=== PATIENT | female | born 1945 | race Caucasian/White ===

== ENCOUNTER → 2019-07-23 11:27 | Outpatient (CLI) | payer MEDICARE, OTHER, SELFPAY ==
[2019-07-23 12:25] LABS: Alanine Aminotransferase 36 IU/L (9-52); Aspartate Aminotransferase 34 IU/L (14-36); BUN Creatinine Ratio 26.3 (6-22); Blood Urea Nitrogen 21 mg/dL (7-17); Carbon Dioxide 33 mmol/L (22-32); Chloride 94 mmol/L (98-107); Cholesterol 174 mg/dL (140-199); Estimated Glomerular Filt Rate > 60.0 mL/min (>60); Glucose 114 mg/dL (80-110); HDL Cholesterol 61 mg/dL (40-60); HEMOLYSIS < 15 (0-50); LDL Cholesterol Calculated 74 mg/dL (<100); Potassium 4.7 mmol/L (3.4-5.1); Sodium 137 mmol/L (137-145); Triglycerides 193 mg/dL (35-150)
[2019-07-23 12:31] LABS: Hematocrit 38.9 % (36-46); Mean Corpuscular HGB Conc 33.4 % (30-36); Mean Corpuscular Hemoglobin 31.1 PG (26-34); Platelet Count 204 X10^3/uL (150-400); Red Blood Cell Count 4.19 X10^6/uL (4.0-5.2); Red Cell Distribution Width 12.9 % (11.6-14.8); White Blood Cell Count 5.3 X10^3/uL (4.5-11.0)
[2019-07-23 12:42] LABS: Vitamin D 25 Hydroxy (D3) 28.7 ng/mL (30.0-100.0)
[2019-07-23 12:56] LABS: TSH w/ Reflex to FT4 0.88 uIU/mL (0.47-4.68)
[2019-07-23 13:15] LABS: Vitamin B12 890 pg/mL (239-931)
--- NOTE | 2019-09-07 11:58 | ONC.MSW ---
Description: New Referral Navigation T/C Activity: Called pt to introduce myself as the navigator, explain role, and clarify reason for referral and urgency level. Pt is seeking to establish with an oncologist for past hx of breast cancer. She does have some nodules in her stomach that are being watched, and need continued evaluation/work-up. She states that sometime in the next 2-weeks would work for her for scheduling. Explained that she will hear from scheduling next, invited her to call me should she have any additional questions/needs prior to her appt. time.
--- NOTE | 2019-09-16 14:03 | ONC.MSW ---
Description: Appt. Confirmation Activity: Pt called asking for a t/c to clarify when her appt. is-called and provided appt. and check-in time.
== END ==
PROVIDERS: Visit Provider Internal Medicine
DX: I10 Essential (primary) hypertension (principal); E78.5 Hyperlipidemia, unspecified; E55.9 Vitamin D deficiency, unspecified; D64.9 Anemia, unspecified; E89.0 Postprocedural hypothyroidism; E53.8 Deficiency of other specified B group vitamins
CPT/HCPCS: 36415; 80048; 80061; 82306; 82607; 84443; 84450; 84460; 85027

== ENCOUNTER → 2019-09-14 16:01 | Outpatient (CLI) | payer MEDICARE, OTHER, SELFPAY ==
--- NOTE | 2019-09-14 | DI.RAD.S_ITS ---
PROCEDURE: XR HIP W PEL IF DONE RT 2V INDICATIONS: RIGHT HIP PAIN TECHNIQUE: AP pelvis with lateral view(s) of the right hip(s). COMPARISON: None. FINDINGS: Bones: No fractures or dislocations but there is asymmetric hip joint osteoarthritis moderately severe on the right and moderate on the left.. Pelvic ring appears intact. No suspicious bony lesions. Prior spine surgery fixation devices are partially seen. Soft tissues: The visualized bowel gas pattern is normal. No suspicious soft tissue calcifications. IMPRESSION: No trauma found. Asymmetric right greater than left hip joint osteoarthritis as noted. Dictated by: Dwight Bahena M.D. on 09/14/2019 at 17:22 Approved by: Dwight Bahena M.D. on 09/14/2019 at 17:23
== END ==
PROVIDERS: PCP Internal Medicine; Visit Provider Internal Medicine
DX: M25.551 Pain in right hip (principal); M16.0 Bilateral primary osteoarthritis of hip
CPT/HCPCS: 73502

== ENCOUNTER → 2019-09-23 13:58 | Oncology outpatient (ONC) | payer MEDICARE, OTHER, SELFPAY ==
[2019-09-23 14:29] VITALS: BP 131/79; PULSE 77; RESP 18; TEMP 36.9; O2SAT 94
--- NOTE | 2019-09-23 15:05 | ONC.MSW ---
Description: F/F Initial Visit Activity: Met with pt to introduce myself in person. Pt is here primarily to establish care for prior breast cancer diagnosis, no immediate needs identified at this time. Encouraged her to call this TRANSLATOR/INTERPRETER anytime should she be in need of assistance in the future.
--- NOTE | 2019-09-23 15:06 | ONC.CONS ---
History of Present Illness - Data of Consult Consult date: 09/23/19 Primary Care Provider: Salma Oquendo MD - Consult Narrative Narrative: Diagnosis: Right-sided breast cancer Previous treatment: 1. Bilateral mastectomy in 1985 2. Adjuvant chemotherapy for 6 months History of present illness: Shanika Brown is a 74 year old female who has moved to the area from [place]. She has a distant history of a right-sided breast cancer that was diagnosed in 1985. She had surgery. She also had 6 months of chemotherapy on a clinical trial. She does not remember all the drugs that were involved but thinks that there was a 6 drug combination. She took steroids as part of her treatment and had substantial weight gain. She has never been able to lose that weight. She notes some ongoing difficulty with her balance. She has also noted some long-standing difficulty with memory and concentration since her chemotherapy. However, she has never had any evidence of a relapse. Today, she is feeling generally well. She has been aware of a few subcutaneous nodules in the abdomen mostly on the left side. She denies any new aches or pains. She has had some chronic back pain which has been stable. She has some arthritis as well. She has not noticed any changes on the chest wall or axilla. Appetite has been good. No shortness of breath or cough. She is otherwise without complaint today. Her past medical history is otherwise notable for hypertension, prior back surgery. She has had 2 operations. 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 She had an extended stay in rehabilitation. She also has a history of hypothyroidism. Family history is notable for multiple family members with cancers including lung, colon and bladder. There is no other family history of breast cancer however. Social history: She is retired. She and her have moved here from [place]. She does not smoke. CC: Kirill Sinclair MD Home Medications and Allergies Home Medications Medication Instructions Recorded Confirmed Type B Complex 1 (with folic acid) 1 tab DAILY 09/23/19 09/23/19 History atorvastatin 80 mg PO DAILY 09/23/19 09/23/19 History calcium carbonate [Calcium 600] 600 mg PO BID 09/23/19 09/23/19 History celecoxib [Celebrex] 200 mg PO DAILY 09/23/19 09/23/19 History cholecalciferol (vitamin D3) 5,000 unit PO DAILY 09/23/19 09/23/19 History [Vitamin D3] cyanocobalamin (vitamin B-12) 1,000 mcg PO DAILY 09/23/19 09/23/19 History [Vitamin B-12] duloxetine 60 mg PO DAILY 09/23/19 09/23/19 History ferrous gluconate 256 mg PO DAILY 09/23/19 09/23/19 History levothyroxine 88 mcg DAILY 09/23/19 09/23/19 History lisinopril-hydrochlorothiazide 1 tab PO DAILY 09/23/19 09/23/19 History magnesium oxide 400 mg PO DAILY 09/23/19 09/23/19 History melatonin 10 mg PO BEDTIME PRN 09/23/19 09/23/19 History methocarbamol 750 mg PO QID 09/23/19 09/23/19 History multivitamin 1 tab PO DAILY 09/23/19 09/23/19 History pregabalin [Lyrica] 300 mg PO BID 09/23/19 09/23/19 History trazodone 100 mg PO DAILY 09/23/19 09/23/19 History Allergies Allergy/AdvReac Type Severity Reaction Status Date / Time prochlorperazine Allergy Anaphylaxis Verified 09/23/19 14:10 [From Compazine] Review of Systems - Patient Self-Reported Symptoms SR Constitution: Fatigue/Malaise SR ears, nose, mouth, throat issues: Difficulty swallowing, Swollen glands SR Cardiovascular issues: Dizzy/lightheaded SR Gastrointestinal issues: Heartburn SR Genitourinary issues: Incontinence SR Musculoskeletal issues: Joint pain or swelling, Muscle weakness, Muscle pain or cramps, Difficulty walking, Bone pain Constitutional: decreased activity level, no weight loss Ears, nose, mouth, throat: lightheadedness Gastrointestinal: no abdominal pain Musculoskeletal: pain, weakness Endocrine: no hormone therapy Hematologic/Lymphatic: no enlarged lymph nodes Exam Vital signs: Vital Signs Temp Pulse Resp BP Pulse Ox 09/23/19 14:29 98.4 F 77 18 131/79 94 Intake and Output 09/22/19 09/23/19 09/23/19 23:59 07:59 15:59 Other: Weight 90.5 kg Patient Weight 09/23/19 23:59 Weight 90.5 kg - Constitutional positive no acute distress, positive average body habitus - Routine HEENT Exam Head: Present: normocephalic, atraumatic Eye: Present: EOMI, PERRL. Absent: conjunctival icterus, scleral injection ENT: Present: mucous membranes moist, oropharynx clear - Routine Neck Exam Present: supple. Absent: lymphadenopathy, thyromegaly - Routine Chest/Breast/Axilla Exam Comments: She has bilateral mastectomies with reconstructions. There well-healed. There is no masses or nodularity. No axillary adenopathy on either side. - Routine Respiratory Exam Present: Clear to auscultation bilaterally. Absent: rales, wheezes - Routine Cardiovascular Exam Present: RRR, S1, S2. Absent: murmur - Routine Abdominal Exam Present: soft, normoactive bowel sounds. Absent: tenderness, organomegaly, mass Comments: She does have some tiny subcutaneous nodules in the left lower to mid abdomen. They are perhaps 3-4 mm in size. There are not tender but she does find them itchy. They feel like lipomas. - Routine Extremities Exam Absent: cyanosis, clubbing, edema - Routine Back/Spine Exam Back/Spine: Present: vertebral tenderness - Routine Skin Exam Present: intact. Absent: petechiae, rash - Routine Neurological Exam Present: alert, oriented X3 - Routine Psychiatric Exam Present: normal affect, normal thought process Assessment and Plan (1) Breast cancer Current visit: Yes Status: Acute 74-year-old woman with a distant history of breast cancer. She is approximately 33 years out from her diagnosis. She has no evidence of disease and is doing well. At this point, I think the likelihood of recurrence is exceedingly small. I think the only follow-up that she needs would be an annual physical exam. This could be performed other by her primary physician or here. She would feel comfortable returning here at least once more. She will come back in 1 year for follow-up.
--- NOTE | 2019-09-24 14:54 | ONC.SCHED ---
Left msg. to make follow up in a year per dictation.
== END ==
LOC: ONC 14:11
PROVIDERS: PCP Internal Medicine
DX: Z08 Encounter for follow-up examination after completed treatment for malignant neoplasm (principal); Z85.3 Personal history of malignant neoplasm of breast; R22.2 Localized swelling, mass and lump, trunk; I10 Essential (primary) hypertension; E03.9 Hypothyroidism, unspecified; Z90.13 Acquired absence of bilateral breasts and nipples
CPT/HCPCS: 99204; 99214

== ENCOUNTER → 2019-10-07 13:07 | Outpatient (CLI) | payer MEDICARE, OTHER, SELFPAY ==
--- NOTE | 2019-10-07 | DI.MRI.S_ITS ---
PROCEDURE: MR LUMBAR SPINE WO CON INDICATIONS: Low back pain TECHNIQUE: Noncontrast sagittal T1 spin echo and T2 fast echo, sagittal STIR, axial T1 and T2 fast spin echo through the lumbar spine. In cases with scoliosis, additional coronal T2 fast spin echo may be performed. COMPARISON: None. FINDINGS: Image quality: Excellent. Alignment and Curvature: There is accentuated lumbar lordosis. There is minimal anterolisthesis at T12-L1, as minimal retrolisthesis at L1-L2. Mild grade 1 retrolisthesis is seen at L2-L3. Mild anterolisthesis is seen at L5-S1. Bone Marrow: Marrow is of normal overall signal. No acute vertebral body compression fractures. Spinal Cord: Conus medullaris terminates at the L1 level. Visualized cord demonstrates normal signal and size. Paraspinous Soft Tissues: No paravertebral masses. Postoperative changes are seen, with disc spacers at the L1-L2, L2-L3, L3-L4, and L5-S1 levels. There has been removal of portions of the posterior elements. T12-L1: Moderate to severe loss of disc height and disc signal are seen. Moderate disc bulge is seen. There is a central disc protrusion present. There is moderate right-sided and moderate to severe left-sided neural foraminal narrowing seen. There is compression seen upon the exiting left T12 nerve root. Moderate to severe central canal narrowing is seen, as on series 5 image 11. L1-L2: Moderate bulge is seen. There is moderate to severe right-sided and moderate left-sided neural foraminal narrowing seen. There is a degree of compression seen upon the exiting nerve roots. Mild central canal narrowing is seen. L2-L3: Moderate generalized disc bulge is seen. Moderate facet joint hypertrophy is seen. There is severe bilateral neural foraminal narrowing seen. There is a degree of compression seen upon the exiting nerve roots. Moderate central canal narrowing is seen. L3-L4: Moderate generalized disc bulge is seen. Moderate to prominent facet hypertrophy is seen. Moderate to severe bilateral neural foraminal narrowing can be seen. There is a degree of compression seen upon the exiting nerve roots. Mild central canal narrowing is seen. L4-L5: Moderate generalized disc bulge is seen. Moderate to prominent facet hypertrophy is seen. There is at least moderate bilateral neural foraminal narrowing seen. There is a degree of compression seen upon the exiting nerve roots. No significant central canal narrowing is seen. L5-S1: The disc height is well-preserved. Loss of disc signal is seen at this level. Prominent facet hypertrophy is seen. Moderate to severe bilateral neural foraminal narrowing can be seen. There is a degree of compression seen upon the exiting nerve roots. At least moderate central canal narrowing is seen. IMPRESSION: Postoperative changes are seen. Degenerative changes are seen, including severe bilateral neural foraminal narrowing at L2-L3. Several levels of moderate to severe neural foraminal narrowing can be seen elsewhere. Associated nerve root compression can be seen. Dictated by: Philip Noriega M.D. on 10/07/2019 at 16:08 Approved by: Philip Noriega M.D. on 10/07/2019 at 16:14
== END ==
PROVIDERS: PCP Internal Medicine; Visit Provider Anesthesiology Pain Medicine
DX: M54.5 Low back pain (principal); M47.816 Spondylosis without myelopathy or radiculopathy, lumbar region; M47.817 Spondylosis without myelopathy or radiculopathy, lumbosacral region; M48.061 Spinal stenosis, lumbar region without neurogenic claudication; M48.07 Spinal stenosis, lumbosacral region
CPT/HCPCS: 72148

== ENCOUNTER → 2020-04-06 12:55 | Outpatient (CLI) | payer MEDICARE, OTHER, SELFPAY ==
[2020-04-06 14:09] LABS: Alanine Aminotransferase 24 IU/L (<35); Albumin 4.6 g/dL (3.5-5.0); Albumin Globulin Ratio 1.6 (1.0-2.8); Alkaline Phosphatase 113 U/L (38-126); Aspartate Aminotransferase 33 IU/L (14-36); BUN Creatinine Ratio 20.7 (6-22); Bilirubin Total 0.5 mg/dL (0.2-1.3); Blood Urea Nitrogen 17 mg/dL (7-17); Carbon Dioxide 33 mmol/L (22-32); Chloride 101 mmol/L (98-107); Estimated Glomerular Filt Rate > 60.0 mL/min (>60); Globulin 2.9 g/dL (1.7-4.1); Glucose 123 mg/dL (80-110); HDL Cholesterol 45 mg/dL (40-60); HEMOLYSIS < 15 (0-50); Potassium 4.3 mmol/L (3.4-5.1); Sodium 138 mmol/L (137-145); Total Protein 7.5 g/dL (6.3-8.2); Triglycerides 359 mg/dL (35-150)
[2020-04-06 14:16] LABS: Erythrocyte Sedimentation Rate 4 MM/HR (0-20)
[2020-04-06 14:42] LABS: C-Reactive Protein Quant < 0.5 mg/dL (<1.0)
[2020-04-06 14:43] LABS: Cholesterol 333 mg/dL (140-199); LDL Cholesterol Calculated 216 mg/dL (<100)
[2020-04-06 14:46] LABS: Thyroid Stimulating Hormone 1.08 uIU/mL (0.47-4.68)
[2020-04-06 16:00] LABS: Vitamin D 25 Hydroxy (D3) 33.6 ng/mL (30.0-100.0)
== END ==
PROVIDERS: PCP Internal Medicine; Referring Provider Internal Medicine; Visit Provider Internal Medicine
DX: R51 Headache (principal); E55.9 Vitamin D deficiency, unspecified
CPT/HCPCS: 36415; 80053; 80061; 82306; 84443; 85651; 86140

== ENCOUNTER → 2020-04-18 13:39 | Outpatient (CLI) | payer MEDICARE, OTHER, SELFPAY ==
--- NOTE | 2020-04-18 | DI.MRI.S_ITS ---
PROCEDURE: MR THORACIC SPINE WO CON INDICATIONS: Upper back pain TECHNIQUE: Noncontrast sagittal T1 spine echo and T2 fast spin echo, sagittal STIR, axial T1 and T2 fast spin echo through the thoracic spine. COMPARISON: [facility], MR, MR LUMBAR SPINE WO/W CON, 04/18/2020, 14:50. [facility], MR, MR LUMBAR SPINE WO CON, 10/07/2019, 13:16. FINDINGS: Image quality: Excellent. Alignment and Curvature: There is trace retrolisthesis of C6 on C7. Bone Marrow: Marrow is of normal overall signal. No acute vertebral body compression fractures. Spinal Cord: Visualized spinal cord is normal in size and signal. Paraspinous Soft Tissues: No paravertebral masses. Miscellaneous: Multilevel moderate disc desiccation is present throughout the thoracic spine. Minimal disc bulge is present at T1-T2, C5-6, T6-7, T7-8, T8 and in, T9-10, T10-11, T11-12 and T12-L1. There is minimal effacement of the anterior thecal sac at T6-7, minimal spinal stenosis T7-8, mild to moderate spinal stenosis T8-T9,, minimal to mild stenosis at T10-11 and mild to moderate stenosis T12-L1. Mild bilateral foraminal narrowing T8-T9, mild left T9 and 10, moderate left, mild right T11-12, moderate to severe left, moderate right T12-L1. IMPRESSION: 1. Multilevel disc bulges. 2. Multilevel areas of spinal stenosis secondary to disc bulge as above, most notable at T8-9, T12-L1. 3. Focal areas of foraminal narrowing as noted above. Dictated by: Teri Mooney M.D. on 04/18/2020 at 16:59 Approved by: Teri Mooney M.D. on 04/18/2020 at 17:05
--- NOTE | 2020-04-18 | DI.MRI.S_ITS ---
PROCEDURE: MR LUMBAR SPINE WO/W CON INDICATIONS: Low back pain TECHNIQUE: Noncontrast sagittal T1 spin echo and T2 fast spin echo, sagittal STIR, axial T1 and T2 fast spin echo through the lumbar spine. In cases with scoliosis, additional coronal T2 fast spin echo may be performed. After the administration of contrast, sagittal and axial T1 spin echo with fat saturation through the lumbar spine. COMPARISON: [facility], MR, MR THORACIC SPINE WO CON, 04/18/2020, 13:53. [facility], MR, MR LUMBAR SPINE WO CON, 10/07/2019, 13:16. FINDINGS: Image quality: Excellent. Alignment and curvature: Prominent lumbar lordosis is present. There is trace retrolisthesis of T12 on L1, L1 on L2, L2 on L3 comment trace anterolisthesis of L5 on S1, unchanged. Postsurgical changes are present in her presenting disc spacers from L1-L2 through L4-5 with resection of posterior elements. Marrow: Marrow is of normal overall signal. No acute vertebral body compression fractures. Old compression deformity at L2 is unchanged. No suspicious marrow enhancement. Spinal cord: Conus medullaris terminates at the L1 level. Visualized spinal cord demonstrates normal signal, without suspicious enhancement. Paraspinous soft tissues: No paravertebral masses or abnormal enhancement. Discs: Moderate to severe desiccation is present throughout the lumbar spine. L1-L2: Mild disc bulge with mild spinal stenosis. There is moderate to severe bilateral foraminal narrowing appearing minimally progressive on the left compared to prior exam. Facet and ligamentum flavum hypertrophy are present. L2-L3: Mild disc bulge with moderate spinal stenosis. Severe bilateral foraminal narrowing with compression of exiting nerve roots bilaterally is present. Facet hypertrophy is present. No interval change. L3-L4: Mild disc bulge with mild spinal stenosis. Moderate to severe bilateral foraminal narrowing with facet hypertrophy. No interval change. L4-L5: Mild disc bulge without spinal stenosis. Moderate bilateral foraminal narrowing with slight compromise of the exiting nerve roots. Facet hypertrophy is present. No interval change. L5-S1: Mild disc bulge with severe spinal stenosis appearing slightly progressive. There is moderate to severe bilateral foraminal narrowing facet hypertrophy. No interval change. IMPRESSION: 1. Multilevel degenerative and post operative changes as above. Overall, minimal interval progression. 2. Prominent multilevel foraminal narrowing is present predominantly secondary to facet arthropathy and most significant at L2-3. Dictated by: Teri Mooney M.D. on 04/18/2020 at 17:06 Approved by: Teri Mooney M.D. on 04/18/2020 at 17:13
== END ==
PROVIDERS: PCP Internal Medicine; Referring Provider Internal Medicine; Visit Provider Internal Medicine
DX: M47.26 Other spondylosis with radiculopathy, lumbar region (principal); M47.27 Other spondylosis with radiculopathy, lumbosacral region; M48.04 Spinal stenosis, thoracic region; M48.05 Spinal stenosis, thoracolumbar region; M48.07 Spinal stenosis, lumbosacral region; M48.061 Spinal stenosis, lumbar region without neurogenic claudication; M51.14 Intervertebral disc disorders with radiculopathy, thoracic region; G89.29 Other chronic pain
CPT/HCPCS: 72146; 72158

== ENCOUNTER → 2020-05-31 13:42 | Outpatient (CLI) | payer MEDICARE, OTHER, SELFPAY ==
--- NOTE | 2020-05-31 | DI.MRI.S_ITS ---
PROCEDURE: MR CERVICAL SPINE WO CON INDICATIONS: CERVICALGIA TECHNIQUE: Noncontrast sagittal T1 spin echo and T2 fast spin echo, sagittal STIR, foraminal oblique sagittal T2 fast spin echo, and axial gradient echo or T2 fast spin echo through the cervical spine. COMPARISON: None. FINDINGS: Image quality: This examination is limited by involuntary motion artifact. Alignment and Curvature: There is mild reversal of the normal cervical lordosis, with the apex at the C4-C5 level. Bone Marrow: Marrow demonstrates normal overall signal. Spinal Cord: Visualized spinal cord has normal size and signal. No cerebellar tonsillar herniation. Paraspinous Soft Tissues: No paravertebral masses. Prevertebral soft tissues are normal in thickness. C2-C3: The disc height is well-preserved. Loss of disc signal is seen at this level. Mild to moderate disc osteophyte complex is seen, with a mild central disc osteophyte protrusion. There is moderate right-sided and [id number] left-sided facet hypertrophy seen. There is mild to moderate left-sided and no significant right-sided neural foraminal narrowing seen. Mild to moderate central canal narrowing is seen. C3-C4: Mild loss of disc height is seen. Loss of disc signal is seen. Moderate generalized disc osteophyte complex is seen. There is a central disc osteophyte protrusion seen. There is moderate right-sided and mild left-sided facet hypertrophy seen. There is moderate to severe right-sided and at least moderate left-sided neural foraminal narrowing seen. Moderate central canal narrowing is seen. There is associated mass effect upon the ventral spinal cord. C4-C5: The disc height is well-preserved. Loss of disc signal is seen at this level. Mild to moderate disc osteophyte complex is seen, which is eccentric to the left. Mild to moderate facet hypertrophy is seen. There is a at least moderate left-sided and minimal to mild right-sided neural foraminal narrowing seen. Mild to moderate central canal narrowing is seen. C5-C6: Mild loss of disc height is seen. Loss of disc signal is seen. Moderate disc osteophyte complex is seen at this level. There is a central/right disc osteophyte protrusion, as on series 3, image 29. Moderate facet hypertrophy is seen, left worse than right. There is moderate to severe bilateral neural foraminal narrowing seen. Moderate to severe central canal narrowing is seen. There is associated mass effect upon the ventral spinal cord. C6-C7: There is at least moderate loss of disc height and disc signal seen. Moderate prominent disc osteophyte complex is seen, which is eccentric to the right. There is also a central/left disc osteophyte protrusion, as on series 3, image 33. Uncovertebral joint hypertrophy is seen at this level. Moderate facet joint hypertrophy is seen. Moderate to severe bilateral neural foraminal narrowing is seen. Moderate to severe central canal narrowing is seen, with associated ventral cord flattening. C7-T1: The disc height is well-preserved. Loss of disc signal is seen at this level. Mild to moderate disc osteophyte complex is seen. Mild facet joint hypertrophy is seen. There is mild right-sided and [id number] left-sided neural foraminal narrowing seen. Minimal central canal narrowing is seen. IMPRESSION: Multiple levels of cervical spine degenerative change are seen, which are most prominent at the C6-C7 level. Reversal of the normal cervical lordosis is seen. This is commonly observed in patients with muscular spasm. Dictated by: Philip Noriega M.D. on 05/31/2020 at 15:17 Approved by: Philip Noriega M.D. on 05/31/2020 at 15:23
[2020-05-31 15:39] LABS: Erythrocyte Sedimentation Rate 5 MM/HR (0-20)
[2020-05-31 15:45] LABS: C-Reactive Protein Quant 0.6 mg/dL (<1.0)
== END ==
PROVIDERS: PCP Internal Medicine; Referring Provider Internal Medicine Gastroenterology; Visit Provider Internal Medicine Gastroenterology
DX: M54.2 Cervicalgia (principal); M47.812 Spondylosis without myelopathy or radiculopathy, cervical region; R51 Headache; M54.17 Radiculopathy, lumbosacral region
CPT/HCPCS: 36415; 72141; 85651; 86140

== ENCOUNTER → 2020-09-27 14:51 | Outpatient (CLI) | payer MEDICARE, OTHER, SELFPAY ==
--- NOTE | 2020-09-27 15:17 | DI.ECHO.S_ITS ---
:Name: EMEKA CALLEJAS Study Date: 09/27/2020 Height: 64 in : :Hospital Weight: 200 lb : : Gender: Female BSA: 2.0 m2 : :: 1945 Age: 75 yrs BP: 148/81 mmHg: :Reason For Study: SLEEP APNEA, DYSPNEA : :Ordering Physician: SAJI LADDPerformed By: Camila Smith : :Referring: SAJI LADD : + + Interpretation Summary The left ventricle is normal in size. The left ventricular cavity is small. A minimal intracavitary gradient is suspected. The left ventricle is hyperdynamic. The ejection fraction is estimated to be 70-75%. There are no focal wall motion abnormalities. Diastolic parameters suggest a relaxation abnormality of the left ventricle, consistent with probable normal filling pressures. The right ventricle is normal in size and function. The left atrial size is normal. Right atrial size is normal. There is no significant valvular heart disease. The ascending aorta is mildly enlarged. Procedure: A two-dimensional transthoracic echocardiogram with color flow and Doppler was performed. The study quality was technically adequate. There is no prior echocardiogram noted for this patient. The patient was in sinus rhythm with heart rates between 75-83 bpm during the exam. Left Ventricle: The left ventricle is normal in size. There is mild concentric left ventricular hypertrophy. The left ventricular cavity is small. An intracavitary gradient is suspected. The left ventricle is hyperdynamic. The ejection fraction is estimated to be 70-75%. There are no focal wall motion abnormalities. Diastolic parameters suggest a relaxation abnormality of the left ventricle, consistent with probable normal filling pressures. Right Ventricle: The right ventricle is normal in size and function. Atria: The left atrial size is normal. Right atrial size is normal. There is no Doppler evidence for an interatrial shunt. Mitral Valve: The mitral valve leaflets appear mildly thickened, but open well. There is no mitral regurgitation noted. Aortic Valve: The aortic valve is trileaflet. The aortic valve opens well. There is no aortic valve stenosis. There is trace aortic regurgitation. Tricuspid Valve: The tricuspid valve is normal in structure and function. No tricuspid regurgitation. Pulmonary artery pressures cannot be estimated because of the lack of a measurable TR jet velocity but the IVC suggests a CVP of around 3 mmHg. Pulmonic Valve: The pulmonic valve leaflets are thin and pliable; valve motion is normal. There is no pulmonic valvular regurgitation. There is no significant valvular heart disease. Great Vessels: The aortic root is normal size. The ascending aorta is mildly enlarged. The IVC is of normal diameter and collapses greater than 50% with a sniff. This suggests a low right atrial pressure of 3 mm Hg. Pericardium/ Pleura There is no pericardial effusion. There is no pleural effusion. MMode/2D Measurements & Calculations LVIDd: 4.1 cm LVOT diam: 2.0 cm LVIDs: 2.7 cm Ao root diam: 3.6 cm FS: 35.2 % asc Aorta Diam: 3.5 cm IVSd: 1.1 cm Ao Arch Diam (Prox Trans): 2.7 cm LVPWd: 1.2 cm LV brenner. diameter/BSA (cm/m^2): 2.1 LV sys. diameter/BSA (cm/m^2): 1.4 LA A2 area: 21.4 cm2 RA long axis: 4.6 cm LA A4 area: 15.1 cm2 RA area: 11.4 cm2 LA length (vol): 5.1 cm RA vol: 23.9 ml LA vol: 53.5 ml RA : 12.2 ml/m2 LA vol index: 27.3 ml/m2 IVC diam: 1.5 cm RVD1 (basal): 2.9 cm TAPSE: 2.2 cm Doppler Measurements & Calculations Ao V2 max: 143.0 cm/sec LVOT Max Tacos: 105.0 cm/sec Ao V2 mean: 104.1 cm/sec LV V1 max P.4 mmHg Ao max P.2 mmHg LV V1 VTI: 20.8 cm Ao mean P.8 mmHg STACIE(I,D): 2.2 cm2 Ao V2 VTI: 29.6 cm STACIE(V,D): 2.3 cm2 sev ratio: 0.70 STACIE indexed to BSA (cm^2/m^2): 1.1 MV E max tacos: 68.0 cm/sec PA V2 max: 92.9 cm/sec MV A max tacos: 81.7 cm/sec PA V2 mean: 61.3 cm/sec MV E/A: 0.83 PA mean P.8 mmHg Med Peak E' Tacos: 7.0 cm/sec PA pr(Accel): 49.9 mmHg E/E' med: 9.8 Lat Peak E' Tacos: 9.8 cm/sec E/E' lat: 6.9 E/e' average: 8.4 MV dec time: 0.28 sec SV(LVOT): 64.5 ml Reading Physician:07:14 PM
== END ==
PROVIDERS: PCP Internal Medicine; Referring Provider Internal Medicine; Visit Provider Internal Medicine
DX: R06.00 Dyspnea, unspecified (principal); G47.30 Sleep apnea, unspecified; I77.89 Other specified disorders of arteries and arterioles
CPT/HCPCS: 93306

== ENCOUNTER → 2020-10-03 10:33 | Outpatient (CLI) | payer MEDICARE, OTHER, SELFPAY ==
[2020-10-03 11:53] LABS: Hemoglobin A1C% w Est Avg Glu 5.8 % (4.0-6.0)
[2020-10-03 12:16] LABS: Alanine Aminotransferase 23 IU/L (<35); Cholesterol 186 mg/dL (140-199); HDL Cholesterol 54 mg/dL (40-60); LDL Cholesterol Calculated 101 mg/dL (<100); Triglycerides 157 mg/dL (35-150)
[2020-10-03 12:26] LABS: NT-proBNP (BNP-Adult 18+) 48 pg/mL (<450)
[2020-10-05 16:20] LABS: ANA Screen, IFA Negative (.)
== END ==
PROVIDERS: PCP Internal Medicine; Referring Provider Internal Medicine; Visit Provider Internal Medicine
DX: E78.5 Hyperlipidemia, unspecified (principal); R06.00 Dyspnea, unspecified; R73.9 Hyperglycemia, unspecified; H04.123 Dry eye syndrome of bilateral lacrimal glands; K11.7 Disturbances of salivary secretion; Z85.3 Personal history of malignant neoplasm of breast; G47.30 Sleep apnea, unspecified; E53.8 Deficiency of other specified B group vitamins
CPT/HCPCS: 36415; 80061; 81162; 83036; 83880; 84460; 86038

== ENCOUNTER → 2020-10-07 09:43 | Outpatient (CLI) | payer MEDICARE, OTHER, SELFPAY ==
--- NOTE | 2020-10-07 | DI.US.S_ITS ---
PROCEDURE: US PERIPH VENOUS LOW EXTREM RT INDICATIONS: PAIN TECHNIQUE: Real-time imaging, as well as color and pulse Doppler interrogation, were performed of the lower extremity deep veins from the inguinal ligament to the popliteal fossa. COMPARISON: None. FINDINGS: The common femoral, femoral and popliteal veins are normally compressible, and free of intraluminal thrombus. Color and pulse Doppler demonstrate normal phasic intraluminal flow. There is normal augmentation response to distal compression maneuver. IMPRESSION: No right lower extremity DVT. Dictated by: Kevin Chong M.D. on 10/07/2020 at 18:39 Approved by: Kevin Chong M.D. on 10/07/2020 at 18:40
== END ==
PROVIDERS: PCP Internal Medicine; Referring Provider Internal Medicine; Visit Provider Internal Medicine
DX: M79.661 Pain in right lower leg (principal)
CPT/HCPCS: 93971

== ENCOUNTER 2020-11-08 15:32 | Emergency (ER) | payer MEDICARE, OTHER, SELFPAY ==
[2020-11-08 15:40] VITALS: PULSE 81; O2SAT 96
[2020-11-08 15:42] VITALS: PULSE 76; RESP 16; TEMP 37; O2SAT 99; BMI 33.5
--- NOTE | 2020-11-08 15:46 | DI.CT.S_ITS ---
PROCEDURE: CT HEAD/BRAIN WO CON INDICATIONS: hit head 11/04 pain, nausea and confusion since TECHNIQUE: Noncontrast 4.5 mm thick angled axial sections acquired from the foramen magnum to the vertex, with coronal and sagittal reformats. For radiation dose reduction, the following was used: automated exposure control, adjustment of mA and/or kV according to patient size. COMPARISON: None. FINDINGS: Image quality: Excellent. CSF spaces: Basal cisterns are patent. No extra-axial fluid collections. Ventricles are normal in size and shape. Brain: No midline shift. No intracranial masses or hemorrhage. Basal ganglia calcifications. No area of hypodensity in a large vascular distribution to suggest acute infarction. Periventricular hypodensity consistent with chronic microvascular ischemic change. Age-related parenchymal loss. Skull and face: Calvarium and visualized facial bones are intact, without suspicious lesions. Sinuses: Visualized sinuses and mastoids are clear. IMPRESSION: No acute intracranial abnormality. Chronic microvascular ischemic disease. Dictated by: Kevin Chong M.D. on 11/08/2020 at 16:14 Approved by: Kevin Chong M.D. on 11/08/2020 at 16:16
[2020-11-08 17:51] VITALS: BP 142/67; PULSE 75; RESP 18; O2SAT 94
--- NOTE | 2020-11-08 18:40 | ED_ITS ---
HPI - Head Injury General Chief complaint: Head Injury Stated complaint: nausea, headache, confusion s/p head injury 11/04 Time Seen by Provider: 11/08/20 18:40 Source: patient Mode of arrival: Wheelchair History of Present Illness HPI Narrative: The patient was at an arts event 4 days ago, while there she stumbled, fell backwards. She landed on her buttocks, her head snapped back, she hit the occiput of her head. She thinks she experienced brief LOC. she still has headache, she still feels confused. She has no vision changes. She has no speech changes. She has no peripheral numbness or weakness. Additionally, she has undergone prior lumbar surgery. She has a lumbar fusion with a stimulator in place. She complains of lumbar back pain. She is ambulatory, no numbness or weakness to lower extremities. She has no incontine nce. Related Data Home Medications Medication Instructions Recorded Confirmed B Complex 1 (with folic acid) 1 tab DAILY 09/23/19 09/23/19 atorvastatin 80 mg PO DAILY 09/23/19 09/23/19 calcium carbonate [Calcium 600] 600 mg PO BID 09/23/19 09/23/19 celecoxib [Celebrex] 200 mg PO DAILY 09/23/19 09/23/19 cholecalciferol (vitamin D3) 5,000 unit PO DAILY 09/23/19 09/23/19 [Vitamin D3] cyanocobalamin (vitamin B-12) 1,000 mcg PO DAILY 09/23/19 09/23/19 [Vitamin B-12] duloxetine 60 mg PO DAILY 09/23/19 09/23/19 ferrous gluconate 256 mg PO DAILY 09/23/19 09/23/19 levothyroxine 88 mcg DAILY 09/23/19 09/23/19 lisinopril-hydrochlorothiazide 1 tab PO DAILY 09/23/19 09/23/19 magnesium oxide 400 mg PO DAILY 09/23/19 09/23/19 melatonin 10 mg PO BEDTIME PRN 09/23/19 09/23/19 methocarbamol 750 mg PO QID 09/23/19 09/23/19 multivitamin 1 tab PO DAILY 09/23/19 09/23/19 pregabalin [Lyrica] 300 mg PO BID 09/23/19 09/23/19 trazodone 100 mg PO DAILY 09/23/19 09/23/19 Allergies Allergy/AdvReac Type Severity Reaction Status Date / Time prochlorperazine Allergy Anaphylaxis Verified 11/08/20 15:44 [From Compazine] Review of Systems Constitutional Constitutional: Reports system reviewed and no additional complaints, except as documented, Denies fatigue, Denies fever(s), Denies frequent falls, Reports headache(s) and Denies weakness Eyes Eyes: Denies blurry vision and Denies change in vision ENT Ears, Nose, Mouth, and Throat: Reports dizziness, Reports headache(s), Denies epistaxis, Denies mouth lesions and Denies sore throat Cardiovascular Cardiovascular: Denies chest pain, Denies irregular heart rhythm, Denies lightheadedness and Denies dyspnea Respiratory Respiratory: Denies cough, Denies dyspnea and Denies wheezing Gastrointestinal Gastrointestinal: Denies abdominal pain, Denies nausea and Denies vomiting Genitourinary Genitourinary: Denies dysuria and Denies urinary incontinence Genitourinary: Denies dysuria and Denies urinary incontinence Musculoskeletal Musculoskeletal: Denies numbness Comments: Lumbar pain as noted HPI. No peripheral numbness or weakness. No extremity injuries. Integumentary/Breasts Skin/Breast: Denies erythema, Denies rash and Denies wounds Neurologic Neurologic: Denies behavioral changes, Reports confusion, Reports dizziness, Denies frequent falls, Reports headache(s), Denies numbness, Denies sensory deficit and Denies weakness Psychiatric Psychiatric: Denies anxiety, Denies behavioral changes, Reports confusion and Denies depression Endocrine Endocrine: Denies fatigue Allergic/Immunologic Allergic/Immunologic: Denies wheezing Patient History Medical History Fusion of lumbar spine Surgical History History of bilateral knee replacement Social History Smoking Status: Never smoker Smoking Status: Never smoker alcohol intake frequency: a few times a month Substance Use Type: does not use Exam Initial Vital Signs Initial Vital Signs: Vital Signs Pulse Rate 81 11/08/20 15:40 Pulse Oximetry 96 11/08/20 15:40 Const General: cooperative and well developed Nutritional Appearance: well nourished Limitations: mental status not altered [facility] Head: normocephalic, atraumatic and other (No visual or palpable deformities.) Mouth: oral mucosae normal, tongue normal and moist mucous membranes Teeth and gingiva: dentition normal Throat: posterior oropharynx normal Eyes General: appearance normal, both eyes and all related structures Eyelids: eyelids normal Conjunctivae: conjunctivae normal Sclera: sclerae normal Pupils: PERRL EOM: EOM intact bilaterally Neck Neck: normal visual inspection, full ROM and supple Resp Auscultation: clear to auscultation bilaterally Cardio Rate: regular rate Rhythm: regular rhythm Heart Sounds: no click, no gallops, no murmurs and no rubs Pulses: normal peripheral pulses Back/Spine/Pelvis Other: Lumbar tenderness, around scars from prior operative sites. No palpable defects. No SI tenderness. No evidence of injury. Skin General: no rashes or lesions noted, No jaundice and No petechiae Neuro General: patient alert, patient awake and patient oriented x3 Motor: muscle tone normal throughout Sensory Exam: no sensory deficits noted Extrem General: normal to inspection and full ROM Other: Normal gait. No trauma. Psych Mental Status: mental status grossly normal Course Orders Ordered: ED Orders 11/08/20 15:46 CT head/brain wo con Stat 11/08/20 18:42 XR lumbar spine 2-3V Stat Vital Signs Vital signs: Vital Signs - 8 hr 11/08/20 17:51 11/08/20 19:46 Pulse Rate 75 78 Respiratory Rate 18 16 Blood Pressure 142/67 H 141/68 H Pulse Oximetry 94 96 MDM - Head Injury Imaging Data CT scan - head: Radiologist's Impression: [address] [id number] Scan ReportSigned Patient: Shanika Brown CMR#: [id number]: 1945cct:[id number]/Sex: 75 / FDate of Service: 11/08/20Loc: EDAccession Number: [id number] Procedure: CT head/brain wo con Ordering Provider: Radha Smith D.O. PROCEDURE: CT HEAD/BRAIN WO CON INDICATIONS: hit head 11/04 pain, nausea and confusion since TECHNIQUE: Noncontrast 4.5 mm thick angled axial sections acquired from the foramen magnum to the vertex, with coronal and sagittal reformats. For radiation dose reduction, the following was used: automated exposure control, adjustment of mA and/or kV according to patient size. COMPARISON: None. FINDINGS: Image quality: Excellent. CSF spaces: Basal cisterns are patent. No extra-axial fluid collections. Ventricles are normal in size and shape. Brain: No midline shift. No intracranial masses or hemorrhage. Basal ganglia calcifications. No area of hypodensity in a large vascular distribution to suggest acute infarction. Periventricular hypodensity consistent with chronic microvascular ischemic change. Age-related parenchymal loss. Skull and face: Calvarium and visualized facial bones are intact, without suspicious lesions. Sinuses: Visualized sinuses and mastoids are clear. IMPRESSION: No acute intracranial abnormality. Chronic microvascular ischemic disease. Dictated by: Kevin Chong M.D. on 11/08/2020 at 16:14 Approved by: Kevin Chong M.D. on 11/08/2020 at 16:16 Lumbar spine XR: Radiologist's Impression: 56 Jaziel Theodore MD Find Patient Imaging - Shanika Brown 75 F 1945 ACTIVITY DATE EXAM STATUS AUTHOR 11/08/20 18:42 Signed Teri Mooney 11/08/20 15:[address] [id number] ReportSigned Patient: Shanika Brown CMR#: [id number]: 1945cct:[id number]/Sex: 75 / FDate of Service: 11/08/20Loc: EDAccession Number: [id number] Procedure: XR lumbar spine 2-3V Ordering Provider: Jaziel Theodore MD PROCEDURE: XR LUMBAR SPINE 2-3V INDICATIONS: Follow-up. Lumbar pain. Prior lumbar surgery. TECHNIQUE: 3 views of the lumbar spine were acquired. COMPARISON: [facility], , MR LUMBAR SPINE WO/W CON, 04/18/2020, 14:50. [facility], , MR LUMBAR SPINE WO CON, 10/07/2019, 13:16. FINDINGS: Bones: 5 [id number] vertebrae are present. Intervertebral spacers are present at L1-L2, L2-3, L3-4 and L4-5. Severe compression deformity at L2 with retrolisthesis of L2 on L3 is unchanged. Multilevel severe foraminal narrowing is present throughout the lumbar spine. No vertebral body compression fractures. No suspicious bony lesions. Soft tissues: Overlying bowel gas pattern is normal. No suspicious soft tissue calcifications. Stimulator device is noted overlying the right lower quadrant with wires identified extending to superior to the included [id number]. IMPRESSION: Multilevel postsurgical and degenerative changes. Overall, appearance is relatively stable compared to MRI of 04/18/2020. Dictated by: Teri Mooney M.D. on 11/08/2020 at 19:28 Approved by: Teri Mooney M.D. on 11/08/2020 at 19:30 Discharge Plan Departure Patient Disposition: Home Clinical Impression: Concussion Qualifiers: Encounter type: initial encounter Loss of consciousness presence/duration: with LOC of 30 min or less Qualified Code(s): S06.0X1A - Concussion with loss of consciousness of 30 minutes or less, initial encounter Acute lumbar myofascial strain Qualifiers: Encounter type: initial encounter Qualified Code(s): S39.012A - Strain of muscle, fascia and tendon of lower back, initial encounter Instructions: Concussion Activity Restrictions/Additional Instructions: Tylenol 2 tabs every 4 hours as needed for low back pain. Regarding the concussion, rest at home. Avoid significant activity. Tried to let your brain rest. Return the ER as necessary. Prescriptions: No Action B Complex 1 (with folic acid) 1 tab DAILY RF: 0 multivitamin Tablet 1 tab PO DAILY RF: 0 celecoxib [Celebrex] 200 mg Capsule 200 mg PO DAILY RF: 0 cyanocobalamin (vitamin B-12) [Vitamin B-12] 1,000 mcg Tablet Extended Release 1,000 mcg PO DAILY RF: 0 atorvastatin 80 mg Tablet 80 mg PO DAILY RF: 0 levothyroxine 88 mcg Tablet 88 mcg DAILY RF: 0 calcium carbonate [Calcium 600] 600 mg calcium (1,500 mg) Tablet 600 mg PO BID RF: 0 methocarbamol 750 mg Tablet 750 mg PO QID RF: 0 trazodone 100 mg Tablet 100 mg PO DAILY RF: 0 lisinopril-hydrochlorothiazide 20-25 mg Tablet 1 tab PO DAILY RF: 0 duloxetine 60 mg Capsule,Delayed Release(Dr/Ec) 60 mg PO DAILY RF: 0 pregabalin [Lyrica] 300 mg Capsule 300 mg PO BID RF: 0 cholecalciferol (vitamin D3) [Vitamin D3] 5,000 unit Tablet 5,000 unit PO DAILY RF: 0 magnesium oxide 400 mg magnesium Capsule 400 mg PO DAILY RF: 0 melatonin 10 mg Tablet 10 mg PO BEDTIME PRN (Reason: Insomnia) RF: 0 ferrous gluconate 256 mg (28 mg iron) Tablet 256 mg PO DAILY RF: 0 Referrals: Sangeeta Vazquez MD [Primary Care Provider] -
--- NOTE | 2020-11-08 18:42 | DI.RAD.S_ITS ---
PROCEDURE: XR LUMBAR SPINE 2-3V INDICATIONS: Follow-up. Lumbar pain. Prior lumbar surgery. TECHNIQUE: 3 views of the lumbar spine were acquired. COMPARISON: [facility], MR, MR LUMBAR SPINE WO/W CON, 04/18/2020, 14:50. [facility], MR, MR LUMBAR SPINE WO CON, 10/07/2019, 13:16. FINDINGS: Bones: 5 [id number] vertebrae are present. Intervertebral spacers are present at L1-L2, L2-3, L3-4 and L4-5. Severe compression deformity at L2 with retrolisthesis of L2 on L3 is unchanged. Multilevel severe foraminal narrowing is present throughout the lumbar spine. No vertebral body compression fractures. No suspicious bony lesions. Soft tissues: Overlying bowel gas pattern is normal. No suspicious soft tissue calcifications. Stimulator device is noted overlying the right lower quadrant with wires identified extending to superior to the included [id number]. IMPRESSION: Multilevel postsurgical and degenerative changes. Overall, appearance is relatively stable compared to MRI of 04/18/2020. Dictated by: Teri Mooney M.D. on 11/08/2020 at 19:28 Approved by: Teri Mooney M.D. on 11/08/2020 at 19:30
[2020-11-08 19:46] VITALS: BP 141/68; PULSE 78; RESP 16; O2SAT 96
== END 2020-11-08 19:46 | disposition home or self-care (01) ==
PROVIDERS: Emergency Provider Emergency Medicine; PCP Internal Medicine
DX: S06.0X1A Concussion with loss of consciousness of 30 minutes or less, initial encounter (principal); S39.012A Strain of muscle, fascia and tendon of lower back, initial encounter; R51.9 Headache, unspecified; R41.0 Disorientation, unspecified; W19.XXXA Unspecified fall, initial encounter
CPT/HCPCS: 70450; 72100; 99281; 99284

== ENCOUNTER → 2020-12-14 13:25 | Outpatient (CLI) | payer MEDICARE, OTHER, SELFPAY ==
--- NOTE | 2021-01-10 08:35 | PM.CARDMON.1 ---
[employer] Report Referral & Results Date Patient Seen: 12/14/20 Requesting provider: Emma Larios Indication: Palpitations Duration of monitoring (days): 14 Diary information: There were 6 patient triggered events and 4 patient diary entries Patient triggered events were associated with (within 45 seconds) sinus rhythm, PVCs, and SVT Patient diary entries were associated with (within 45 seconds) sinus rhythm only Data: Minimum heart rate identified was 61 beats per minute at 08:14 on 12/22/2020 Maximum sinus heart rate was 120 beats per minute at 13:36 on 12/24/2020 Maximum overall heart rate was 203 beats per minute at 20:00 on 12/21/2020 during a 5 beat run of SVT Less than 1% of identified beats or either ventricular supraventricular ectopic in origin There were 8 runs of SVT with the longest lasting 14 beats and the fastest being the 5 beat run above Impression: Patient with very rare very brief runs of SVT that based on patient triggered events may well be associated with sense of palpitations Clinical correlation suggested
== END ==
PROVIDERS: PCP Internal Medicine; Referring Provider Physician Assistant; Visit Provider Physician Assistant
DX: R00.2 Palpitations (principal)
CPT/HCPCS: 93246; 93248

== ENCOUNTER → 2020-12-20 09:08 | Outpatient (CLI) | payer MEDICARE, OTHER, SELFPAY ==
[2020-12-20 11:58] LABS: COVID19 -Nasal RAPID Negative (Negative)
== END ==
PROVIDERS: PCP Internal Medicine; Visit Provider Family Medicine Sleep Medicine
DX: Z20.822 Contact with and (suspected) exposure to COVID-19 (principal)
CPT/HCPCS: 87635; C9803

== ENCOUNTER → 2021-02-15 10:40 | Outpatient (CLI) | payer MEDICARE, OTHER, SELFPAY ==
--- NOTE | 2021-02-15 10:48 | DI.RAD.S_ITS ---
PROCEDURE: XR THORACIC SPINE 3V INDICATIONS: CERVICAL SPINE PAIN TECHNIQUE: 3 views of the thoracic spine were acquired. COMPARISON: None. FINDINGS: Bones: No fracture. Multilevel spondylosis/endplate changes. Diffuse facet arthropathy. Spinal electrodes are seen projecting at the T7-T8 level. Cervical spondylosis also noted. Soft tissues: No paravertebral stripe thickening. IMPRESSION: Lower cervical spondylosis and facet arthropathy. Dictated by: Stas Barahona M.D. on 02/15/2021 at 12:42 Approved by: Stas Barahona M.D. on 02/15/2021 at 12:44
--- NOTE | 2021-02-15 10:49 | DI.RAD.S_ITS ---
PROCEDURE: XR LUMBAR SPINE 2-3V INDICATIONS: PAIN TECHNIQUE: 3 views of the lumbar spine were acquired. COMPARISON: [facility], MR, MR LUMBAR SPINE WO/W CON, 04/18/2020, 14:50. [facility], CR, XR LUMBAR SPINE 2-3V, 11/08/2020, 19:01. FINDINGS: Bones: No definite acute fracture however severely limited diagnostic sensitivity due to severe discogenic changes. Chronic L2 fracture deformity. There is grade 1 retrolisthesis of L1 on L2. Severe narrowing of the T12-L1 disc space. Postsurgical changes with interbody cage grafts at L2-L3, L3-L4, L4-L5 and L5-S1. Partially visualized spinal cord stimulator. Lateral curvature of the spine Soft tissues: Overlying bowel gas pattern is normal. Scattered vascular calcifications incidentally noted in the aorta. IMPRESSION: Multilevel postsurgical changes and severe spondylosis as above. Diffuse facet arthropathy. Overall, no definite interval change since 11/08/20 Dictated by: Stas Barahona M.D. on 02/15/2021 at 12:30 Approved by: Stas Barahona M.D. on 02/15/2021 at 12:33
--- NOTE | 2021-02-15 10:50 | DI.RAD.S_ITS ---
PROCEDURE: XR CERVICAL SPINE 2V OR 3V INDICATIONS: CERVICAL PAIN TECHNIQUE: 3 view(s) of the cervical spine were acquired. COMPARISON: None. FINDINGS: Bones: No fracture Straightening of the normal lordotic curvature. Multilevel spondylosis/endplate changes. Diffuse facet arthropathy. Mild to moderate narrowing of the C6-C7 disc space. Trace retrolisthesis of C6 on C7. Soft tissues: Carotid atherosclerotic plaques incidentally noted. IMPRESSION: Straightening of the normal lordotic curvature. Lower cervical spondylosis and facet arthropathy as above Dictated by: Stas Barahona M.D. on 02/15/2021 at 12:29 Approved by: Stas Barahona M.D. on 02/15/2021 at 12:30
[2021-02-15 11:21] LABS: Add Manual Diff / Slide Review NO; Basophils Absolute Auto 100 /uL (0-100); Basophils Percent Auto 1.1 % (0-2); Eosinophils Absolute Auto 100 /uL (0-450); Eosinophils Percent Auto 2.3 % (2-4); Hematocrit 39.1 % (36-46); Hemoglobin 13.1 g/dL (12.0-16.0); Lymphocytes Absolute Auto 1100 /uL (1100-4500); Lymphocytes Percent Auto 22.4 % (25-40); Mean Corpuscular HGB Conc 33.4 % (30-36); Mean Corpuscular Hemoglobin 31.2 PG (26-34); Mean Corpuscular Volume 93.5 fL (80-100); Monocytes Absolute Auto 400 /uL (0-900); Neutrophils Absolute Auto 3300 /uL (1500-7000); Neutrophils Percent Auto 66.2 % (50-75); Platelet Count 220 X10^3/uL (150-400); Red Blood Cell Count 4.18 X10^6/uL (4.0-5.2); Red Cell Distribution Width 13.5 % (11.6-14.8)
[2021-02-15 11:40] LABS: Alanine Aminotransferase 31 IU/L (<35); Albumin 4.6 g/dL (3.5-5.0); Albumin Globulin Ratio 1.6 (1.0-2.8); Alkaline Phosphatase 133 U/L (38-126); Aspartate Aminotransferase 34 IU/L (14-36); BUN Creatinine Ratio 25.9 (6-22); Bilirubin Total 0.3 mg/dL (0.2-1.3); Blood Urea Nitrogen 21 mg/dL (7-17); C-Reactive Protein Quant < 0.5 mg/dL (<1.0); Calcium 9.6 mg/dL (8.4-10.2); Carbon Dioxide 29 mmol/L (22-32); Chloride 102 mmol/L (98-107); Cholesterol 193 mg/dL (140-199); Estimated Glomerular Filt Rate > 60.0 mL/min (>60); Globulin 2.8 g/dL (1.7-4.1); Glucose 122 mg/dL (80-110); HDL Cholesterol 65 mg/dL (40-60); HEMOLYSIS < 15 (0-50); LDL Cholesterol Calculated 97 mg/dL (<100); Potassium 4.5 mmol/L (3.4-5.1); Sodium 137 mmol/L (137-145); Total Protein 7.4 g/dL (6.3-8.2); Triglycerides 156 mg/dL (35-150)
[2021-02-15 11:45] LABS: Erythrocyte Sedimentation Rate 5 MM/HR (0-20)
[2021-02-15 12:25] LABS: Vitamin B12 987 pg/mL (239-931)
[2021-02-15 12:35] LABS: Iron 53 ug/dL (37-170)
[2021-02-15 12:44] LABS: Vitamin D 25 Hydroxy (D3) 39.5 ng/mL (30.0-100.0)
[2021-02-15 13:04] LABS: TSH w/ Reflex to FT4 0.76 uIU/mL (0.47-4.68)
== END ==
PROVIDERS: Referring Provider Physician Assistant; Visit Provider Physician Assistant
DX: I10 Essential (primary) hypertension (principal); Z86.39 Personal history of other endocrine, nutritional and metabolic disease; E55.9 Vitamin D deficiency, unspecified; G89.29 Other chronic pain; M54.2 Cervicalgia; M47.816 Spondylosis without myelopathy or radiculopathy, lumbar region
CPT/HCPCS: 36415; 72040; 72072; 72100; 80053; 80061; 82306; 82607; 83540; 84443; 85025; 85651; 86140

== ENCOUNTER → 2021-03-21 16:32 | Outpatient (CLI) | payer MEDICARE, OTHER, SELFPAY ==
[2021-03-21 17:03] LABS: COVID19 -Nasal RAPID Negative (Negative)
== END ==
PROVIDERS: Visit Provider Family Medicine Sleep Medicine
DX: Z20.822 Contact with and (suspected) exposure to COVID-19 (principal); G47.33 Obstructive sleep apnea (adult) (pediatric); G47.01 Insomnia due to medical condition; G47.61 Periodic limb movement disorder; E66.9 Obesity, unspecified; Z87.898 Personal history of other specified conditions
CPT/HCPCS: 87635; 95811

== ENCOUNTER → 2021-04-03 14:30 | Outpatient (CLI) | payer MEDICARE, OTHER, SELFPAY ==
--- NOTE | 2021-04-03 14:32 | DI.ECHO.S_ITS ---
[facility] +---------+ : : [address] : : : : [id number] : : : : Phone: [phone]+ Echocardiogram Report + + :Name: EMEKA CALLEJAS Study Date: 04/03/2021 Height: 64 in : :[facility] ReadingLocation: Weight: 200 lb : : Gender: Female BSA: 2.0 m2 : :: 1945 Age: 75 yrs BP: 134/79 mmHg: :Reason For Study: SHORTNESS OF BREATH : :Ordering Physician: LOIS, : :ENA Performed By: Camila Smith : :Referring: ENA ABREU : + + Interpretation Summary Normal sinus rhythm. Normal LV size and wall thickness. Normal wall motion and LV systolic function. EF is 60-65%. Stage I diastolic dysfunction. No significant valvular abnormalities. Normal chamber sizes. Compared to prior study 09/2020 no changes have occurred. Procedure: A two-dimensional transthoracic echocardiogram with color flow and Doppler was performed. The study quality was technically adequate. Comparison is made with the echocardiogram of 09/27/2020. The patient was in sinus rhythm with heart rates between 71-83 bpm during the exam. Left Ventricle: The left ventricle is normal in size and wall thickness. An intracavitary gradient is suspected. The ejection fraction is estimated to be 60-65%. Right Ventricle: The right ventricle is normal in size and function. Atria: The left atrial size is normal. Right atrial size is normal. There is no Doppler evidence for an interatrial shunt. Mitral Valve: The mitral valve leaflets appear mildly thickened, but open well. There is trace mitral regurgitation. Aortic Valve: The aortic valve is trileaflet. The aortic valve opens well. There is no aortic valve stenosis. No aortic regurgitation is present. Tricuspid Valve: The tricuspid valve is normal in structure and function. No tricuspid regurgitation. Pulmonary artery pressures cannot be estimated because of the lack of a measurable TR jet velocity but the IVC suggests a CVP of around 3 mmHg. Pulmonic Valve: The pulmonic valve leaflets are thin and pliable; valve motion is normal. There is no pulmonic valvular regurgitation. Great Vessels: The aortic root is normal size. The ascending aorta is mildly enlarged. The IVC is of normal diameter and collapses greater than 50% with a sniff. This suggests a low right atrial pressure of 3 mm Hg. Pericardium/ Pleura There is no pericardial effusion. There is no pleural effusion. MMode/2D Measurements & Calculations LVIDd: 4.5 cm LVOT diam: 2.0 cm LVIDs: 2.6 cm Ao root diam: 3.8 cm FS: 42.5 % asc Aorta Diam: 3.7 cm IVSd: 1.1 cm Ao Arch Diam (Prox Trans): 2.6 cm LVPWd: 0.97 cm LV brenner. diameter/BSA (cm/m^2): 2.3 LV sys. diameter/BSA (cm/m^2): 1.3 LA A2 area: 18.1 cm2 RA long axis: 4.3 cm LA A4 area: 14.9 cm2 RA area: 11.6 cm2 LA length (vol): 4.6 cm RA vol: 26.8 ml LA vol: 49.5 ml RA : 13.7 ml/m2 LA vol index: 25.3 ml/m2 IVC diam: 1.3 cm RVD1 (basal): 3.7 cm TAPSE: 2.0 cm Doppler Measurements & Calculations Ao V2 max: 162.2 cm/sec LVOT Max Tacos: 102.7 cm/sec Ao V2 mean: 115.5 cm/sec LV V1 max P.2 mmHg Ao max P.5 mmHg LV V1 VTI: 24.3 cm Ao mean P.8 mmHg STACIE(I,D): 2.0 cm2 Ao V2 VTI: 38.7 cm STACIE(V,D): 2.0 cm2 sev ratio: 0.63 STACIE indexed to BSA (cm^2/m^2): 1.00 MV E max tacos: 76.3 cm/sec PA V2 max: 112.6 cm/sec MV A max tacos: 81.1 cm/sec PA V2 mean: 81.3 cm/sec MV E/A: 0.94 PA mean P.9 mmHg MV dec time: 0.29 sec PA pr(Accel): 29.3 mmHg SV(LVOT): 75.6 ml Electronically signed by: Whitney Lisa M.D. on Reading Physician:04/06/2021 03:22 PM
== END ==
PROVIDERS: Referring Provider Physician Assistant; Visit Provider Physician Assistant
DX: R06.02 Shortness of breath (principal); I77.89 Other specified disorders of arteries and arterioles
CPT/HCPCS: 93306

== ENCOUNTER → 2021-04-18 16:05 | Outpatient (CLI) | payer MEDICARE, OTHER, SELFPAY ==
[2021-04-18 16:57] LABS: Add Manual Diff / Slide Review NO; Basophils Absolute Auto 100 /uL (0-100); Basophils Percent Auto 1.1 % (0-2); Eosinophils Absolute Auto 100 /uL (0-450); Eosinophils Percent Auto 1.5 % (2-4); Hemoglobin 12.7 g/dL (12.0-16.0); Lymphocytes Absolute Auto 1300 /uL (1100-4500); Lymphocytes Percent Auto 24.3 % (25-40); Mean Corpuscular HGB Conc 33.5 % (30-36); Mean Corpuscular Hemoglobin 30.9 PG (26-34); Mean Corpuscular Volume 92.2 fL (80-100); Monocytes Absolute Auto 600 /uL (0-900); Monocytes Percent Auto 11.7 % (3-14); Neutrophils Absolute Auto 3200 /uL (1500-7000); Neutrophils Percent Auto 61.4 % (50-75); Platelet Count 231 X10^3/uL (150-400); Red Blood Cell Count 4.13 X10^6/uL (4.0-5.2); Red Cell Distribution Width 12.9 % (11.6-14.8); White Blood Cell Count 5.2 X10^3/uL (4.5-11.0)
[2021-04-18 17:21] LABS: HEMOLYSIS < 15 (0-50); Iron 34 ug/dL (37-170)
[2021-04-18 17:23] LABS: Alanine Aminotransferase 34 IU/L (<35); Albumin 4.5 g/dL (3.5-5.0); Albumin Globulin Ratio 1.6 (1.0-2.8); Alkaline Phosphatase 122 U/L (38-126); Aspartate Aminotransferase 39 IU/L (14-36); BUN Creatinine Ratio 25.3 (6-22); Bilirubin Total 0.3 mg/dL (0.2-1.3); Blood Urea Nitrogen 22 mg/dL (7-17); Calcium 9.5 mg/dL (8.4-10.2); Carbon Dioxide 31 mmol/L (22-32); Chloride 97 mmol/L (98-107); Estimated Glomerular Filt Rate > 60.0 mL/min (>60); Globulin 2.9 g/dL (1.7-4.1); Glucose 99 mg/dL (80-110); HEMOLYSIS < 15 (0-50); Magnesium 1.9 mg/dL (1.6-2.3); Potassium 3.8 mmol/L (3.4-5.1); Sodium 134 mmol/L (137-145); Total Protein 7.4 g/dL (6.3-8.2)
[2021-04-18 17:30] LABS: NT-proBNP (BNP-Adult 18+) 27 pg/mL (<450)
[2021-04-18 17:33] LABS: Percent Iron Saturation 10 % (15-50); Total Iron Binding Capacity 335 ug/dL (265-497); Transferrin 254 mg/dL (206-381)
[2021-04-18 17:36] LABS: Vitamin D 25 Hydroxy (D3) 32.9 ng/mL (30.0-100.0)
[2021-04-18 17:55] LABS: TSH w/ Reflex to FT4 0.66 uIU/mL (0.47-4.68)
[2021-04-18 17:56] LABS: Ferritin 135 ng/mL (11-264)
[2021-04-18 18:09] LABS: Vitamin B12 > 1000 pg/mL (239-931)
== END ==
PROVIDERS: PCP Physician Assistant; Referring Provider Physician Assistant; Visit Provider Physician Assistant
DX: R06.02 Shortness of breath (principal); I10 Essential (primary) hypertension; Z86.39 Personal history of other endocrine, nutritional and metabolic disease; E03.9 Hypothyroidism, unspecified; E55.9 Vitamin D deficiency, unspecified; R60.9 Edema, unspecified; E53.8 Deficiency of other specified B group vitamins
CPT/HCPCS: 36415; 80053; 82306; 82607; 82728; 83540; 83550; 83735; 83880; 84443; 85025

== ENCOUNTER 2021-09-25 13:15 | Emergency (ER) | payer MEDICARE, OTHER, SELFPAY ==
[2021-09-25] VITALS (26 sets, daily range): BP systolic 137–178; BP diastolic 74–87; PULSE 64–81; RESP 14–18; TEMP 36.6–36.8; O2SAT 96–100; BMI 30.9
[2021-09-25 13:28] LABS: Prothrombin Time 11.4 SECONDS (10.1-12.7)
[2021-09-25 13:31] LABS: Add Manual Diff / Slide Review NO; Basophils Absolute Auto 0 /uL (0-100); Basophils Percent Auto 0.7 % (0-2); Eosinophils Absolute Auto 0 /uL (0-450); Eosinophils Percent Auto 0.1 % (2-4); Hematocrit 42.5 % (36-46); Hemoglobin 14.8 g/dL (12.0-16.0); Lymphocytes Absolute Auto 1400 /uL (1100-4500); Lymphocytes Percent Auto 19.6 % (25-40); Mean Corpuscular HGB Conc 34.8 % (30-36); Mean Corpuscular Hemoglobin 31.5 PG (26-34); Mean Corpuscular Volume 90.5 fL (80-100); Monocytes Absolute Auto 500 /uL (0-900); Monocytes Percent Auto 7.1 % (3-14); Neutrophils Absolute Auto 5100 /uL (1500-7000); Neutrophils Percent Auto 72.5 % (50-75); PTT Partial Thromboplastin Tim 31 SECONDS (26.4-36.2); Platelet Count 238 X10^3/uL (150-400); Red Blood Cell Count 4.69 X10^6/uL (4.0-5.2); Red Cell Distribution Width 13.1 % (11.6-14.8); White Blood Cell Count 7.1 X10^3/uL (4.5-11.0)
[2021-09-25 13:32] LABS: Alanine Aminotransferase 28 IU/L (<35); Albumin 5.3 g/dL (3.5-5.0); Albumin Globulin Ratio 1.6 (1.0-2.8); Alkaline Phosphatase 135 U/L (38-126); Aspartate Aminotransferase 31 IU/L (14-36); BUN Creatinine Ratio 29.9 (6-22); Bilirubin Total 0.9 mg/dL (0.2-1.3); Blood Urea Nitrogen 23 mg/dL (7-17); Calcium 10.6 mg/dL (8.4-10.2); Carbon Dioxide 26 mmol/L (22-32); Chloride 100 mmol/L (98-107); Estimated Glomerular Filt Rate > 60.0 mL/min (>60); Globulin 3.3 g/dL (1.7-4.1); Glucose 111 mg/dL (80-110); HEMOLYSIS < 15 (0-50); Lipase 126 U/L (23-300); Potassium 3.6 mmol/L (3.4-5.1); Sodium 138 mmol/L (137-145); Total Protein 8.6 g/dL (6.3-8.2)
[2021-09-25 13:59] LABS: COVID19 -Nasal RAPID Negative (Negative)
[2021-09-25] MEDS: SODIUM CHLORIDE 0.9% 1,000 ML 1000 ML IV ×2 (14:16→16:21)
--- NOTE | 2021-09-25 14:29 | ED_ITS ---
HPI - Nausea/Vomiting/Diarrhea <Sloane Huffman PA-C - Last Filed: 09/25/21 20:53> General Chief complaint: Nausea/Vomiting/Diarrhea Stated complaint: n/v x 3 days Time Seen by Provider: 09/25/21 13:57 Source: patient and EMS Mode of arrival: EMS Limitations: no limitations History of Present Illness HPI Narrative: 76-year-old female with past medical history hypertension, hyperlipidemia, hyp othyroidism, GERD presents to the ED with 5 days of nausea, vomiting, diarrhea. Patient states that her symptoms started after she ate some turkey 5 days ago. Patient endorses some chills, denies fever. Patient denies chest pain, shortness of breath, cough, dysuria. Patient endorses bilateral flank pain, nausea, vomiting, diarrhea. Patient endorses generalized abdominal cramping. Denies dysuria, lightheadedness, dizziness, syncope. Patient was unable to tolerate fluids or solids by mouth. Patient was given some Zofran on the ambulance, which resolved the nausea. Related Data Home Medications Medication Instructions Recorded Confirmed B Complex 1 (with folic acid) 1 tab DAILY 09/23/19 05/11/21 calcium carbonate 600 mg calcium 600 mg PO BID 09/23/19 05/11/21 (1,500 mg) tablet (Calcium) celecoxib 200 mg capsule (Celebrex) 200 mg PO DAILY 09/23/19 05/11/21 cyanocobalamin (vitamin B-12) 1,000 mcg PO DAILY 09/23/19 05/11/21 1,000 mcg tablet,extended release (Vitamin B-12 ER) duloxetine 60 mg capsule,delayed 60 mg PO DAILY 09/23/19 05/11/21 release levothyroxine 88 mcg tablet 88 mcg DAILY 09/23/19 05/11/21 melatonin 10 mg tablet 10 mg PO BEDTIME PRN 09/23/19 05/11/21 multivitamin 1 tab PO DAILY 09/23/19 05/11/21 pregabalin 300 mg capsule (Lyrica) 300 mg PO BID 09/23/19 05/11/21 trazodone 100 mg tablet 100 mg PO DAILY 09/23/19 05/11/21 amlodipine 5 mg-benazepril 10 mg 1 cap PO DAILY 12/13/20 05/11/21 capsule cholecalciferol (vitamin D3) 125 1,000 unit PO DAILY tab 12/13/20 05/11/21 mcg (5,000 unit) tablet (Vitamin D3) cyclobenzaprine 5 mg tablet 5 mg PO BEDTIME PRN 12/13/20 05/11/21 losartan 50 mg tablet 50 mg PO BID 12/13/20 05/11/21 magnesium oxide 250 mg PO DAILY cap 12/13/20 05/11/21 rosuvastatin 5 mg tablet 5 mg PO DAILY 12/13/20 05/11/21 Previous Rx's Medication Instructions Recorded cefpodoxime 200 mg tablet 200 mg PO BID 14 Days #28 tab 09/25/21 Allergies Allergy/AdvReac Type Severity Reaction Status Date / Time adhesive tape Allergy Mild Verified 05/11/21 10:16 prochlorperazine Allergy Anaphylaxis Verified 05/11/21 10:16 [From Compazine] Review of Systems <Sloane Huffman PA-C - Last Filed: 09/25/21 20:53> Review of Systems ROS Unobtainable: All systems reviewed & are unremarkable except as noted in HPI and below Constitutional Constitutional: Reports chills, Denies fatigue, Denies fever(s), Denies frequent falls, Denies lethargy and Denies weakness Eyes Eyes: Denies change in vision, Denies eye discharge, Denies irritation and Denies loss of vision ENT Ears, Nose, Mouth, and Throat: Denies change in voice, Denies dizziness, Denies neck pain, Denies sore throat and Denies throat swelling Cardiovascular Cardiovascular: Denies chest pain, Denies irregular heart rhythm, Denies lightheadedness, Denies palpitations, Denies dyspnea, Denies dyspnea on exertion and Denies orthopnea Respiratory Respiratory: Denies cough, Denies dyspnea, Denies dyspnea on exertion and Denies wheezing Gastrointestinal Gastrointestinal: Reports abdominal pain, Denies change in bowel habits, Reports diarrhea, Reports nausea and Reports vomiting Comments: Bilateral flank pain Genitourinary Genitourinary: Denies hematuria, Denies dysuria, Denies flank pain, Denies urinary incontinence and Denies urinary urgency Musculoskeletal Musculoskeletal: Denies back pain, Denies muscle weakness, Denies neck pain, Denies numbness and Denies tingling Integumentary/Breasts Skin/Breast: Denies pruritus, Denies erythema, Denies rash and Denies wounds Neurologic Neurologic: Denies behavioral changes, Denies confusion, Denies dizziness, Denies frequent falls, Denies loss of vision, Denies numbness, Denies tingling and Denies weakness Psychiatric Psychiatric: Denies anxiety, Denies behavioral changes, Denies confusion, Denies depression, Denies homicidal ideation and Denies suicidal ideation Endocrine Endocrine: Denies fatigue, Denies flushing and Denies palpitations Hematologic/Lymphatic Hematologic/Lymphatic: Denies easy bruising Allergic/Immunologic Allergic/Immunologic: Denies urticaria, Denies throat swelling and Denies wheezing Patient History <Sloane Huffman PA-C - Last Filed: 09/25/21 20:53> Medical History Conte's esophagus Chronic lumbar pain Closed head injury with brief loss of consciousness Esophageal stricture Failed back surgical syndrome GERD (gastroesophageal reflux disease) History of paralysis History of snoring Hyperlipidemia Hypertension Hypothyroidism Insomnia due to medical condition Malignant neoplasm of unspecified site of unspecified female breast Obesity (BMI 30-39.9) Obstructive sleep apnea, adult (01/09/21) Spinal stenosis of lumbar region at multiple levels Urge incontinence Vitamin D deficiency, unspecified Surgical History History of bilateral knee replacement History of bilateral mastectomy History of hysterectomy History of lumbar fusion History of lumbar laminectomy History of partial thyroidectomy Family History Father Hypertension Alcohol abuse Mother Alcohol abuse Family/Other Hypertension Bipolar disorder ADD (attention deficit disorder) Substance abuse Social History Smoking Status: Former smoker alcohol intake: current (15 glasses wine weekly) substance use type: other (vapes CBD for pain/sleep) Smoking Status: Former smoker alcohol intake frequency: a few times a month Substance Use Type: does not use Exam <Sloane Huffman PA-C - Last Filed: 09/25/21 20:53> Initial Vital Signs Initial Vital Signs: Vital Signs Temperature 98.3 F 09/25/21 13:10 Pulse Rate 70 09/25/21 13:10 Respiratory Rate 14 09/25/21 13:10 Blood Pressure 137/81 09/25/21 13:10 Pulse Oximetry 99 09/25/21 13:10 Const General: cooperative, healthy appearing and comfortable [facility] Head: normal to inspection Eyes General: appearance normal, both eyes and all related structures Neck Neck: normal visual inspection Chest Chest: normal inspection of the chest Resp Effort & Inspection: normal respiratory effort Auscultation: clear to auscultation bilaterally Cardio Rate: regular rate Rhythm: regular rhythm GI Inspection: normal to inspection Other: Abdomen is soft, non distended. Mild generalized tenderness to palpation. No CVA tenderness. General: No CVA tenderness Back/Spine/Pelvis Back: normal to inspection Skin General: no rashes or lesions noted Neuro General: patient alert, patient awake and patient oriented x3 Psych Appearance: grossly normal <Larisa Davis MD - Last Filed: 09/30/21 20:37> Initial Vital Signs Initial Vital Signs: Vital Signs Temperature 98.3 F 09/25/21 13:10 Pulse Rate 70 09/25/21 13:10 Respiratory Rate 14 09/25/21 13:10 Blood Pressure 137/81 09/25/21 13:10 Pulse Oximetry 99 09/25/21 13:10 Course <Sloane Huffman PA-C - Last Filed: 09/25/21 20:53> Course Course Narrative: CT abdomen pelvis indicative of gastroenteritis but no other acute changes. UA positive for UTI. Patient prescribed cefpodoxime, Zofran Patient's nausea controlled with Zofran. ED return precautions discussed, patient discharged home. Patient verbalized understanding. Orders Ordered: Discontinued Medications Sodium Chloride (Normal Saline 0.9%) 1,000 mls @ 1,000 mls/hr IV BOLUS ONE Stop: 09/25/21 15:02 Last Infusion: 09/25/21 16:08 Dose: 0 mls/hr Documented by: LUZ MARIA Admin: 09/25/21 14:16 Dose: 1,000 mls/hr Documented by: LUZ MARIA Sodium Chloride (Normal Saline 0.9%) 1,000 mls @ 1,000 mls/hr IV BOLUS ONE Stop: 09/25/21 17:16 Last Infusion: 09/25/21 17:49 Dose: 0 mls/hr Documented by: LUZ MARIA Admin: 09/25/21 16:21 Dose: 1,000 mls/hr Documented by: ISRAEL Ketorolac Tromethamine (Ketorolac 30 Mg/Ml Vial) 15 mg IV NOW ONE Stop: 09/25/21 18:45 Last Admin: 09/25/21 18:50 Dose: 15 mg Documented by: LUZ MARIA Ondansetron HCl (Ondansetron 4 Mg/2 Ml Inj) 4 mg IV NOW ONE Stop: 09/25/21 18:02 Last Admin: 09/25/21 18:09 Dose: 4 mg Documented by: LUZ MARIA Vital Signs Vital signs: Vital Signs - 8 hr 09/25/21 13:10 09/25/21 13:16 09/25/21 13:24 Temperature 98.3 F Pulse Rate 70 67 66 Respiratory Rate 14 Blood Pressure 137/81 154/87 H Pulse Oximetry 99 100 98 09/25/21 13:30 09/25/21 13:42 09/25/21 14:00 Temperature Pulse Rate 65 67 Respiratory Rate 18 Blood Pressure 176/79 H Pulse Oximetry 97 96 09/25/21 14:15 09/25/21 14:30 09/25/21 14:31 Temperature Pulse Rate 69 64 66 Respiratory Rate Blood Pressure 178/74 H Pulse Oximetry 98 98 98 09/25/21 14:45 09/25/21 15:00 09/25/21 15:01 Temperature Pulse Rate 64 78 72 Respiratory Rate Blood Pressure 161/74 H Pulse Oximetry 100 96 98 09/25/21 15:15 09/25/21 15:49 09/25/21 16:00 Temperature Pulse Rate 70 81 68 Respiratory Rate 18 Blood Pressure Pulse Oximetry 97 97 99 09/25/21 16:15 09/25/21 16:30 09/25/21 16:45 Temperature Pulse Rate 68 66 69 Respiratory Rate Blood Pressure Pulse Oximetry 98 97 99 09/25/21 17:00 09/25/21 17:15 09/25/21 17:30 Temperature Pulse Rate 69 78 67 Respiratory Rate Blood Pressure Pulse Oximetry 98 97 98 09/25/21 17:45 09/25/21 18:00 09/25/21 18:02 Temperature Pulse Rate 69 69 70 Respiratory Rate Blood Pressure 164/74 H Pulse Oximetry 98 98 98 09/25/21 18:15 09/25/21 19:00 Temperature 97.8 F Pulse Rate 69 Respiratory Rate Blood Pressure Pulse Oximetry 97 <Larisa Davis MD - Last Filed: 09/30/21 20:37> Orders Ordered: Discontinued Medications Sodium Chloride (Normal Saline 0.9%) 1,000 mls @ 1,000 mls/hr IV BOLUS ONE Stop: 09/25/21 15:02 Last Infusion: 09/25/21 16:08 Dose: 0 mls/hr Documented by: LUZ MARIA Admin: 09/25/21 14:16 Dose: 1,000 mls/hr Documented by: LUZ MARIA Sodium Chloride (Normal Saline 0.9%) 1,000 mls @ 1,000 mls/hr IV BOLUS ONE Stop: 09/25/21 17:16 Last Infusion: 09/25/21 17:49 Dose: 0 mls/hr Documented by: LUZ MARIA Admin: 09/25/21 16:21 Dose: 1,000 mls/hr Documented by: ISRAEL Ketorolac Tromethamine (Ketorolac 30 Mg/Ml Vial) 15 mg IV NOW ONE Stop: 09/25/21 18:45 Last Admin: 09/25/21 18:50 Dose: 15 mg Documented by: LUZ MARIA Ondansetron HCl (Ondansetron 4 Mg/2 Ml Inj) 4 mg IV NOW ONE Stop: 09/25/21 18:02 Last Admin: 09/25/21 18:09 Dose: 4 mg Documented by: LUZ MARIA Vital Signs Vital signs: Vital Signs - 8 hr 09/25/21 13:10 09/25/21 13:16 09/25/21 13:24 Temperature 98.3 F Pulse Rate 70 67 66 Respiratory Rate 14 Blood Pressure 137/81 154/87 H Pulse Oximetry 99 100 98 09/25/21 13:30 09/25/21 13:42 09/25/21 14:00 Temperature Pulse Rate 65 67 Respiratory Rate 18 Blood Pressure 176/79 H Pulse Oximetry 97 96 09/25/21 14:15 09/25/21 14:30 09/25/21 14:31 Temperature Pulse Rate 69 64 66 Respiratory Rate Blood Pressure 178/74 H Pulse Oximetry 98 98 98 09/25/21 14:45 09/25/21 15:00 09/25/21 15:01 Temperature Pulse Rate 64 78 72 Respiratory Rate Blood Pressure 161/74 H Pulse Oximetry 100 96 98 09/25/21 15:15 09/25/21 15:49 09/25/21 16:00 Temperature Pulse Rate 70 81 68 Respiratory Rate 18 Blood Pressure Pulse Oximetry 97 97 99 09/25/21 16:15 09/25/21 16:30 09/25/21 16:45 Temperature Pulse Rate 68 66 69 Respiratory Rate Blood Pressure Pulse Oximetry 98 97 99 09/25/21 17:00 09/25/21 17:15 09/25/21 17:30 Temperature Pulse Rate 69 78 67 Respiratory Rate Blood Pressure Pulse Oximetry 98 97 98 09/25/21 17:45 09/25/21 18:00 09/25/21 18:02 Temperature Pulse Rate 69 69 70 Respiratory Rate Blood Pressure 164/74 H Pulse Oximetry 98 98 98 09/25/21 18:15 09/25/21 19:00 Temperature 97.8 F Pulse Rate 69 Respiratory Rate Blood Pressure Pulse Oximetry 97 MDM - Nausea/Vomiting/Diarrhea <Sloane Huffman PA-C - Last Filed: 09/25/21 20:53> Lab Data Attestation: I reviewed the patient's lab results. Lab results narrative: Labs within normal limits. UA positive for UTI. GI panel negative. Result diagrams: 09/25/21 13:02 09/25/21 13:02 Labs: Lab Results 09/25/21 09/25/21 09/25/21 Range/Units 13:02 13:02 13:02 WBC 7.1 (4.5-11.0) X10^3/uL RBC 4.69 (4.0-5.2) X10^6/uL Hgb 14.8 (12.0-16.0) g/dL Hct 42.5 (36-46) % MCV 90.5 (80-100) fL MCH 31.5 (26-34) PG MCHC 34.8 (30-36) % RDW 13.1 (11.6-14.8) % Plt Count 238 (150-400) X10^3/uL Neut % (Auto) 72.5 (50-75) % Lymph % (Auto) 19.6 L (25-40) % Colbert % (Auto) 7.1 (3-14) % Eos % (Auto) 0.1 L (2-4) % Baso % (Auto) 0.7 (0-2) % Neut # (Auto) 5100 (2489-9560) /uL Lymph # (Auto) 1400 (2769-6850) /uL Colbert # (Auto) 500 (0-900) /uL Eos # (Auto) 0 (0-450) /uL Baso # (Auto) 0 (0-100) /uL PT 11.4 (10.1-12.7) SECONDS INR 1.0 (0.9-1.3) APTT 31 (26.4-36.2) SECONDS Sodium 138 (137-145) mmol/L Potassium 3.6 (3.4-5.1) mmol/L Chloride 100 (98-107) mmol/L Carbon Dioxide 26 (22-32) mmol/L BUN 23 H (7-17) mg/dL Creatinine 0.77 (0.52-1.04) mg/dL Estimated GFR > 60.0 (>60) mL/min BUN/Creatinine Ratio 29.9 H (6-22) Glucose 111 H (80-110) mg/dL Lactate (0.7-2.1) mmol/L Calcium 10.6 H (8.4-10.2) mg/dL Total Bilirubin 0.9 (0.2-1.3) mg/dL AST 31 (14-36) IU/L ALT 28 (<35) IU/L Alkaline Phosphatase 135 H (38-126) U/L Total Protein 8.6 H (6.3-8.2) g/dL Albumin 5.3 H (3.5-5.0) g/dL Globulin 3.3 (1.7-4.1) g/dL Albumin/Globulin Ratio 1.6 (1.0-2.8) Lipase 126 (23-300) U/L Urine Color Urine Appearance Urine pH (4.5-8.0) Ur Specific [place] (1.000-1.035) Urine Protein (Negative) Urine Glucose (UA) (Negative) g/dL Urine Ketones (NEGATIVE) Urine Occult Blood (Negative) Urine Nitrate (Negative) Urine Bilirubin (NEGATIVE) Urine Urobilinogen (0.2) E.U./dL Ur Leukocyte Esterase (NEGATIVE) Urine RBC (0-5/HPF) Urine WBC (0-5/HPF) Ur Squamous Epith Cells (0-5/HPF) Urine Bacteria (None) Urine Mucus (Negative) Ur Culture Indicated? Stl C. cayetanensis PCR (Not Detect) Stool Rotavirus (PCR) (Not Detect) Stool Adenovirus (PCR) (Not Detect) Stool Astrovirus (PCR) (Not Detect) Stool Cryptosporidium PCR (Not Detect) Stl E.coli Shiga Tox PCR (Not Detect) St Sh/Enteroin Ecoli PCR (Not Detect) Stool E coli O157 PCR Stl Enterotoxigenic E PCR (Not Detect) Stool EPEC (PCR) (Not Detect) Stl E. histolytica PCR (Not Detect) Stool Giardia Lamblia PCR (Not Detect) Stool Sapovirus (PCR) (Not Detect) Stl P. shigelloides PCR (Not Detect) St Y.enterocolitica PCR (Not Detect) Stool Vibrio (PCR) (Not Detect) Stl Vibrio cholerae PCR (Not Detect) Stl Enteroaggr Ecoli PCR (Not Detect) Stl Norovirus GI/GII PCR (Not Detect) Campylobacter (PCR) (Not Detect) C. difficile Tox (PCR) (Not Detect) SARS-CoV-2 (PCR) (Negative) Salmonella (PCR) (Not Detect) 09/25/21 09/25/21 09/25/21 Range/Units 13:02 13:26 15:46 WBC (4.5-11.0) X10^3/uL RBC (4.0-5.2) X10^6/uL Hgb (12.0-16.0) g/dL Hct (36-46) % MCV (80-100) fL MCH (26-34) PG MCHC (30-36) % RDW (11.6-14.8) % Plt Count (150-400) X10^3/uL Neut % (Auto) (50-75) % Lymph % (Auto) (25-40) % Colbert % (Auto) (3-14) % Eos % (Auto) (2-4) % Baso % (Auto) (0-2) % Neut # (Auto) (9457-8196) /uL Lymph # (Auto) (1235-5027) /uL Colbert # (Auto) (0-900) /uL Eos # (Auto) (0-450) /uL Baso # (Auto) (0-100) /uL PT (10.1-12.7) SECONDS INR (0.9-1.3) APTT (26.4-36.2) SECONDS Sodium (137-145) mmol/L Potassium (3.4-5.1) mmol/L Chloride (98-107) mmol/L Carbon Dioxide (22-32) mmol/L BUN (7-17) mg/dL Creatinine (0.52-1.04) mg/dL Estimated GFR (>60) mL/min BUN/Creatinine Ratio (6-22) Glucose (80-110) mg/dL Lactate 2.0 (0.7-2.1) mmol/L Calcium (8.4-10.2) mg/dL Total Bilirubin (0.2-1.3) mg/dL AST (14-36) IU/L ALT (<35) IU/L Alkaline Phosphatase (38-126) U/L Total Protein (6.3-8.2) g/dL Albumin (3.5-5.0) g/dL Globulin (1.7-4.1) g/dL Albumin/Globulin Ratio (1.0-2.8) Lipase (23-300) U/L Urine Color Urine Appearance Urine pH (4.5-8.0) Ur Specific [place] (1.000-1.035) Urine Protein (Negative) Urine Glucose (UA) (Negative) g/dL Urine Ketones (NEGATIVE) Urine Occult Blood (Negative) Urine Nitrate (Negative) Urine Bilirubin (NEGATIVE) Urine Urobilinogen (0.2) E.U./dL Ur Leukocyte Esterase (NEGATIVE) Urine RBC (0-5/HPF) Urine WBC (0-5/HPF) Ur Squamous Epith Cells (0-5/HPF) Urine Bacteria (None) Urine Mucus (Negative) Ur Culture Indicated? Stl C. cayetanensis PCR Not detected (Not Detect) Stool Rotavirus (PCR) Not detected (Not Detect) Stool Adenovirus (PCR) Not detected (Not Detect) Stool Astrovirus (PCR) Not detected (Not Detect) Stool Cryptosporidium PCR Not detected (Not Detect) Stl E.coli Shiga Tox PCR Not detected (Not Detect) St Sh/Enteroin Ecoli PCR Not detected (Not Detect) Stool E coli O157 PCR Not Reportable Stl Enterotoxigenic E PCR Not detected (Not Detect) Stool EPEC (PCR) Not detected (Not Detect) Stl E. histolytica PCR Not detected (Not Detect) Stool Giardia Lamblia PCR Not detected (Not Detect) Stool Sapovirus (PCR) Not detected (Not Detect) Stl P. shigelloides PCR Not detected (Not Detect) St Y.enterocolitica PCR Not detected (Not Detect) Stool Vibrio (PCR) Not detected (Not Detect) Stl Vibrio cholerae PCR Not detected (Not Detect) Stl Enteroaggr Ecoli PCR Not detected (Not Detect) Stl Norovirus GI/GII PCR Not detected (Not Detect) Campylobacter (PCR) Not detected (Not Detect) C. difficile Tox (PCR) Not detected (Not Detect) SARS-CoV-2 (PCR) Negative (Negative) Salmonella (PCR) Not detected (Not Detect) 09/25/21 Range/Units 15:46 WBC (4.5-11.0) X10^3/uL RBC (4.0-5.2) X10^6/uL Hgb (12.0-16.0) g/dL Hct (36-46) % MCV (80-100) fL MCH (26-34) PG MCHC (30-36) % RDW (11.6-14.8) % Plt Count (150-400) X10^3/uL Neut % (Auto) (50-75) % Lymph % (Auto) (25-40) % Colbert % (Auto) (3-14) % Eos % (Auto) (2-4) % Baso % (Auto) (0-2) % Neut # (Auto) (9943-4077) /uL Lymph # (Auto) (8639-8818) /uL Colbert # (Auto) (0-900) /uL Eos # (Auto) (0-450) /uL Baso # (Auto) (0-100) /uL PT (10.1-12.7) SECONDS INR (0.9-1.3) APTT (26.4-36.2) SECONDS Sodium (137-145) mmol/L Potassium (3.4-5.1) mmol/L Chloride (98-107) mmol/L Carbon Dioxide (22-32) mmol/L BUN (7-17) mg/dL Creatinine (0.52-1.04) mg/dL Estimated GFR (>60) mL/min BUN/Creatinine Ratio (6-22) Glucose (80-110) mg/dL Lactate (0.7-2.1) mmol/L Calcium (8.4-10.2) mg/dL Total Bilirubin (0.2-1.3) mg/dL AST (14-36) IU/L ALT (<35) IU/L Alkaline Phosphatase (38-126) U/L Total Protein (6.3-8.2) g/dL Albumin (3.5-5.0) g/dL Globulin (1.7-4.1) g/dL Albumin/Globulin Ratio (1.0-2.8) Lipase (23-300) U/L Urine Color Yellow Urine Appearance Clear Urine pH 5.0 (4.5-8.0) Ur Specific [place] 1.025 (1.000-1.035) Urine Protein 1+ H (Negative) Urine Glucose (UA) Negative (Negative) g/dL Urine Ketones 3+ H (NEGATIVE) Urine Occult Blood 1+ H (Negative) Urine Nitrate Positive H (Negative) Urine Bilirubin Negative (NEGATIVE) Urine Urobilinogen 0.2 (0.2) E.U./dL Ur Leukocyte Esterase Trace H (NEGATIVE) Urine RBC 1-5/hpf (0-5/HPF) Urine WBC 1-5/hpf (0-5/HPF) Ur Squamous Epith Cells 5-10 /hpf H (0-5/HPF) Urine Bacteria Few (2-10) H (None) Urine Mucus 1+ H (Negative) Ur Culture Indicated? Cult not indicated Stl C. cayetanensis PCR (Not Detect) Stool Rotavirus (PCR) (Not Detect) Stool Adenovirus (PCR) (Not Detect) Stool Astrovirus (PCR) (Not Detect) Stool Cryptosporidium PCR (Not Detect) Stl E.coli Shiga Tox PCR (Not Detect) St Sh/Enteroin Ecoli PCR (Not Detect) Stool E coli O157 PCR Stl Enterotoxigenic E PCR (Not Detect) Stool EPEC (PCR) (Not Detect) Stl E. histolytica PCR (Not Detect) Stool Giardia Lamblia PCR (Not Detect) Stool Sapovirus (PCR) (Not Detect) Stl P. shigelloides PCR (Not Detect) St Y.enterocolitica PCR (Not Detect) Stool Vibrio (PCR) (Not Detect) Stl Vibrio cholerae PCR (Not Detect) Stl Enteroaggr Ecoli PCR (Not Detect) Stl Norovirus GI/GII PCR (Not Detect) Campylobacter (PCR) (Not Detect) C. difficile Tox (PCR) (Not Detect) SARS-CoV-2 (PCR) (Negative) Salmonella (PCR) (Not Detect) Imaging Data CT scan - abdomen/pelvis: Radiologist's Impression: PROCEDURE:? CT ABDOMEN PELVIS W CON ? INDICATIONS:? Generalizzed abd pain, N/V/D ? TECHNIQUE:? After the administration of intravenous contrast, axial sections acquired from the lung bases to the pubic symphysis.? Coronal and sagittal reformats were performed.? For radiation dose reduction, the following was used:? automated exposure control, adjustment of mA and/or kV according to patient size.? ? COMPARISON:? None. ? FINDINGS:? Image quality:? Excellent.? ? Lung bases:? Unremarkable. Heart:? No significant findings. ? ABDOMEN: Liver:? There are a few small scattered indeterminate subcentimeter hypodensiti es within the medial and lateral segments left hepatic lobe as well as the right hepatic lobe inferiorly, which are indeterminate. Gallbladder:? Surgically absent? ? Biliary ducts:? Unremarkable.? ? Pancreas:? Unremarkable.? ? Spleen:? Unremarkable.? ? Adrenal Glands:? Unremarkable.? ? Kidneys and Ureters:? Unremarkable.? ? ? Stomach and Bowel:? Stomach is unremarkable.? There are multiple mildly prominent and thickened small bowel loops within the central and left hemiabdomen.? Status post reported appendectomy. Peritoneum:? No abnormal intraperitoneal fluid.? No free air.? ? Ventral Wall: ? No hernias.? Abdominal Nodes:? No retroperitoneal or mesenteric adenopathy by size criteria.? Vessels:? Aorta and inferior vena cava are normal in size.? ? PELVIS: Pelvic Organs:? Unremarkable.? ? Bladder:? Unremarkable.? ? Pelvic Nodes: No enlarged lymph nodes.? Miscellaneous: No hernias are seen. ? ? ? Bones:? Interbody device placement at L1-L2, L2-L3, L3-L4, and L4-L5. ? ? IMPRESSION:? 1. Findings consistent with gastroenteritis. ? ? Dictated by: Perico Diego M.D. on 09/25/2021 at 15:54 ? ? Approved by: Perico Diego M.D. on 09/25/2021 at 15:56 ? ECG Data Interpretation: Normal sinus rhythm, no axis deviation, no acute ST-T changes MDM Narrative Medical decision making narrative: 76-year-old female with past medical history hypertension, hyperlipidemia, hypothyroidism, GERD presents to the ED with 5 days of nausea, vomiting, diarrhea. Concern for gastroenteritis versus SBO versus diverticulitis versus other intra-abdominal pathology. Will obtain labs, UA, lactate, CT abdomen pelvis. Will give IV fluids for dehydration. Will reassess. <Larisa Davis MD - Last Filed: 09/30/21 20:37> Lab Data Labs: Lab Results 09/25/21 09/25/21 09/25/21 Range/Units 13:02 13:02 13:02 WBC 7.1 (4.5-11.0) X10^3/uL RBC 4.69 (4.0-5.2) X10^6/uL Hgb 14.8 (12.0-16.0) g/dL Hct 42.5 (36-46) % MCV 90.5 (80-100) fL MCH 31.5 (26-34) PG MCHC 34.8 (30-36) % RDW 13.1 (11.6-14.8) % Plt Count 238 (150-400) X10^3/uL Neut % (Auto) 72.5 (50-75) % Lymph % (Auto) 19.6 L (25-40) % Colbert % (Auto) 7.1 (3-14) % Eos % (Auto) 0.1 L (2-4) % Baso % (Auto) 0.7 (0-2) % Neut # (Auto) 5100 (2386-8588) /uL Lymph # (Auto) 1400 (5305-1211) /uL Colbert # (Auto) 500 (0-900) /uL Eos # (Auto) 0 (0-450) /uL Baso # (Auto) 0 (0-100) /uL PT 11.4 (10.1-12.7) SECONDS INR 1.0 (0.9-1.3) APTT 31 (26.4-36.2) SECONDS Sodium 138 (137-145) mmol/L Potassium 3.6 (3.4-5.1) mmol/L Chloride 100 (98-107) mmol/L Carbon Dioxide 26 (22-32) mmol/L BUN 23 H (7-17) mg/dL Creatinine 0.77 (0.52-1.04) mg/dL Estimated GFR > 60.0 (>60) mL/min BUN/Creatinine Ratio 29.9 H (6-22) Glucose 111 H (80-110) mg/dL Lactate (0.7-2.1) mmol/L Calcium 10.6 H (8.4-10.2) mg/dL Total Bilirubin 0.9 (0.2-1.3) mg/dL AST 31 (14-36) IU/L ALT 28 (<35) IU/L Alkaline Phosphatase 135 H (38-126) U/L Total Protein 8.6 H (6.3-8.2) g/dL Albumin 5.3 H (3.5-5.0) g/dL Globulin 3.3 (1.7-4.1) g/dL Albumin/Globulin Ratio 1.6 (1.0-2.8) Lipase 126 (23-300) U/L Urine Color Urine Appearance Urine pH (4.5-8.0) Ur Specific [place] (1.000-1.035) Urine Protein (Negative) Urine Glucose (UA) (Negative) g/dL Urine Ketones (NEGATIVE) Urine Occult Blood (Negative) Urine Nitrate (Negative) Urine Bilirubin (NEGATIVE) Urine Urobilinogen (0.2) E.U./dL Ur Leukocyte Esterase (NEGATIVE) Urine RBC (0-5/HPF) Urine WBC (0-5/HPF) Ur Squamous Epith Cells (0-5/HPF) Urine Bacteria (None) Urine Mucus (Negative) Ur Culture Indicated? Stl C. cayetanensis PCR (Not Detect) Stool Rotavirus (PCR) (Not Detect) Stool Adenovirus (PCR) (Not Detect) Stool Astrovirus (PCR) (Not Detect) Stool Cryptosporidium PCR (Not Detect) Stl E.coli Shiga Tox PCR (Not Detect) St Sh/Enteroin Ecoli PCR (Not Detect) Stool E coli O157 PCR Stl Enterotoxigenic E PCR (Not Detect) Stool EPEC (PCR) (Not Detect) Stl E. histolytica PCR (Not Detect) Stool Giardia Lamblia PCR (Not Detect) Stool Sapovirus (PCR) (Not Detect) Stl P. shigelloides PCR (Not Detect) St Y.enterocolitica PCR (Not Detect) Stool Vibrio (PCR) (Not Detect) Stl Vibrio cholerae PCR (Not Detect) Stl Enteroaggr Ecoli PCR (Not Detect) Stl Norovirus GI/GII PCR (Not Detect) Campylobacter (PCR) (Not Detect) C. difficile Tox (PCR) (Not Detect) SARS-CoV-2 (PCR) (Negative) Salmonella (PCR) (Not Detect) 09/25/21 09/25/21 09/25/21 Range/Units 13:02 13:26 15:46 WBC (4.5-11.0) X10^3/uL RBC (4.0-5.2) X10^6/uL Hgb (12.0-16.0) g/dL Hct (36-46) % MCV (80-100) fL MCH (26-34) PG MCHC (30-36) % RDW (11.6-14.8) % Plt Count (150-400) X10^3/uL Neut % (Auto) (50-75) % Lymph % (Auto) (25-40) % Colbert % (Auto) (3-14) % Eos % (Auto) (2-4) % Baso % (Auto) (0-2) % Neut # (Auto) (4440-5420) /uL Lymph # (Auto) (2627-5443) /uL Colbert # (Auto) (0-900) /uL Eos # (Auto) (0-450) /uL Baso # (Auto) (0-100) /uL PT (10.1-12.7) SECONDS INR (0.9-1.3) APTT (26.4-36.2) SECONDS Sodium (137-145) mmol/L Potassium (3.4-5.1) mmol/L Chloride (98-107) mmol/L Carbon Dioxide (22-32) mmol/L BUN (7-17) mg/dL Creatinine (0.52-1.04) mg/dL Estimated GFR (>60) mL/min BUN/Creatinine Ratio (6-22) Glucose (80-110) mg/dL Lactate 2.0 (0.7-2.1) mmol/L Calcium (8.4-10.2) mg/dL Total Bilirubin (0.2-1.3) mg/dL AST (14-36) IU/L ALT (<35) IU/L Alkaline Phosphatase (38-126) U/L Total Protein (6.3-8.2) g/dL Albumin (3.5-5.0) g/dL Globulin (1.7-4.1) g/dL Albumin/Globulin Ratio (1.0-2.8) Lipase (23-300) U/L Urine Color Urine Appearance Urine pH (4.5-8.0) Ur Specific [place] (1.000-1.035) Urine Protein (Negative) Urine Glucose (UA) (Negative) g/dL Urine Ketones (NEGATIVE) Urine Occult Blood (Negative) Urine Nitrate (Negative) Urine Bilirubin (NEGATIVE) Urine Urobilinogen (0.2) E.U./dL Ur Leukocyte Esterase (NEGATIVE) Urine RBC (0-5/HPF) Urine WBC (0-5/HPF) Ur Squamous Epith Cells (0-5/HPF) Urine Bacteria (None) Urine Mucus (Negative) Ur Culture Indicated? Stl C. cayetanensis PCR Not detected (Not Detect) Stool Rotavirus (PCR) Not detected (Not Detect) Stool Adenovirus (PCR) Not detected (Not Detect) Stool Astrovirus (PCR) Not detected (Not Detect) Stool Cryptosporidium PCR Not detected (Not Detect) Stl E.coli Shiga Tox PCR Not detected (Not Detect) St Sh/Enteroin Ecoli PCR Not detected (Not Detect) Stool E coli O157 PCR Not Reportable Stl Enterotoxigenic E PCR Not detected (Not Detect) Stool EPEC (PCR) Not detected (Not Detect) Stl E. histolytica PCR Not detected (Not Detect) Stool Giardia Lamblia PCR Not detected (Not Detect) Stool Sapovirus (PCR) Not detected (Not Detect) Stl P. shigelloides PCR Not detected (Not Detect) St Y.enterocolitica PCR Not detected (Not Detect) Stool Vibrio (PCR) Not detected (Not Detect) Stl Vibrio cholerae PCR Not detected (Not Detect) Stl Enteroaggr Ecoli PCR Not detected (Not Detect) Stl Norovirus GI/GII PCR Not detected (Not Detect) Campylobacter (PCR) Not detected (Not Detect) C. difficile Tox (PCR) Not detected (Not Detect) SARS-CoV-2 (PCR) Negative (Negative) Salmonella (PCR) Not detected (Not Detect) 09/25/21 Range/Units 15:46 WBC (4.5-11.0) X10^3/uL RBC (4.0-5.2) X10^6/uL Hgb (12.0-16.0) g/dL Hct (36-46) % MCV (80-100) fL MCH (26-34) PG MCHC (30-36) % RDW (11.6-14.8) % Plt Count (150-400) X10^3/uL Neut % (Auto) (50-75) % Lymph % (Auto) (25-40) % Colbert % (Auto) (3-14) % Eos % (Auto) (2-4) % Baso % (Auto) (0-2) % Neut # (Auto) (6094-4436) /uL Lymph # (Auto) (2212-5469) /uL Colbert # (Auto) (0-900) /uL Eos # (Auto) (0-450) /uL Baso # (Auto) (0-100) /uL PT (10.1-12.7) SECONDS INR (0.9-1.3) APTT (26.4-36.2) SECONDS Sodium (137-145) mmol/L Potassium (3.4-5.1) mmol/L Chloride (98-107) mmol/L Carbon Dioxide (22-32) mmol/L BUN (7-17) mg/dL Creatinine (0.52-1.04) mg/dL Estimated GFR (>60) mL/min BUN/Creatinine Ratio (6-22) Glucose (80-110) mg/dL Lactate (0.7-2.1) mmol/L Calcium (8.4-10.2) mg/dL Total Bilirubin (0.2-1.3) mg/dL AST (14-36) IU/L ALT (<35) IU/L Alkaline Phosphatase (38-126) U/L Total Protein (6.3-8.2) g/dL Albumin (3.5-5.0) g/dL Globulin (1.7-4.1) g/dL Albumin/Globulin Ratio (1.0-2.8) Lipase (23-300) U/L Urine Color Yellow Urine Appearance Clear Urine pH 5.0 (4.5-8.0) Ur Specific [place] 1.025 (1.000-1.035) Urine Protein 1+ H (Negative) Urine Glucose (UA) Negative (Negative) g/dL Urine Ketones 3+ H (NEGATIVE) Urine Occult Blood 1+ H (Negative) Urine Nitrate Positive H (Negative) Urine Bilirubin Negative (NEGATIVE) Urine Urobilinogen 0.2 (0.2) E.U./dL Ur Leukocyte Esterase Trace H (NEGATIVE) Urine RBC 1-5/hpf (0-5/HPF) Urine WBC 1-5/hpf (0-5/HPF) Ur Squamous Epith Cells 5-10 /hpf H (0-5/HPF) Urine Bacteria Few (2-10) H (None) Urine Mucus 1+ H (Negative) Ur Culture Indicated? Cult not indicated Stl C. cayetanensis PCR (Not Detect) Stool Rotavirus (PCR) (Not Detect) Stool Adenovirus (PCR) (Not Detect) Stool Astrovirus (PCR) (Not Detect) Stool Cryptosporidium PCR (Not Detect) Stl E.coli Shiga Tox PCR (Not Detect) St Sh/Enteroin Ecoli PCR (Not Detect) Stool E coli O157 PCR Stl Enterotoxigenic E PCR (Not Detect) Stool EPEC (PCR) (Not Detect) Stl E. histolytica PCR (Not Detect) Stool Giardia Lamblia PCR (Not Detect) Stool Sapovirus (PCR) (Not Detect) Stl P. shigelloides PCR (Not Detect) St Y.enterocolitica PCR (Not Detect) Stool Vibrio (PCR) (Not Detect) Stl Vibrio cholerae PCR (Not Detect) Stl Enteroaggr Ecoli PCR (Not Detect) Stl Norovirus GI/GII PCR (Not Detect) Campylobacter (PCR) (Not Detect) C. difficile Tox (PCR) (Not Detect) SARS-CoV-2 (PCR) (Negative) Salmonella (PCR) (Not Detect) Discharge Plan Departure Patient Disposition: Home Clinical Impression: Nausea and vomiting in adult Instructions: DI for Urinary Tract Infection (UTI), Nausea and Vomiting-Adult Activity Restrictions/Additional Instructions: You were evaluated in the ED today for nausea, vomiting, diarrhea. Your labs and CT abdomen pelvis were normal. Your CT showed signs of possible gastroenteritis but no other abnormalities. Your urine did show a sign of for UTI, for which you have been prescribed antibiotics. Please make sure to complete the course of antibiotics. Return to the ED if your symptoms worsen, you develop fever, chills, chest pain, shortness of breath. Prescriptions: New cefpodoxime 200 mg tablet 200 mg PO BID 14 Days Qty: 28 0RF Rx Instructions: must administer with a meal/food No Action B Complex 1 (with folic acid) 1 tab DAILY 0RF multivitamin Tablet 1 tab PO DAILY 0RF celecoxib [Celebrex] 200 mg Capsule 200 mg PO DAILY 0RF cyanocobalamin (vitamin B-12) [Vitamin B-12] 1,000 mcg Tablet Extended Release 1,000 mcg PO DAILY 0RF levothyroxine 88 mcg Tablet 88 mcg DAILY 0RF calcium carbonate [Calcium 600] 600 mg calcium (1,500 mg) Tablet 600 mg PO BID 0RF trazodone 100 mg Tablet 100 mg PO DAILY 0RF duloxetine 60 mg Capsule,Delayed Release(Dr/Ec) 60 mg PO DAILY 0RF pregabalin [Lyrica] 300 mg Capsule 300 mg PO BID 0RF melatonin 10 mg Tablet 10 mg PO BEDTIME PRN (Reason: Insomnia) 0RF cholecalciferol (vitamin D3) [Vitamin D3] 125 mcg (5,000 unit) tablet 1,000 unit PO DAILY 0RF magnesium oxide 400 mg magnesium capsule 250 mg PO DAILY 0RF losartan 50 mg tablet 50 mg PO BID 0RF cyclobenzaprine 5 mg tablet 5 mg PO BEDTIME PRN0RF amlodipine-benazepril 5-10 mg capsule 1 cap PO DAILY 0RF rosuvastatin 5 mg tablet 5 mg PO DAILY 0RF Referrals: Emma Larios PA-C [Primary Care Provider] - <Larisa Davis MD - Last Filed: 09/30/21 20:37> Cosign ED Attending Kaushalature Attestation: I was immediately available in the department for consultation throughout this patient's visit. I agree with documentation as above. Larisa Davis MD
--- NOTE | 2021-09-25 15:22 | DI.CT.S_ITS ---
PROCEDURE: CT ABDOMEN PELVIS W CON INDICATIONS: Generalizzed abd pain, N/V/D TECHNIQUE: After the administration of intravenous contrast, axial sections acquired from the lung bases to the pubic symphysis. Coronal and sagittal reformats were performed. For radiation dose reduction, the following was used: automated exposure control, adjustment of mA and/or kV according to patient size. COMPARISON: None. FINDINGS: Image quality: Excellent. Lung bases: Unremarkable. Heart: No significant findings. ABDOMEN: Liver: There are a few small scattered indeterminate subcentimeter hypodensities within the medial and lateral segments left hepatic lobe as well as the right hepatic lobe inferiorly, which are indeterminate. Gallbladder: Surgically absent Biliary ducts: Unremarkable. Pancreas: Unremarkable. Spleen: Unremarkable. Adrenal Glands: Unremarkable. Kidneys and Ureters: Unremarkable. Stomach and Bowel: Stomach is unremarkable. There are multiple mildly prominent and thickened small bowel loops within the central and left hemiabdomen. Status post reported appendectomy. Peritoneum: No abnormal intraperitoneal fluid. No free air. Ventral Wall: No hernias. Abdominal Nodes: No retroperitoneal or mesenteric adenopathy by size criteria. Vessels: Aorta and inferior vena cava are normal in size. PELVIS: Pelvic Organs: Unremarkable. Bladder: Unremarkable. Pelvic Nodes: No enlarged lymph nodes. Miscellaneous: No hernias are seen. Bones: Interbody device placement at L1-L2, L2-L3, L3-L4, and L4-L5. IMPRESSION: 1. Findings consistent with gastroenteritis. Dictated by: Perico Diego M.D. on 09/25/2021 at 15:54 Approved by: Perico Diego M.D. on 09/25/2021 at 15:56
[2021-09-25 15:49] LABS: Appearance Urine UA CLEAR; Bilirubin Urine UA NEGATIVE (NEGATIVE); Color Urine UA YELLOW; Glucose Urine UA NEGATIVE (Negative); Ketones Urine UA 3+ (NEGATIVE); Leukocyte Esterase Urine UA TRACE (NEGATIVE); Nitrite Urine UA POSITIVE (Negative); Occult Blood Urine UA 1+ (Negative); Protein Urine UA 1+ (Negative); Specific Gravity Urine UA 1.025 (1.000-1.035); Urobilinogen Urine UA 0.2 E.U./dL (0.2)
[2021-09-25 16:14] LABS: Bacteria Urine Few (2-10); RBC Urine 1-5/HPF (0-5/HPF); Squamous Epithelial Cell Urine 5-10 /HPF (0-5/HPF); WBC Urine 1-5/HPF (0-5/HPF)
[2021-09-25 16:15] LABS: Culture Indicated Urine Cult Not Indicated; Mucus Urine 1+ (Negative)
[2021-09-25 17:54] LABS: Adenovirus F 40/41 Not Detected (Not Detect); Astrovirus Not Detected (Not Detect); Campylobacter Not Detected (Not Detect); Clostridium difficile toxin AB Not Detected (Not Detect); Cryptosporidium Not Detected (Not Detect); Cyclospora cayetanensis Not Detected (Not Detect); Entamoeba histolytica Not Detected (Not Detect); Enteroaggregative E.coli Not Detected (Not Detect); Enteropathogenic E.coli Not Detected (Not Detect); Enterotoxigenic E.coli It/st Not Detected (Not Detect); Giardia lamblia Not Detected (Not Detect); Norovirus GI/GII Not Detected (Not Detect); Plesiomonsa shigelloides Not Detected (Not Detect); Rotavirus A Not Detected (Not Detect); Salmonella Not Detected (Not Detect); Sapovirus Not Detected (Not Detect); Shiga-like toxin-prod E.coli Not Detected (Not Detect); Shigella/Enteroinvasive E.coli Not Detected (Not Detect); Vibrio Not Detected (Not Detect); Vibrio cholerae Not Detected (Not Detect); Yersinia enterocolitica Not Detected (Not Detect)
[2021-09-25] MEDS: ONDANSETRON 4 MG/2 ML INJ IV (18:09)
[2021-09-25] MEDS: KETOROLAC 30 MG/ML VIAL 15 MG IV (18:50)
== END 2021-09-25 19:08 | disposition home or self-care (01) ==
PROVIDERS: Emergency Medicine; Emergency Provider Student in an Organized Health Care Education/Training Program; PCP Physician Assistant
DX: R11.2 Nausea with vomiting, unspecified (principal); R19.7 Diarrhea, unspecified; N39.0 Urinary tract infection, site not specified; I10 Essential (primary) hypertension; Z20.822 Contact with and (suspected) exposure to COVID-19; Z87.891 Personal history of nicotine dependence
CPT/HCPCS: 36415; 74177; 80053; 81001; 83605; 83690; 85025; 85610; 85730; 87507; 87635; 93005; 93010; 96361; 96374; 96375; 99284; C9803; J1885; J2405; Q9967

== ENCOUNTER 2021-11-14 13:27 | Outpatient (RCR) | payer MEDICARE, OTHER, SELFPAY ==
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
--- NOTE | 2021-11-14 14:51 | PT.OPPOC ---
Physical, Occupational & Speech Therapy At [facility] Current Diagnoses Dizziness and giddiness (11/14/21) Visit Care Team Role Provider Type Emma Larios PA-C Attending Provider Non-Staff Family Provider Primary Care Provider Referring Provider Specialty: Internal Medicine Address: [address] [place] [address], [facility] Email: [email or web address] [facility] Plan Of Care PT-OP-T Assessment and Plan Start: 11/10/21 10:50 Freq: Status: Active Protocol: Document 11/14/21 13:46 MB (Rec: 11/14/21 14:49 MB [id number]) Physical Therapy Assessment Rehab Potential Rehabilitation Potential Good Evaluation Complexity Number of Personal Factors/Comorbidities 1-2 Number of Body Systems Impaired 1-2 Clinical Presentation at Evaluation Evolving Impairments Impairments Activity Tolerance,Balance, Gait,Pain,Posture,ROM,Strength ,Vestibular Other Impairments Personal factors include back pain. Body systems affected include musculoskeletal and vestibular. Her clinical presentation is evolving. Other Concerns Fall Risk Yes Goals 2 Line Erector Apprentice Goal (LTG) Pt will perform progressive HEP with I including postural, VOR and balance exercises to improve balance and quality of life by 12/15/21. LTG Duration 4 weeks 1 Line Erector Apprentice Goal (LTG) Pt will report a 100% improvement in dizziness with rolling right and looking right to improve balance and quality of life by 12/15/21. LTG Duration 4 weeks Assessment Summary Assessment Pt is a 76 y/o female presenting with history of falls, whiplash, concussion and vertigo. She is currently receiving PT at [facility] for her [facility] and is being seen there 1 -2/xwk and has scheduled PT here on different days. She presents with right posterior canalithiasis BPPV today and PT treats and nystagmus and symptoms are resolved after first maneuver. She will benefit from PT to re-check for recurrence and to assess orthostasis. She uses a cane at baseline and does have balance deficits d/t lumbar changes and LE weakness, greater on the right. She will con't PT at [facility] to include strengthening and balance. Recommend 1-2 vestibular PT treatments as needed. Physical Therapy Plan Frequency and Duration Frequency of Treatment 1-2 visits Duration of Treatment 1 month Plan of Care Start Date 11/14/21 Plan of Care End Date 12/15/21 Therapeutic Interventions Therapeutic Interventions Balance Training,Canalithic Repositioning,Gait Training, Home Exercise Program, Neuromuscular Re-education, Patient/Caregiver Education, Self-Care/Home Management, Therapeutic Exercises, Vestibular Rehabilitation Modalities Cold Pack/Ice Massage,Hot Packs Next Visit Focus/Plan Next Note Type Treatment Note Next Visit Plan Consider checking orthostatics and re-checking for BPPV, could perform DVA testing Plan of Care Dates Plan of Care Start Date 11/14/21 Plan of Care End Date 12/15/21 Electronically Signed by: Gabriela Valderrama, PT 11/14/21 [id number] Please Sign and Return: I have reviewed this Plan of Care and certify that the skilled therapy services above are required to meet the patient?s needs. Physician Signature Date Printed Name and Credentials Clinical Instructor Signature Printed Name and Credentials
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
== END 2021-12-01 08:53 ==
LOC: PHYS 13:27
PROVIDERS: Family Provider Physician Assistant; PCP Physician Assistant; Referring Provider Physician Assistant; Visit Provider Physician Assistant
DX: R42 Dizziness and giddiness (principal)
CPT/HCPCS: 95992; 97161; 97535

== ENCOUNTER 2022-01-30 17:27 | Emergency (ER) | payer MEDICARE, OTHER, SELFPAY ==
[2022-01-30] VITALS (11 sets, daily range): BP systolic 168–203; BP diastolic 76–86; PULSE 69–78; RESP 22; TEMP 36.7; O2SAT 91–98
[2022-01-30 18:01] LABS: Add Manual Diff / Slide Review NO; Basophils Absolute Auto 100 /uL (0-100); Basophils Percent Auto 0.8 % (0-2); Eosinophils Absolute Auto 0 /uL (0-450); Eosinophils Percent Auto 0.1 % (2-4); Lymphocytes Absolute Auto 1200 /uL (1100-4500); Lymphocytes Percent Auto 16.3 % (25-40); Mean Corpuscular Hemoglobin 30.8 PG (26-34); Mean Corpuscular Volume 90.4 fL (80-100); Monocytes Absolute Auto 600 /uL (0-900); Monocytes Percent Auto 8.3 % (3-14); Neutrophils Absolute Auto 5500 /uL (1500-7000); Neutrophils Percent Auto 74.5 % (50-75); Platelet Count 235 X10^3/uL (150-400); Red Blood Cell Count 4.54 X10^6/uL (4.0-5.2); Red Cell Distribution Width 12.8 % (11.6-14.8); White Blood Cell Count 7.4 X10^3/uL (4.5-11.0)
[2022-01-30] MEDS: ONDANSETRON 4 MG/2 ML INJ (18:02)
[2022-01-30] MEDS: SODIUM CHLORIDE 0.9% 1,000 ML 1000 ML IV (18:04)
[2022-01-30 18:16] LABS: Alanine Aminotransferase 25 IU/L (<35); Albumin Globulin Ratio 1.4 (1.0-2.8); Alkaline Phosphatase 147 U/L (38-126); Aspartate Aminotransferase 32 IU/L (14-36); BUN Creatinine Ratio 25.9 (6-22); Bilirubin Total 0.7 mg/dL (0.2-1.3); Blood Urea Nitrogen 21 mg/dL (7-17); Calcium 9.9 mg/dL (8.4-10.2); Carbon Dioxide 29 mmol/L (22-32); Chloride 100 mmol/L (98-107); Estimated Glomerular Filt Rate > 60.0 mL/min (>60); Globulin 3.5 g/dL (1.7-4.1); Glucose 94 mg/dL (80-110); HEMOLYSIS < 15 (0-50); Lipase 102 U/L (23-300); Potassium 3.5 mmol/L (3.4-5.1); Sodium 139 mmol/L (137-145); Total Protein 8.5 g/dL (6.3-8.2)
--- NOTE | 2022-01-30 18:21 | ED.NAVMDI ---
HPI - Nausea/Vomiting/Diarrhea General Chief complaint: Nausea/Vomiting/Diarrhea Stated complaint: nausea/sob/coughing x2 days Time Seen by Provider: 01/30/22 18:08 Source: patient and family Mode of arrival: Wheelchair History of Present Illness HPI Narrative: 76-year-old woman with history of hypertension, chronic pain, hypothyroid, hyperlipidemia who presents with 4 days of nausea, vomiting, diarrhea. She states that she has been able to keep liquids down for the last 4 days, she does not describe significant fevers but she does describe kidney pain right greater than left, headache, runny nose without sore throat occasional palpitations with mild cough but no overt chest pain. She states that she had something similar in August that was felt to be food poisoning and resolved completely. She does not report any blood in emesis or stool. Related Data Home Medications Medication Instructions Recorded Confirmed B Complex 1 (with folic acid) 1 tab DAILY 09/23/19 05/11/21 calcium carbonate 600 mg calcium 600 mg PO BID 09/23/19 05/11/21 (1,500 mg) tablet (Calcium) celecoxib 200 mg capsule (Celebrex) 200 mg PO DAILY 09/23/19 05/11/21 cyanocobalamin (vitamin B-12) 1,000 mcg PO DAILY 09/23/19 05/11/21 1,000 mcg tablet,extended release (Vitamin B-12 ER) duloxetine 60 mg capsule,delayed 60 mg PO DAILY 09/23/19 05/11/21 release levothyroxine 88 mcg tablet 88 mcg DAILY 09/23/19 05/11/21 melatonin 10 mg tablet 10 mg PO BEDTIME PRN 09/23/19 05/11/21 multivitamin 1 tab PO DAILY 09/23/19 05/11/21 pregabalin 300 mg capsule (Lyrica) 300 mg PO BID 09/23/19 05/11/21 trazodone 100 mg tablet 100 mg PO DAILY 09/23/19 05/11/21 amlodipine 5 mg-benazepril 10 mg 1 cap PO DAILY 12/13/20 05/11/21 capsule cholecalciferol (vitamin D3) 125 1,000 unit PO DAILY tab 12/13/20 05/11/21 mcg (5,000 unit) tablet (Vitamin D3) cyclobenzaprine 5 mg tablet 5 mg PO BEDTIME PRN 12/13/20 05/11/21 losartan 50 mg tablet 50 mg PO BID 12/13/20 05/11/21 magnesium oxide 250 mg PO DAILY cap 12/13/20 05/11/21 rosuvastatin 5 mg tablet 5 mg PO DAILY 12/13/20 05/11/21 Previous Rx's Medication Instructions Recorded ondansetron 4 mg disintegrating 4 mg PO Q6H PRN #10 tab 01/30/22 tablet Allergies Allergy/AdvReac Type Severity Reaction Status Date / Time adhesive tape Allergy Mild Verified 05/11/21 10:16 prochlorperazine Allergy Anaphylaxis Verified 05/11/21 10:16 [From Compazine] Review of Systems Review of Systems Narrative: Remainder of complete review of systems is otherwise unremarkable except for that included in the HPI. Patient History Medical History Conte's esophagus Chronic lumbar pain Closed head injury with brief loss of consciousness Esophageal stricture Failed back surgical syndrome GERD (gastroesophageal reflux disease) History of paralysis History of snoring Hyperlipidemia Hypertension Hypothyroidism Insomnia due to medical condition Malignant neoplasm of unspecified site of unspecified female breast Obesity (BMI 30-39.9) Obstructive sleep apnea, adult (01/09/21) Spinal stenosis of lumbar region at multiple levels Urge incontinence Vitamin D deficiency, unspecified Surgical History History of bilateral knee replacement History of bilateral mastectomy History of hysterectomy History of lumbar fusion History of lumbar laminectomy History of partial thyroidectomy Family History Father Hypertension Alcohol abuse Mother Alcohol abuse Family/Other Hypertension Bipolar disorder ADD (attention deficit disorder) Substance abuse Social History Smoking Status: Former smoker alcohol intake: current (15 glasses wine weekly) substance use type: other (vapes CBD for pain/sleep) Smoking Status: Former smoker alcohol intake frequency: a few times a month Substance Use Type: does not use Exam Initial Vital Signs Initial Vital Signs: Vital Signs Temperature 98.1 F 01/30/22 17:32 Pulse Rate 77 01/30/22 17:32 Respiratory Rate 22 01/30/22 17:32 Blood Pressure 202/81 H 01/30/22 17:32 Pulse Oximetry 98 01/30/22 17:32 General: Appears moderately ill but no acute distress. Able to give a complete and coherent history. HEENT: Dry mucous membranes, normal sclera with reactive pupils, Neck: No JVD, supple Respiratory: Lungs are clear to auscultation, no wheezing no rales no rhonchi. Full and symmetrical air movement Cardiac: Regular rate and rhythm no murmurs no bruits Abdomen: Soft, no significant abdominal pain with deep palpation in all quadrants good bowel tones, mild bilateral flank pain right greater than left Skin: Pale but Warm and dry, no rashes Neurologic: Globally weak but Grossly neurologically intact with no obvious asymmetries or abnormalities Extremities: No trauma, well perfused, no lower extremity edema Psych: Cooperative, appropriate insight and affect Course Orders Ordered: ED Orders 01/30/22 17:35 EKG-12 Lead Stat 01/30/22 17:52 Complete Blood Count AUTO DIFF Stat Comprehensive Metabolic Panel Stat Lipase Stat 01/30/22 19:40 GI Panel (Film Array) Stat Urine Microscopic Stat Discontinued Medications Acetaminophen (Acetaminophen 325 Mg Tablet) 650 mg PO NOW ONE Stop: 01/30/22 20:33 Last Admin: 01/30/22 20:35 Dose: 650 mg Documented by: HELLEN Sodium Chloride (Normal Saline 0.9%) 1,000 mls @ 1,000 mls/hr IV BOLUS ONE Stop: 01/30/22 19:02 Last Infusion: 01/30/22 19:32 Dose: 0 mls/hr Documented by: Admin: 01/30/22 18:04 Dose: 1,000 mls/hr Documented by: RAMANA Ondansetron HCl (Ondansetron 4 Mg/2 Ml Inj) 4 mg IV NOW ONE Stop: 01/30/22 18:33 Last Admin: 01/30/22 18:43 Dose: 4 mg Documented by: HELLEN Vital Signs Vital signs: Vital Signs - 8 hr 01/30/22 17:32 01/30/22 18:17 01/30/22 18:18 Temperature 98.1 F Pulse Rate 77 72 73 Respiratory Rate 22 Blood Pressure 202/81 H 176/86 H Pulse Oximetry 98 98 98 01/30/22 18:30 01/30/22 19:00 01/30/22 20:29 Temperature Pulse Rate 69 78 71 Respiratory Rate Blood Pressure 178/83 H 168/77 H 203/86 H Pulse Oximetry 96 91 96 01/30/22 20:30 01/30/22 20:31 Temperature Pulse Rate 73 72 Respiratory Rate Blood Pressure 175/79 H Pulse Oximetry 97 97 MDM - Nausea/Vomiting/Diarrhea Lab Data Result diagrams: 01/30/22 17:52 01/30/22 17:52 Labs: Lab Results 01/30/22 01/30/22 01/30/22 Range/Units 17:52 17:52 19:40 WBC 7.4 (4.5-11.0) X10^3/uL RBC 4.54 (4.0-5.2) X10^6/uL Hgb 14.0 (12.0-16.0) g/dL Hct 41.0 (36-46) % MCV 90.4 (80-100) fL MCH 30.8 (26-34) PG MCHC 34.0 (30-36) % RDW 12.8 (11.6-14.8) % Plt Count 235 (150-400) X10^3/uL Neut % (Auto) 74.5 (50-75) % Lymph % (Auto) 16.3 L (25-40) % [place] % (Auto) 8.3 (3-14) % Eos % (Auto) 0.1 L (2-4) % Baso % (Auto) 0.8 (0-2) % Neut # (Auto) 5500 (1892-3883) /uL Lymph # (Auto) 1200 (0278-3480) /uL [place] # (Auto) 600 (0-900) /uL Eos # (Auto) 0 (0-450) /uL Baso # (Auto) 100 (0-100) /uL Sodium 139 (137-145) mmol/L Potassium 3.5 (3.4-5.1) mmol/L Chloride 100 (98-107) mmol/L Carbon Dioxide 29 (22-32) mmol/L BUN 21 H (7-17) mg/dL Creatinine 0.81 (0.52-1.04) mg/dL Estimated GFR > 60.0 (>60) mL/min BUN/Creatinine Ratio 25.9 H (6-22) Glucose 94 (80-110) mg/dL Calcium 9.9 (8.4-10.2) mg/dL Total Bilirubin 0.7 (0.2-1.3) mg/dL AST 32 (14-36) IU/L ALT 25 (<35) IU/L Alkaline Phosphatase 147 H (38-126) U/L Total Protein 8.5 H (6.3-8.2) g/dL Albumin 5.0 (3.5-5.0) g/dL Globulin 3.5 (1.7-4.1) g/dL Albumin/Globulin Ratio 1.4 (1.0-2.8) Lipase 102 (23-300) U/L Urine RBC None seen (0-5/HPF) Urine WBC None seen (0-5/HPF) Ur Squamous Epith Cells 1-5 /hpf (0-5/HPF) Amorphous Sediment 1+ Urine Bacteria None seen (None) Ur Culture Indicated? Cult not indicated Urine Dip Bedside Urine Glucose Negative Bedside Urine Bilirubin - Negative Bedside Urine Ketone +++ 80 Urine Specific [place] 1.030 Bedside Urine Occult Blood ++ Bedside Urine pH 6.0 Bedside Urine Protein +/- 15 Bedside Urine Urobilinogen - Negative Bedside Urine Nitrite - Negative Bedside Urine Leukocytes - Negative Esterase MDM Narrative Medical decision making narrative: 76-year-old woman with 4 days of nausea vomiting and diarrhea. Blood work is remarkably reassuring with no evidence of sepsis, electrolyte abnormalities or renal dysfunction. Urine does not suggest a urinary tract infection. Stool has been sent for PCR testing to see if treatable sources are identified. This test will not be run this evening so patient will be discharged home. She has been given of L of fluid and is still feeling unwell but is able to eat and drink, is not orthostatic, on re-examine does not have a surgical abdomen and she does have help available at home. She is safe for discharge. Questions are answered. Discharge Plan Departure Patient Disposition: Home Clinical Impression: Nausea, vomiting, and diarrhea Instructions: DI for Vomiting -- Adult Activity Restrictions/Additional Instructions: Thank you for coming in tonight I am sorry that you are suffering with this vomiting and diarrhea. Fortunately your blood work is very reassuring. Did not have any potassium or sodium abnormalities. Your kidney function is reassuring. There is no sign of overwhelming infection. Your stool has been sent to the lab but results from this test will not be available till tomorrow. If there are positive findings that need additional treatment noted you will be contacted. I have given you some Zofran to use tonight and a prescription has also been transmitted to [facility] for you. The most important part is making sure that you are staying hydrated while your body gets over this episode. If you have worsening signs or symptoms, please feel free to return to the ER Prescriptions: New ondansetron 4 mg tablet,disintegrating 4 mg PO Q6H PRN (Reason: nausea and vomiting) Qty: 10 0RF No Action B Complex 1 (with folic acid) 1 tab DAILY 0RF multivitamin Tablet 1 tab PO DAILY 0RF celecoxib [Celebrex] 200 mg Capsule 200 mg PO DAILY 0RF cyanocobalamin (vitamin B-12) [Vitamin B-12] 1,000 mcg Tablet Extended Release 1,000 mcg PO DAILY 0RF levothyroxine 88 mcg Tablet 88 mcg DAILY 0RF calcium carbonate [Calcium 600] 600 mg calcium (1,500 mg) Tablet 600 mg PO BID 0RF trazodone 100 mg Tablet 100 mg PO DAILY 0RF duloxetine 60 mg Capsule,Delayed Release(Dr/Ec) 60 mg PO DAILY 0RF pregabalin [Lyrica] 300 mg Capsule 300 mg PO BID 0RF melatonin 10 mg Tablet 10 mg PO BEDTIME PRN (Reason: Insomnia) 0RF cholecalciferol (vitamin D3) [Vitamin D3] 125 mcg (5,000 unit) tablet 1,000 unit PO DAILY 0RF magnesium oxide 400 mg magnesium capsule 250 mg PO DAILY 0RF losartan 50 mg tablet 50 mg PO BID 0RF cyclobenzaprine 5 mg tablet 5 mg PO BEDTIME PRN0RF amlodipine-benazepril 5-10 mg capsule 1 cap PO DAILY 0RF rosuvastatin 5 mg tablet 5 mg PO DAILY 0RF Referrals: Emma Larios PA-C [Primary Care Provider] -
[2022-01-30] MEDS: ONDANSETRON 4 MG/2 ML INJ IV (18:43)
[2022-01-30 20:07] LABS: Amorphous Sediment Urine 1+; Bacteria Urine None Seen; Culture Indicated Urine Cult Not Indicated; RBC Urine None Seen (0-5/HPF); Squamous Epithelial Cell Urine 1-5 /HPF (0-5/HPF); WBC Urine None Seen (0-5/HPF)
[2022-01-30] MEDS: ACETAMINOPHEN 325 MG TABLET 650 MG PO (20:35)
[2022-01-30 21:38] LABS: Campylobacter Not Detected (Not Detect); Clostridium difficile toxin AB Not Detected (Not Detect); Plesiomonsa shigelloides Not Detected (Not Detect); Salmonella Not Detected (Not Detect)
[2022-01-30 21:39] LABS: Cryptosporidium Not Detected (Not Detect); Enteroaggregative E.coli Not Detected (Not Detect); Enteropathogenic E.coli Not Detected (Not Detect); Enterotoxigenic E.coli It/st Not Detected (Not Detect); Shiga-like toxin-prod E.coli Not Detected (Not Detect); Shigella/Enteroinvasive E.coli Not Detected (Not Detect); Vibrio Not Detected (Not Detect); Vibrio cholerae Not Detected (Not Detect); Yersinia enterocolitica Not Detected (Not Detect)
[2022-01-30 21:40] LABS: Adenovirus F 40/41 Not Detected (Not Detect); Astrovirus Not Detected (Not Detect); Cyclospora cayetanensis Not Detected (Not Detect); Entamoeba histolytica Not Detected (Not Detect); Giardia lamblia Not Detected (Not Detect); Norovirus GI/GII Not Detected (Not Detect); Rotavirus A Not Detected (Not Detect); Sapovirus Not Detected (Not Detect)
[2022-01-30] MEDS: ONDANSETRON 4 MG ODT PREPACK 1 BOTTLE MISC (21:49)
== END 2022-01-30 22:00 | disposition home or self-care (01) ==
PROVIDERS: Emergency Medicine; Emergency Provider Emergency Medicine; Family Provider Physician Assistant; PCP Physician Assistant
DX: R11.2 Nausea with vomiting, unspecified (principal); R19.7 Diarrhea, unspecified; Z87.891 Personal history of nicotine dependence; I10 Essential (primary) hypertension
CPT/HCPCS: 36415; 80053; 81003; 81015; 83690; 85025; 87507; 93005; 93010; 96361; 96374; 99284; J2405

== ENCOUNTER 2022-02-02 14:19 | Observation (INO) | payer MEDICARE, OTHER, SELFPAY ==
[2022-02-02] VITALS (24 sets, daily range): BP systolic 158–213; BP diastolic 74–91; PULSE 72–82; RESP 16–25; TEMP 36.8–37.1; O2SAT 93–98; BMI 30.2
--- NOTE | 2022-02-02 14:36 | DI.CT.S_ITS ---
PROCEDURE: CT STROKE INDICATIONS: new onset Left arm numbness/weakness TECHNIQUE: Noncontrast 4.5 mm thick angled axial sections acquired from the foramen magnum to the vertex, with coronal reformats. For radiation dose reduction, the following was used: automated exposure control, adjustment of mA and/or kV according to patient size. COMPARISON: None. FINDINGS: Image quality: Excellent. CSF spaces: Basal cisterns are patent. No extra-axial fluid collections. Ventricles are normal in size and shape. Brain: No midline shift. No intracranial masses or hemorrhage. [place]-white matter interface is normal. Mild atrophy and multifocal white matter chronic ischemic change noted Skull and face: Calvarium and visualized facial bones are intact, without suspicious lesions. Sinuses: Visualized sinuses and mastoids are clear. IMPRESSION: Atrophy and chronic ischemic change without acute hemorrhage or mass effect This study fulfills neurological imaging criteria for inclusion or exclusion of acute stroke therapies based on available published neurological imaging guidelines. Note: Critical results were discussed with Dr. Davis at 01:53 PM [place] time on 02/02/22 Approved by: Jason Crenshaw M.D. on 02/02/2022 at 13:54
--- NOTE | 2022-02-02 14:37 | DI.CT.S_ITS ---
PROCEDURE: CT ANGIO HEAD AND NECK INDICATIONS: new onset Left arm numbness/weakness TECHNIQUE: Pre-contrast 4.5 mm thick sections acquired from the foramen magnum to the vertex. After the administration of intravenous contrast, 1 mm thick sections acquired from the aortic arch through the [place] of Rao. Post-contrast 4.5 mm thick sections then re-acquired from the foramen magnum to the vertex. 3-dimensional [id number] (MIP) and/or volume rendering reformats were acquired of the central intracranial vasculature and neck separately. For radiation dose reduction, the following was used: automated exposure control, adjustment of mA and/or kV according to patient size. COMPARISON: None. FINDINGS: Image quality: Excellent. HEAD CT ANGIOGRAPHY: Anterior circulation: Calcified splenic plaque in the cavernous portions of both internal carotid arteries results in moderate left-sided ICA stenosis. The flow within the paired anterior cerebral arteries is normal and symmetric. The flow within the middle cerebral arteries is normal and symmetric. The anterior communicating artery is seen. No aneurysms are seen. Posterior circulation: Visualized portions of the vertebral arteries demonstrate normal caliber, and join to form a normal appearing basilar artery. Flow within the posterior cerebral arteries is normal and symmetric. No aneurysms are seen. NECK CT ANGIOGRAPHY: Carotid system: The right brachiocephalic and left common carotid arteries arise from a common trunk from the aortic arch. The origins of the common carotid arteries appear patent. The common carotid arteries demonstrate normal caliber and courses. The bifurcation regions are both widely patent. The internal carotid arteries demonstrate normal calibers and courses. Posterior circulation: The origins of the vertebral arteries both appear widely patent. The more superior extracranial portions of both vertebral arteries also demonstrate normal courses and calibers. They join to form a normal appearing basilar artery. Soft tissues: Visualized neck soft tissues demonstrate no suspicious abnormalities other than 2.6 x 2.9 cm right thyroid nodule, left lobe of the thyroid is either atrophic or resected.. Bones: No suspicious bony lesions. Visualized cervical spine appears normally aligned. Multilevel degenerative disc disease and arthropathy in the cervical spine results in moderate central stenosis at C6-7 and grade 1 retrolisthesis. IMPRESSION: 1. No evidence of large vessel occlusion, aneurysm or vascular malformation. 2. Atherosclerotic calcification the cavernous portions of both ICA results in moderate left ICA stenosis. 3. Cervical degenerative disc disease and arthropathy results in moderate central stenosis at C6-7. 4. Right 2.9 cm thyroid nodule. Consider follow-up ultrasound Any quantitative measurements of stenosis were performed using NASCET criteria. Approved by: Jason Crenshaw M.D. on 02/02/2022 at 14:24
--- NOTE | 2022-02-02 14:37 | ED_ITS ---
HPI - Nausea/Vomiting/Diarrhea General Chief complaint: Nausea/Vomiting/Diarrhea Stated complaint: Nausea Time Seen by Provider: 02/02/22 14:27 Source: patient, family and EMS Mode of arrival: EMS History of Present Illness HPI Narrative: 76-year-old woman with a history of bilateral mastectomies with reconstruction and revisions, hypertension, hypothyroidism, hyperlipidemia, chronic pain who was seen in the emergency department 3 days ago with complaints of upper respiratory symptoms and not feeling well. Today she presents noting that those symptoms have not improved, she still is unable to keep food down and states she has not been able to eat for the last 6 days. She and her both note at 12:45 p.m. her left hand seem to lose sensation and became significantly weak. Her notes at 1:00 p.m. she seemed to have all over body tremors through which she remained completely alert and aware but complaining in full sentencesthat she was unable to breathe. On arrival in the emergency department she still complains of left hand and arm numbness and weakness. Code stroke was called. She reports that she generally feels ?horrible all over? but does not complain of specific chest pain or palpitations. Related Data Home Medications Medication Instructions Recorded Confirmed B Complex 1 (with folic acid) 1 tab DAILY 09/23/19 05/11/21 calcium carbonate 600 mg calcium 600 mg PO BID 09/23/19 05/11/21 (1,500 mg) tablet (Calcium) celecoxib 200 mg capsule (Celebrex) 200 mg PO DAILY 09/23/19 05/11/21 cyanocobalamin (vitamin B-12) 1,000 mcg PO DAILY 09/23/19 05/11/21 1,000 mcg tablet,extended release (Vitamin B-12 ER) duloxetine 60 mg capsule,delayed 60 mg PO DAILY 09/23/19 05/11/21 release levothyroxine 88 mcg tablet 88 mcg DAILY 09/23/19 05/11/21 melatonin 10 mg tablet 10 mg PO BEDTIME PRN 09/23/19 05/11/21 multivitamin 1 tab PO DAILY 09/23/19 05/11/21 pregabalin 300 mg capsule (Lyrica) 300 mg PO BID 09/23/19 05/11/21 trazodone 100 mg tablet 100 mg PO DAILY 09/23/19 05/11/21 amlodipine 5 mg-benazepril 10 mg 1 cap PO DAILY 12/13/20 05/11/21 capsule cholecalciferol (vitamin D3) 125 1,000 unit PO DAILY tab 12/13/20 05/11/21 mcg (5,000 unit) tablet (Vitamin D3) cyclobenzaprine 5 mg tablet 5 mg PO BEDTIME PRN 12/13/20 05/11/21 losartan 50 mg tablet 50 mg PO BID 12/13/20 05/11/21 magnesium oxide 250 mg PO DAILY cap 12/13/20 05/11/21 rosuvastatin 5 mg tablet 5 mg PO DAILY 12/13/20 05/11/21 Previous Rx's Medication Instructions Recorded ondansetron 4 mg disintegrating 4 mg PO Q6H PRN #10 tab 01/30/22 tablet Allergies Allergy/AdvReac Type Severity Reaction Status Date / Time adhesive tape Allergy Mild Verified 02/02/22 14:24 prochlorperazine Allergy Anaphylaxis Verified 02/02/22 14:24 [From Compazine] Review of Systems Review of Systems Narrative: Remainder of complete review of systems is otherwise unremarkable except for that included in the HPI. Patient History Medical History Conte's esophagus Chronic lumbar pain Closed head injury with brief loss of consciousness Esophageal stricture Failed back surgical syndrome GERD (gastroesophageal reflux disease) History of paralysis History of snoring Hyperlipidemia Hypertension Hypothyroidism Insomnia due to medical condition Malignant neoplasm of unspecified site of unspecified female breast Obesity (BMI 30-39.9) Obstructive sleep apnea, adult (01/09/21) Spinal stenosis of lumbar region at multiple levels Urge incontinence Vitamin D deficiency, unspecified Surgical History History of bilateral knee replacement History of bilateral mastectomy History of hysterectomy History of lumbar fusion History of lumbar laminectomy History of partial thyroidectomy Family History Father Hypertension Alcohol abuse Mother Alcohol abuse Family/Other Hypertension Bipolar disorder ADD (attention deficit disorder) Substance abuse Social History Smoking Status: Former smoker alcohol intake: current (15 glasses wine weekly) substance use type: other (vapes CBD for pain/sleep) Smoking Status: Former smoker alcohol intake frequency: a few times a month Substance Use Type: does not use Exam Initial Vital Signs Initial Vital Signs: Vital Signs Pulse Rate 73 02/02/22 14:23 Respiratory Rate 18 02/02/22 14:23 Pulse Oximetry 95 02/02/22 14:23 General: Chronically ill-appearing in mild distress. HEENT: Moist mucous membranes, normal sclera with reactive pupils, Neck: No JVD, supple Respiratory: Lungs are clear to auscultation, no wheezing no rales no rhonchi. Full and symmetrical air movement Cardiac: Regular rate and rhythm no murmurs no bruits Abdomen: Soft, nontender, good bowel tones, no flank pain Skin: Pale but otherwise Warm and dry, no rashes Neurologic: Left arm with decreased sensation and slight weakness. No other acute neurologic findings at this time Extremities: No trauma, well perfused Psych: Cooperative, appropriate insight and affect NIH Stroke Scale/Score (NIHSS) RESULT SUMMARY: 4 points NIH Stroke Scale INPUTS: 1A: Level of consciousness ?> 0 = Alert; keenly responsive 1B: Ask month and age ?> 0 = Both questions right 1C: 'Blink eyes' & 'squeeze hands' ?> 0 = Performs both tasks 2: Horizontal extraocular movements ?> 0 = Normal 3: Visual castañeda ?> 0 = No visual loss 4: Facial palsy ?> 0 = Normal symmetry 5A: Left arm motor drift ?> 2 = Drift, hits bed 5B: Right arm motor drift ?> 0 = No drift for 10 seconds 6A: Left leg motor drift ?> 0 = No drift for 5 seconds 6B: Right leg motor drift ?> 0 = No drift for 5 seconds 7: Limb Ataxia ?> 1 = Ataxia in 1 Limb 8: Sensation ?> 1 = Mild-moderate loss: can sense being touched 9: Language/aphasia ?> 0 = Normal; no aphasia 10: Dysarthria ?> 0 = Normal 11: Extinction/inattention ?> 0 = No abnormality Course Orders Ordered: ED Orders 02/02/22 14:12 Complete Blood Count AUTO DIFF Stat Comprehensive Metabolic Panel Stat Troponin & CK Cardiac Panel Stat 02/02/22 14:35 COVID19 -Nasal RAPID/Pre-Proc Stat 02/02/22 14:36 CT Stroke Stat Urinalysis and Microscopic Stat EKG-12 Lead Stat 02/02/22 14:37 CT angio head and neck Stat Sodium Chloride (Normal Saline 0.9%) 1,000 mls @ 150 mls/hr IV CONT LAKHWINDER Last Admin: 02/02/22 14:54 Dose: 150 mls/hr Documented by: Discontinued Medications Acetaminophen (Acetaminophen 325 Mg Tablet) 975 mg PO NOW ONE Stop: 02/02/22 16:06 Ondansetron HCl (Ondansetron 4 Mg/2 Ml Inj) 4 mg IV NOW ONE Stop: 02/02/22 14:37 Last Admin: 02/02/22 14:54 Dose: 4 mg Documented by: Vital Signs Vital signs: Vital Signs - 8 hr 02/02/22 14:23 02/02/22 14:24 02/02/22 14:30 Pulse Rate 73 79 81 Respiratory Rate 18 19 Blood Pressure 184/85 H 213/91 H Pulse Oximetry 95 96 96 02/02/22 15:00 02/02/22 15:07 02/02/22 15:15 Pulse Rate 72 72 76 Respiratory Rate 24 25 H 17 Blood Pressure 169/75 H Pulse Oximetry 98 93 02/02/22 15:30 Pulse Rate 74 Respiratory Rate 20 Blood Pressure Pulse Oximetry 96 MDM - Nausea/Vomiting/Diarrhea Lab Data Result diagrams: 02/02/22 14:12 02/02/22 14:12 Labs: Lab Results 02/02/22 02/02/22 02/02/22 Range/Units 14:12 14:12 14:35 WBC 9.4 (4.5-11.0) X10^3/uL RBC 4.83 (4.0-5.2) X10^6/uL Hgb 15.1 (12.0-16.0) g/dL Hct 44.1 (36-46) % MCV 91.2 (80-100) fL MCH 31.3 (26-34) PG MCHC 34.3 (30-36) % RDW 12.6 (11.6-14.8) % Plt Count 269 (150-400) X10^3/uL Neut % (Auto) 75.5 H (50-75) % Lymph % (Auto) 17.2 L (25-40) % [place] % (Auto) 6.5 (3-14) % Eos % (Auto) 0.3 L (2-4) % Baso % (Auto) 0.5 (0-2) % Neut # (Auto) 7100 H (6283-5863) /uL Lymph # (Auto) 1600 (6264-8770) /uL [place] # (Auto) 600 (0-900) /uL Eos # (Auto) 0 (0-450) /uL Baso # (Auto) 0 (0-100) /uL Sodium 137 (137-145) mmol/L Potassium 3.6 (3.4-5.1) mmol/L Chloride 102 (98-107) mmol/L Carbon Dioxide 24 (22-32) mmol/L BUN 18 H (7-17) mg/dL Creatinine 0.79 (0.52-1.04) mg/dL Estimated GFR > 60 (>60) mL/min BUN/Creatinine Ratio 22.8 H (6-22) Glucose 83 (80-110) mg/dL Calcium 10.0 (8.4-10.2) mg/dL Total Bilirubin 0.9 (0.2-1.3) mg/dL AST 35 (14-36) IU/L ALT 25 (<35) IU/L Alkaline Phosphatase 166 H (38-126) U/L Total Creatine Kinase 121 (30-135) U/L CK-MB (CK-2) 3.17 H (<2.37) ng/mL CK-MB (CK-2) Rel Index 2.6 (1.5-5.0) % Troponin I 0.130 H* (0.01-0.034) ng/mL Total Protein 8.4 H (6.3-8.2) g/dL Albumin 5.0 (3.5-5.0) g/dL Globulin 3.4 (1.7-4.1) g/dL Albumin/Globulin Ratio 1.5 (1.0-2.8) SARS-CoV-2 (PCR) Negative (Negative) Point of Care Testing Glucose POC [address] scan - head: Radiologist's Impression: FINDINGS:? Image quality:? Excellent.? ? CSF spaces:? Basal cisterns are patent.? No extra-axial fluid collections.? Ventricles are normal in size and shape.? ? Brain:? No midline shift.? No intracranial masses or hemorrhage.? [place]-white m atter interface is normal.? Mild atrophy and multifocal white matter chronic ischemic change noted ? Skull and face:? Calvarium and visualized facial bones are intact, without suspicious lesions.? ? Sinuses:? Visualized sinuses and mastoids are clear.? ? IMPRESSION:? Atrophy and chronic ischemic change without acute hemorrhage or mass effect ? This study fulfills neurological imaging criteria for inclusion or exclusion of acute stroke therapies based on available published neurological imaging guidelines.? ? ? Note:? Critical results were discussed with Dr. Davis at 01:53 PM [place] time on 02/02/22 ? Approved by: Jason Crenshaw M.D. on 02/02/2022 at 13:54? CTA head and neck: Radiologist's Impression: COMPARISON:? None. ? FINDINGS:? Image quality:? Excellent.? ? HEAD CT ANGIOGRAPHY:? Anterior circulation:? Calcified splenic plaque in the cavernous portions of both internal carotid arteries results in moderate left-sided ICA stenosis.? The flow within the paired anterior cerebral arteries is normal and symmetric.? The flow within the middle cerebral arteries is normal and symmetric.? The anterior communicating artery is seen.? No aneurysms are seen.? ? Posterior circulation:? Visualized portions of the vertebral arteries demonstrate normal caliber, and join to form a normal appearing basilar artery.? Flow within the po sterior cerebral arteries is normal and symmetric.? No aneurysms are seen.? ? NECK CT ANGIOGRAPHY:? Carotid system:? The right brachiocephalic and left common carotid arteries arise from a common trunk from the aortic arch.? The origins of the common carotid arteries appear patent.? The common carotid arteries demonstrate normal caliber and courses.? The bifurcation regions are both widely patent.? The internal carotid arteries demonstrate normal calibers and courses.? ? Posterior circulation:? The origins of the vertebral arteries both appear widely patent.? The more superior extracranial portions of both vertebral arteries also demonstrate normal courses and calibers.? They join to form a normal appearing basilar artery.? ? Soft tissues:? Visualized neck soft tissues demonstrate no suspicious abnormalities other than 2.6 x 2.9 cm right thyroid nodule, left lobe of the thyroid is either atrophic or resected..? ? Bones:? No suspicious bony lesions.? Visualized cervical spine appears normally aligned.? Multilevel degenerative disc disease and arthropathy in the cervical spine results in moderate central stenosis at C6-7 and grade 1 retrolisthesis. ? ? IMPRESSION:? ? 1. No evidence of large vessel occlusion, aneurysm or vascular malformation. ? 2. Atherosclerotic calcification the cavernous portions of both ICA results in moderate left ICA stenosis. ? 3. Cervical degenerative disc disease and arthropathy results in moderate central stenosis at C6-7. ? 4. Right 2.9 cm thyroid nodule.? Consider follow-up ultrasound? ? Any quantitative measurements of stenosis were performed using NASCET criteria.? Approved by: Jason Crenshaw M.D. on 02/02/2022 at 14:24? ECG Data Interpretation: NSR 81 Normal intervals, normal axis No acute ischemic changes MDM Narrative Medical decision making narrative: 76-year-old woman who presented 3 days ago complaining of upper respiratory type symptoms and nausea and vomiting. Workup at that time was unremarkable and she was discharged home. She was able to eat and drink at time of discharge. She says since being discharged home she has not continued any p.o. intake and continues to feel miserable ?all over?. Had acute onset of left arm weakness and paresthesia at approximately 12:30 p.m. today. It does seem to be getting slightly better however the weakness persists. CT and CTA of the head and neck are unremarkable. Labs are again reassuring with no evidence of acute electrolyte abnormality, renal insufficiency, infection, anemia. Of note today her alk-phos has increased slightly from 147 3 days ago to 166 and her troponin is positive at .130 with no evidence of acute ischemic changes on her EKG. Care is reviewed with Dr. Spence, cardiology. Given the lack of additional cardiac symptoms the assumption is the elevated troponin is secondary to her stroke/stroke-like syndrome. Troponins will need to be trended. 4pm on re-evaluation patient is doing better. Complains of low-grade headache. Her NIH score has gone from a 4 to a 3 you as her hand no longer hits the bed but does continue to drift. Care is reviewed with hospitalist, will be admitted for TIA with improving strength in the left upper extremity. Discharge Plan Departure Patient Disposition: Admitted as Observation Clinical Impression: Brain TIA, Elevated troponin, Nausea, Headache Admit Date/Time: 02/02/22 16:03 Admit Provider: Juanita Villanueva
[2022-02-02 14:49] LABS: Alanine Aminotransferase 25 IU/L (<35); Albumin Globulin Ratio 1.5 (1.0-2.8); Alkaline Phosphatase 166 U/L (38-126); Aspartate Aminotransferase 35 IU/L (14-36); BUN Creatinine Ratio 22.8 (6-22); Bilirubin Total 0.9 mg/dL (0.2-1.3); Blood Urea Nitrogen 18 mg/dL (7-17); Carbon Dioxide 24 mmol/L (22-32); Chloride 102 mmol/L (98-107); Creatine Kinase 121 U/L (30-135); Estimated Glomerular Filt Rate > 60 mL/min (>60); Globulin 3.4 g/dL (1.7-4.1); Glucose 83 mg/dL (80-110); HEMOLYSIS 19 (0-50); Potassium 3.6 mmol/L (3.4-5.1); Sodium 137 mmol/L (137-145); Total Protein 8.4 g/dL (6.3-8.2)
[2022-02-02] MEDS: SODIUM CHLORIDE 0.9% 1,000 ML 150 ML IV (14:54)
[2022-02-02] MEDS: ONDANSETRON 4 MG/2 ML INJ IV (14:54)
[2022-02-02 15:04] LABS: CKMB % Relative Index 2.6 % (1.5-5.0); Creatine Kinase MB 3.17 ng/mL (<2.37)
[2022-02-02 15:05] LABS: Add Manual Diff / Slide Review NO; Basophils Absolute Auto 0 /uL (0-100); Basophils Percent Auto 0.5 % (0-2); Eosinophils Absolute Auto 0 /uL (0-450); Eosinophils Percent Auto 0.3 % (2-4); Hematocrit 44.1 % (36-46); Hemoglobin 15.1 g/dL (12.0-16.0); Lymphocytes Absolute Auto 1600 /uL (1100-4500); Lymphocytes Percent Auto 17.2 % (25-40); Mean Corpuscular HGB Conc 34.3 % (30-36); Mean Corpuscular Hemoglobin 31.3 PG (26-34); Mean Corpuscular Volume 91.2 fL (80-100); Monocytes Absolute Auto 600 /uL (0-900); Monocytes Percent Auto 6.5 % (3-14); Neutrophils Absolute Auto 7100 /uL (1500-7000); Neutrophils Percent Auto 75.5 % (50-75); Platelet Count 269 X10^3/uL (150-400); Red Blood Cell Count 4.83 X10^6/uL (4.0-5.2); Red Cell Distribution Width 12.6 % (11.6-14.8); White Blood Cell Count 9.4 X10^3/uL (4.5-11.0)
[2022-02-02 15:50] LABS: COVID19 -Nasal RAPID Negative (Negative)
--- NOTE | 2022-02-02 16:20 | PC.NURSE ---
Assisted pt up to [facility] for clean cath urine. pt tolerated well and needed SBA only.
[2022-02-02] MEDS: ACETAMINOPHEN 325 MG TABLET 975 MG PO (16:28)
[2022-02-02 16:46] LABS: Appearance Urine UA CLEAR; Bilirubin Urine UA NEGATIVE (NEGATIVE); Color Urine UA YELLOW; Glucose Urine UA NEGATIVE (Negative); Ketones Urine UA 3+ (NEGATIVE); Leukocyte Esterase Urine UA NEGATIVE (NEGATIVE); Nitrite Urine UA NEGATIVE (Negative); Occult Blood Urine UA 2+ (Negative); Protein Urine UA NEGATIVE (Negative); Specific Gravity Urine UA 1.015 (1.000-1.035); Urobilinogen Urine UA 0.2 E.U./dL (0.2)
[2022-02-02 17:03] LABS: Bacteria Urine Occasional (0-1); Culture Indicated Urine Cult Not Indicated; RBC Urine None Seen (0-5/HPF); Squamous Epithelial Cell Urine 1-5 /HPF (0-5/HPF); WBC Urine 1-5/HPF (0-5/HPF)
[2022-02-02 17:37] LABS: Troponin I 0.115 ng/mL (0.01-0.034)
--- NOTE | 2022-02-02 18:43 | PM.HP.1 ---
History of Present Illness History of Present Illness Chief complaint: Nausea Narrative: 76yo female with a hx of hypothyroidism, hypertension, and hyperlipidemia that presents with left arm pain/weakness and left leg weakness since this morning that has self-resolved. The patient is accompanied by her at bedside. He reports that they were just sitting this morning when the patient began shaking in her chair. He reports it looked like a seizure. He states that his was moaning at this time, and not speaking. She reports being confused afterward, but just for a few seconds. She denies muscle soreness afterward. She denies bowel/bladder incontinence. She denies a hx of seizures. She denies biting her tongue. The patient reports feeling n/v over the past 1 week or so. Due to this, she's been unable to keep some of her medicines down. She endorses being hungry at time of HPI acquistion and wants to eat. She denies any CP associated with the left arm pain, or of any neck/jaw pain. She denies diaphoresis. She denies a hx of GA's, or a cardiac history at all. She and her both endorse that she's been having word-finding difficulty over the past few days. She denies having any issues with comprehension though. She denies any recent falls or head trauma. PMH is remarkable for breast cancer in the 80's, status post chemo and bilateral mastectomy. She also has had slipped disc surgeries and has a TENS stimulator unit in her spine that she turned off before presentation. PSH is also remarkable for bilateral knee replacement, along with cholecystectomy, appendectomy, and partial hysterectomy. She has a 25 pack-yr hx but quit smoking tobacco 34 years ago. She also vapes marijuana nightly to help her sleep for the last year or so. She denies EtOH use. Family is positive for strokes in her father when he was elderly, along with hypertension in her mom. 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 Patient History Medical History Conte's esophagus Chronic lumbar pain Closed head injury with brief loss of consciousness Esophageal stricture Failed back surgical syndrome GERD (gastroesophageal reflux disease) History of paralysis History of snoring Hyperlipidemia Hypertension Hypothyroidism Insomnia due to medical condition Malignant neoplasm of unspecified site of unspecified female breast Obesity (BMI 30-39.9) Obstructive sleep apnea, adult (01/09/21) Spinal stenosis of lumbar region at multiple levels Urge incontinence Vitamin D deficiency, unspecified Surgical History History of bilateral knee replacement History of bilateral mastectomy History of hysterectomy History of lumbar fusion History of lumbar laminectomy History of partial thyroidectomy Family & Social History Family History Father Hypertension Alcohol abuse Mother Alcohol abuse Family/Other Hypertension Bipolar disorder ADD (attention deficit disorder) Substance abuse Safety & Behavioral: Feels Safe in Current Yes Environment Tobacco & Substance use: Smoking Status Former smoker alcohol intake current alcohol intake frequency a few times a month Substance Use Type does not use Meds Home Medications and Allergies Home Medications Medication Instructions Recorded Confirmed Type B Complex 1 (with folic acid) 1 tab DAILY 09/23/19 05/11/21 History calcium carbonate 600 mg calcium 600 mg PO BID 09/23/19 05/11/21 History (1,500 mg) tablet (Calcium) celecoxib 200 mg capsule (Celebrex) 200 mg PO DAILY 09/23/19 05/11/21 History cyanocobalamin (vitamin B-12) 1,000 mcg PO DAILY 09/23/19 05/11/21 History 1,000 mcg tablet,extended release (Vitamin B-12 ER) duloxetine 60 mg capsule,delayed 60 mg PO DAILY 09/23/19 05/11/21 History release levothyroxine 88 mcg tablet 88 mcg DAILY 09/23/19 05/11/21 History melatonin 10 mg tablet 10 mg PO BEDTIME PRN 09/23/19 05/11/21 History multivitamin 1 tab PO DAILY 09/23/19 05/11/21 History pregabalin 300 mg capsule (Lyrica) 300 mg PO BID 09/23/19 05/11/21 History trazodone 100 mg tablet 100 mg PO DAILY 09/23/19 05/11/21 History amlodipine 5 mg-benazepril 10 mg 1 cap PO DAILY 12/13/20 05/11/21 History capsule cholecalciferol (vitamin D3) 125 1,000 unit PO DAILY tab 12/13/20 05/11/21 History mcg (5,000 unit) tablet (Vitamin D3) cyclobenzaprine 5 mg tablet 5 mg PO BEDTIME PRN 12/13/20 05/11/21 History losartan 50 mg tablet 50 mg PO BID 12/13/20 05/11/21 History magnesium oxide 250 mg PO DAILY cap 12/13/20 05/11/21 History rosuvastatin 5 mg tablet 5 mg PO DAILY 12/13/20 05/11/21 History ondansetron 4 mg disintegrating 4 mg PO Q6H PRN #10 tab 01/30/22 Rx tablet Allergies Allergy/AdvReac Type Severity Reaction Status Date / Time adhesive tape Allergy Mild Verified 02/02/22 14:24 prochlorperazine Allergy Anaphylaxis Verified 02/02/22 14:24 [From Compazine] Review of Systems Constitutional Comments: Denies fever/chills, endorses appetite loss Eyes Comments: Denies vision changes Cardiovascular Comments: Denies CP, peripheral edema, palpitations Respiratory Comments: Denies SOB, cough, URI sxs Gastrointestinal Comments: Denies abd pain, n/v/d Musculoskeletal Comments: Denies muscle aches Integumentary/Breasts Comments: Denies new skin rashes Neurologic Comments: Endorses markedly improved left arm pain, and resolved left leg weakness Exam Vital Signs (past 8 hours): - 02/02/22 14:23 02/02/22 14:24 02/02/22 14:30 Pulse Rate 73 79 81 Respiratory Rate 18 19 Blood Pressure 184/85 H 213/91 H Pulse Oximetry 95 96 96 02/02/22 15:00 02/02/22 15:07 02/02/22 15:15 Pulse Rate 72 72 76 Respiratory Rate 24 25 H 17 Blood Pressure 169/75 H Pulse Oximetry 98 93 02/02/22 15:30 02/02/22 15:31 02/02/22 15:45 Pulse Rate 74 75 78 Respiratory Rate 20 17 17 Blood Pressure 187/79 H Pulse Oximetry 96 96 96 02/02/22 16:00 02/02/22 16:01 02/02/22 16:15 Pulse Rate 79 82 81 Respiratory Rate 24 21 18 Blood Pressure 197/91 H Pulse Oximetry 96 96 98 02/02/22 16:30 02/02/22 16:31 02/02/22 16:45 Pulse Rate 81 80 79 Respiratory Rate 17 19 19 Blood Pressure 171/75 H Pulse Oximetry 96 96 94 02/02/22 17:00 02/02/22 17:01 02/02/22 17:15 Pulse Rate 79 79 78 Respiratory Rate 19 19 17 Blood Pressure 185/74 H Pulse Oximetry 95 93 94 02/02/22 17:30 02/02/22 17:31 02/02/22 17:45 Pulse Rate 76 75 77 Respiratory Rate 17 20 21 Blood Pressure 173/76 H Pulse Oximetry 93 96 95 Oxygen Delivery Method Room Air Const Other: Patient is laying in bed comfortably upon my entering the room, in no apparent acute distress Eyes Other: No scleral icterus noted, PERRLA, EOMI Neck Other: No carotid bruits appreciated Resp Other: Lungs clear to auscultation bilaterally Cardio Other: RRR, S1 and S2 heart sounds normal, no extra heart sounds appreciated, grade II/ systolic ejection murmur appreciated, heard best over left upper sternal border GI Other: Soft, non-distended, non-tender, bowel sounds present Skin Other: No grossly abnormal skin lesions noted Neuro Other: CN II-XII intact, no grossly focal neurological deficits appreciated Extrem Other: Well-healed vertical knee replacement scars appreciated, palpable dorsalis pedis pulses, no peripheral edema Objective Labs Result Diagrams: 02/02/22 14:12 02/02/22 14:12 Labs: Laboratory Results - last 24 hr 02/02/22 02/02/22 02/02/22 14:12 14:12 14:35 WBC 9.4 RBC 4.83 Hgb 15.1 Hct 44.1 MCV 91.2 MCH 31.3 MCHC 34.3 RDW 12.6 Plt Count 269 Neut % (Auto) 75.5 H Lymph % (Auto) 17.2 L [place] % (Auto) 6.5 Eos % (Auto) 0.3 L Baso % (Auto) 0.5 Neut # (Auto) 7100 H Lymph # (Auto) 1600 [place] # (Auto) 600 Eos # (Auto) 0 Baso # (Auto) 0 Sodium 137 Potassium 3.6 Chloride 102 Carbon Dioxide 24 BUN 18 H Creatinine 0.79 Estimated GFR > 60 BUN/Creatinine Ratio 22.8 H Glucose 83 Calcium 10.0 Total Bilirubin 0.9 AST 35 ALT 25 Alkaline Phosphatase 166 H Total Creatine Kinase 121 CK-MB (CK-2) 3.17 H CK-MB (CK-2) Rel Index 2.6 Troponin I 0.130 H* Total Protein 8.4 H Albumin 5.0 Globulin 3.4 Albumin/Globulin Ratio 1.5 Urine Color Urine Appearance Urine pH Ur Specific [place] Urine Protein Urine Glucose (UA) Urine Ketones Urine Occult Blood Urine Nitrate Urine Bilirubin Urine Urobilinogen Ur Leukocyte Esterase Urine RBC Urine WBC Ur Squamous Epith Cells Urine Bacteria Ur Culture Indicated? SARS-CoV-2 (PCR) Negative 02/02/22 02/02/22 15:50 16:43 WBC RBC Hgb Hct MCV MCH MCHC RDW Plt Count Neut % (Auto) Lymph % (Auto) [place] % (Auto) Eos % (Auto) Baso % (Auto) Neut # (Auto) Lymph # (Auto) [place] # (Auto) Eos # (Auto) Baso # (Auto) Sodium Potassium Chloride Carbon Dioxide BUN Creatinine Estimated GFR BUN/Creatinine Ratio Glucose Calcium Total Bilirubin AST ALT Alkaline Phosphatase Total Creatine Kinase CK-MB (CK-2) CK-MB (CK-2) Rel Index Troponin I 0.115 H Total Protein Albumin Globulin Albumin/Globulin Ratio Urine Color Yellow Urine Appearance Clear Urine pH 5.0 Ur Specific [place] 1.015 Urine Protein Negative Urine Glucose (UA) Negative Urine Ketones 3+ H Urine Occult Blood 2+ H Urine Nitrate Negative Urine Bilirubin Negative Urine Urobilinogen 0.2 Ur Leukocyte Esterase Negative Urine RBC None seen Urine WBC 1-5/hpf Ur Squamous Epith Cells 1-5 /hpf Urine Bacteria Occasional (0-1) Ur Culture Indicated? Cult not indicated SARS-CoV-2 (PCR) Assessment & Plan Assessment & Plan narrative: Assessment: 1. Transient ischemic attack 2. Hypertension 3. Hyperlipidemia 4. Hypothyroidism Plan: 1. CT head and CTA head/neck unremarkable. Precluded from MRI brain due to multiple body hardware. Telemetry on-board. Home rosuvastatin uptitrated to maximum. Baby aspirin on-board. Lipid profile, TSH, A1c pending. Echocardiogram with bubble study ordered. 2. Will resume home losartan 50 mg bid. 3. Home rosuvastatin uptitrated to maximum. 4. Will resume home levothyroxine 88 mcg daily. VTE prophylaxis: Heparin 5000 units bid Code: Full Code Proxy: I have utilized all available immediate resources to obtain, review, or confirm the patient's medications. Time Spent With Patient Critical Care time: I spent a total of [] minutes of critical care time on this patient's care today; this time is exclusive of procedural time. Quality MIPS - Admit I confirm the patient?s Advance Care Plan is present, Code status is documented, Surrogate decision maker is in patient?s record [If Yes, STOP here]: Yes
--- NOTE | 2022-02-02 19:42 | PC.NURSE ---
Pt arrived from ED this evening at 1820 A&OX3. Slight fine motor weakness to L hand otherwise neuro intact. She c/o b flank pain remains 5/10. She is placed on telemetry and given some food. MD at bedside assessing patient. Evening RN endorsed of plan to trend troponins, monitor on telemetry and complete echo in the a.m.
[2022-02-02] MEDS: HEPARIN 5,000 UNIT/ML VIAL 5000 UNIT SUBCUT (20:19)
[2022-02-02] MEDS: LOSARTAN 50 MG TABLET PO (20:19)
[2022-02-02] MEDS: ASPIRIN EC 81 MG TABLET PO (20:19)
[2022-02-02] MEDS: PREGABALIN 75 MG CAPSULE 300 MG PO (20:19)
[2022-02-02] MEDS: ATORVASTATIN 20 MG TABLET PO (20:19)
[2022-02-02] MEDS: MELATONIN 3 MG TABLET 9 MG PO (20:19)
[2022-02-02] MEDS: SODIUM CHLORIDE 0.9% 1,000 ML 100 ML IV (20:21)
[2022-02-03] MEDS: SODIUM CHLORIDE 0.9% 1,000 ML 100 ML IV ×2 (03:47→14:04)
[2022-02-03 04:23] VITALS: BP 170/73; PULSE 70; RESP 17; TEMP 36.4; O2SAT 95
[2022-02-03] MEDS: LEVOTHYROXINE 88 MCG TABLET PO (06:17)
[2022-02-03 06:47] VITALS: BP 154/72; PULSE 70; RESP 16; TEMP 36.6; O2SAT 94
[2022-02-03 06:57] LABS: Cholesterol 200 mg/dL (140-199); HDL Cholesterol 40 mg/dL (40-60); LDL Cholesterol Calculated 133 mg/dL (<100); Triglycerides 137 mg/dL (35-150)
[2022-02-03 07:00] LABS: Hemoglobin A1C% w Est Avg Glu 5.4 % (4.0-6.0)
[2022-02-03 07:30] VITALS: BP 164/78; PULSE 72; RESP 16; TEMP 36.7; O2SAT 94
[2022-02-03 07:41] LABS: TSH w/ Reflex to FT4 2.02 uIU/mL (0.47-4.68)
[2022-02-03] MEDS: ASPIRIN EC 81 MG TABLET PO (08:11)
[2022-02-03] MEDS: CYANOCOBALAMIN (VITAMIN B-12) 500 MCG TABLET 1000 MCG PO (09:02)
[2022-02-03 09:03] VITALS: BP 164/78; PULSE 72
[2022-02-03] MEDS: PREGABALIN 75 MG CAPSULE 300 MG PO (09:03)
[2022-02-03] MEDS: DULOXETINE 30 MG CAPSULE 60 MG PO (09:03)
[2022-02-03] MEDS: LOSARTAN 50 MG TABLET PO (09:03)
[2022-02-03] MEDS: HEPARIN 5,000 UNIT/ML VIAL 5000 UNIT SUBCUT (09:04)
[2022-02-03 11:36] VITALS: BP 128/61; PULSE 75; RESP 16; TEMP 37; O2SAT 95
--- NOTE | 2022-02-03 11:50 | CM.DANOTE ---
Patient is a 76 yo female who was admitted on 02/02/22 for Nausea. Pt has [facility] and [employer] for insurance and her PCP is Emma Larios. EMR was reviewed. Per MD, pt admitted to r/o TIA vs CVA and MRI and Echo ordered and pending. Per MD, pending Echo today pt can likely d/c home later today. SW met bedside with pt briefly as she was sleeping soundly and drowsy and SW explained role and she confirms that she lives in [place] with her spouse and is independent with ADL's at baseline and drives. Pt denies any hx of HH or SNF and preference is home with spouse assist and had been hopeful to stay another night just to make sure I'm alright but aware that currently no medical justification to stay hospital level of care. Plan: SW to follow closely for MRI and Echo to confirm safe plan of d/c home with spouse later today and any further identified discharge planning needs. VITOR Acosta Discharge Planning/Care Management Advanced directive, confirm from FAMILY Start: 02/03/22 08:08 Freq: Q24H Status: Active Protocol: Document 02/03/22 08:08 AKP (Rec: 02/03/22 08:08 AKP [id number]) Advance Directive, confirm on record Time 08:08 Person contacted pt to ask family to bring in Copy received No CM Discharge Assessment Start: 02/03/22 11:48 Freq: Status: Active Protocol: Document 02/03/22 11:48 BF (Rec: 02/03/22 11:50 BF [id number]) Discharge Planning Assessment Assigned Field Service Representative VITOR Chance DPOA/Assigned Designee Name spouse Hima Contact Information [phone] Advance Directives? Yes Advance Directives on File No History Provided By Patient,Significant Other, Medical Record Has Patient been admitted in last 30 No days? Prior Living Arrangements House Household Members spouse Type of transporation used prior to Relies on Others admit Independent with ADL's Yes Is patient alert and oriented? Yes Needs Assistance With Home Chores / Shopping Caregiver for Another No Comment Chemo with Oncologist at [facility] who comes to [facility] once a week Patient/Family Preference Home with Home Health Barriers to Discharge No Discharge Plan Home Transportation Arrangement spouse bedside and can transport at d/c Referrals Initiated None needed Additional Comment r/o HH Whiteboard Updated in Patient Room with Yes name and ext. # of Field Service Representative Review Status In Process Please Provide Date Initial DC 02/03/22 Assessment Was Performed Next Review Type Continued Stay Review
[2022-02-03 16:24] VITALS: BP 147/83; PULSE 75; RESP 17; TEMP 36.6; O2SAT 95
--- NOTE | 2022-02-03 18:38 | DI.ECHO.S_ITS ---
[facility]---------+ [facility] +---------+ : : [address] : [place] : : : : [id number] : : : : Phone: [phone] +---------+ Echocardiogram Report + + :Name: EMEKA CALLEJAS Study Date: 02/03/2022 Height: 65 in : :[facility] ReadingLocation: Weight: 182 lb : : Gender: Female BSA: 1.9 m2 : :: 1945 Age: 76 yrs BP: 128/61 mmHg: :Reason For Study: TIA : :Ordering Physician: Mary : :Hospitalist Performed By: Debi Awad : :Referring: UNSPECIFIED : + + Interpretation Summary Proximal septal thickening is noted. The ejection fraction is estimated to be 70-75%. The left ventricle is hyperdynamic. The LVOT velocity is 1.4 m/s. The left ventricular outflow velocity with valsalva is 3.1. 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 The right ventricle is normal in size and function. No significant valvular pathology seen. The IVC is of normal diameter and collapses greater than 50% with a sniff. This suggests a low right atrial pressure of 3 mm Hg. The patient was in normal sinus rhythm during the exam. There is aortic root sclerosis/calcification. Procedure: A two-dimensional transthoracic echocardiogram with color flow and Doppler was performed. The study quality was technically adequate. Comparison is made with the echocardiogram of 04/03/2021. The patient was in normal sinus rhythm during the exam. Left Ventricle: The LVOT velocity is 1.4 m/s. The left ventricular outflow velocity with valsalva is 3.1. The left ventricle is normal in size. Proximal septal thickening is noted. 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 There is no thrombus. The ejection fraction is estimated to be 70-75%. The left ventricle is hyperdynamic. There are no focal wall motion abnormalities. MV E/A: 0.97 Med Peak E' Tacos: 5.1 cm/sec E/E' med: 15.2. Right Ventricle: The right ventricle is normal in size and function. Atria: Both atria are normal in size. Both atria have remained unchanged in size since the prior echo exam. In subcostal view, and artifact seen in the left atrium. A prominent eustachian valve is noted. There is no Doppler evidence for an interatrial shunt. Mitral Valve: The mitral valve leaflets appear mildly thickened, but open well. There is trace mitral regurgitation. Aortic Valve: The aortic valve is not well visualized. The aortic valve is grossly normal. There is no aortic valve stenosis. There is trace aortic regurgitation. Tricuspid Valve: The tricuspid valve is not well visualized, but is grossly normal. Pulmonary artery pressures cannot be estimated because of the lack of a measurable TR jet velocity but the IVC suggests a CVP of around 3 mmHg. Pulmonic Valve: The pulmonic valve is not well visualized. Great Vessels: The aortic root is normal size. There is aortic root sclerosis/calcification. The ascending aorta is at the upper limits of normal in size. The aortic arch could not be visualized. The IVC is of normal diameter and collapses greater than 50% with a sniff. This suggests a low right atrial pressure of 3 mm Hg. Pericardium/ Pleura There is no pericardial effusion. MMode/2D Measurements & Calculations LVIDd: 4.4 cm LVOT diam: 1.9 cm LVIDs: 2.5 cm Ao root diam: 3.7 cm FS: 44.7 % asc Aorta Diam: 3.5 cm EPSS: 0.29 cm IVSd: 1.1 cm LVPWd: 0.91 cm LV brenner. diameter/BSA (cm/m^2): 2.3 LV sys. diameter/BSA (cm/m^2): 1.3 LA A2 area: 21.0 cm2 RA long axis: 5.5 cm LA A4 area: 18.6 cm2 RA area: 14.3 cm2 LA length (vol): 5.1 cm RA vol: 31.5 ml LA vol: 64.4 ml RA : 16.6 ml/m2 LA vol index: 33.9 ml/m2 IVC diam: 1.9 cm RVD1 (basal): 3.1 cm TAPSE: 2.7 cm Doppler Measurements & Calculations Ao V2 max: 178.2 cm/sec LVOT Max Tacos: 149.2 cm/sec Ao V2 mean: 121.2 cm/sec LV V1 max P.9 mmHg Ao max P.7 mmHg LV V1 VTI: 29.5 cm Ao mean P.5 mmHg STACIE(I,D): 2.7 cm2 Ao V2 VTI: 30.8 cm STACIE(V,D): 2.3 cm2 sev ratio: 0.96 STACIE indexed to BSA (cm^2/m^2): 1.4 MV E max tacos: 77.1 cm/sec PA V2 max: 110.1 cm/sec MV A max tacos: 79.6 cm/sec PA V2 mean: 85.5 cm/sec MV E/A: 0.97 PA mean P.1 mmHg Med Peak E' Tacos: 5.1 cm/sec PA pr(Accel): 45.6 mmHg E/E' med: 15.2 Lat Peak E' Tacos: 9.3 cm/sec E/E' lat: 8.3 E/e' average: 11.8 MV dec time: 0.34 sec SV(LVOT): 82.7 ml Reading Physician:03:29 PM
--- NOTE | 2022-02-03 19:31 | PC.NURSE ---
patient left in stable condition. VSS. Escorted to personal vehicle via WC, spouse with belongings in hand. Pt.'s quesitons and concerns address with d/c paperwork and teaching.
== END 2022-02-03 18:50 | disposition home or self-care (01) ==
LOC: ED 14:36 → AC 16:04
PROVIDERS: Admitting Provider Student in an Organized Health Care Education/Training Program; Emergency Provider Emergency Medicine; Family Provider Physician Assistant; PCP Physician Assistant; Referring Provider Nurse Practitioner; Visit Provider Student in an Organized Health Care Education/Training Program
DX: G45.9 Transient cerebral ischemic attack, unspecified (principal); I10 Essential (primary) hypertension; E78.5 Hyperlipidemia, unspecified; E03.9 Hypothyroidism, unspecified; R77.8 Other specified abnormalities of plasma proteins; R11.0 Nausea; R29.704 NIHSS score 4; Z87.891 Personal history of nicotine dependence; Z20.822 Contact with and (suspected) exposure to COVID-19
CPT/HCPCS: 36415; 51798; 70450; 70496; 70498; 80053; 80061; 81001; 81003; 82550; 82553; 82962; 83036; 84443; 84484; 85025; 87635; 93005; 94760; 96361; 96372; 96374; 99285; 99291; C9803; G0378; C8929; J1644; J2405; Q9967

== ENCOUNTER 2022-02-14 15:04 | Emergency (ER) | payer MEDICARE, OTHER, SELFPAY ==
[2022-02-02 18:35] VITALS: BMI 30.2
[2022-02-14] VITALS (17 sets, daily range): BP systolic 96–201; BP diastolic 62–102; PULSE 67–81; RESP 13–24; TEMP 36.8; O2SAT 94–100; BMI 30.7
[2022-02-14 15:56] LABS: Add Manual Diff / Slide Review NO; Basophils Absolute Auto 100 /uL (0-100); Basophils Percent Auto 0.9 % (0-2); Eosinophils Absolute Auto 0 /uL (0-450); Eosinophils Percent Auto 0.6 % (2-4); Hematocrit 39.1 % (36-46); Hemoglobin 13.4 g/dL (12.0-16.0); Lymphocytes Absolute Auto 1300 /uL (1100-4500); Lymphocytes Percent Auto 18.6 % (25-40); Mean Corpuscular HGB Conc 34.3 % (30-36); Mean Corpuscular Hemoglobin 30.6 PG (26-34); Mean Corpuscular Volume 89.3 fL (80-100); Monocytes Absolute Auto 500 /uL (0-900); Monocytes Percent Auto 6.8 % (3-14); Neutrophils Absolute Auto 5300 /uL (1500-7000); Neutrophils Percent Auto 73.1 % (50-75); Platelet Count 287 X10^3/uL (150-400); Red Blood Cell Count 4.38 X10^6/uL (4.0-5.2); Red Cell Distribution Width 12.5 % (11.6-14.8); White Blood Cell Count 7.2 X10^3/uL (4.5-11.0)
[2022-02-14 15:58] LABS: Alanine Aminotransferase 22 IU/L (<35); Albumin 4.8 g/dL (3.5-5.0); Albumin Globulin Ratio 1.6 (1.0-2.8); Alkaline Phosphatase 140 U/L (38-126); Aspartate Aminotransferase 25 IU/L (14-36); BUN Creatinine Ratio 14.3 (6-22); Bilirubin Total 0.6 mg/dL (0.2-1.3); Blood Urea Nitrogen 12 mg/dL (7-17); Calcium 9.9 mg/dL (8.4-10.2); Carbon Dioxide 26 mmol/L (22-32); Chloride 102 mmol/L (98-107); Estimated Glomerular Filt Rate > 60 mL/min (>60); Glucose 109 mg/dL (80-110); HEMOLYSIS < 15 (0-50); Lipase 99 U/L (23-300); Potassium 3.8 mmol/L (3.4-5.1); Sodium 137 mmol/L (137-145); Total Protein 7.8 g/dL (6.3-8.2)
--- NOTE | 2022-02-14 16:12 | DI.CT.S_ITS ---
PROCEDURE: CT KIDNEY URETER BLADDER (KUB) INDICATIONS: rt flank pain TECHNIQUE: Axial sections were acquired from the lung bases to the pubic symphysis. Coronal and sagittal reformats were performed. For radiation dose reduction, the following was used: automated exposure control, adjustment of mA and/or kV according to patient size. COMPARISON: [facility], CT, CT ABDOMEN PELVIS W CON, 09/25/2021, 15:35. FINDINGS: Image quality: Portions of the lower pelvis are suboptimally evaluated secondary to metallic streak artifact from spinal fusion hardware. Lung bases: Unremarkable. Heart: No significant findings. URINARY: Right Kidney: No stones or hydronephrosis. Right Ureter: No hydroureter. Left Kidney: No stones or hydronephrosis. Left Ureter: No hydroureter. Bladder: Normal wall thickness. No stones. ABDOMEN: Liver: Right hepatic dome cyst, unchanged. Gallbladder: Removed. Biliary ducts: Unremarkable. Pancreas: Unremarkable. Spleen: Unremarkable. Adrenal Glands: Unremarkable. Stomach and Bowel: Stomach, small bowel loops, and colon are unremarkable. Mild hiatal hernia. Peritoneum: No abnormal intraperitoneal fluid. No free air. Ventral Wall: No hernia. Abdominal Nodes: No enlarged retroperitoneal or mesenteric lymph nodes. Vessels: Aorta and inferior vena cava are normal in size. PELVIS: Pelvic Organs: Unremarkable. Pelvic Nodes: Unremarkable. Miscellaneous: No inguinal hernias are seen. Spinal stimulator is noted with leads identified to approximately T7. Bones: Sclerosis likely bone island is noted within the right femur, unchanged. IMPRESSION: No renal, ureteral or bladder calculi. No obstruction. No bowel obstruction. Dictated by: Teri Mooney M.D. on 02/14/2022 at 16:43 Approved by: Teri Mooney M.D. on 02/14/2022 at 16:47
[2022-02-14] MEDS: HYDROMORPHONE 0.5 MG INJ IV (16:18)
[2022-02-14] MEDS: SODIUM CHLORIDE 0.9% 1,000 ML 1000 ML IV (16:18)
[2022-02-14] MEDS: ONDANSETRON 4 MG/2 ML INJ IV (16:18)
[2022-02-14] MEDS: KETOROLAC 30 MG/ML VIAL 15 MG IV (16:19)
--- NOTE | 2022-02-14 16:25 | ED_ITS ---
HPI - Female Genitourinary <Angela Sepulveda [facility] - Last Filed: 02/14/22 18:52> General Chief complaint: Urogenital-Female Stated complaint: vomiting, kidney pain Time Seen by Provider: 02/14/22 15:36 Source: patient Mode of arrival: Wheelchair History of Present Illness HPI Narrative: This is a 76-year-old female with history of Conte's esophagus, spinal stenosis with hardware and spinal cord stimulator, GERD, hypothyroidism, hypertension, DESTIN, and hyperlipidemia who presents to the emergency department complaining of right-sided flank pain, nausea, vomiting, and diarrhea which has been worse over the last 4 days. Patient states that she 1st noticed this pain September 21, also noticed this pain on January 30 and but was diagnosed with a TIA and admitted to the hospital. She was not found to have any abdomen or pelvis abnormalities at that time, she states it was also not worked up because is not the presenting problem that she came to the emergency department for. She states she has an allergy to Compazine, Phenergan, and morphine. She states that her pain is overwhelming, she has had vomiting and diarrhea, states she took her losartan this morning but has not had any other medication today. Primary care provider is Dr. Larios. Patient denies any chest pain, fever, abdominal pain, blood in her urine, stool, or emesis. She states that she has had a cholecystectomy, her uterus and cervix removed, and an appendectomy. Related Data Home Medications Medication Instructions Recorded Confirmed B Complex 1 (with folic acid) 1 tab DAILY 09/23/19 02/03/22 celecoxib 200 mg capsule (Celebrex) 200 mg PO DAILY 09/23/19 02/03/22 cyanocobalamin (vitamin B-12) 1,000 mcg PO DAILY 09/23/19 02/03/22 1,000 mcg tablet,extended release (Vitamin B-12 ER) levothyroxine 88 mcg tablet 88 mcg DAILY 09/23/19 02/03/22 melatonin 10 mg tablet 20 mg PO BEDTIME PRN 09/23/19 02/03/22 pregabalin 300 mg capsule (Lyrica) 300 mg PO BID 09/23/19 02/03/22 cholecalciferol (vitamin D3) 125 1,000 unit PO DAILY tab 12/13/20 02/03/22 mcg (5,000 unit) tablet (Vitamin D3) cyclobenzaprine 5 mg tablet 5 mg PO BEDTIME PRN 12/13/20 02/03/22 losartan 50 mg tablet 50 mg PO BID 12/13/20 02/03/22 magnesium oxide 250 mg PO DAILY cap 12/13/20 02/03/22 atorvastatin 80 mg tablet 80 mg PO QPM 02/03/22 02/03/22 Previous Rx's Medication Instructions Recorded ondansetron 4 mg disintegrating 4 mg PO Q6H PRN #10 tab 01/30/22 tablet aspirin 81 mg tablet,delayed 81 mg PO DAILY #30 tab 02/03/22 release duloxetine 30 mg capsule,delayed 60 mg PO DAILY #30 cap 02/03/22 release (Cymbalta) lidocaine 5 % topical patch 1 patch TOPICAL DAILY #15 ea 02/14/22 methocarbamol 500 mg tablet 500 mg PO BEDTIME PRN #14 tab 02/14/22 ondansetron 4 mg disintegrating 4 mg PO Q8H PRN #10 tab 02/14/22 tablet Allergies Allergy/AdvReac Type Severity Reaction Status Date / Time adhesive tape Allergy Mild Verified 02/14/22 15:16 prochlorperazine Allergy Anaphylaxis Verified 02/14/22 15:16 [From Compazine] Review of Systems <RENEE Fernandez - Last Filed: 02/14/22 18:52> Review of Systems Narrative: General: denies fever, chills, malaise, sweats, fatigue Head/Neck: denies headache, neck pain, dizziness Eyes: denies visual changes, eye pain Cardio: denies chest pain, palpitations, edema Respiratory: denies dyspnea, cough, orthopnea GI: denies abdominal pain, endorses having nausea, vomiting, and diarrhea for the last 3 days : denies dysuria, hematuria, urinary retention, frequency or incontinence MSK: denies joint pain, muscle weakness Skin: denies rash, itching, skin lesions or other Neuro: denies numbness, tingling Patient History <RENEE Fernandez - Last Filed: 02/14/22 18:52> Medical History Conte's esophagus Chronic lumbar pain Closed head injury with brief loss of consciousness Esophageal stricture Failed back surgical syndrome GERD (gastroesophageal reflux disease) History of paralysis History of snoring Hyperlipidemia Hypertension Hypothyroidism Insomnia due to medical condition Malignant neoplasm of unspecified site of unspecified female breast Obesity (BMI 30-39.9) Obstructive sleep apnea, adult (01/09/21) Spinal stenosis of lumbar region at multiple levels Urge incontinence Vitamin D deficiency, unspecified Surgical History History of bilateral knee replacement History of bilateral mastectomy History of hysterectomy History of lumbar fusion History of lumbar laminectomy History of partial thyroidectomy Family History Father Hypertension Alcohol abuse Mother Alcohol abuse Family/Other Hypertension Bipolar disorder ADD (attention deficit disorder) Substance abuse alcohol intake frequency: a few times a month Substance Use Type: does not use Exam <RENEE Fernandez - Last Filed: 02/14/22 18:52> Narrative Exam Narrative: Independently reviewed vitals signs and nursing notes. General: cooperative, comfortable, in no acute distress, well developed and well groomed Head: atraumatic, symmetrical facial expressions Neck: supple, atraumatic, without lymphadenopathy. Eyes: pupils equal round and reactive, EOMI, conjunctiva normal Nose: nares patent, no rhinorrhea Mouth/Throat: uvula midline, moist mucus membranes Cardiovascular: regular rate and rhythm, no peripheral edema, warm extremities Respiratory: normal effort, able to speak in complete sentences, no audible wheezing, stridor, or rales. No retractions or tachypnea. GI: abdomen soft, nontender to palpation, nondistended, no masses, no exquisite tenderness with exam, without guarding or rebound. MSK: moves all extremities, ambulatory w/steady gait, neurovascularly intact, no weakness, right CVA tenderness with palpation, no suprapubic tenderness Skin: brisk capillary refill, no rash, no erythema Neuro: normal speech and cognition, A&O x3, normal tone Psych: mental status is grossly normal, congruent mood, normal affect, pleasant and cooperative Initial Vital Signs Initial Vital Signs: Vital Signs Temperature 98.3 F 02/14/22 15:13 Pulse Rate 79 02/14/22 15:13 Respiratory Rate 24 02/14/22 15:13 Blood Pressure 180/81 H 02/14/22 15:13 Pulse Oximetry 97 02/14/22 15:13 <Lenny Brown DO - Last Filed: 02/14/22 19:05> Initial Vital Signs Initial Vital Signs: Vital Signs Temperature 98.3 F 02/14/22 15:13 Pulse Rate 79 02/14/22 15:13 Respiratory Rate 24 02/14/22 15:13 Blood Pressure 180/81 H 02/14/22 15:13 Pulse Oximetry 97 02/14/22 15:13 Course <RENEE Fernandez - Last Filed: 02/14/22 18:52> Orders Ordered: ED Orders 02/14/22 15:22 EKG-12 Lead Routine 02/14/22 15:30 Complete Blood Count AUTO DIFF Stat Comprehensive Metabolic Panel Stat Lipase Stat 02/14/22 16:12 CT kidney ureter bladder (KUB) Stat 02/14/22 19:03 UA Complete [Urinalysis and Microscopic] Stat Urine Culture Stat Urine Microscopic Stat Discontinued Medications Hydromorphone HCl (Hydromorphone 0.5 Mg Inj) 0.5 mg IV NOW ONE Stop: 02/14/22 16:13 Last Admin: 02/14/22 16:18 Dose: 0.5 mg Documented by: YUE Sodium Chloride (Normal Saline 0.9%) 1,000 mls @ 1,000 mls/hr IV BOLUS ONE Stop: 02/14/22 17:11 Last Infusion: 02/14/22 18:13 Dose: 0 mls/hr Documented by: Admin: 02/14/22 16:18 Dose: 1,000 mls/hr Documented by: YUE Ketorolac Tromethamine (Ketorolac 30 Mg/Ml Vial) 15 mg IV NOW ONE Stop: 02/14/22 16:13 Last Admin: 02/14/22 16:19 Dose: 15 mg Documented by: YUE Ondansetron HCl (Ondansetron 4 Mg/2 Ml Inj) 4 mg IV NOW ONE Stop: 02/14/22 16:13 Last Admin: 02/14/22 16:18 Dose: 4 mg Documented by: YUE Vital Signs Vital signs: Vital Signs - 8 hr 02/14/22 15:13 02/14/22 15:23 02/14/22 15:30 Temperature 98.3 F Pulse Rate 79 78 79 Respiratory Rate 24 18 Blood Pressure 180/81 H Pulse Oximetry 97 96 98 02/14/22 15:39 02/14/22 16:00 02/14/22 16:32 Temperature Pulse Rate 79 81 75 Respiratory Rate 20 19 Blood Pressure 168/79 H 167/79 H Pulse Oximetry 96 94 02/14/22 16:56 02/14/22 17:00 02/14/22 17:30 Temperature Pulse Rate 70 67 71 Respiratory Rate 13 15 23 Blood Pressure 161/70 H 156/72 H Pulse Oximetry 96 98 100 02/14/22 17:31 02/14/22 18:00 02/14/22 18:01 Temperature Pulse Rate 70 68 68 Respiratory Rate 22 16 16 Blood Pressure 201/102 H 195/84 H Pulse Oximetry 100 98 99 02/14/22 18:24 02/14/22 18:30 02/14/22 18:51 Temperature Pulse Rate 73 73 69 Respiratory Rate 20 16 16 Blood Pressure 167/76 H 152/68 H 96/62 Pulse Oximetry 100 98 100 <Lenny Brown DO - Last Filed: 02/14/22 19:05> Orders Ordered: ED Orders 02/14/22 15:22 EKG-12 Lead Routine 02/14/22 15:30 Complete Blood Count AUTO DIFF Stat Comprehensive Metabolic Panel Stat Lipase Stat 02/14/22 16:12 CT kidney ureter bladder (KUB) Stat 02/14/22 19:03 UA Complete [Urinalysis and Microscopic] Stat Urine Culture Stat Urine Microscopic Stat Discontinued Medications Hydromorphone HCl (Hydromorphone 0.5 Mg Inj) 0.5 mg IV NOW ONE Stop: 02/14/22 16:13 Last Admin: 02/14/22 16:18 Dose: 0.5 mg Documented by: ALEKSANDARHOJOMAR Sodium Chloride (Normal Saline 0.9%) 1,000 mls @ 1,000 mls/hr IV BOLUS ONE Stop: 02/14/22 17:11 Last Infusion: 02/14/22 18:13 Dose: 0 mls/hr Documented by: Admin: 02/14/22 16:18 Dose: 1,000 mls/hr Documented by: ALEKSANDARHOJOMAR Ketorolac Tromethamine (Ketorolac 30 Mg/Ml Vial) 15 mg IV NOW ONE Stop: 02/14/22 16:13 Last Admin: 02/14/22 16:19 Dose: 15 mg Documented by: YUE Ondansetron HCl (Ondansetron 4 Mg/2 Ml Inj) 4 mg IV NOW ONE Stop: 02/14/22 16:13 Last Admin: 02/14/22 16:18 Dose: 4 mg Documented by: YUE Vital Signs Vital signs: Vital Signs - 8 hr 02/14/22 15:13 02/14/22 15:23 02/14/22 15:30 Temperature 98.3 F Pulse Rate 79 78 79 Respiratory Rate 24 18 Blood Pressure 180/81 H Pulse Oximetry 97 96 98 02/14/22 15:39 02/14/22 16:00 02/14/22 16:32 Temperature Pulse Rate 79 81 75 Respiratory Rate 20 19 Blood Pressure 168/79 H 167/79 H Pulse Oximetry 96 94 02/14/22 16:56 02/14/22 17:00 02/14/22 17:30 Temperature Pulse Rate 70 67 71 Respiratory Rate 13 15 23 Blood Pressure 161/70 H 156/72 H Pulse Oximetry 96 98 100 02/14/22 17:31 02/14/22 18:00 02/14/22 18:01 Temperature Pulse Rate 70 68 68 Respiratory Rate 22 16 16 Blood Pressure 201/102 H 195/84 H Pulse Oximetry 100 98 99 02/14/22 18:24 02/14/22 18:30 02/14/22 18:51 Temperature Pulse Rate 73 73 69 Respiratory Rate 20 16 16 Blood Pressure 167/76 H 152/68 H 96/62 Pulse Oximetry 100 98 100 MDM - Female Genitourinary <RENEE Fernandez - Last Filed: 02/14/22 18:52> Lab Data Result diagrams: 02/14/22 15:30 02/14/22 15:30 Labs: Lab Results 02/14/22 02/14/22 Range/Units 15:30 15:30 WBC 7.2 (4.5-11.0) X10^3/uL RBC 4.38 (4.0-5.2) X10^6/uL Hgb 13.4 (12.0-16.0) g/dL Hct 39.1 (36-46) % MCV 89.3 (80-100) fL MCH 30.6 (26-34) PG MCHC 34.3 (30-36) % RDW 12.5 (11.6-14.8) % Plt Count 287 (150-400) X10^3/uL Neut % (Auto) 73.1 (50-75) % Lymph % (Auto) 18.6 L (25-40) % [place] % (Auto) 6.8 (3-14) % Eos % (Auto) 0.6 L (2-4) % Baso % (Auto) 0.9 (0-2) % Neut # (Auto) 5300 (3379-6046) /uL Lymph # (Auto) 1300 (0170-3928) /uL [place] # (Auto) 500 (0-900) /uL Eos # (Auto) 0 (0-450) /uL Baso # (Auto) 100 (0-100) /uL Sodium 137 (137-145) mmol/L Potassium 3.8 (3.4-5.1) mmol/L Chloride 102 (98-107) mmol/L Carbon Dioxide 26 (22-32) mmol/L BUN 12 (7-17) mg/dL Creatinine 0.84 (0.52-1.04) mg/dL Estimated GFR > 60 (>60) mL/min BUN/Creatinine Ratio 14.3 (6-22) Glucose 109 (80-110) mg/dL Calcium 9.9 (8.4-10.2) mg/dL Total Bilirubin 0.6 (0.2-1.3) mg/dL AST 25 (14-36) IU/L ALT 22 (<35) IU/L Alkaline Phosphatase 140 H (38-126) U/L Total Protein 7.8 (6.3-8.2) g/dL Albumin 4.8 (3.5-5.0) g/dL Globulin 3.0 (1.7-4.1) g/dL Albumin/Globulin Ratio 1.6 (1.0-2.8) Lipase 99 (23-300) U/L Urine Dip Bedside Urine Glucose Negative Bedside Urine Bilirubin - Negative Bedside Urine Ketone - Negative Urine Specific [place] 1.030 Bedside Urine Occult Blood +/- Bedside Urine pH 6.0 Bedside Urine Protein +/- 15 Bedside Urine Urobilinogen - Negative Bedside Urine Nitrite - Negative Bedside Urine Leukocytes - Negative Esterase Imaging Data CT scan - abdomen/pelvis: Radiologist's Impression: PROCEDURE:? CT KIDNEY URETER BLADDER (KUB) ? INDICATIONS:? rt flank pain ? TECHNIQUE:? Axial sections were acquired from the lung bases to the pubic symphysis.? Coronal and sagittal reformats were performed.? For radiation dose reduction, the following was used: ?automated exposure control, adjustment of mA and/or kV according to patient size.? ? COMPARISON:? [facility], CT, CT ABDOMEN PELVIS W CON, 09/25/2021, 15:35. ? FINDINGS:? Image quality:? Portions of the lower pelvis are suboptimally evaluated secondary to metallic streak artifact from spinal fusion hardware. ? Lung bases:? Unremarkable.? ? Heart:? No significant findings. ? URINARY: Right Kidney: ? No stones or hydronephrosis.? Right Ureter:? No hydroureter.? ? Left Kidney: ? No stones or hydronephrosis. Left Ureter:? No hydroureter.? ? Bladder:? Normal wall thickness. No stones. ? ? ? ABDOMEN: Liver:? Right hepatic dome cyst, unchanged. Gallbladder:? Removed.? ? Biliary ducts:? Unremarkable.? ? Pancreas:? Unremarkable.? ? Spleen:? Unremarkable.? ? Adrenal Glands:? Unremarkable.? ? ? Stomach and Bowel:? Stomach, small bowel loops, and colon are unremarkable.? Mild hiatal hernia. Peritoneum:? No abnormal intraperitoneal fluid.? No free air.? ? Ventral Wall: ? No hernia.? Abdominal Nodes:? No enlarged retroperitoneal or mesenteric lymph nodes.? Vessels:? Aorta and inferior vena cava are normal in size.? ? PELVIS: Pelvic Organs:? Unremarkable.? ? Pelvic Nodes: Unremarkable. Miscellaneous: No inguinal hernias are seen. ? ? Spinal stimulator is noted with leads identified to approximately T7. ? Bones:? Sclerosis likely bone island is noted within the right femur, unchanged. ? IMPRESSION:? ? No renal, ureteral or bladder calculi.? No obstruction. ? No bowel obstruction. ? ? ? Dictated by: Teri Mooney M.D. on 02/14/2022 at 16:43 ? ? Approved by: Teri Mooney M.D. on 02/14/2022 at 16:47 ? ECG Data Interpretation: EKG independently reviewed by myself and Dr. Brown which reveals normal sinus rhythm at [78] bpm with regular axis and intervals. No STEMI, ST segment changes, arrhythmia, or acute ischemic changes. MDM Narrative Medical decision making narrative: This is a 76-year-old female presents to the emergency department for right fl ank pain with nausea, vomiting, and diarrhea. She states that she has had this pain since September 2021 but it has gotten worse over the last 2 weeks. She presented to the emergency department on 01/30/2022 with this and other symptoms and was admitted for a TIA and states that her pain has not resolved. Today patient had is CT KUB as she had not had any abdominal imaging since this pain had started for her. Did not show any stones or hydronephrosis bilaterally, no renal ureteral or bladder calculi, no obstruction, no bowel obstruction. Patient had a unremarkable CT KUB of her abdomen pelvis. Patient's vital signs were within normal range, no tachycardia, no hypertension, no fever. No leukocytosis, no gross electrolyte abnormalities, no increase above baseline to her liver enzymes, her alk phos was 140, most recent was 166 before this. Lipase was 99, UA obtained after lengthy wait for patient to void. She was given Toradol and hydromorphone for her pain, states that this was helpful, nausea and vomiting stopped after she was given Zofran and 1 L of normal saline. Patient's states that patient has had multiple abdominal surgeries, has adhesions, and he thinks that she likely exacerbated a muscle or cause a muscle strain due to her lumbar issues and her spinal cord stimulator being at a level just lower than where she is complaining of symptoms. No peritoneal s igns on abdominal exam. Patient remains p.o. tolerant. Serial abdominal exam without increase in abdominal pain. Given history and exam, low suspicion for acute abdominal process, such as acute cholecystitis, pancreatitis, perforated viscus, atypical appendicitis, colitis, diverticulitis or torsion. Extensive conversation about ER return precautions and need for close follow-up. No peritoneal signs on abdominal exam. Patient remains p.o. tolerant. Serial abdominal exam without increase in abdominal pain. Given history and exam, low suspicion for acute abdominal process, patient is status post appendectomy, cholecystectomy, has had multiple abdominal surgeries and lumbar surgeries. Is most likely a muscle strain/pain from her adhesions. Patient was unable to leave a urine sample today and denied any urinary symptoms. Differential includes nephrolithiasis, pyelonephritis, urinary tract infection, Pancreatitis, perforated viscus, viral illness, colitis, diverticulitis or torsion. Extensive conversation about ER return precautions and need for close follow-up. Multiple etiologies of back pain considered including; Epidural abscess, cauda equina, mass occupying lesion, lumbar fracture, intra-abdominal pathology chronic neuropathic pain and other considered Patient has follow-up scheduled with her primary care provider on February 20, she also has a renal ultrasound scheduled after that. Recommend following up with her primary care provider, I will send the chart to her, and going to the renal ultrasound. Patient could have poor perfusion to her kidney on the right which we were not able to visualize today on CT KUB. Patient is appropriate and amenable to discharge home. Vital signs are stable on repeat examination is unremarkable. Patient has been informed of results. Patient has been given strict return to ER precautions for any new or worsening symptoms. Patient understands to follow up closely with outpatient providers as instructed. Patient understands plan and agrees to discharge home. All questions and concerns answered at this time. <Lenny Brown DO - Last Filed: 02/14/22 19:05> Lab Data Labs: Lab Results 02/14/22 02/14/22 Range/Units 15:30 15:30 WBC 7.2 (4.5-11.0) X10^3/uL RBC 4.38 (4.0-5.2) X10^6/uL Hgb 13.4 (12.0-16.0) g/dL Hct 39.1 (36-46) % MCV 89.3 (80-100) fL MCH 30.6 (26-34) PG MCHC 34.3 (30-36) % RDW 12.5 (11.6-14.8) % Plt Count 287 (150-400) X10^3/uL Neut % (Auto) 73.1 (50-75) % Lymph % (Auto) 18.6 L (25-40) % [place] % (Auto) 6.8 (3-14) % Eos % (Auto) 0.6 L (2-4) % Baso % (Auto) 0.9 (0-2) % Neut # (Auto) 5300 (9532-7000) /uL Lymph # (Auto) 1300 (1974-0538) /uL [place] # (Auto) 500 (0-900) /uL Eos # (Auto) 0 (0-450) /uL Baso # (Auto) 100 (0-100) /uL Sodium 137 (137-145) mmol/L Potassium 3.8 (3.4-5.1) mmol/L Chloride 102 (98-107) mmol/L Carbon Dioxide 26 (22-32) mmol/L BUN 12 (7-17) mg/dL Creatinine 0.84 (0.52-1.04) mg/dL Estimated GFR > 60 (>60) mL/min BUN/Creatinine Ratio 14.3 (6-22) Glucose 109 (80-110) mg/dL Calcium 9.9 (8.4-10.2) mg/dL Total Bilirubin 0.6 (0.2-1.3) mg/dL AST 25 (14-36) IU/L ALT 22 (<35) IU/L Alkaline Phosphatase 140 H (38-126) U/L Total Protein 7.8 (6.3-8.2) g/dL Albumin 4.8 (3.5-5.0) g/dL Globulin 3.0 (1.7-4.1) g/dL Albumin/Globulin Ratio 1.6 (1.0-2.8) Lipase 99 (23-300) U/L Urine Dip Bedside Urine Glucose Negative Bedside Urine Bilirubin - Negative Bedside Urine Ketone - Negative Urine Specific [place] 1.030 Bedside Urine Occult Blood +/- Bedside Urine pH 6.0 Bedside Urine Protein +/- 15 Bedside Urine Urobilinogen - Negative Bedside Urine Nitrite - Negative Bedside Urine Leukocytes - Negative Esterase Discharge Plan Departure Patient Disposition: Home Clinical Impression: Acute right flank pain, Nausea vomiting and diarrhea Instructions: DI for Muscle Strain, DI for Muscle Spasm Activity Restrictions/Additional Instructions: *You have been diagnosed with right flank pain with nausea, vomiting and diarrhea. Please follow-up with Dr. Larios at your appointment on February 20 and if what we tried today helped any of your symptoms. Please have your renal ultrasound as this could be another cause of your symptoms and we did not rule that out today. Please continue taking your other medications as they are indicated. If you are having more than 3 stools per day, and there was no blood in your stool, it is acceptable to try Imodium to help decrease the amount of stools her having. Please use Zofran and Reglan as needed for your vomiting. May try methocarbamol/Robaxin instead of Flexeril and see if this is helpful for your muscle spasm pain. Use lidocaine patches, Tylenol and hydrocodone as needed for your breakthrough pain. *What to do: *Please continue to take your regular medications as directed. [ x] New medication prescriptions sent to your pharmacy: [ [facility]] [ ] New medication written as a paper prescription [ ] No new medications given *Please follow up with your primary care provider in 2-3 days, call for an appointment. Let them know you were seen in the Emergency Department and that we asked that you be seen for follow-up. We will electronically transmit a record of today's note if your PCP is in our system *If you do not have a primary care provider please contact [phone] to establish care with one of the [facility] primary care providers. *Return to Emergency Department if you should have any new, worsening or concerning symptoms, such as [fever greater than 101F, chills, worsening pain, persistent vomiting or other bothersome symptoms] Prescriptions: New lidocaine 5 % adhesive patch,medicated 1 patch topical DAILY Qty: 15 0RF Rx Instructions: leave on most painful area for up to 12 hrs methocarbamol 500 mg tablet 500 mg PO BEDTIME PRN (Reason: muscle spasms) Qty: 14 0RF ondansetron 4 mg tablet,disintegrating 4 mg PO Q8H PRN (Reason: nausea and vomiting) Qty: 10 0RF No Action ondansetron 4 mg tablet,disintegrating 4 mg PO Q6H PRN (Reason: nausea and vomiting) Qty: 10 0RF B Complex 1 (with folic acid) 1 tab DAILY 0RF celecoxib [Celebrex] 200 mg Capsule 200 mg PO DAILY 0RF cyanocobalamin (vitamin B-12) [Vitamin B-12] 1,000 mcg Tablet Extended Release 1,000 mcg PO DAILY 0RF levothyroxine 88 mcg Tablet 88 mcg DAILY 0RF pregabalin [Lyrica] 300 mg Capsule 300 mg PO BID 0RF melatonin 10 mg Tablet 20 mg PO BEDTIME PRN (Reason: Insomnia) 0RF cholecalciferol (vitamin D3) [Vitamin D3] 125 mcg (5,000 unit) tablet 1,000 unit PO DAILY 0RF magnesium oxide 400 mg magnesium capsule 250 mg PO DAILY 0RF atorvastatin 80 mg Tablet 80 mg PO QPM 0RF aspirin 81 mg Tablet,Delayed Release (Dr/Ec) 81 mg PO DAILY Qty: 30 0RF duloxetine [Cymbalta] 30 mg Capsule,Delayed Release(Dr/Ec) 60 mg PO DAILY Qty: 30 0RF losartan 50 mg tablet 50 mg PO BID 0RF cyclobenzaprine 5 mg tablet 5 mg PO BEDTIME PRN (Reason: Pain (Scale Score 1-3)) 0RF Referrals: Emma Larios PA-C [Primary Care Provider] - <Lenny Brown DO - Last Filed: 02/14/22 19:05> Cosign ED Attending Cosignature Attestation: Dr Brown Co-Sign Statement: I was available for consultation during this patient's emergency department visit. This chart is signed by myself for administrative purposes only. I did not have direct contact with this patient during this visit. They were seen independently by the APC.
[2022-02-14 19:53] LABS: RBC Urine None Seen (0-5/HPF)
[2022-02-14 19:55] LABS: Bacteria Urine Occasional (0-1); Mucus Urine 1+ (Negative); Squamous Epithelial Cell Urine 0-1 /HPF (0-5/HPF); WBC Urine None Seen (0-5/HPF)
== END 2022-02-14 19:19 | disposition home or self-care (01) ==
PROVIDERS: Emergency Medicine; Emergency Provider Nurse Practitioner Critical Care Medicine; Family Provider Physician Assistant; PCP Physician Assistant
DX: N39.0 Urinary tract infection, site not specified (principal); R11.2 Nausea with vomiting, unspecified; R19.7 Diarrhea, unspecified; B96.89 Other specified bacterial agents as the cause of diseases classified elsewhere; I10 Essential (primary) hypertension
CPT/HCPCS: 36415; 74176; 80053; 81003; 81015; 83690; 85025; 87086; 93005; 96361; 96374; 96375; 99284; 99285; J1170; J1885; J2405

== ENCOUNTER → 2022-03-29 11:45 | Outpatient (CLI) | payer MEDICARE, OTHER, SELFPAY ==
[2022-02-02 18:35] VITALS: BMI 30.2
--- NOTE | 2022-03-29 11:49 | DI.RAD.S_ITS ---
PROCEDURE: XR HIP W PEL IF DONE SHANNON MIN 4V INDICATIONS: BILATERAL HIP PAIN TECHNIQUE: AP pelvis with lateral view(s) of the right and left hip(s). COMPARISON: None. FINDINGS: Bones: No fractures or dislocations. Pelvic ring appears intact. No suspicious bony lesions. Moderate bilateral hip osteoarthritic degenerative changes with joint space narrowing and osseous hypertrophy. Lower spine degenerative disc disease and facet arthropathy. L4-L5 fixation hardware. Soft tissues: The visualized bowel gas pattern is normal. No suspicious soft tissue calcifications. Neurostimulator projects over the right pelvis. IMPRESSION: Moderate bilateral hip osteoarthritis. Dictated by: Jayde Garrison MD, PhD on 03/29/2022 at 14:20 Approved by: Jayde Garrison MD, PhD on 03/29/2022 at 14:22
== END ==
PROVIDERS: Family Provider Physician Assistant; PCP Physician Assistant; Referring Provider Physician Assistant; Visit Provider Physician Assistant
DX: M16.0 Bilateral primary osteoarthritis of hip (principal); M25.551 Pain in right hip; M25.552 Pain in left hip
CPT/HCPCS: 73522

== ENCOUNTER 2022-06-19 12:46 | Observation (INO) | payer MEDICARE, OTHER, SELFPAY ==
[2022-02-02 18:35] VITALS: BMI 30.2
[2022-06-19] VITALS (24 sets, daily range): BP systolic 156–200; BP diastolic 66–135; PULSE 65–84; RESP 16–22; TEMP 36.5–36.7; O2SAT 91–100; BMI 32.0
[2022-06-19] MEDS: ONDANSETRON 4 MG/2 ML INJ IV (13:38)
[2022-06-19 13:39] LABS: Add Manual Diff / Slide Review NO; Basophils Absolute Auto 100 /uL (0-100); Basophils Percent Auto 0.7 % (0-2); Eosinophils Absolute Auto 200 /uL (0-450); Eosinophils Percent Auto 2.6 % (2-4); Hematocrit 44.4 % (36-46); Lymphocytes Absolute Auto 1600 /uL (1100-4500); Lymphocytes Percent Auto 20.5 % (25-40); Mean Corpuscular HGB Conc 33.9 % (30-36); Mean Corpuscular Volume 88.6 fL (80-100); Monocytes Absolute Auto 600 /uL (0-900); Monocytes Percent Auto 7.1 % (3-14); Neutrophils Absolute Auto 5400 /uL (1500-7000); Neutrophils Percent Auto 69.1 % (50-75); Platelet Count 280 X10^3/uL (150-400); Red Blood Cell Count 5.01 X10^6/uL (4.0-5.2); Red Cell Distribution Width 13.2 % (11.6-14.8); White Blood Cell Count 7.8 X10^3/uL (4.5-11.0)
[2022-06-19 13:40] LABS: Alanine Aminotransferase 26 IU/L (<35); Albumin 4.7 g/dL (3.5-5.0); Albumin Globulin Ratio 1.3 (1.0-2.8); Alkaline Phosphatase 144 U/L (38-126); Aspartate Aminotransferase 34 IU/L (14-36); BUN Creatinine Ratio 22.4 (6-22); Bilirubin Total 0.8 mg/dL (0.2-1.3); Blood Urea Nitrogen 17 mg/dL (7-17); Calcium 9.9 mg/dL (8.4-10.2); Carbon Dioxide 21 mmol/L (22-32); Chloride 102 mmol/L (98-107); Estimated Glomerular Filt Rate > 60 mL/min (>60); Globulin 3.5 g/dL (1.7-4.1); Glucose 115 mg/dL (80-110); HEMOLYSIS < 15 (0-50); Lipase 117 U/L (23-300); Potassium 3.7 mmol/L (3.4-5.1); Sodium 139 mmol/L (137-145); Total Protein 8.2 g/dL (6.3-8.2)
--- NOTE | 2022-06-19 13:52 | DI.CT.S_ITS ---
PROCEDURE: CT ABDOMEN PELVIS W CON INDICATIONS: left flank pain TECHNIQUE: After the administration of oral and IV contrast, axial sections were acquired from the lung bases to the pubic symphysis. Coronal and sagittal reformats were performed. For radiation dose reduction, the following was used: automated exposure control, adjustment of mA and/or kV according to patient size. COMPARISON: [facility], CT, CT ABDOMEN PELVIS W CON, 09/25/2021, 15:35. FINDINGS: Image quality: Excellent. Lung bases: Unremarkable. Heart: No significant findings. ABDOMEN: Liver: A few small cysts. Gallbladder: Absent. Biliary ducts: Unremarkable. Pancreas: Unremarkable. Spleen: Unremarkable. Adrenal Glands: Unremarkable. Kidneys and Ureters: No hydronephrosis. Stomach and Bowel: Stomach is not distended. No small bowel obstruction. A few colonic diverticuli. There is possible thickening at the rectum, (5/48). The appendix is not seen. Peritoneum: No abnormal intraperitoneal fluid. No free air. Ventral Wall: No hernia. Abdominal Nodes: No retroperitoneal or mesenteric adenopathy by size criteria. Vessels: Aorta and inferior vena cava are normal in size. Extensive plaque. PELVIS: Pelvic Organs: Uterus is absent. Bladder: Bladder is mostly decompressed limiting evaluation. Pelvic Nodes: No enlarged lymph nodes. Miscellaneous: No inguinal hernias are seen. Right back subcutaneous generator device with thecal leads projecting cephalad. Bones: L2 compression fracture is unchanged. Intervertebral body spacers at L1-L2, L2-L3, L3-L4, and L4-L5. Exaggerated lumbar spine lordosis. IMPRESSION: 1. No hydronephrosis. 2. No diverticulitis identified. No free fluid. 3. Possible thickening at the rectum. -Recommend further evaluation with colonoscopy if not recently performed. 4. Stable L2 compression fracture. Dictated by: Kevin Chong M.D. on 06/19/2022 at 14:24 Approved by: Kevin Chong M.D. on 06/19/2022 at 14:34
--- NOTE | 2022-06-19 13:55 | ED.ABDPAIN ---
HPI - Abdominal Pain <JUSTIN FernandezP - Last Filed: 06/19/22 20:31> General Chief Complaint: Abdominal Pain Stated Complaint: Vomiting and sever abd pain/Left side Time Seen by Provider: 06/19/22 13:41 Source: patient Mode of arrival: Ambulatory History of Present Illness HPI narrative: This is a 76-year-old female with history of left flank pain without known reason with recent workup in January 2022 for this same pain that patient presents to the emergency department today with. 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 She is vomiting, mildly diaphoretic, moaning in pain, putting her fingers over her left CVA/flank. She is tender to palpation over this area, she denies recent fever or illness. She states that she was on a cruise, endorses having diarrhea over the last 3 days and states 2 days ago she had ?coffee grounds in her stool ?she denies knowing if this was blood or not and denies seeking out medical care. She has seen her provider Shanika Larios since her last emergency department visit and is pending her appointment with Gastroenterology in a few weeks. Patient is not on any PPI with a history of GERD. She states she drinks 2 glasses of wine nightly but has not had this for the last 3 days. She denies smoking or any illicit drug use. Related Data Home Medications Medication Instructions Recorded Confirmed celecoxib 200 mg capsule (Celebrex) 200 mg PO DAILY 09/23/19 06/19/22 levothyroxine 88 mcg tablet 88 mcg DAILY 09/23/19 06/19/22 melatonin 10 mg tablet 20 mg PO BEDTIME PRN Insomnia 09/23/19 06/19/22 pregabalin 300 mg capsule (Lyrica) 300 mg PO BID 09/23/19 06/19/22 cholecalciferol (vitamin D3) 125 2,000 unit PO DAILY 12/13/20 06/19/22 mcg (5,000 unit) tablet (Vitamin D3) cyclobenzaprine 5 mg tablet 5 mg PO BEDTIME PRN Pain (Scale 12/13/20 06/19/22 Score 1-3) losartan 50 mg tablet 50 mg PO BID 12/13/20 06/19/22 atorvastatin 80 mg tablet 80 mg PO QPM 02/03/22 06/19/22 magnesium citrate 100 mg capsule 100 mg PO DAILY 06/19/22 06/19/22 Previous Rx's Medication Instructions Recorded duloxetine 30 mg capsule,delayed 60 mg PO DAILY #30 caps 02/03/22 release (Cymbalta) hydromorphone 2 mg tablet 2 mg PO Q6H PRN pain 7 days #14 06/21/22 tabs pantoprazole 40 mg tablet,delayed 40 mg PO DAILY 30 days #30 tabs 06/21/22 release Allergies Allergy/AdvReac Type Severity Reaction Status Date / Time adhesive tape Allergy Mild Verified 02/14/22 15:16 prochlorperazine Allergy Anaphylaxis Verified 02/14/22 15:16 [From Compazine] Review of Systems <RENEE Fernandez - Last Filed: 06/19/22 20:31> Review of Systems Narrative: Review of systems is negative for acute abnormalities unless otherwise noted in HPI Patient History <RENEE Fernandez - Last Filed: 06/19/22 20:31> Medical History Conte's esophagus Chronic lumbar pain Closed head injury with brief loss of consciousness Esophageal stricture Failed back surgical syndrome GERD (gastroesophageal reflux disease) History of paralysis History of snoring Hyperlipidemia Hypertension Hypothyroidism Insomnia due to medical condition Malignant neoplasm of unspecified site of unspecified female breast Obesity (BMI 30-39.9) Obstructive sleep apnea, adult (01/09/21) Spinal stenosis of lumbar region at multiple levels Urge incontinence Vitamin D deficiency, unspecified Surgical History History of bilateral knee replacement History of bilateral mastectomy History of hysterectomy History of lumbar fusion History of lumbar laminectomy History of partial thyroidectomy Family History Father Hypertension Alcohol abuse Mother Alcohol abuse Family/Other Hypertension Bipolar disorder ADD (attention deficit disorder) Substance abuse Social History household members: spouse Smoking Status: Former smoker alcohol intake: current substance use type: other (vapes CBD for pain/sleep) Smoking Status: Former smoker alcohol intake frequency: a few times a month Substance Use Type: does not use Exam <RENEE Fernandez - Last Filed: 06/19/22 20:31> Narrative Exam Narrative: Reviewed vitals signs and nursing notes. General: cooperative, appears uncomfortable , in acute distress, writhing in pain well groomed HEENT: symmetrical facial expressions, moist mucous membranes, EOMI Cardiovascular: regular rate and rhythm, no peripheral edema, warm extremities Respiratory: normal effort, able to speak in complete sentences, without wheezing, stridor, or abnormal breath sounds. No retractions or tachypnea. GI: abdomen soft, nontender to palpation, nondistended, without masses, rebound tenderness or exquisite tenderness with exam. Tenderness over her left flank MSK: moves all extremities, neurovascularly intact, no weakness, normal tone Skin: brisk capillary refill, without pallor or erythema Neuro: normal speech and cognition, A&O x3, ambulatory, clear speech Psych: mental status is grossly normal, congruent mood, normal affect, pleasant and cooperative Initial Vital Signs Initial Vital Signs: Vital Signs Temperature 98.1 F 06/19/22 12:59 Pulse Rate 84 06/19/22 12:59 Respiratory Rate 22 06/19/22 12:59 Pulse Oximetry 99 06/19/22 12:59 Oxygen Delivery Method 06/19/22 12:59 <Radha Smith DO - Last Filed: 06/23/22 08:44> Initial Vital Signs Initial Vital Signs: Vital Signs Temperature 98.1 F 06/19/22 12:59 Pulse Rate 84 06/19/22 12:59 Respiratory Rate 22 06/19/22 12:59 Pulse Oximetry 99 06/19/22 12:59 Oxygen Delivery Method 06/19/22 12:59 Course <RENEE Fernandez - Last Filed: 06/19/22 20:31> Orders Ordered: Discontinued Medications Acetaminophen (Acetaminophen 325 Mg Tablet) 650 mg PO Q6HR PRN PRN Reason: Fever/Mild Pain (1-3) Last Admin: 06/20/22 16:37 Dose: 650 mg Documented By: Admin: 06/20/22 00:27 Dose: 650 mg Documented By: KATY Aspirin (Aspirin Ec 81 Mg Tablet) 81 mg PO DAILY [facility] Last Admin: 06/21/22 08:33 Dose: 81 mg Documented By: Admin: 06/20/22 08:51 Dose: 81 mg Documented By: DICK Atorvastatin Calcium (Atorvastatin 20 Mg Tablet) 80 mg PO BEDTIME [facility] Last Admin: 06/20/22 20:04 Dose: 80 mg Documented By: KATY Al Hydrox/Mg Hydrox/Simethicone 20 ml/ Lidocaine HCl 15 ml 0 ml PO NOW ONE Stop: 06/19/22 17:57 Last Admin: 06/19/22 19:18 Dose: 20 ml Documented By: ACOSTA Cyclobenzaprine HCl (Cyclobenzaprine 10 Mg Tablet) 5 mg PO BEDTIME PRN PRN Reason: Pain (Scale Score 1-3) Last Admin: 06/19/22 20:57 Dose: 5 mg Documented By: JENNIFFER Cyclobenzaprine HCl (Cyclobenzaprine 10 Mg Tablet) 5 mg PO Q8HR [facility] Last Admin: 06/21/22 11:57 Dose: 5 mg Documented By: Admin: 06/21/22 05:20 Dose: 5 mg Documented By: Admin: 06/20/22 22:11 Dose: 5 mg Documented By: Admin: 06/20/22 14:12 Dose: 5 mg Documented By: DICK Diazepam (Diazepam 10 Mg/2 Ml Syringe) 2 mg IV NOW ONE Stop: 06/19/22 14:18 Last Admin: 06/19/22 14:29 Dose: 2 mg Documented By: ACOSTA Diazepam (Diazepam 10 Mg/2 Ml Syringe) 2 mg IV NOW ONE Stop: 06/19/22 16:46 Last Admin: 06/19/22 17:17 Dose: 2 mg Documented By: ACOSTA Duloxetine HCl (Duloxetine 30 Mg Capsule) 60 mg PO DAILY [facility] Last Admin: 06/21/22 08:32 Dose: 60 mg Documented By: Admin: 06/20/22 08:51 Dose: 60 mg Documented By: DICK Enoxaparin Sodium (Enoxaparin 40 Mg/0.4 Ml Syringe) 40 mg SUBCUT DAILY [facility] Last Admin: 06/21/22 08:32 Dose: 40 mg Documented By: Admin: 06/20/22 08:52 Dose: 40 mg Documented By: DICK Hydromorphone HCl (Hydromorphone 0.5 Mg Inj) 0.5 mg IV Q1H PRN PRN Reason: pain Last Admin: 06/19/22 15:29 Dose: 0.5 mg Documented By: Admin: 06/19/22 14:14 Dose: 0.5 mg Documented By: ACOSTA Hydromorphone HCl (Hydromorphone 0.5 Mg Inj) 0.5 mg IV NOW ONE Stop: 06/19/22 16:46 Last Admin: 06/19/22 17:17 Dose: 0.5 mg Documented By: ACOSTA Hydromorphone HCl (Hydromorphone 0.5 Mg Inj) 0.5 mg IV Q4H PRN PRN Reason: Pain, Moderate (4-6) Last Admin: 06/20/22 22:12 Dose: 0.5 mg Documented By: Admin: 06/20/22 17:52 Dose: 0.5 mg Documented By: Admin: 06/20/22 09:28 Dose: 0.5 mg Documented By: Admin: 06/19/22 22:01 Dose: 0.5 mg Documented By: KATY Lactated Ringer's (Lactated Ringers) 1,000 mls @ 1,000 mls/hr IV BOLUS ONE Stop: 06/19/22 14:51 Last Admin: 06/19/22 14:18 Dose: Not Given Documented By: ACOSTA Sodium Chloride (Normal Saline 0.9%) 1,000 mls @ 1,000 mls/hr IV BOLUS ONE Stop: 06/19/22 15:14 Last Infusion: 06/19/22 15:25 Dose: 0 mls/hr Documented By: Admin: 06/19/22 14:18 Dose: 1,000 mls/hr Documented By: ACOSTA Magnesium Sulfate (Magnesium Sulfate) 2 gm in 50 mls @ 25 mls/hr IV NOW ONE Stop: 06/19/22 19:55 Last Admin: 06/19/22 19:16 Dose: 25 mls/hr Documented By: ACOSTA Co-signed By: RUSS Sodium Chloride (Normal Saline 0.45%) 1,000 mls @ 100 mls/hr IV CONT [place] Stop: 06/20/22 05:59 Last Infusion: 06/20/22 06:32 Dose: 0 mls/hr Documented By: Admin: 06/19/22 19:20 Dose: 100 mls/hr Documented By: ACOSTA Ketorolac Tromethamine (Ketorolac 30 Mg/Ml Vial) 15 mg IV NOW ONE Stop: 06/19/22 13:53 Last Admin: 06/19/22 14:15 Dose: Not Given Documented By: ACOSTA Levothyroxine Sodium (Levothyroxine 88 Mcg Tablet) 88 mcg PO DAILY [facility] Last Admin: 06/21/22 08:33 Dose: 88 mcg Documented By: Admin: 06/20/22 08:51 Dose: 88 mcg Documented By: DICK Losartan Potassium (Losartan 50 Mg Tablet) 50 mg PO BID [facility] Last Admin: 06/21/22 08:33 Dose: 50 mg Documented By: Admin: 06/20/22 20:04 Dose: 50 mg Documented By: Admin: 06/20/22 08:51 Dose: 50 mg Documented By: Admin: 06/19/22 20:56 Dose: 50 mg Documented By: JENNIFFER Magnesium Oxide (Magnesium Oxide 400 Mg Tablet) 200 mg PO DAILY [facility] Last Admin: 06/21/22 08:32 Dose: 200 mg Documented By: Admin: 06/20/22 08:51 Dose: 200 mg Documented By: DICK Melatonin (Melatonin 3 Mg Tablet) 9 mg PO BEDTIME PRN PRN Reason: Insomnia Last Admin: 06/20/22 20:04 Dose: 9 mg Documented By: Admin: 06/19/22 20:57 Dose: 9 mg Documented By: JENNIFFER Methocarbamol (Methocarbamol 500 Mg Tablet) 500 mg PO NOW ONE Stop: 06/19/22 13:53 Last Admin: 06/19/22 14:14 Dose: Not Given Documented By: ACOSTA Methocarbamol (Methocarbamol 500 Mg Tablet) 500 mg PO BEDTIME PRN PRN Reason: muscle spasms Metoclopramide HCl (Metoclopramide 10 Mg/2 Ml Inj) 10 mg IV NOW ONE Stop: 06/19/22 13:53 Last Admin: 06/19/22 14:14 Dose: 10 mg Documented By: ACOSTA Metoclopramide HCl (Metoclopramide 10 Mg/2 Ml Inj) 10 mg IV Q6HR PRN PRN Reason: Nausea And Vomiting Ondansetron HCl (Ondansetron 4 Mg/2 Ml Inj) 4 mg IV NOW ONE Stop: 06/19/22 13:23 Last Admin: 06/19/22 13:38 Dose: 4 mg Documented By: ACOSTA Ondansetron HCl (Ondansetron 4 Mg/2 Ml Inj) 4 mg IV Q6HR PRN PRN Reason: Nausea And Vomiting Oxycodone/Acetaminophen (Oxycodone/Acetaminophen 5/325 Tablet) 1 tab PO NOW ONE Stop: 06/19/22 16:39 Last Admin: 06/19/22 17:23 Dose: Not Given Documented By: ACOSTA Pantoprazole Sodium (Pantoprazole 40 Mg Vial) 20 mg IV NOW ONE Stop: 06/19/22 13:56 Last Admin: 06/19/22 14:14 Dose: 20 mg Documented By: ACOSTA Pantoprazole Sodium (Pantoprazole 40 Mg Vial) 40 mg IV BID [facility] Last Admin: 06/21/22 08:33 Dose: 40 mg Documented By: Admin: 06/20/22 20:04 Dose: 40 mg Documented By: Admin: 06/20/22 08:51 Dose: 40 mg Documented By: Admin: 06/19/22 20:57 Dose: 40 mg Documented By: JENNIFFER Pregabalin (Pregabalin 75 Mg Capsule) 300 mg PO BID [facility] Last Admin: 06/21/22 08:32 Dose: 300 mg Documented By: Admin: 06/20/22 20:04 Dose: 300 mg Documented By: Admin: 06/20/22 08:51 Dose: 300 mg Documented By: Admin: 06/19/22 20:57 Dose: 300 mg Documented By: JENNIFFER Vital Signs Vital signs: Vital Signs - 8 hr 06/19/22 12:59 06/19/22 13:36 06/19/22 13:36 Temperature 98.1 F Pulse Rate 84 75 Respiratory Rate 22 Blood Pressure 182/90 H Pulse Oximetry 99 98 Oxygen Delivery Method Room Air 06/19/22 14:00 06/19/22 14:15 06/19/22 14:15 Temperature Pulse Rate 83 79 Respiratory Rate Blood Pressure 177/81 H Pulse Oximetry 98 100 Oxygen Delivery Method 06/19/22 14:30 06/19/22 14:30 06/19/22 15:00 Temperature Pulse Rate 79 80 Respiratory Rate Blood Pressure 185/81 H Pulse Oximetry 93 93 Oxygen Delivery Method 06/19/22 15:01 06/19/22 15:01 06/19/22 15:30 Temperature Pulse Rate 75 75 Respiratory Rate Blood Pressure 184/84 H Pulse Oximetry 91 95 Oxygen Delivery Method 06/19/22 15:31 06/19/22 15:31 06/19/22 16:00 Temperature Pulse Rate 74 71 Respiratory Rate Blood Pressure 198/82 H Pulse Oximetry 96 95 Oxygen Delivery Method 06/19/22 16:01 06/19/22 16:01 06/19/22 16:30 Temperature Pulse Rate 75 Respiratory Rate Blood Pressure 182/86 H 187/135 H Pulse Oximetry 94 Oxygen Delivery Method 06/19/22 16:30 06/19/22 17:00 06/19/22 17:01 Temperature Pulse Rate 68 65 Respiratory Rate Blood Pressure 198/83 H Pulse Oximetry 98 100 Oxygen Delivery Method 06/19/22 17:01 06/19/22 17:22 06/19/22 17:22 Temperature Pulse Rate 66 74 Respiratory Rate Blood Pressure 169/110 H Pulse Oximetry 99 95 Oxygen Delivery Method 06/19/22 17:30 06/19/22 17:30 06/19/22 18:00 Temperature Pulse Rate 70 75 Respiratory Rate Blood Pressure 156/66 H Pulse Oximetry 93 95 Oxygen Delivery Method <Radha Smith, - Last Filed: 06/23/22 08:44> Orders Ordered: Discontinued Medications Acetaminophen (Acetaminophen 325 Mg Tablet) 650 mg PO Q6HR PRN PRN Reason: Fever/Mild Pain (1-3) Last Admin: 06/20/22 16:37 Dose: 650 mg Documented By: Admin: 06/20/22 00:27 Dose: 650 mg Documented By: KATY Aspirin (Aspirin Ec 81 Mg Tablet) 81 mg PO DAILY [facility] Last Admin: 06/21/22 08:33 Dose: 81 mg Documented By: Admin: 06/20/22 08:51 Dose: 81 mg Documented By: DICK Atorvastatin Calcium (Atorvastatin 20 Mg Tablet) 80 mg PO BEDTIME [facility] Last Admin: 06/20/22 20:04 Dose: 80 mg Documented By: KATY Al Hydrox/Mg Hydrox/Simethicone 20 ml/ Lidocaine HCl 15 ml 0 ml PO NOW ONE Stop: 06/19/22 17:57 Last Admin: 06/19/22 19:18 Dose: 20 ml Documented By: ACOSTA Cyclobenzaprine HCl (Cyclobenzaprine 10 Mg Tablet) 5 mg PO BEDTIME PRN PRN Reason: Pain (Scale Score 1-3) Last Admin: 06/19/22 20:57 Dose: 5 mg Documented By: JENNIFFER Cyclobenzaprine HCl (Cyclobenzaprine 10 Mg Tablet) 5 mg PO Q8HR [facility] Last Admin: 06/21/22 11:57 Dose: 5 mg Documented By: Admin: 06/21/22 05:20 Dose: 5 mg Documented By: Admin: 06/20/22 22:11 Dose: 5 mg Documented By: Admin: 06/20/22 14:12 Dose: 5 mg Documented By: OW Diazepam (Diazepam 10 Mg/2 Ml Syringe) 2 mg IV NOW ONE Stop: 06/19/22 14:18 Last Admin: 06/19/22 14:29 Dose: 2 mg Documented By: CTS Diazepam (Diazepam 10 Mg/2 Ml Syringe) 2 mg IV NOW ONE Stop: 06/19/22 16:46 Last Admin: 06/19/22 17:17 Dose: 2 mg Documented By: CTS Duloxetine HCl (Duloxetine 30 Mg Capsule) 60 mg PO DAILY [facility] Last Admin: 06/21/22 08:32 Dose: 60 mg Documented By: Admin: 06/20/22 08:51 Dose: 60 mg Documented By: OW Enoxaparin Sodium (Enoxaparin 40 Mg/0.4 Ml Syringe) 40 mg SUBCUT DAILY [facility] Last Admin: 06/21/22 08:32 Dose: 40 mg Documented By: Admin: 06/20/22 08:52 Dose: 40 mg Documented By: OW Hydromorphone HCl (Hydromorphone 0.5 Mg Inj) 0.5 mg IV Q1H PRN PRN Reason: pain Last Admin: 06/19/22 15:29 Dose: 0.5 mg Documented By: Admin: 06/19/22 14:14 Dose: 0.5 mg Documented By: CTS Hydromorphone HCl (Hydromorphone 0.5 Mg Inj) 0.5 mg IV NOW ONE Stop: 06/19/22 16:46 Last Admin: 06/19/22 17:17 Dose: 0.5 mg Documented By: CTS Hydromorphone HCl (Hydromorphone 0.5 Mg Inj) 0.5 mg IV Q4H PRN PRN Reason: Pain, Moderate (4-6) Last Admin: 06/20/22 22:12 Dose: 0.5 mg Documented By: Admin: 06/20/22 17:52 Dose: 0.5 mg Documented By: Admin: 06/20/22 09:28 Dose: 0.5 mg Documented By: Admin: 06/19/22 22:01 Dose: 0.5 mg Documented By: KATY Lactated Ringer's (Lactated Ringers) 1,000 mls @ 1,000 mls/hr IV BOLUS ONE Stop: 06/19/22 14:51 Last Admin: 06/19/22 14:18 Dose: Not Given Documented By: ACOSTA Sodium Chloride (Normal Saline 0.9%) 1,000 mls @ 1,000 mls/hr IV BOLUS ONE Stop: 06/19/22 15:14 Last Infusion: 06/19/22 15:25 Dose: 0 mls/hr Documented By: Admin: 06/19/22 14:18 Dose: 1,000 mls/hr Documented By: ACOSTA Magnesium Sulfate (Magnesium Sulfate) 2 gm in 50 mls @ 25 mls/hr IV NOW ONE Stop: 06/19/22 19:55 Last Admin: 06/19/22 19:16 Dose: 25 mls/hr Documented By: ACOSTA Co-signed By: EB Sodium Chloride (Normal Saline 0.45%) 1,000 mls @ 100 mls/hr IV CONT [place] Stop: 06/20/22 05:59 Last Infusion: 06/20/22 06:32 Dose: 0 mls/hr Documented By: Admin: 06/19/22 19:20 Dose: 100 mls/hr Documented By: ACOSTA Ketorolac Tromethamine (Ketorolac 30 Mg/Ml Vial) 15 mg IV NOW ONE Stop: 06/19/22 13:53 Last Admin: 06/19/22 14:15 Dose: Not Given Documented By: ACOSTA Levothyroxine Sodium (Levothyroxine 88 Mcg Tablet) 88 mcg PO DAILY [facility] Last Admin: 06/21/22 08:33 Dose: 88 mcg Documented By: Admin: 06/20/22 08:51 Dose: 88 mcg Documented By: DICK Losartan Potassium (Losartan 50 Mg Tablet) 50 mg PO BID [facility] Last Admin: 06/21/22 08:33 Dose: 50 mg Documented By: Admin: 06/20/22 20:04 Dose: 50 mg Documented By: Admin: 06/20/22 08:51 Dose: 50 mg Documented By: Admin: 06/19/22 20:56 Dose: 50 mg Documented By: JENNIFFER Magnesium Oxide (Magnesium Oxide 400 Mg Tablet) 200 mg PO DAILY [facility] Last Admin: 06/21/22 08:32 Dose: 200 mg Documented By: Admin: 06/20/22 08:51 Dose: 200 mg Documented By: DICK Melatonin (Melatonin 3 Mg Tablet) 9 mg PO BEDTIME PRN PRN Reason: Insomnia Last Admin: 06/20/22 20:04 Dose: 9 mg Documented By: Admin: 06/19/22 20:57 Dose: 9 mg Documented By: JENNIFFER Methocarbamol (Methocarbamol 500 Mg Tablet) 500 mg PO NOW ONE Stop: 06/19/22 13:53 Last Admin: 06/19/22 14:14 Dose: Not Given Documented By: ACOSTA Methocarbamol (Methocarbamol 500 Mg Tablet) 500 mg PO BEDTIME PRN PRN Reason: muscle spasms Metoclopramide HCl (Metoclopramide 10 Mg/2 Ml Inj) 10 mg IV NOW ONE Stop: 06/19/22 13:53 Last Admin: 06/19/22 14:14 Dose: 10 mg Documented By: ACOSTA Metoclopramide HCl (Metoclopramide 10 Mg/2 Ml Inj) 10 mg IV Q6HR PRN PRN Reason: Nausea And Vomiting Ondansetron HCl (Ondansetron 4 Mg/2 Ml Inj) 4 mg IV NOW ONE Stop: 06/19/22 13:23 Last Admin: 06/19/22 13:38 Dose: 4 mg Documented By: ACOSTA Ondansetron HCl (Ondansetron 4 Mg/2 Ml Inj) 4 mg IV Q6HR PRN PRN Reason: Nausea And Vomiting Oxycodone/Acetaminophen (Oxycodone/Acetaminophen 5/325 Tablet) 1 tab PO NOW ONE Stop: 06/19/22 16:39 Last Admin: 06/19/22 17:23 Dose: Not Given Documented By: ACOSTA Pantoprazole Sodium (Pantoprazole 40 Mg Vial) 20 mg IV NOW ONE Stop: 06/19/22 13:56 Last Admin: 06/19/22 14:14 Dose: 20 mg Documented By: ACOSTA Pantoprazole Sodium (Pantoprazole 40 Mg Vial) 40 mg IV BID [facility] Last Admin: 06/21/22 08:33 Dose: 40 mg Documented By: Admin: 06/20/22 20:04 Dose: 40 mg Documented By: Admin: 06/20/22 08:51 Dose: 40 mg Documented By: Admin: 06/19/22 20:57 Dose: 40 mg Documented By: JENNIFFER Pregabalin (Pregabalin 75 Mg Capsule) 300 mg PO BID [facility] Last Admin: 06/21/22 08:32 Dose: 300 mg Documented By: Admin: 06/20/22 20:04 Dose: 300 mg Documented By: Admin: 06/20/22 08:51 Dose: 300 mg Documented By: Admin: 06/19/22 20:57 Dose: 300 mg Documented By: JENNIFFER Vital Signs Vital signs: Vital Signs - 8 hr 06/19/22 12:59 06/19/22 13:36 06/19/22 13:36 Temperature 98.1 F Pulse Rate 84 75 Respiratory Rate 22 Blood Pressure 182/90 H Pulse Oximetry 99 98 Oxygen Delivery Method Room Air 06/19/22 14:00 06/19/22 14:15 06/19/22 14:15 Temperature Pulse Rate 83 79 Respiratory Rate Blood Pressure 177/81 H Pulse Oximetry 98 100 Oxygen Delivery Method 06/19/22 14:30 06/19/22 14:30 06/19/22 15:00 Temperature Pulse Rate 79 80 Respiratory Rate Blood Pressure 185/81 H Pulse Oximetry 93 93 Oxygen Delivery Method 06/19/22 15:01 06/19/22 15:01 06/19/22 15:30 Temperature Pulse Rate 75 75 Respiratory Rate Blood Pressure 184/84 H Pulse Oximetry 91 95 Oxygen Delivery Method 06/19/22 15:31 06/19/22 15:31 06/19/22 16:00 Temperature Pulse Rate 74 71 Respiratory Rate Blood Pressure 198/82 H Pulse Oximetry 96 95 Oxygen Delivery Method 06/19/22 16:01 06/19/22 16:01 06/19/22 16:30 Temperature Pulse Rate 75 Respiratory Rate Blood Pressure 182/86 H 187/135 H Pulse Oximetry 94 Oxygen Delivery Method 06/19/22 16:30 06/19/22 17:00 06/19/22 17:01 Temperature Pulse Rate 68 65 Respiratory Rate Blood Pressure 198/83 H Pulse Oximetry 98 100 Oxygen Delivery Method 06/19/22 17:01 06/19/22 17:22 06/19/22 17:22 Temperature Pulse Rate 66 74 Respiratory Rate Blood Pressure 169/110 H Pulse Oximetry 99 95 Oxygen Delivery Method 06/19/22 17:30 06/19/22 17:30 06/19/22 18:00 Temperature Pulse Rate 70 75 Respiratory Rate Blood Pressure 156/66 H Pulse Oximetry 93 95 Oxygen Delivery Method MDM - Abdominal Pain <Angela Sepulveda, [facility] - Last Filed: 06/19/22 20:31> Lab Data Result diagrams: 06/21/22 04:57 06/21/22 04:57 Labs: Lab Results 06/19/22 06/19/22 06/19/22 Range/Units 13:10 13:15 13:15 WBC 7.8 (4.5-11.0) X10^3/uL RBC 5.01 (4.0-5.2) X10^6/uL Hgb 15.0 (12.0-16.0) g/dL Hct 44.4 (36-46) % MCV 88.6 (80-100) fL MCH 30.0 (26-34) PG MCHC 33.9 (30-36) % RDW 13.2 (11.6-14.8) % Plt Count 280 (150-400) X10^3/uL Neut % (Auto) 69.1 (50-75) % Lymph % (Auto) 20.5 L (25-40) % [place] % (Auto) 7.1 (3-14) % Eos % (Auto) 2.6 (2-4) % Baso % (Auto) 0.7 (0-2) % Neut # (Auto) 5400 (4271-8485) /uL Lymph # (Auto) 1600 (5381-1350) /uL [place] # (Auto) 600 (0-900) /uL Eos # (Auto) 200 (0-450) /uL Baso # (Auto) 100 (0-100) /uL Sodium 139 (137-145) mmol/L Potassium 3.7 (3.4-5.1) mmol/L Chloride 102 (98-107) mmol/L Carbon Dioxide 21 L (22-32) mmol/L BUN 17 (7-17) mg/dL Creatinine 0.76 (0.52-1.04) mg/dL Estimated GFR > 60 (>60) mL/min BUN/Creatinine Ratio 22.4 H (6-22) Glucose 115 H (80-110) mg/dL Lactate 2.4 H (0.7-2.1) mmol/L Calcium 9.9 (8.4-10.2) mg/dL Magnesium (1.6-2.3) mg/dL Total Bilirubin 0.8 (0.2-1.3) mg/dL AST 34 (14-36) IU/L ALT 26 (<35) IU/L Alkaline Phosphatase 144 H (38-126) U/L Total Creatine Kinase (30-135) U/L CK-MB (CK-2) (<2.37) ng/mL CK-MB (CK-2) Rel Index (1.5-5.0) % Troponin I (0.01-0.034) ng/mL Total Protein 8.2 (6.3-8.2) g/dL Albumin 4.7 (3.5-5.0) g/dL Globulin 3.5 (1.7-4.1) g/dL Albumin/Globulin Ratio 1.3 (1.0-2.8) Lipase 117 (23-300) U/L Procalcitonin (<0.5) ng/mL Urine Color Urine Appearance Urine pH (4.5-8.0) Ur Specific [place] (1.000-1.035) Urine Protein (Negative) Urine Glucose (UA) (Negative) g/dL Urine Ketones (NEGATIVE) Urine Occult Blood (Negative) Urine Nitrate (Negative) Urine Bilirubin (NEGATIVE) Urine Urobilinogen (0.2) E.U./dL Ur Leukocyte Esterase (NEGATIVE) Urine RBC (0-5/HPF) Urine WBC (0-5/HPF) Ur Squamous Epith Cells (0-5/HPF) Urine Bacteria (None) Ur Culture Indicated? 06/19/22 06/19/22 06/19/22 Range/Units 13:15 13:15 15:46 WBC (4.5-11.0) X10^3/uL RBC (4.0-5.2) X10^6/uL Hgb (12.0-16.0) g/dL Hct (36-46) % MCV (80-100) fL MCH (26-34) PG MCHC (30-36) % RDW (11.6-14.8) % Plt Count (150-400) X10^3/uL Neut % (Auto) (50-75) % Lymph % (Auto) (25-40) % Shelby % (Auto) (3-14) % Eos % (Auto) (2-4) % Baso % (Auto) (0-2) % Neut # (Auto) (2135-1235) /uL Lymph # (Auto) (0065-4452) /uL Shelby # (Auto) (0-900) /uL Eos # (Auto) (0-450) /uL Baso # (Auto) (0-100) /uL Sodium (137-145) mmol/L Potassium (3.4-5.1) mmol/L Chloride (98-107) mmol/L Carbon Dioxide (22-32) mmol/L BUN (7-17) mg/dL Creatinine (0.52-1.04) mg/dL Estimated GFR (>60) mL/min BUN/Creatinine Ratio (6-22) Glucose (80-110) mg/dL Lactate (0.7-2.1) mmol/L Calcium (8.4-10.2) mg/dL Magnesium 1.7 (1.6-2.3) mg/dL Total Bilirubin (0.2-1.3) mg/dL AST (14-36) IU/L ALT (<35) IU/L Alkaline Phosphatase (38-126) U/L Total Creatine Kinase 152 H (30-135) U/L CK-MB (CK-2) 2.14 (<2.37) ng/mL CK-MB (CK-2) Rel Index 1.4 L (1.5-5.0) % Troponin I < 0.012 (0.01-0.034) ng/mL Total Protein (6.3-8.2) g/dL Albumin (3.5-5.0) g/dL Globulin (1.7-4.1) g/dL Albumin/Globulin Ratio (1.0-2.8) Lipase (23-300) U/L Procalcitonin 0.05 (<0.5) ng/mL Urine Color Yellow Urine Appearance Clear Urine pH 5.0 (4.5-8.0) Ur Specific [place] 1.010 (1.000-1.035) Urine Protein Trace H (Negative) Urine Glucose (UA) Negative (Negative) g/dL Urine Ketones 2+ H (NEGATIVE) Urine Occult Blood 1+ H (Negative) Urine Nitrate Negative (Negative) Urine Bilirubin Negative (NEGATIVE) Urine Urobilinogen 0.2 (0.2) E.U./dL Ur Leukocyte Esterase Negative (NEGATIVE) Urine RBC 1-5/hpf (0-5/HPF) Urine WBC 1-5/hpf (0-5/HPF) Ur Squamous Epith Cells 0-1 /hpf (0-5/HPF) Urine Bacteria Occasional (0-1) (None) Ur Culture Indicated? Cult not indicated 06/19/22 Range/Units 16:29 WBC (4.5-11.0) X10^3/uL RBC (4.0-5.2) X10^6/uL Hgb (12.0-16.0) g/dL Hct (36-46) % MCV (80-100) fL MCH (26-34) PG MCHC (30-36) % RDW (11.6-14.8) % Plt Count (150-400) X10^3/uL Neut % (Auto) (50-75) % Lymph % (Auto) (25-40) % Shelby % (Auto) (3-14) % Eos % (Auto) (2-4) % Baso % (Auto) (0-2) % Neut # (Auto) (8082-3190) /uL Lymph # (Auto) (7404-9328) /uL Shelby # (Auto) (0-900) /uL Eos # (Auto) (0-450) /uL Baso # (Auto) (0-100) /uL Sodium (137-145) mmol/L Potassium (3.4-5.1) mmol/L Chloride (98-107) mmol/L Carbon Dioxide (22-32) mmol/L BUN (7-17) mg/dL Creatinine (0.52-1.04) mg/dL Estimated GFR (>60) mL/min BUN/Creatinine Ratio (6-22) Glucose (80-110) mg/dL Lactate 0.9 (0.7-2.1) mmol/L Calcium (8.4-10.2) mg/dL Magnesium (1.6-2.3) mg/dL Total Bilirubin (0.2-1.3) mg/dL AST (14-36) IU/L ALT (<35) IU/L Alkaline Phosphatase (38-126) U/L Total Creatine Kinase (30-135) U/L CK-MB (CK-2) (<2.37) ng/mL CK-MB (CK-2) Rel Index (1.5-5.0) % Troponin I (0.01-0.034) ng/mL Total Protein (6.3-8.2) g/dL Albumin (3.5-5.0) g/dL Globulin (1.7-4.1) g/dL Albumin/Globulin Ratio (1.0-2.8) Lipase (23-300) U/L Procalcitonin (<0.5) ng/mL Urine Color Urine Appearance Urine pH (4.5-8.0) Ur Specific [place] (1.000-1.035) Urine Protein (Negative) Urine Glucose (UA) (Negative) g/dL Urine Ketones (NEGATIVE) Urine Occult Blood (Negative) Urine Nitrate (Negative) Urine Bilirubin (NEGATIVE) Urine Urobilinogen (0.2) E.U./dL Ur Leukocyte Esterase (NEGATIVE) Urine RBC (0-5/HPF) Urine WBC (0-5/HPF) Ur Squamous Epith Cells (0-5/HPF) Urine Bacteria (None) Ur Culture Indicated? Point of care testing: Point of Care Testing Stool Occult Blood Negative Urine Dip Bedside Urine Glucose Negative Bedside Urine Bilirubin - Negative Bedside Urine Ketone +++ 80 Urine Specific [place] 1.015 Bedside Urine Occult Blood + Bedside Urine pH 6.0 Bedside Urine Protein +/- 15 Bedside Urine Urobilinogen - Negative Bedside Urine Nitrite - Negative Bedside Urine Leukocytes - Negative Esterase Imaging Data CT scan - abdomen/pelvis: Radiologist's Impression: PROCEDURE:? CT ABDOMEN PELVIS W CON ? INDICATIONS:? left flank pain ? TECHNIQUE:? After the administration of oral and IV contrast, axial sections were acquired from the lung bases to the pubic symphysis.? Coronal and sagittal reformats were performed.? For radiation dose reduction, the following was used:? automated exposure control, adjustment of mA and/or kV according to patient size. ? COMPARISON:? [facility], CT, CT ABDOMEN PELVIS W CON, 09/25/2021, 15:35. ? FINDINGS:? Image quality:? Excellent.? ? Lung bases:? Unremarkable.? ? Heart:? No significant findings. ? ? ABDOMEN: Liver:? A few small cysts.? ? Gallbladder:? Absent. Biliary ducts:? Unremarkable.? ? Pancreas:? Unremarkable.? ? Spleen:? Unremarkable.? ? Adrenal Glands:? Unremarkable.? ? Kidneys and Ureters:? No hydronephrosis.? ? ? Stomach and Bowel:? Stomach is not distended.? No small bowel obstruction.? A few colonic diverticuli.? There is possible thickening at the rectum, ().? The appendix is not seen. Peritoneum:? No abnormal intraperitoneal fluid.? No free air.? ? Ventral Wall: ? No hernia.? Abdominal Nodes:? No retroperitoneal or mesenteric adenopathy by size criteria.? Vessels:? Aorta and inferior vena cava are normal in size.? Extensive plaque.? ? PELVIS: Pelvic Organs:? Uterus is absent. Bladder:? Bladder is mostly decompressed limiting evaluation.? ? Pelvic Nodes: No enlarged lymph nodes.? Miscellaneous: No inguinal hernias are seen.? Right back subcutaneous generator device with thecal leads projecting cephalad. ? ? Bones:? L2 compression fracture is unchanged.? Intervertebral body spacers at L1-L2, L2-L3, L3-L4, and L4-L5.? Exaggerated lumbar spine lordosis. ? ? IMPRESSION:? 1. No hydronephrosis. ? 2. No diverticulitis identified.? No free fluid. ? 3. Possible thickening at the rectum.? -Recommend further evaluation with colonoscopy if not recently performed. ? 4. Stable L2 compression fracture.? ? Dictated by: Kevin Chong M.D. on 06/19/2022 at 14:24 ? ? Approved by: Kevin Chong M.D. on 06/19/2022 at 14:34 ? ECG Data Interpretation: EKG independently reviewed by Dr. Smith and reveals normal sinus rhythm at [] bpm with regular axis and intervals. No STEMI, ST segment changes, arrhythmia, or acute ischemic changes. MDM Narrative Medical decision making narrative: This is a 76-year-old female with history of chronic pain, hyperlipidemia, hypertension, hypothyroidism, GERD, DESTIN, spinal cord stimulator, Conte's esophagus, spinal stenosis her lumbar spine and previous TIA who presents to the emergency department with vomiting, severe pain in her left flank region endorses diarrhea for the last 2 days and states that her presentation today is similar to her last emergency department visit on 02/14/2022 without identifying source of pain. Patient was found to have lactobacillus grow from her urine after the visit on 02/14, she was later treated for for this but states that she did not dysuria or urinary changes. Today, patient had very difficult to control pain and it became intractable to the point where she was admitted for pain control. She received multiple doses of hydromorphone, methocarbamol Toradol, 1 L of IV fluid, Percocet, without any improvement in her pain. I reassessed her pain after every pain medication and she would go right back to a 10/10 with tremors, tears, diaphoresis, and was writhing in bed. Her workup today does not show any acute cause to her left flank pain but her nausea and vomiting was improved after she received Reglan x1. CT of her abdomen and pelvis does not show any hydronephrosis or any abnormalities in her left kidney, no diverticulitis, no free fluid in her abdomen, CT impression stated that there is possible thickening at the rectum, rectal exam was completed without any blood, Hemoccult was negative, no tenderness with exam. Patient's UA was negative for infection, when discussing patient's pain control, she states that she can not control her pain and needs admission. Discussed this with Dr. Black who accepts patient for admission. <Radha Smith, DO - Last Filed: 06/23/22 08:44> Lab Data Labs: Lab Results 06/19/22 06/19/22 06/19/22 Range/Units 13:10 13:15 13:15 WBC 7.8 (4.5-11.0) X10^3/uL RBC 5.01 (4.0-5.2) X10^6/uL Hgb 15.0 (12.0-16.0) g/dL Hct 44.4 (36-46) % MCV 88.6 (80-100) fL MCH 30.0 (26-34) PG MCHC 33.9 (30-36) % RDW 13.2 (11.6-14.8) % Plt Count 280 (150-400) X10^3/uL Neut % (Auto) 69.1 (50-75) % Lymph % (Auto) 20.5 L (25-40) % [place] % (Auto) 7.1 (3-14) % Eos % (Auto) 2.6 (2-4) % Baso % (Auto) 0.7 (0-2) % Neut # (Auto) 5400 (3194-2500) /uL Lymph # (Auto) 1600 (6344-4462) /uL [place] # (Auto) 600 (0-900) /uL Eos # (Auto) 200 (0-450) /uL Baso # (Auto) 100 (0-100) /uL Sodium 139 (137-145) mmol/L Potassium 3.7 (3.4-5.1) mmol/L Chloride 102 (98-107) mmol/L Carbon Dioxide 21 L (22-32) mmol/L BUN 17 (7-17) mg/dL Creatinine 0.76 (0.52-1.04) mg/dL Estimated GFR > 60 (>60) mL/min BUN/Creatinine Ratio 22.4 H (6-22) Glucose 115 H (80-110) mg/dL Lactate 2.4 H (0.7-2.1) mmol/L Calcium 9.9 (8.4-10.2) mg/dL Magnesium (1.6-2.3) mg/dL Total Bilirubin 0.8 (0.2-1.3) mg/dL AST 34 (14-36) IU/L ALT 26 (<35) IU/L Alkaline Phosphatase 144 H (38-126) U/L Total Creatine Kinase (30-135) U/L CK-MB (CK-2) (<2.37) ng/mL CK-MB (CK-2) Rel Index (1.5-5.0) % Troponin I (0.01-0.034) ng/mL Total Protein 8.2 (6.3-8.2) g/dL Albumin 4.7 (3.5-5.0) g/dL Globulin 3.5 (1.7-4.1) g/dL Albumin/Globulin Ratio 1.3 (1.0-2.8) Lipase 117 (23-300) U/L Procalcitonin (<0.5) ng/mL Urine Color Urine Appearance Urine pH (4.5-8.0) Ur Specific [place] (1.000-1.035) Urine Protein (Negative) Urine Glucose (UA) (Negative) g/dL Urine Ketones (NEGATIVE) Urine Occult Blood (Negative) Urine Nitrate (Negative) Urine Bilirubin (NEGATIVE) Urine Urobilinogen (0.2) E.U./dL Ur Leukocyte Esterase (NEGATIVE) Urine RBC (0-5/HPF) Urine WBC (0-5/HPF) Ur Squamous Epith Cells (0-5/HPF) Urine Bacteria (None) Ur Culture Indicated? 06/19/22 06/19/22 06/19/22 Range/Units 13:15 13:15 15:46 WBC (4.5-11.0) X10^3/uL RBC (4.0-5.2) X10^6/uL Hgb (12.0-16.0) g/dL Hct (36-46) % MCV (80-100) fL MCH (26-34) PG MCHC (30-36) % RDW (11.6-14.8) % Plt Count (150-400) X10^3/uL Neut % (Auto) (50-75) % Lymph % (Auto) (25-40) % [place] % (Auto) (3-14) % Eos % (Auto) (2-4) % Baso % (Auto) (0-2) % Neut # (Auto) (2928-1028) /uL Lymph # (Auto) (6214-0629) /uL [place] # (Auto) (0-900) /uL Eos # (Auto) (0-450) /uL Baso # (Auto) (0-100) /uL Sodium (137-145) mmol/L Potassium (3.4-5.1) mmol/L Chloride (98-107) mmol/L Carbon Dioxide (22-32) mmol/L BUN (7-17) mg/dL Creatinine (0.52-1.04) mg/dL Estimated GFR (>60) mL/min BUN/Creatinine Ratio (6-22) Glucose (80-110) mg/dL Lactate (0.7-2.1) mmol/L Calcium (8.4-10.2) mg/dL Magnesium 1.7 (1.6-2.3) mg/dL Total Bilirubin (0.2-1.3) mg/dL AST (14-36) IU/L ALT (<35) IU/L Alkaline Phosphatase (38-126) U/L Total Creatine Kinase 152 H (30-135) U/L CK-MB (CK-2) 2.14 (<2.37) ng/mL CK-MB (CK-2) Rel Index 1.4 L (1.5-5.0) % Troponin I < 0.012 (0.01-0.034) ng/mL Total Protein (6.3-8.2) g/dL Albumin (3.5-5.0) g/dL Globulin (1.7-4.1) g/dL Albumin/Globulin Ratio (1.0-2.8) Lipase (23-300) U/L Procalcitonin 0.05 (<0.5) ng/mL Urine Color Yellow Urine Appearance Clear Urine pH 5.0 (4.5-8.0) Ur Specific [place] 1.010 (1.000-1.035) Urine Protein Trace H (Negative) Urine Glucose (UA) Negative (Negative) g/dL Urine Ketones 2+ H (NEGATIVE) Urine Occult Blood 1+ H (Negative) Urine Nitrate Negative (Negative) Urine Bilirubin Negative (NEGATIVE) Urine Urobilinogen 0.2 (0.2) E.U./dL Ur Leukocyte Esterase Negative (NEGATIVE) Urine RBC 1-5/hpf (0-5/HPF) Urine WBC 1-5/hpf (0-5/HPF) Ur Squamous Epith Cells 0-1 /hpf (0-5/HPF) Urine Bacteria Occasional (0-1) (None) Ur Culture Indicated? Cult not indicated 06/19/22 Range/Units 16:29 WBC (4.5-11.0) X10^3/uL RBC (4.0-5.2) X10^6/uL Hgb (12.0-16.0) g/dL Hct (36-46) % MCV (80-100) fL MCH (26-34) PG MCHC (30-36) % RDW (11.6-14.8) % Plt Count (150-400) X10^3/uL Neut % (Auto) (50-75) % Lymph % (Auto) (25-40) % [place] % (Auto) (3-14) % Eos % (Auto) (2-4) % Baso % (Auto) (0-2) % Neut # (Auto) (8608-3167) /uL Lymph # (Auto) (6475-0657) /uL [place] # (Auto) (0-900) /uL Eos # (Auto) (0-450) /uL Baso # (Auto) (0-100) /uL Sodium (137-145) mmol/L Potassium (3.4-5.1) mmol/L Chloride (98-107) mmol/L Carbon Dioxide (22-32) mmol/L BUN (7-17) mg/dL Creatinine (0.52-1.04) mg/dL Estimated GFR (>60) mL/min BUN/Creatinine Ratio (6-22) Glucose (80-110) mg/dL Lactate 0.9 (0.7-2.1) mmol/L Calcium (8.4-10.2) mg/dL Magnesium (1.6-2.3) mg/dL Total Bilirubin (0.2-1.3) mg/dL AST (14-36) IU/L ALT (<35) IU/L Alkaline Phosphatase (38-126) U/L Total Creatine Kinase (30-135) U/L CK-MB (CK-2) (<2.37) ng/mL CK-MB (CK-2) Rel Index (1.5-5.0) % Troponin I (0.01-0.034) ng/mL Total Protein (6.3-8.2) g/dL Albumin (3.5-5.0) g/dL Globulin (1.7-4.1) g/dL Albumin/Globulin Ratio (1.0-2.8) Lipase (23-300) U/L Procalcitonin (<0.5) ng/mL Urine Color Urine Appearance Urine pH (4.5-8.0) Ur Specific [place] (1.000-1.035) Urine Protein (Negative) Urine Glucose (UA) (Negative) g/dL Urine Ketones (NEGATIVE) Urine Occult Blood (Negative) Urine Nitrate (Negative) Urine Bilirubin (NEGATIVE) Urine Urobilinogen (0.2) E.U./dL Ur Leukocyte Esterase (NEGATIVE) Urine RBC (0-5/HPF) Urine WBC (0-5/HPF) Ur Squamous Epith Cells (0-5/HPF) Urine Bacteria (None) Ur Culture Indicated? Point of care testing: Point of Care Testing Stool Occult Blood Negative Urine Dip Bedside Urine Glucose Negative Bedside Urine Bilirubin - Negative Bedside Urine Ketone +++ 80 Urine Specific [place] 1.015 Bedside Urine Occult Blood + Bedside Urine pH 6.0 Bedside Urine Protein +/- 15 Bedside Urine Urobilinogen - Negative Bedside Urine Nitrite - Negative Bedside Urine Leukocytes - Negative Esterase ECG Data Attestation: I personally reviewed and interpreted this ECG as follows: Prior ECG tracings: available for review Interpretation: EKG independently reviewed by Dr. Smith and reveals normal sinus rhythm at [] bpm with regular axis and intervals. No STEMI, ST segment changes, arrhythmia, or acute ischemic changes. Normal sinus rhythm no ST elevation or depression. Rate of 77, PA 170 QRS 88 QTC of 450. No acute ST elevation depression noted. Patient has prior from 02/14/2022 with no ischemic or dynamic changes.. Discharge Plan Departure Patient Disposition: Admitted as Observation Clinical Impression: Intractable abdominal pain Nausea & vomiting Qualifiers: Vomiting type: unspecified Qualified Code(s): R11.2 - Nausea with vomiting, unspecified Admit Date/Time: 06/19/22 18:06 Admit Provider: Stewart Black <Radha Smith, - Last Filed: 06/23/22 08:44> Cosign ED Attending Cosignature Attestation: I was immediately available in the department for consultation. Documentation has been reviewed. Case was discussed.
[2022-06-19] MEDS: HYDROMORPHONE 0.5 MG INJ IV ×4 (14:14→22:01)
[2022-06-19] MEDS: PANTOPRAZOLE 40 MG VIAL 20 MG IV (14:14)
[2022-06-19] MEDS: METOCLOPRAMIDE 10 MG/2 ML INJ IV (14:14)
[2022-06-19] MEDS: SODIUM CHLORIDE 0.9% 1,000 ML 1000 ML IV (14:18)
[2022-06-19] MEDS: diazePAM 10 MG/2 ML SYRINGE 2 MG IV ×2 (14:29→17:17)
[2022-06-19 14:32] LABS: Creatine Kinase 152 U/L (30-135)
[2022-06-19 14:33] LABS: Magnesium 1.7 mg/dL (1.6-2.3)
[2022-06-19 14:33] LABS: Lactate (Lactic Acid) 2.4 mmol/L (0.7-2.1)
[2022-06-19 14:45] LABS: Troponin I < 0.012 ng/mL (0.01-0.034)
[2022-06-19 14:49] LABS: Procalcitonin 0.05 ng/mL (<0.5)
[2022-06-19 15:26] LABS: CKMB % Relative Index 1.4 % (1.5-5.0); Creatine Kinase MB 2.14 ng/mL (<2.37)
[2022-06-19 16:02] LABS: Appearance Urine UA CLEAR; Bilirubin Urine UA NEGATIVE (NEGATIVE); Color Urine UA YELLOW; Glucose Urine UA NEGATIVE (Negative); Ketones Urine UA 2+ (NEGATIVE); Leukocyte Esterase Urine UA NEGATIVE (NEGATIVE); Nitrite Urine UA NEGATIVE (Negative); Occult Blood Urine UA 1+ (Negative); Protein Urine UA TRACE (Negative); Urobilinogen Urine UA 0.2 E.U./dL (0.2)
[2022-06-19 16:20] LABS: Reflexed Lactate in 2 Hours Y
[2022-06-19 16:28] LABS: Bacteria Urine Occasional (0-1); Culture Indicated Urine Cult Not Indicated; RBC Urine 1-5/HPF (0-5/HPF); Squamous Epithelial Cell Urine 0-1 /HPF (0-5/HPF); WBC Urine 1-5/HPF (0-5/HPF)
[2022-06-19 17:02] LABS: Lactate 2HR (Lactic Acid Rflx) 0.9 mmol/L (0.7-2.1)
[2022-06-19] MEDS: MAGNESIUM SULFATE 2 GM/50 ML PIGGYBACK IV (19:16)
[2022-06-19] MEDS: MAG HYDROX/ALUMINUM/SIMETH SUS 20 ML, LIDOCAINE VISCOUS 2% 15 ML PO (19:18)
[2022-06-19] MEDS: SODIUM CHLORIDE 0.45% 1,000 ML 100 ML IV (19:20)
[2022-06-19 19:35] LABS: COVID19 -Nasal RAPID Negative (Negative)
[2022-06-19] MEDS: LOSARTAN 50 MG TABLET PO (20:56)
[2022-06-19] MEDS: MELATONIN 3 MG TABLET 9 MG PO (20:57)
[2022-06-19] MEDS: PANTOPRAZOLE 40 MG VIAL IV (20:57)
[2022-06-19] MEDS: CYCLOBENZAPRINE 10 MG TABLET 5 MG PO (20:57)
[2022-06-19] MEDS: PREGABALIN 75 MG CAPSULE 300 MG PO (20:57)
--- NOTE | 2022-06-19 21:00 | PC.NURSE ---
Patient admitted to 225 from ED with N/V, diarrhea and left flank pain. On arrival patient hypertensive with systolic BP in 180's. C/O 10/10 pain with any movement. Fluids started. PRN's given.
[2022-06-20] VITALS: BP 142/61; PULSE 66; RESP 16; TEMP 36.4; O2SAT 94
--- NOTE | 2022-06-20 00:03 | PM.HP.1 ---
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 In ED she was vomiting, mildly diaphoretic, moaning in pain, putting her fingers over her left CVA/flank.? She is tender to palpation of left flank, denies recent fever or illness.? She states that she was on a cruise, endorses having diarrhea over the last 3 days and states 2 days ago she had ?coffee grounds in her stool ?she denies knowing if this was blood or not and denies seeking out medical care.? She has seen her provider Shanika Larios since her last emergency department visit. Patient is not on any PPI with a history of GERD and Barretts esophagus.? She states she drinks 2 glasses of wine nightly but has not had this for the last 3 days.? She denies smoking or any illicit drug use. Upon admit to the floor patient denies chest pain, shortness of breath, has had no further vomiting or diarrhea continues to be nauseated just received a dose of Zofran which is improving, the flank pain continues with only movement now in the bed, she states the last time she was able to keep food down was approximately 4 days ago though the patient is requesting to eat at this time. Patient's vitals are stable temp 98.1?, blood pressure is slightly elevated 156/66, HR 75, RR 22, O2 saturation 95% on room air. States that left flank pain is a 3/10 with any movement, patient's CBC is unremarkable, CMP unremarkable, total creatinine kinase 152, troponin lipase and procalcitonin are all within normal limits patient's abdomen pelvis CT demonstrates rectum and recommends colonoscopy. Patient admitted for intractable nausea vomiting and diarrhea with left flank pain unknown etiology possible gastroenteritis. Patient History Medical History Conte's esophagus Chronic lumbar pain Closed head injury with brief loss of consciousness Esophageal stricture Failed back surgical syndrome GERD (gastroesophageal reflux disease) History of paralysis History of snoring Hyperlipidemia Hypertension Hypothyroidism Insomnia due to medical condition Malignant neoplasm of unspecified site of unspecified female breast Obesity (BMI 30-39.9) Obstructive sleep apnea, adult (01/09/21) Spinal stenosis of lumbar region at multiple levels Urge incontinence Vitamin D deficiency, unspecified Surgical History History of bilateral knee replacement History of bilateral mastectomy History of hysterectomy History of lumbar fusion History of lumbar laminectomy History of partial thyroidectomy Family & Social History Family History Father Hypertension Alcohol abuse Mother Alcohol abuse Family/Other Hypertension Bipolar disorder ADD (attention deficit disorder) Substance abuse Social History: household members spouse Safety & Behavioral: Feels Safe in Current Yes Environment Been Physically Hurt or No Threatened By a Person Tobacco & Substance use: Smoking Status Former smoker alcohol intake current alcohol intake frequency 0-2 drinks per day Substance Use Type marijuana Meds Home Medications and Allergies Home Medications Medication Instructions Recorded Confirmed Type celecoxib 200 mg capsule (Celebrex) 200 mg PO DAILY 09/23/19 06/19/22 History levothyroxine 88 mcg tablet 88 mcg DAILY 09/23/19 06/19/22 History melatonin 10 mg tablet 20 mg PO BEDTIME PRN Insomnia 09/23/19 06/19/22 History pregabalin 300 mg capsule (Lyrica) 300 mg PO BID 09/23/19 06/19/22 History cholecalciferol (vitamin D3) 125 2,000 unit PO DAILY 12/13/20 06/19/22 History mcg (5,000 unit) tablet (Vitamin D3) cyclobenzaprine 5 mg tablet 5 mg PO BEDTIME PRN Pain (Scale 12/13/20 06/19/22 History Score 1-3) losartan 50 mg tablet 50 mg PO BID 12/13/20 06/19/22 History atorvastatin 80 mg tablet 80 mg PO QPM 02/03/22 06/19/22 History duloxetine 30 mg capsule,delayed 60 mg PO DAILY #30 caps 02/03/22 06/19/22 Rx release (Cymbalta) magnesium citrate 100 mg capsule 100 mg PO DAILY 06/19/22 06/19/22 History Allergies Allergy/AdvReac Type Severity Reaction Status Date / Time adhesive tape Allergy Mild Verified 02/14/22 15:16 prochlorperazine Allergy Anaphylaxis Verified 02/14/22 15:16 [From Compazine] Review of Systems Review of Systems Narrative: All 12 point systems reviewed with the patient and are negative except otherwise documented. Exam Vital Signs (past 8 hours): - 06/19/22 16:30 06/19/22 16:30 06/19/22 17:00 Temperature Pulse Rate 68 65 Respiratory Rate Blood Pressure 187/135 H Pulse Oximetry 98 100 Oxygen Delivery Method 06/19/22 17:01 06/19/22 17:01 06/19/22 17:22 Temperature Pulse Rate 66 74 Respiratory Rate Blood Pressure 198/83 H Pulse Oximetry 99 95 Oxygen Delivery Method 06/19/22 17:22 06/19/22 17:30 06/19/22 17:30 Temperature Pulse Rate 70 Respiratory Rate Blood Pressure 169/110 H 156/66 H Pulse Oximetry 93 Oxygen Delivery Method 06/19/22 18:00 06/19/22 18:30 06/19/22 18:34 Temperature Pulse Rate 75 68 Respiratory Rate Blood Pressure 200/90 H Pulse Oximetry 95 97 Oxygen Delivery Method 06/19/22 18:34 06/19/22 19:00 06/19/22 19:30 Temperature Pulse Rate 70 71 68 Respiratory Rate Blood Pressure Pulse Oximetry 96 96 100 Oxygen Delivery Method 06/19/22 20:00 06/19/22 20:56 06/19/22 20:39 Temperature 97.7 F Pulse Rate 68 70 70 Respiratory Rate 16 Blood Pressure 182/74 H 182/74 H Pulse Oximetry 99 95 Oxygen Delivery Method 06/19/22 21:15 Temperature Pulse Rate Respiratory Rate Blood Pressure Pulse Oximetry Oxygen Delivery Method Room Air Oxygen Delivery Method Room Air Narrative Exam Narrative: General: Patient is a well-developed, well-nourished female, calmly resting upon admit, in no distress at this time. HEENT: Normocephalic, atraumatic, extraocular muscles intact, oral pharynx is clear and mucous membranes are moist. Neck is supple and symmetric, trachea is midline, no adenopathy, no thyroid enlargement, nontender, no masses palpated. Negative for JVD Chest: Normal AP diameter and contour without kyphoscoliosis, no nasal flaring, retractions, or tachypneic labored Lungs: Auscultation of all lung castañeda are clear without adventitious sounds, wheezes, rhonchi, or rales. Cardio: S1 & S2 with regular rate and rhythm without murmur, rubs, or gallops, no carotid bruit, no cardiac pulsations present. Abdomen: Soft nontender, negative for organomegaly, or masses. Bowel sounds are present in all 4 quadrants without guarding or rebound, with positive mild left CVA tenderness with palpation. Musculoskeletal: Muscle strength and tone are equal within normal limits, no deformity, crepitus, effusions, cyanosis, clubbing or edema present. Full range of motion intact radial and pedal pulses are normal. Skin: Warm dry and intact without rashes, ulcerations or petechiae. Neuro: Alert and orientated x3, strength is +5/5 in all extremities, sensation to touch intact, no gross deficits noted of cranial nerves. Psych: Patient has a well-kept appearance, appropriate affect, mental status attitude thought context and judgment are appropriate for age. Objective Labs Result Diagrams: 06/19/22 13:15 06/19/22 13:15 Labs: Laboratory Results - last 24 hr 06/19/22 06/19/22 06/19/22 13:10 13:15 13:15 WBC 7.8 RBC 5.01 Hgb 15.0 Hct 44.4 MCV 88.6 MCH 30.0 MCHC 33.9 RDW 13.2 Plt Count 280 Neut % (Auto) 69.1 Lymph % (Auto) 20.5 L [place] % (Auto) 7.1 Eos % (Auto) 2.6 Baso % (Auto) 0.7 Neut # (Auto) 5400 Lymph # (Auto) 1600 [place] # (Auto) 600 Eos # (Auto) 200 Baso # (Auto) 100 Sodium 139 Potassium 3.7 Chloride 102 Carbon Dioxide 21 L BUN 17 Creatinine 0.76 Estimated GFR > 60 BUN/Creatinine Ratio 22.4 H Glucose 115 H Lactate 2.4 H Calcium 9.9 Magnesium Total Bilirubin 0.8 AST 34 ALT 26 Alkaline Phosphatase 144 H Total Creatine Kinase CK-MB (CK-2) CK-MB (CK-2) Rel Index Troponin I Total Protein 8.2 Albumin 4.7 Globulin 3.5 Albumin/Globulin Ratio 1.3 Lipase 117 Procalcitonin Urine Color Urine Appearance Urine pH Ur Specific [place] Urine Protein Urine Glucose (UA) Urine Ketones Urine Occult Blood Urine Nitrate Urine Bilirubin Urine Urobilinogen Ur Leukocyte Esterase Urine RBC Urine WBC Ur Squamous Epith Cells Urine Bacteria Ur Culture Indicated? SARS-CoV-2 (PCR) 06/19/22 06/19/22 06/19/22 13:15 13:15 15:46 WBC RBC Hgb Hct MCV MCH MCHC RDW Plt Count Neut % (Auto) Lymph % (Auto) [place] % (Auto) Eos % (Auto) Baso % (Auto) Neut # (Auto) Lymph # (Auto) [place] # (Auto) Eos # (Auto) Baso # (Auto) Sodium Potassium Chloride Carbon Dioxide BUN Creatinine Estimated GFR BUN/Creatinine Ratio Glucose Lactate Calcium Magnesium 1.7 Total Bilirubin AST ALT Alkaline Phosphatase Total Creatine Kinase 152 H CK-MB (CK-2) 2.14 CK-MB (CK-2) Rel Index 1.4 L Troponin I < 0.012 Total Protein Albumin Globulin Albumin/Globulin Ratio Lipase Procalcitonin 0.05 Urine Color Yellow Urine Appearance Clear Urine pH 5.0 Ur Specific [place] 1.010 Urine Protein Trace H Urine Glucose (UA) Negative Urine Ketones 2+ H Urine Occult Blood 1+ H Urine Nitrate Negative Urine Bilirubin Negative Urine Urobilinogen 0.2 Ur Leukocyte Esterase Negative Urine RBC 1-5/hpf Urine WBC 1-5/hpf Ur Squamous Epith Cells 0-1 /hpf Urine Bacteria Occasional (0-1) Ur Culture Indicated? Cult not indicated SARS-CoV-2 (PCR) 06/19/22 06/19/22 16:29 19:03 WBC RBC Hgb Hct MCV MCH MCHC RDW Plt Count Neut % (Auto) Lymph % (Auto) [place] % (Auto) Eos % (Auto) Baso % (Auto) Neut # (Auto) Lymph # (Auto) [place] # (Auto) Eos # (Auto) Baso # (Auto) Sodium Potassium Chloride Carbon Dioxide BUN Creatinine Estimated GFR BUN/Creatinine Ratio Glucose Lactate 0.9 Calcium Magnesium Total Bilirubin AST ALT Alkaline Phosphatase Total Creatine Kinase CK-MB (CK-2) CK-MB (CK-2) Rel Index Troponin I Total Protein Albumin Globulin Albumin/Globulin Ratio Lipase Procalcitonin Urine Color Urine Appearance Urine pH Ur Specific [place] Urine Protein Urine Glucose (UA) Urine Ketones Urine Occult Blood Urine Nitrate Urine Bilirubin Urine Urobilinogen Ur Leukocyte Esterase Urine RBC Urine WBC Ur Squamous Epith Cells Urine Bacteria Ur Culture Indicated? 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 Patient is admitted for symptom management. 1. Intractable nausea, vomiting, diarrhea, with left flank pain, acute on chronic, present on admission-unknown etiology -Hx of GERD with Conte's esophagus patient is on no PPI. -patient's labs are reassuring for no signs of infection no white count, procalcitonin is negative -antiemetics, pain control -NPO- Bowel rest for 12 hrs - advance as tolerated -fluid rehydration 0.45%100 cc/HR, - CBC, CMP, Mag, stool cultures, troponin 2. Hypertension, uncontrolled, acute on chronic, present on admission -presenting blood pressure 156/66 -continue losartan 3. Hyperlipidemia, chronic, present on admission -continue Lipitor 4. Hypothyroidism, acquired, chronic, present on admission -continue levothyroxine 5. GERD, Conte's esophagus, chronic, present on admission -patient was not on a PPI initiated Protonix 40 mg IV b.i.d. -GI Panel 6. Obesity as evidence by BMI 32, acute on chronic, present on admission -dietary consult not appropriate this time due to presenting problem Code status:Full Surrogate decision maker: Spouse COVID PCR:Negative DVT/VTE prophylaxis:Lovenox & SCD's Disposition: Patient admitted for observation for rehydration and symptom management, to be disposed follow-up with GI, expected length of stay less than 2 midnights. I have utilized all available immediate resources to obtain, update, or review the patient's current medications. I confirmed that the patient's advanced care plan is present, Code status is documented and/or surrogate decision maker is listed in the patient's medical record. Time Spent With Patient Critical Care time: I spent a total of [] minutes of critical care time on this patient's care today; this time is exclusive of procedural time. Quality VTE Deep Vein Thrombosis/Pulmonary Embolism Present on Admission: No
[2022-06-20] MEDS: ACETAMINOPHEN 325 MG TABLET 650 MG PO ×2 (00:27→16:37)
[2022-06-20 05:31] LABS: Add Manual Diff / Slide Review NO; Basophils Absolute Auto 100 /uL (0-100); Basophils Percent Auto 1.1 % (0-2); Eosinophils Absolute Auto 300 /uL (0-450); Eosinophils Percent Auto 4.5 % (2-4); Hematocrit 37.6 % (36-46); Hemoglobin 12.7 g/dL (12.0-16.0); Lymphocytes Absolute Auto 1400 /uL (1100-4500); Lymphocytes Percent Auto 22.8 % (25-40); Mean Corpuscular HGB Conc 33.9 % (30-36); Mean Corpuscular Hemoglobin 30.2 PG (26-34); Mean Corpuscular Volume 89.2 fL (80-100); Monocytes Absolute Auto 700 /uL (0-900); Neutrophils Absolute Auto 3600 /uL (1500-7000); Neutrophils Percent Auto 59.6 % (50-75); Platelet Count 224 X10^3/uL (150-400); Red Blood Cell Count 4.22 X10^6/uL (4.0-5.2); Red Cell Distribution Width 12.9 % (11.6-14.8)
[2022-06-20 05:43] LABS: Alanine Aminotransferase 21 IU/L (<35); Albumin 3.9 g/dL (3.5-5.0); Albumin Globulin Ratio 1.4 (1.0-2.8); Alkaline Phosphatase 98 U/L (38-126); Aspartate Aminotransferase 28 IU/L (14-36); BUN Creatinine Ratio 19.4 (6-22); Bilirubin Total 0.6 mg/dL (0.2-1.3); Blood Urea Nitrogen 14 mg/dL (7-17); Calcium 8.7 mg/dL (8.4-10.2); Carbon Dioxide 28 mmol/L (22-32); Chloride 102 mmol/L (98-107); Estimated Glomerular Filt Rate > 60 mL/min (>60); Globulin 2.8 g/dL (1.7-4.1); Glucose 84 mg/dL (80-110); HEMOLYSIS < 15 (0-50); Magnesium 2.1 mg/dL (1.6-2.3); Potassium 4.1 mmol/L (3.4-5.1); Sodium 136 mmol/L (137-145); Total Protein 6.7 g/dL (6.3-8.2)
[2022-06-20 06:00] VITALS: BP 156/83; PULSE 63; RESP 17; TEMP 36.5; O2SAT 95
[2022-06-20 08:51] VITALS: BP 156/83; PULSE 63
[2022-06-20] MEDS: MAGNESIUM OXIDE 400 MG TABLET 200 MG PO (08:51)
[2022-06-20] MEDS: DULOXETINE 30 MG CAPSULE 60 MG PO (08:51)
[2022-06-20] MEDS: PANTOPRAZOLE 40 MG VIAL IV ×2 (08:51→20:04)
[2022-06-20] MEDS: LOSARTAN 50 MG TABLET PO ×2 (08:51→20:04)
[2022-06-20] MEDS: ASPIRIN EC 81 MG TABLET PO (08:51)
[2022-06-20] MEDS: PREGABALIN 75 MG CAPSULE 300 MG PO ×2 (08:51→20:04)
[2022-06-20] MEDS: LEVOTHYROXINE 88 MCG TABLET PO (08:51)
[2022-06-20] MEDS: ENOXAPARIN 40 MG/0.4 ML SYRINGE SUBCUT (08:52)
[2022-06-20] MEDS: HYDROMORPHONE 0.5 MG INJ IV ×3 (09:28→22:12)
--- NOTE | 2022-06-20 11:37 | CM.DANOTE ---
DCP: Case received, EMR reviewed and met with patient. Introduced self and role. Was able to obtain information regarding patient's baseline activity status prior to hospitalization. DCP assessment completed with information currently available. Patient is a 76 year old female who admitted yesterday afternoon to the care of the hospitalist team. PCP: [facility] Chairez Payer: confirmed: Medicare/[employer]. Patient came to the hospital via private vehicle secondary to having vomiting and severe abdominal pain. Patient is here to monitor, for possible gastroenteritis. Met with patient in her room. She is alert and oriented, pleasant. Patient resides here in [place] with spouse, Hima. She is independent at her baseline, and does use a cane. P: DCP to continue to follow. Patient should be able to go home when stable, possibly today, per hospitalist. Alyce Dubose RN/Recreational Programs Director Discharge Planning/Care Management CM Discharge Assessment Start: 06/20/22 11:36 Freq: Status: Active Protocol: Document 06/20/22 11:36 (Rec: 06/20/22 11:37 [id number]) Discharge Planning Assessment Assigned [employer] Head Inspector Alyce Dubose RN/Recreational Programs Director Advance Directives? Yes Advance Directives on File No History Provided By Patient,Significant Other, Medical Record Prior Living Arrangements House Household Members spouse Type of transporation used prior to Drives own vehicle admit Independent with ADL's Yes Is patient alert and oriented? Yes DME Already Rented / Owned Cane Barriers to Discharge No Discharge Plan Home Transportation Arrangement spouse bedside and can transport at d/c Referrals Initiated None needed Additional Comment r/o Whiteboard Updated in Patient Room with Yes name and ext. # of [employer] Head Inspector Review Status In Process Next Review Type Continued Stay Review
[2022-06-20 11:56] VITALS: BP 136/69; PULSE 66; RESP 18; TEMP 36.5; O2SAT 93
[2022-06-20] MEDS: CYCLOBENZAPRINE 10 MG TABLET 5 MG PO ×2 (14:12→22:11)
--- NOTE | 2022-06-20 16:42 | PC.NURSE ---
Pt is AxOx3-4, calm and cooperative, VSS, RA and pt c/o low back pain and recieved PRN IV Dilauid 0.5mg once with good effect. Also, pt recieved PRN Tylenol for back pain. Pt is now general diet and pt tolerated well. No c/o n/v. Pt c/o head spinning when move her head fast or turn. Otherwise, pt is doing well. No other changes. Continue monitor.
[2022-06-20 18:00] VITALS: BP 116/63; PULSE 78; RESP 16; TEMP 36.6; O2SAT 95
--- NOTE | 2022-06-20 18:04 | PC.NURSE ---
Pt arrived to the unit around 1700 from PACU. Pt is AxOx4, needs 2 person assistance for now due to pt's sensation on LLE is not come back yet. Pt denies pain. Pt is on 1L O2 due to frequently desats till 88% on RA. Pt uses CPAP machine at night; it is in the room. L knee has CLIFTON dressing and acewrap on top of it. Otherwise, no changes. Continue monitor.
--- NOTE | 2022-06-20 18:50 | P.PN_ITS ---
Subjective Subjective Date Patient Seen: 06/20/22 Time Patient Seen: 11:00 Interval history: NV and diarrhea has mostly resolved. Having bilateral flank pain which is worse with position. No dysuria. Was not feeling up for going home today, but will stay one more night. Exam Vital Signs (past 8 hours): - 06/20/22 11:56 06/20/22 18:00 Temperature 97.7 F 97.8 F Pulse Rate 66 78 Respiratory Rate 18 16 Blood Pressure 136/69 116/63 Pulse Oximetry 93 95 Oxygen Flow Rate 0 0 Oxygen Delivery Method Room Air Oxygen Flow Rate 0 Narrative Exam Narrative: GEN: no acute distress HEENT: moist mucous membranes, PERRL NECK: trachea midline, no JVD CV: regular rate and rhythm, no murmurs PULM: clear bilaterally ABD: soft, nontender, nondistended, no organomegaly, bilateral flank pain with palpation EXT: warm and well perfused with no edema NEURO: awake, alert, oriented, no focal deficits Objective Labs Result Diagrams: 06/20/22 05:07 06/20/22 05:07 Labs: Laboratory Results - last 24 hr 06/19/22 06/20/22 06/20/22 19:03 05:07 05:07 WBC 6.0 RBC 4.22 Hgb 12.7 Hct 37.6 MCV 89.2 MCH 30.2 MCHC 33.9 RDW 12.9 Plt Count 224 Neut % (Auto) 59.6 Lymph % (Auto) 22.8 L [place] % (Auto) 12.0 Eos % (Auto) 4.5 H Baso % (Auto) 1.1 Neut # (Auto) 3600 Lymph # (Auto) 1400 [place] # (Auto) 700 Eos # (Auto) 300 Baso # (Auto) 100 Sodium 136 L Potassium 4.1 Chloride 102 Carbon Dioxide 28 BUN 14 Creatinine 0.72 Estimated GFR > 60 BUN/Creatinine Ratio 19.4 Glucose 84 Calcium 8.7 Magnesium 2.1 Total Bilirubin 0.6 AST 28 ALT 21 Alkaline Phosphatase 98 Total Protein 6.7 Albumin 3.9 Globulin 2.8 Albumin/Globulin Ratio 1.4 SARS-CoV-2 (PCR) Negative [facility] Medical History Conte's esophagus Chronic lumbar pain Closed head injury with brief loss of consciousness Esophageal stricture Failed back surgical syndrome GERD (gastroesophageal reflux disease) History of paralysis History of snoring Hyperlipidemia Hypertension Hypothyroidism Insomnia due to medical condition Malignant neoplasm of unspecified site of unspecified female breast Obesity (BMI 30-39.9) Obstructive sleep apnea, adult (01/09/21) Spinal stenosis of lumbar region at multiple levels Urge incontinence Vitamin D deficiency, unspecified Surgical History History of bilateral knee replacement History of bilateral mastectomy History of hysterectomy History of lumbar fusion History of lumbar laminectomy History of partial thyroidectomy Family History Father Hypertension Alcohol abuse Mother Alcohol abuse Family/Other Hypertension Bipolar disorder ADD (attention deficit disorder) Substance abuse Social History (Reviewed 06/19/22 @ 13:58 by Angela Sepulveda [facility]) household members: spouse Smoking Status: Former smoker alcohol intake: current substance use type: other (vapes CBD for pain/sleep) Assessment & Plan Assessment & Plan narrative: Shanika Cannonis a 76-year-old female with history of TIA, chronic lumbar pain, obesity, hypothyroidism, hypertension, hyperlipidemia, GERD DESTIN, Conte's esophagus, distant history of breast cancer, and 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 Patient is admitted for symptom management. 1. Intractable nausea, vomiting, diarrhea, with left flank pain, acute on chronic, present on admission-unknown etiology -Hx of GERD with Conte's esophagus patient is on no PPI. -patient's labs are reassuring for no signs of infection no white count, procalcitonin is negative -antiemetics, pain control -improving do not suspect kidney stone as pain worsens with movement, no hematuria or pyuria on UA 2. Hypertension, uncontrolled, acute on chronic, present on admission -presenting blood pressure 156/66 -continue losartan 3. Hyperlipidemia, chronic, present on admission -continue Lipitor 4. Hypothyroidism, acquired, chronic, present on admission -continue levothyroxine 5. GERD, Conte's esophagus, chronic, present on admission -patient was not on a PPI initiated Protonix 40 mg IV b.i.d. 6. Obesity as evidence by BMI 32, acute on chronic, present on admission -dietary consult not appropriate this time due to presenting problem Code status:Full Surrogate decision maker: Spouse COVID PCR: Negative DVT/VTE prophylaxis: Lovenox & SCD's Disposition: Home 06/21. Time Spent With Patient Critical Care time: I spent a total of [] minutes of critical care time on this patient's care today; this time is exclusive of procedural time. Quality VTE Deep Vein Thrombosis/Pulmonary Embolism Present on Admission: No
[2022-06-20 20:00] VITALS: BP 107/55; PULSE 76; RESP 18; TEMP 36.2; O2SAT 95
[2022-06-20] MEDS: MELATONIN 3 MG TABLET 9 MG PO (20:04)
[2022-06-20] MEDS: ATORVASTATIN 20 MG TABLET 80 MG PO (20:04)
[2022-06-21] VITALS: BP 117/68; PULSE 72; RESP 16; TEMP 36.8; O2SAT 95
[2022-06-21] MEDS: CYCLOBENZAPRINE 10 MG TABLET 5 MG PO ×2 (05:20→11:57)
[2022-06-21 05:49] LABS: Add Manual Diff / Slide Review NO; Basophils Absolute Auto 0 /uL (0-100); Basophils Percent Auto 0.8 % (0-2); Eosinophils Absolute Auto 300 /uL (0-450); Eosinophils Percent Auto 4.1 % (2-4); Hematocrit 37.1 % (36-46); Hemoglobin 12.4 g/dL (12.0-16.0); Lymphocytes Absolute Auto 1400 /uL (1100-4500); Lymphocytes Percent Auto 22.9 % (25-40); Mean Corpuscular HGB Conc 33.6 % (30-36); Mean Corpuscular Hemoglobin 30.1 PG (26-34); Mean Corpuscular Volume 89.6 fL (80-100); Monocytes Absolute Auto 700 /uL (0-900); Monocytes Percent Auto 10.6 % (3-14); Neutrophils Absolute Auto 3800 /uL (1500-7000); Neutrophils Percent Auto 61.6 % (50-75); Platelet Count 233 X10^3/uL (150-400); Red Blood Cell Count 4.14 X10^6/uL (4.0-5.2); Red Cell Distribution Width 13.1 % (11.6-14.8); White Blood Cell Count 6.2 X10^3/uL (4.5-11.0)
[2022-06-21 05:54] LABS: Alanine Aminotransferase 19 IU/L (<35); Albumin 3.6 g/dL (3.5-5.0); Albumin Globulin Ratio 1.3 (1.0-2.8); Alkaline Phosphatase 97 U/L (38-126); Aspartate Aminotransferase 24 IU/L (14-36); Bilirubin Total 0.3 mg/dL (0.2-1.3); Blood Urea Nitrogen 20 mg/dL (7-17); Calcium 8.7 mg/dL (8.4-10.2); Carbon Dioxide 31 mmol/L (22-32); Chloride 101 mmol/L (98-107); Estimated Glomerular Filt Rate 58 mL/min (>60); Globulin 2.7 g/dL (1.7-4.1); Glucose 109 mg/dL (80-110); HEMOLYSIS < 15 (0-50); Magnesium 1.9 mg/dL (1.6-2.3); Potassium 3.7 mmol/L (3.4-5.1); Sodium 138 mmol/L (137-145); Total Protein 6.3 g/dL (6.3-8.2)
[2022-06-21 06:00] VITALS: BP 158/73; PULSE 83; RESP 17; TEMP 36.4; O2SAT 94
[2022-06-21] MEDS: ENOXAPARIN 40 MG/0.4 ML SYRINGE SUBCUT (08:32)
[2022-06-21] MEDS: MAGNESIUM OXIDE 400 MG TABLET 200 MG PO (08:32)
[2022-06-21] MEDS: DULOXETINE 30 MG CAPSULE 60 MG PO (08:32)
[2022-06-21] MEDS: PREGABALIN 75 MG CAPSULE 300 MG PO (08:32)
[2022-06-21] MEDS: LOSARTAN 50 MG TABLET PO (08:33)
[2022-06-21] MEDS: ASPIRIN EC 81 MG TABLET PO (08:33)
[2022-06-21] MEDS: PANTOPRAZOLE 40 MG VIAL IV (08:33)
[2022-06-21] MEDS: LEVOTHYROXINE 88 MCG TABLET PO (08:33)
--- NOTE | 2022-06-21 09:24 | PM.DS.1 ---
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 In ED she was vomiting, mildly diaphoretic, moaning in pain, putting her fingers over her left CVA/flank.? She is tender to palpation of left flank, denies recent fever or illness.? She states that she was on a cruise, endorses having diarrhea over the last 3 days and states 2 days ago she had ?coffee grounds in her stool ?she denies knowing if this was blood or not and denies seeking out medical care.? She has seen her provider Shanika Larios since her last emergency department visit. Patient is not on any PPI with a history of GERD and Barretts esophagus.? She states she drinks 2 glasses of wine nightly but has not had this for the last 3 days.? She denies smoking or any illicit drug use. Upon admit to the floor patient denies chest pain, shortness of breath, has had no further vomiting or diarrhea continues to be nauseated just received a dose of Zofran which is improving, the flank pain continues with only movement now in the bed, she states the last time she was able to keep food down was approximately 4 days ago though the patient is requesting to eat at this time. Patient's vitals are stable temp 98.1?, blood pressure is slightly elevated 156/66, HR 75, RR 22, O2 saturation 95% on room air. States that left flank pain is a 3/10 with any movement, patient's CBC is unremarkable, CMP unremarkable, total creatinine kinase 152, troponin lipase and procalcitonin are all within normal limits patient's abdomen pelvis CT demonstrates rectum and recommends colonoscopy. Patient admitted for intractable nausea vomiting and diarrhea with left flank pain unknown etiology possible gastroenteritis. Discharge Providers Provider Date of admission: 06/19/22 18:06 Discharge Date: 06/21/22 Primary care physician: Emma Larios PA-C Consults: 06/19/22 20:47 Consult to Dietitian, Adult Routine Comment: Reason For Exam: fluctuating weight d/t frequent hospitalization Consult to Pastoral Services Routine Comment: patient request Discharge provider: Esdras Nichols DO Summary Hospital Course Discharge Diagnosis: 1. Intractable nausea, vomiting, diarrhea, with left flank pain, acute on chronic, present on admission, possibly due to EPEC 2. Hypertension, uncontrolled, acute on chronic, present on admission 3. Hyperlipidemia, chronic, present on admission 4. Hypothyroidism, acquired, chronic, present on admission 5. GERD, Conte's esophagus, chronic, present on admission 6. 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 Patient was admitted for symptom management. She had no evidence of infection and improved with initiation of a PPI and antiemetic medications. She improved slowly but was ultimately discharged home. She will continue on a PPI trail as an outpatient, she was also given a short term opiate prescription for pain. Her symptoms improved, but stool PCR did show an EPEC with PCR. Given improvement in her symptoms prior to discharge, antibiotics were not deemed necessary as this is usually self limited. Consider treatment if symptoms return. Exam Vital Signs (past 8 hours): - 06/21/22 06:00 Temperature 97.6 F Pulse Rate 83 Respiratory Rate 17 Blood Pressure 158/73 H Pulse Oximetry 94 Oxygen Delivery Method Room Air Oxygen Flow Rate 0 Narrative Exam Narrative: GEN: no acute distress HEENT: moist mucous membranes, PERRL NECK: trachea midline, no JVD CV: regular rate and rhythm, no murmurs PULM: clear bilaterally ABD: soft, nontender, nondistended, no organomegaly, bilateral flank pain with palpation EXT: warm and well perfused with no edema NEURO: awake, alert, oriented, no focal deficits Objective Labs Result Diagrams: 06/21/22 04:57 06/21/22 04:57 Labs: Laboratory Results - last 24 hr 06/21/22 06/21/22 04:57 04:57 WBC 6.2 RBC 4.14 Hgb 12.4 Hct 37.1 MCV 89.6 MCH 30.1 MCHC 33.6 RDW 13.1 Plt Count 233 Neut % (Auto) 61.6 Lymph % (Auto) 22.9 L [place] % (Auto) 10.6 Eos % (Auto) 4.1 H Baso % (Auto) 0.8 Neut # (Auto) 3800 Lymph # (Auto) 1400 [place] # (Auto) 700 Eos # (Auto) 300 Baso # (Auto) 0 Sodium 138 Potassium 3.7 Chloride 101 Carbon Dioxide 31 BUN 20 H Creatinine 1.00 Estimated GFR 58 L BUN/Creatinine Ratio 20.0 Glucose 109 Calcium 8.7 Magnesium 1.9 Total Bilirubin 0.3 AST 24 ALT 19 Alkaline Phosphatase 97 Total Protein 6.3 Albumin 3.6 Globulin 2.7 Albumin/Globulin Ratio 1.3 PFSH Medical History Conte's esophagus Chronic lumbar pain Closed head injury with brief loss of consciousness Esophageal stricture Failed back surgical syndrome GERD (gastroesophageal reflux disease) History of paralysis History of snoring Hyperlipidemia Hypertension Hypothyroidism Insomnia due to medical condition Malignant neoplasm of unspecified site of unspecified female breast Obesity (BMI 30-39.9) Obstructive sleep apnea, adult (01/09/21) Spinal stenosis of lumbar region at multiple levels Urge incontinence Vitamin D deficiency, unspecified Surgical History History of bilateral knee replacement History of bilateral mastectomy History of hysterectomy History of lumbar fusion History of lumbar laminectomy History of partial thyroidectomy Family History Father Hypertension Alcohol abuse Mother Alcohol abuse Family/Other Hypertension Bipolar disorder ADD (attention deficit disorder) Substance abuse Social History household members: spouse Smoking Status: Former smoker alcohol intake: current substance use type: other (vapes CBD for pain/sleep) Discharge Plan Discharge Plan Patient Disposition: Home Provider Discharge Comment: You were admitted to the hospital with gastrointestinal symptoms which have improved. Please follow up with PCP and GI as previously scheduled. Continue pantoprazole at home, further need to be considered with PCP. Discharge orders & Medications Prescriptions: New pantoprazole 40 mg tablet,delayed release (DR/EC) 40 mg PO DAILY 30 Days Qty: 30 0RF hydromorphone 2 mg tablet 2 mg PO Q6H PRN (Reason: pain) 7 Days Qty: 14 0RF Continued magnesium citrate 100 mg Capsule 100 mg PO DAILY celecoxib [Celebrex] 200 mg Capsule 200 mg PO DAILY levothyroxine 88 mcg Tablet 88 mcg DAILY pregabalin [Lyrica] 300 mg Capsule 300 mg PO BID melatonin 10 mg Tablet 20 mg PO BEDTIME PRN (Reason: Insomnia) cholecalciferol (vitamin D3) [Vitamin D3] 125 mcg (5,000 unit) tablet 2,000 unit PO DAILY atorvastatin 80 mg Tablet 80 mg PO QPM duloxetine [Cymbalta] 30 mg Capsule,Delayed Release(Dr/Ec) 60 mg PO DAILY Qty: 30 0RF losartan 50 mg tablet 50 mg PO BID cyclobenzaprine 5 mg tablet 5 mg PO BEDTIME PRN (Reason: Pain (Scale Score 1-3)) Medication counseling provided by Pharmacist: Yes Pharmacist Comment: Counseled by pharmacy benefits coordinator Meka Cook Follow up/Referrals: Emma Larios PA-C [Primary Care Provider] - Diet/Activity/Treatments Diet: Diet as Tolerated Activity: As tolerated Visit Report/Discharge Packet Instructions: DI for Prescription Opioid Use Discharge Data Primary Care Provider: Emma Larios Attending Provider: Stewart Black VTE Deep Vein Thrombosis/Pulmonary Embolism Present on Admission: No
[2022-06-21 13:27] LABS: Campylobacter Not Detected (Not Detect); Clostridium difficile toxin AB Not Detected (Not Detect); Plesiomonsa shigelloides Not Detected (Not Detect); Salmonella Not Detected (Not Detect); Vibrio Not Detected (Not Detect); Vibrio cholerae Not Detected (Not Detect); Yersinia enterocolitica Not Detected (Not Detect)
[2022-06-21 13:28] LABS: Adenovirus F 40/41 Not Detected (Not Detect); Astrovirus Not Detected (Not Detect); Cryptosporidium Not Detected (Not Detect); Cyclospora cayetanensis Not Detected (Not Detect); Entamoeba histolytica Not Detected (Not Detect); Enteroaggregative E.coli Not Detected (Not Detect); Enteropathogenic E.coli Detected (Not Detect); Enterotoxigenic E.coli It/st Not Detected (Not Detect); Giardia lamblia Not Detected (Not Detect); Norovirus GI/GII Not Detected (Not Detect); Rotavirus A Not Detected (Not Detect); Sapovirus Not Detected (Not Detect); Shiga-like toxin-prod E.coli Not Detected (Not Detect); Shigella/Enteroinvasive E.coli Not Detected (Not Detect)
== END 2022-06-21 14:20 | disposition home or self-care (01) ==
LOC: ED 13:41 → AC 18:06
PROVIDERS: Emergency Medicine; Admitting Provider Student in an Organized Health Care Education/Training Program; Emergency Provider Nurse Practitioner Critical Care Medicine; Family Provider Physician Assistant; PCP Physician Assistant; Referring Provider Nurse Practitioner Critical Care Medicine; Visit Provider Student in an Organized Health Care Education/Training Program
DX: R11.2 Nausea with vomiting, unspecified (principal); R19.7 Diarrhea, unspecified; R10.9 Unspecified abdominal pain; I10 Essential (primary) hypertension; E78.5 Hyperlipidemia, unspecified; E03.9 Hypothyroidism, unspecified; K21.9 Gastro-esophageal reflux disease without esophagitis; K22.70 Barrett's esophagus without dysplasia; G89.29 Other chronic pain; M54.50 Low back pain, unspecified; Z87.891 Personal history of nicotine dependence; Z20.822 Contact with and (suspected) exposure to COVID-19
CPT/HCPCS: 36415; 74177; 80053; 81001; 81003; 82272; 82550; 82553; 83605; 83690; 83735; 84145; 84484; 85025; 87507; 87635; 93005; 96372; 96374; 96375; 96376; 99284; C9803; G0378; C9113; J1170; J1650; J2405; J2765; J3360; J3475; J7050; Q9967

== ENCOUNTER 2022-08-02 15:15 | Outpatient (RCR) | payer MEDICARE, OTHER, SELFPAY ==
[2022-06-19 20:41] VITALS: BMI 32.0
--- NOTE | 2022-07-24 15:35 | PT.OIE ---
Current Diagnoses Dizziness and giddiness (07/24/22) Past Medical History (Last Reviewed 06/20/22 @ 00:15 by MARBELLA DuffyMANUEL) Conte's esophagus Chronic lumbar pain Closed head injury with brief loss of consciousness Esophageal stricture Failed back surgical syndrome GERD (gastroesophageal reflux disease) History of paralysis History of snoring Hyperlipidemia Hypertension Hypothyroidism Insomnia due to medical condition Malignant neoplasm of unspecified site of unspecified female breast Obesity (BMI 30-39.9) Obstructive sleep apnea, adult (01/09/21) Spinal stenosis of lumbar region at multiple levels Urge incontinence Vitamin D deficiency, unspecified Past Surgical History (Last Reviewed 06/20/22 @ 00:[facility] History of bilateral knee replacement History of bilateral mastectomy History of hysterectomy History of lumbar fusion History of lumbar laminectomy History of partial thyroidectomy Visit Care Team Role Provider Type Emma Larios PA-C Attending Provider Non-Staff Family Provider Primary Care Provider Referring Provider Specialty: Internal Medicine Address: [address] [place] [address] Email: [email or web address] Initial Evaluation PT-OP-A Visit Information Start: 07/23/22 15:54 Freq: Status: Active Protocol: Document 07/24/22 08:19 AMB (Rec: 07/24/22 08:55 AMB [id number]) Out-Patient Physical Therapy Visit Information Visit Information Visit Type Initial Evaluation Visit Start Time 08:15 Visit Stop Time 09:00 Total Visit Minutes 45 Visit Number 1 PT-OP-B Current Condition Start: 07/23/22 15:54 Freq: Status: Active Protocol: Document 07/24/22 08:19 AMB (Rec: 07/24/22 08:55 AMB [id number]) Current Condition History of Current Condition Onset Date 1 month Current Complaints dizziness History of Current Condition A month of spinning dizziness about equal side to side. Arthritis in the neck. Does have a concussion history, most recent being in her 60s. 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 5x history of vomiting to the point of dehydration. Personal Factors Other Personal Factors That May Effect Hx extensive vomiting. No Therapy/Recovery nausea with BPPV PT-OP-C Subjective Start: 07/23/22 15:54 Freq: Status: Active Protocol: Document 07/24/22 08:15 AMB (Rec: 07/24/22 15:35 AMB [id number]) Patient Questionnaires Dizziness Handicap Inventory DHI Score 52 DHI Functional Impairment 40 to 59% Impaired (Score 40- 59) PT-OP-O Vestibular Start: 07/24/22 08:55 Freq: Status: Active Protocol: Document 07/24/22 08:19 AMB (Rec: 07/24/22 09:01 AMB [id number]) Vestibular Assessment Visual Testing Smooth Pursuits Horizontal WFL Smooth Pursuits Vertical WFL Saccades Horizontal WFL Saccades Vertical WFL Positional Testing Romana-Hallpike Positive Left,Negative Right, Upbeating,< 60 Seconds PT-OP-T Assessment and Plan Start: 07/23/22 15:54 Freq: Status: Active Protocol: Document 07/24/22 08:15 AMB (Rec: 07/24/22 13:02 AMB [id number]) Physical Therapy Assessment Rehab Potential Rehabilitation Potential Good Evaluation Complexity Number of Personal Factors/Comorbidities 3 or More Number of Body Systems Impaired 1-2 Clinical Presentation at Evaluation Stable Impairments Impairments Activity Tolerance,Balance,ROM ,Vestibular Goals Two Impairment Art Short Term Goal (STG) Shanika will have a negative Art. STG Duration 4 weeks One Impairment Dizziness Short Term Goal (STG) Shanika will roll over in bed without dizziness. STG Duration 4 weeks Assessment Summary Assessment Shanika attends physical therapy with 1 month of dizziness in the context of having BPPV at least twice in the recent past. She did test positive for L canalisthesis BPPV and had a good resolution of symptoms with second Art . She will benefit from repeat testing to ensure complete resolution of sx. She does state that she has seen ENT for repeat BPPV in the past. Could consider instruction in home Art given the repeat nature of her sx vs instructing to return to PT given her neck pain. Physical Therapy Plan Frequency and Duration Frequency of Treatment 2x/Week Duration of treatment (weeks) 6 Plan of Care Start Date 07/24/22 Plan of Care End Date 09/04/22 Therapeutic Interventions Therapeutic Interventions Canalithic Repositioning,Gait Training,Home Exercise Program ,Manual Therapy,Neuromuscular Re-education,Self-Care/Home Management,Therapeutic Activities,Therapeutic Exercises,Vestibular Rehabilitation Next Visit Focus/Plan Next Note Type Treatment Note Next Visit Plan Treat L BPPV, retest bilaterally if all sx resolved
--- NOTE | 2022-07-24 15:36 | PT.OPPOC ---
Physical, Occupational & Speech Therapy At [facility] Current Diagnoses Dizziness and giddiness (07/24/22) Visit Care Team Role Provider Type Emma Larios PA-C Attending Provider Non-Staff Family Provider Primary Care Provider Referring Provider Specialty: Internal Medicine Address: [address] [place] [address], [facility] Email: [email or web address] Plan Of Care PT-OP-T Assessment and Plan Start: 07/23/22 15:54 Freq: Status: Active Protocol: Document 07/24/22 08:15 AMB (Rec: 07/24/22 13:02 AMB [id number]) Physical Therapy Assessment Rehab Potential Rehabilitation Potential Good Evaluation Complexity Number of Personal Factors/Comorbidities 3 or More Number of Body Systems Impaired 1-2 Clinical Presentation at Evaluation Stable Impairments Impairments Activity Tolerance,Balance,ROM ,Vestibular Goals Two Impairment Art Short Term Goal (STG) Shanika will have a negative Art. STG Duration 4 weeks One Impairment Dizziness Short Term Goal (STG) Shanika will roll over in bed without dizziness. STG Duration 4 weeks Assessment Summary Assessment Shanika attends physical therapy with 1 month of dizziness in the context of having BPPV at least twice in the recent past. She did test positive for L canalisthesis BPPV and had a good resolution of symptoms with second Art . She will benefit from repeat testing to ensure complete resolution of sx. She does state that she has seen ENT for repeat BPPV in the past. Could consider instruction in home Art given the repeat nature of her sx vs instructing to return to PT given her neck pain. Physical Therapy Plan Frequency and Duration Frequency of Treatment 2x/Week Duration of treatment (weeks) 6 Plan of Care Start Date 07/24/22 Plan of Care End Date 09/04/22 Therapeutic Interventions Therapeutic Interventions Canalithic Repositioning,Gait Training,Home Exercise Program ,Manual Therapy,Neuromuscular Re-education,Self-Care/Home Management,Therapeutic Activities,Therapeutic Exercises,Vestibular Rehabilitation Next Visit Focus/Plan Next Note Type Treatment Note Next Visit Plan Treat L BPPV, retest bilaterally if all sx resolved Plan of Care Dates Plan of Care Start Date 07/24/22 Plan of Care End Date 09/04/22 Electronically Signed by: Josie Collins, PT 07/24/22 1536 If you are in agreement with this Plan of Care, please return a signed and dated copy. I have reviewed this Plan of Care and certify that the skilled therapy services above are required to meet the patient?s needs. Physician Signature Date Printed Name and Credentials Clinical Instructor Signature Printed Name and Credentials
--- NOTE | 2022-07-26 16:26 | PT.OTN ---
Current Diagnoses Dizziness and giddiness (07/26/22) Physical Therapy Treatment Note PT-OP-A Visit Information Start: 07/23/22 15:54 Freq: Status: Active Protocol: Document 07/26/22 16:00 DCW (Rec: 07/26/22 16:26 DCW [id number]) Out-Patient Physical Therapy Visit Information Visit Information Visit Type Treatment Note Visit Start Time 16:00 Visit Stop Time 16:18 Total Visit Minutes 18 Visit Number 2 PT-OP-B Current Condition Start: 07/23/22 15:54 Freq: Status: Active Protocol: Document 07/24/22 08:19 AMB (Rec: 07/24/22 08:55 AMB [id number]) Current Condition History of Current Condition Onset Date 1 month Current Complaints dizziness History of Current Condition A month of spinning dizziness about equal side to side. Arthritis in the neck. Does have a concussion history, most recent being in her 60s. 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 5x history of vomiting to the point of dehydration. Personal Factors Other Personal Factors That May Effect Hx extensive vomiting. No Therapy/Recovery nausea with BPPV PT-OP-C Subjective Start: 07/23/22 15:54 Freq: Status: Active Protocol: Document 07/26/22 16:00 DCW (Rec: 07/26/22 16:26 DCW [id number]) OP-PT Subjective Patient Comments Patient Comments No symptoms since her last visit. PT-OP-O Vestibular Start: 07/24/22 08:55 Freq: Status: Active Protocol: Document 07/26/22 16:00 DCW (Rec: 07/26/22 16:26 DCW [id number]) Vestibular Assessment Positional Testing [place]-Hallpike Positive Right,Negative Left, Upbeating,< 60 Seconds PT-OP-Q Treatments Start: 07/23/22 15:54 Freq: Status: Active Protocol: Document 07/26/22 16:00 DCW (Rec: 07/26/22 16:26 DCW [id number]) Manual Therapy Treatment Other Other Manual Treatments Romana-Hallpike positional testing Self-Care/Home Management Treatment Education Other Education Self-cameron education Canalithic Repositioning BPPV Treatment Other Affected Canal(s) Right posterior Reps x1 Comments Modified Cameron PT-OP-T Assessment and Plan Start: 07/23/22 15:54 Freq: Status: Active Protocol: Document 07/26/22 16:00 DCW (Rec: 07/26/22 16:26 DCW [id number]) Physical Therapy Assessment Impairments Impairments Activity Tolerance,Balance,ROM ,Vestibular Goals Two Impairment Cameron Short Term Goal (STG) Shanika will have a negative Cameron. STG Duration 4 weeks One Impairment Dizziness Short Term Goal (STG) Shanika will roll over in bed without dizziness. STG Duration 4 weeks Assessment Summary Assessment Despite pt feeling symptom- free coming in today, showed positive R Romana-Hallpike with fairly strong up-beating torsional nystagmus lasting 15 seconds. Pt tolerated R Modified Caemron maneuver very well, with symptoms in the first and third position. Reviewed instructions for self -Cameron maneuver. Recommended additional follow-up next week due to positive test today. Physical Therapy Plan Frequency and Duration Frequency of Treatment 2x/Week Duration of treatment (weeks) 6 Plan of Care Start Date 07/24/22 Plan of Care End Date 09/04/22 Therapeutic Interventions Therapeutic Interventions Canalithic Repositioning,Gait Training,Home Exercise Program ,Manual Therapy,Neuromuscular Re-education,Self-Care/Home Management,Therapeutic Activities,Therapeutic Exercises,Vestibular Rehabilitation Next Visit Focus/Plan Next Note Type Treatment Note Next Visit Plan Treat L BPPV, retest bilaterally if all sx resolved
--- NOTE | 2022-07-30 10:22 | PT.OTN ---
Current Diagnoses Dizziness and giddiness (07/30/22) Physical Therapy Treatment Note PT-OP-A Visit Information Start: 07/23/22 15:54 Freq: Status: Active Protocol: Document 07/30/22 09:49 AMB (Rec: 07/30/22 10:11 AMB [id number]) Out-Patient Physical Therapy Visit Information Visit Information Visit Type Treatment Note Visit Start Time 09:45 Visit Stop Time 10:30 Total Visit Minutes 45 Visit Number 3 PT-OP-B Current Condition Start: 07/23/22 15:54 Freq: Status: Active Protocol: Document 07/24/22 08:19 AMB (Rec: 07/24/22 08:55 AMB [id number]) Current Condition History of Current Condition Onset Date 1 month Current Complaints dizziness History of Current Condition A month of spinning dizziness about equal side to side. Arthritis in the neck. Does have a concussion history, most recent being in her 60s. 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 5x history of vomiting to the point of dehydration. Personal Factors Other Personal Factors That May Effect Hx extensive vomiting. No Therapy/Recovery nausea with BPPV PT-OP-C Subjective Start: 07/23/22 15:54 Freq: Status: Active Protocol: Document 07/30/22 09:49 AMB (Rec: 07/30/22 10:11 AMB [id number]) OP-PT Subjective Patient Comments Patient Comments Pt was dizzy when turning to the left last night. PT-OP-O Vestibular Start: 07/24/22 08:55 Freq: Status: Active Protocol: Document 07/26/22 16:00 DCW (Rec: 07/26/22 16:26 DCW [id number]) Vestibular Assessment Positional Testing Romana-Hallpike Positive Right,Negative Left, Upbeating,< 60 Seconds PT-OP-Q Treatments Start: 07/23/22 15:54 Freq: Status: Active Protocol: Document 07/30/22 09:49 AMB (Rec: 07/30/22 10:11 AMB [id number]) Canalithic Repositioning BPPV Treatment Other Affected Canal(s) Left posterior Reps x2 Comments Modified Art-- nystagmust with first position with first rep, none with second repetition of Art PT-OP-T Assessment and Plan Start: 07/23/22 15:54 Freq: Status: Active Protocol: Document 07/30/22 09:49 AMB (Rec: 07/30/22 10:11 AMB [id number]) Physical Therapy Assessment Goals Two Impairment Art Short Term Goal (STG) Shanika will have a negative Art. STG Duration 4 weeks One Impairment Dizziness Short Term Goal (STG) Shanika will roll over in bed without dizziness. STG Duration 4 weeks Assessment Summary Assessment Pt noticed sx to the left last night. Retested and did have sx of torsional upbeating nystagmus with first Art, repeated and no nystagmus or sx with second treatment. Physical Therapy Plan Next Visit Focus/Plan Next Note Type Treatment Note Next Visit Plan Treat L BPPV, retest bilaterally if all sx resolved
--- NOTE | 2022-08-02 15:35 | PT.OTN ---
Current Diagnoses Dizziness and giddiness (08/02/22) Physical Therapy Treatment Note PT-OP-A Visit Information Start: 07/23/22 15:54 Freq: Status: Active Protocol: Document 08/02/22 15:16 DCW (Rec: 08/02/22 15:35 DCW [id number]) Out-Patient Physical Therapy Visit Information Visit Information Visit Type Discharge Summary Visit Start Time 15:16 Visit Stop Time 15:33 Total Visit Minutes 17 Visit Number 4 PT-OP-B Current Condition Start: 07/23/22 15:54 Freq: Status: Active Protocol: Document 07/24/22 08:19 AMB (Rec: 07/24/22 08:55 AMB [id number]) Current Condition History of Current Condition Onset Date 1 month Current Complaints dizziness History of Current Condition A month of spinning dizziness about equal side to side. Arthritis in the neck. Does have a concussion history, most recent being in her 60s. 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 5x history of vomiting to the point of dehydration. Personal Factors Other Personal Factors That May Effect Hx extensive vomiting. No Therapy/Recovery nausea with BPPV PT-OP-C Subjective Start: 07/23/22 15:54 Freq: Status: Active Protocol: Document 08/02/22 15:16 DCW (Rec: 08/02/22 15:35 DCW [id number]) OP-PT Subjective Patient Comments Patient Comments I haven't had any spinning, but the back of my head feels full, I don't know if that has anything to do with anything. PT-OP-O Vestibular Start: 07/24/22 08:55 Freq: Status: Active Protocol: Document 08/02/22 15:16 DCW (Rec: 08/02/22 15:35 DCW [id number]) Vestibular Assessment Positional Testing Romana-Hallpike Negative Left,Negative Right Rolling Test Negative Left,Negative Right PT-OP-Q Treatments Start: 07/23/22 15:54 Freq: Status: Active Protocol: Document 08/02/22 15:16 DCW (Rec: 08/02/22 15:35 DCW [id number]) Manual Therapy Treatment Other Other Manual Treatments Positional testing PT-OP-T Assessment and Plan Start: 07/23/22 15:54 Freq: Status: Active Protocol: Document 08/02/22 15:16 DCW (Rec: 08/02/22 15:35 DC [id number]) Physical Therapy Assessment Goals Two Impairment Art Short Term Goal (STG) Shanika will have a negative Art. STG Duration Met One Impairment Dizziness Short Term Goal (STG) Shanika will roll over in bed without dizziness. STG Duration Met Assessment Summary Assessment Pt testing negative today, notes she has felt a little lightheaded today, unsure of cause. BP measured 149/86. Pt agreeable to discharge at this time, no longer exhibiting symptoms of BPPV Physical Therapy Plan Frequency and Duration Frequency of Treatment 2x/Week Duration of treatment (weeks) 6 Plan of Care Start Date 07/24/22 Plan of Care End Date 09/04/22 Therapeutic Interventions Therapeutic Interventions Canalithic Repositioning,Gait Training,Home Exercise Program ,Manual Therapy,Neuromuscular Re-education,Self-Care/Home Management,Therapeutic Activities,Therapeutic Exercises,Vestibular Rehabilitation Next Visit Focus/Plan Next Note Type Treatment Note Next Visit Plan Treat L BPPV, retest bilaterally if all sx resolved
== END 2022-08-03 08:02 | disposition home or self-care (01) ==
LOC: PHYS 15:15
PROVIDERS: Family Provider Physician Assistant; PCP Physician Assistant; Referring Provider Physician Assistant; Visit Provider Physician Assistant
DX: R42 Dizziness and giddiness (principal)
CPT/HCPCS: 95992; 97140; 97161

== ENCOUNTER 2022-09-24 12:06 | Emergency (ER) | payer MEDICARE, OTHER, SELFPAY ==
[2022-06-19 20:41] VITALS: BMI 32.0
[2022-09-24] VITALS (9 sets, daily range): BP systolic 153–183; BP diastolic 76–86; PULSE 73–83; RESP 13–24; TEMP 36.6; O2SAT 92–99; BMI 31.1
--- NOTE | 2022-09-24 12:27 | ED.ABDPAIN ---
HPI - Abdominal Pain <Sloane Huffman PA-C - Last Filed: 09/24/22 20:31> General Chief Complaint: Abdominal Pain Stated Complaint: abd. pain Time Seen by Provider: 09/24/22 12:21 Source: EMS Mode of arrival: EMS History of Present Illness HPI narrative: 77-year-old female with past medical history chronic lumbar pain, hypothyroidism, hypertension, hyperlipidemia, GERD, DESTIN, TIA, frequent abdominal pain presents to the ED with 1 day of abdominal pain, nausea, vomiting, diarrhea. Patient complains of left lower quadrant pain, unable to tolerate p.o. due to repeated vomiting. Patient has been seen in our ED as well as in [facility] several times for abdominal pain, has had negative workup. Patient was recently seen at [facility] for chest pain and abdominal pain on 09/16/2022, discharged home pantoprazole. Patient states that she has also had difficulty walking over the last 2 weeks, feels weak. Patient denies any recent falls, trauma. Patient endorses chronic lumbar back pain, states that it is the back pain that is causing difficulty walking. Patient has a spinal stimulator for back pain. Related Data Home Medications Medication Instructions Recorded Confirmed celecoxib 200 mg capsule (Celebrex) 200 mg PO DAILY 09/23/19 06/19/22 levothyroxine 88 mcg tablet 88 mcg DAILY 09/23/19 06/19/22 melatonin 10 mg tablet 20 mg PO BEDTIME PRN Insomnia 09/23/19 06/19/22 pregabalin 300 mg capsule (Lyrica) 300 mg PO BID 09/23/19 06/19/22 cholecalciferol (vitamin D3) 125 2,000 unit PO DAILY 12/13/20 06/19/22 mcg (5,000 unit) tablet (Vitamin D3) cyclobenzaprine 5 mg tablet 5 mg PO BEDTIME PRN Pain (Scale 12/13/20 06/19/22 Score 1-3) losartan 50 mg tablet 50 mg PO BID 12/13/20 06/19/22 atorvastatin 80 mg tablet 80 mg PO QPM 02/03/22 06/19/22 magnesium citrate 100 mg capsule 100 mg PO DAILY 06/19/22 06/19/22 Previous Rx's Medication Instructions Recorded duloxetine 30 mg capsule,delayed 60 mg PO DAILY #30 caps 02/03/22 release (Cymbalta) ondansetron 4 mg disintegrating 4 mg PO Q8H PRN nausea and 09/24/22 tablet vomiting #20 tabs Allergies Allergy/AdvReac Type Severity Reaction Status Date / Time adhesive tape Allergy Mild Verified 09/24/22 12:20 prochlorperazine Allergy Anaphylaxis Verified 09/24/22 12:20 [From Compazine] Review of Systems <Sloane Huffman PA-C - Last Filed: 09/24/22 20:31> Review of Systems ROS Unobtainable: All systems reviewed & are unremarkable except as noted in HPI and below Constitutional Constitutional: Reports chills, Reports fatigue, Reports fever(s), Denies frequent falls, Denies lethargy and Reports weakness Eyes Eyes: Denies change in vision, Denies eye discharge, Denies irritation and Denies loss of vision ENT Ears, Nose, Mouth, and Throat: Denies change in voice, Denies dizziness, Denies neck pain, Denies sore throat and Denies throat swelling Cardiovascular Cardiovascular: Denies chest pain, Denies irregular heart rhythm, Denies lightheadedness, Denies palpitations, Denies dyspnea, Denies dyspnea on exertion and Denies orthopnea Respiratory Respiratory: Denies cough, Denies dyspnea, Denies dyspnea on exertion and Denies wheezing Gastrointestinal Gastrointestinal: Reports abdominal pain, Denies change in bowel habits, Reports diarrhea, Reports nausea and Reports vomiting Genitourinary Genitourinary: Denies hematuria, Denies flank pain, Denies urinary incontinence and Denies urinary urgency Musculoskeletal Musculoskeletal: Denies back pain, Denies muscle weakness, Denies neck pain, Denies numbness and Denies tingling Integumentary/Breasts Skin/Breast: Denies pruritus, Denies erythema, Denies rash and Denies wounds Neurologic Neurologic: Denies behavioral changes, Denies confusion, Denies dizziness, Denies frequent falls, Denies loss of vision, Denies numbness, Denies tingling and Reports weakness Psychiatric Psychiatric: Denies anxiety, Denies behavioral changes, Denies confusion, Denies depression, Denies homicidal ideation and Denies suicidal ideation Endocrine Endocrine: Reports fatigue, Denies flushing and Denies palpitations Hematologic/Lymphatic Hematologic/Lymphatic: Denies easy bruising Allergic/Immunologic Allergic/Immunologic: Denies urticaria, Denies throat swelling and Denies wheezing Patient History <Sloane Huffman PA-C - Last Filed: 09/24/22 20:31> Medical History Conte's esophagus Chronic lumbar pain Closed head injury with brief loss of consciousness Esophageal stricture Failed back surgical syndrome GERD (gastroesophageal reflux disease) History of paralysis History of snoring Hyperlipidemia Hypertension Hypothyroidism Insomnia due to medical condition Malignant neoplasm of unspecified site of unspecified female breast Obesity (BMI 30-39.9) Obstructive sleep apnea, adult (01/09/21) Spinal stenosis of lumbar region at multiple levels Urge incontinence Vitamin D deficiency, unspecified Surgical History History of bilateral knee replacement History of bilateral mastectomy History of hysterectomy History of lumbar fusion History of lumbar laminectomy History of partial thyroidectomy Family History Father Hypertension Alcohol abuse Mother Alcohol abuse Family/Other Hypertension Bipolar disorder ADD (attention deficit disorder) Substance abuse Social History household members: spouse Smoking Status: Former smoker alcohol intake: current substance use type: other (vapes CBD for pain/sleep) Smoking Status: Former smoker alcohol intake frequency: 0-2 drinks per day Substance Use Type: marijuana Exam <Sloane Huffman PA-C - Last Filed: 09/24/22 20:31> Narrative Exam Narrative: Const General:?cooperative, healthy appearing and comfortable [facility] Head:?normal to inspection Ears:?hearing grossly normal bilaterally Nose:?external nose normal Face and sinus:?normal facial exam and sinuses nontender Mouth:?oral mucosae normal Throat:?posterior oropharynx normal Eyes General:?appearance normal, both eyes and all related structures Neck Neck:?normal visual inspection and no lymphadenopathy noted Resp Effort & Inspection:?normal respiratory effort Auscultation:?clear to auscultation bilaterally Cardio Rate:?regular rate Rhythm:?regular rhythm GI Abdomen is soft, nondistended. Abdomen is diffusely tender to palpation. Neuro General:?patient alert, patient awake and patient oriented x3; PERRLA; CN 1 through 12 intact bilaterally; patient is able to move her legs, swing legs down, get into the wheelchair. Gait was not tested since patient states she was too weak to walk. Strength and sensation. Full range of motion. Patient seems neurologically intact with no focal neurodeficits. Initial Vital Signs Initial Vital Signs: Vital Signs Temperature 97.8 F 09/24/22 12:15 Pulse Rate 83 09/24/22 12:15 Respiratory Rate 18 09/24/22 12:15 Blood Pressure 173/83 H 09/24/22 12:15 Pulse Oximetry 99 09/24/22 12:15 Oxygen Delivery Method 09/24/22 12:15 <Lenny Brown DO - Last Filed: 09/25/22 07:16> Initial Vital Signs Initial Vital Signs: Vital Signs Temperature 97.8 F 09/24/22 12:15 Pulse Rate 83 09/24/22 12:15 Respiratory Rate 18 09/24/22 12:15 Blood Pressure 173/83 H 09/24/22 12:15 Pulse Oximetry 99 09/24/22 12:15 Oxygen Delivery Method 09/24/22 12:15 Course <Sloane Huffman PA-C - Last Filed: 09/24/22 20:31> Orders Ordered: Discontinued Medications Sodium Chloride (Normal Saline 0.9%) 1,000 mls @ 1,000 mls/hr IV BOLUS ONE Stop: 09/24/22 14:00 Last Infusion: 09/24/22 15:00 Dose: 0 mls/hr Documented By: Admin: 09/24/22 13:18 Dose: 1,000 mls/hr Documented By: ARI Morphine Sulfate (Morphine 4 Mg/Ml Inj) 4 mg IV NOW ONE Stop: 09/24/22 12:54 Last Admin: 09/24/22 13:18 Dose: 4 mg Documented By: ARI Ondansetron HCl (Ondansetron 4 Mg/2 Ml Inj) 4 mg IV NOW ONE Stop: 09/24/22 12:54 Last Admin: 09/24/22 13:17 Dose: 4 mg Documented By: ARI Ondansetron HCl (Ondansetron 4 Mg/2 Ml Inj) 4 mg IV NOW ONE Stop: 09/24/22 16:40 Last Admin: 09/24/22 17:22 Dose: 4 mg Documented By: ERUM Vital Signs Vital signs: Vital Signs - 8 hr 09/24/22 13:40 09/24/22 14:00 09/24/22 14:30 Pulse Rate 73 73 80 Respiratory Rate 16 14 Blood Pressure Pulse Oximetry 99 93 92 Oxygen Delivery Method 09/24/22 14:39 09/24/22 14:39 09/24/22 15:00 Pulse Rate 77 78 Respiratory Rate 13 24 Blood Pressure 183/86 H Pulse Oximetry 97 94 Oxygen Delivery Method 09/24/22 15:02 09/24/22 15:02 09/24/22 15:30 Pulse Rate 74 Respiratory Rate 18 Blood Pressure 165/79 H 153/82 H Pulse Oximetry 94 Oxygen Delivery Method 09/24/22 15:30 09/24/22 17:16 Pulse Rate 81 78 Respiratory Rate 18 Blood Pressure 164/76 H Pulse Oximetry 99 96 Oxygen Delivery Method Room Air <Lenny Brown DO - Last Filed: 09/25/22 07:16> Orders Ordered: Discontinued Medications Sodium Chloride (Normal Saline 0.9%) 1,000 mls @ 1,000 mls/hr IV BOLUS ONE Stop: 09/24/22 14:00 Last Infusion: 09/24/22 15:00 Dose: 0 mls/hr Documented By: Admin: 09/24/22 13:18 Dose: 1,000 mls/hr Documented By: MLM Morphine Sulfate (Morphine 4 Mg/Ml Inj) 4 mg IV NOW ONE Stop: 09/24/22 12:54 Last Admin: 09/24/22 13:18 Dose: 4 mg Documented By: MLM Ondansetron HCl (Ondansetron 4 Mg/2 Ml Inj) 4 mg IV NOW ONE Stop: 09/24/22 12:54 Last Admin: 09/24/22 13:17 Dose: 4 mg Documented By: MLM Ondansetron HCl (Ondansetron 4 Mg/2 Ml Inj) 4 mg IV NOW ONE Stop: 09/24/22 16:40 Last Admin: 09/24/22 17:22 Dose: 4 mg Documented By: RLS Vital Signs Vital signs: Vital Signs - 8 hr 09/24/22 13:40 09/24/22 14:00 09/24/22 14:30 Pulse Rate 73 73 80 Respiratory Rate 16 14 Blood Pressure Pulse Oximetry 99 93 92 Oxygen Delivery Method 09/24/22 14:39 09/24/22 14:39 09/24/22 15:00 Pulse Rate 77 78 Respiratory Rate 13 24 Blood Pressure 183/86 H Pulse Oximetry 97 94 Oxygen Delivery Method 09/24/22 15:02 09/24/22 15:02 09/24/22 15:30 Pulse Rate 74 Respiratory Rate 18 Blood Pressure 165/79 H 153/82 H Pulse Oximetry 94 Oxygen Delivery Method 09/24/22 15:30 09/24/22 17:16 Pulse Rate 81 78 Respiratory Rate 18 Blood Pressure 164/76 H Pulse Oximetry 99 96 Oxygen Delivery Method Room Air MDM - Abdominal Pain <Hymroya Huffman PA-C - Last Filed: 09/24/22 20:31> Lab Data Result diagrams: 09/24/22 12:42 09/24/22 12:42 Labs: Lab Results 09/24/22 09/24/22 09/24/22 Range/Units 12:15 12:42 12:42 WBC 6.2 (4.5-11.0) X10^3/uL RBC 5.39 H (4.0-5.2) X10^6/uL Hgb 16.3 H (12.0-16.0) g/dL Hct 47.5 H (36-46) % MCV 88.1 (80-100) fL MCH 30.2 (26-34) PG MCHC 34.3 (30-36) % RDW 13.8 (11.6-14.8) % Plt Count 321 (150-400) X10^3/uL Neut % (Auto) 77.6 H (50-75) % Lymph % (Auto) 16.5 L (25-40) % Roberts % (Auto) 4.7 (3-14) % Eos % (Auto) 0.6 L (2-4) % Baso % (Auto) 0.6 (0-2) % Neut # (Auto) 4800 (3571-1435) /uL Lymph # (Auto) 1000 L (6371-5265) /uL Roberts # (Auto) 300 (0-900) /uL Eos # (Auto) 0 (0-450) /uL Baso # (Auto) 0 (0-100) /uL Sodium 139 (137-145) mmol/L Potassium 3.8 (3.4-5.1) mmol/L Chloride 97 L (98-107) mmol/L Carbon Dioxide 27 (22-32) mmol/L BUN 19 H (7-17) mg/dL Creatinine 0.71 (0.52-1.04) mg/dL Estimated GFR > 60 (>60) mL/min BUN/Creatinine Ratio 26.8 H (6-22) Glucose 131 H (80-110) mg/dL Lactate (0.7-2.1) mmol/L Calcium 10.9 H (8.4-10.2) mg/dL Total Bilirubin 0.8 (0.2-1.3) mg/dL AST 31 (14-36) IU/L ALT 31 (<35) IU/L Alkaline Phosphatase 189 H (38-126) U/L Total Protein 9.3 H (6.3-8.2) g/dL Albumin 5.3 H (3.5-5.0) g/dL Globulin 4.0 (1.7-4.1) g/dL Albumin/Globulin Ratio 1.3 (1.0-2.8) Lipase 176 (23-300) U/L Urine RBC (0-5/HPF) Urine WBC (0-5/HPF) Ur Squamous Epith Cells (0-5/HPF) Ur Transition Epith Cell (0-5/HPF) Urine Bacteria (None) Ur Culture Indicated? SARS-CoV-2 (PCR) Negative (Negative) Influenza A (RT-PCR) Flu a negative (NEGATIVE) Influenza B (RT-PCR) Flu b negative (NEGATIVE) RSV (PCR) Negative (Negative) 09/24/22 09/24/22 Range/Units 13:27 16:00 WBC (4.5-11.0) X10^3/uL RBC (4.0-5.2) X10^6/uL Hgb (12.0-16.0) g/dL Hct (36-46) % MCV (80-100) fL MCH (26-34) PG MCHC (30-36) % RDW (11.6-14.8) % Plt Count (150-400) X10^3/uL Neut % (Auto) (50-75) % Lymph % (Auto) (25-40) % Roberts % (Auto) (3-14) % Eos % (Auto) (2-4) % Baso % (Auto) (0-2) % Neut # (Auto) (1615-6451) /uL Lymph # (Auto) (3196-0815) /uL Roberts # (Auto) (0-900) /uL Eos # (Auto) (0-450) /uL Baso # (Auto) (0-100) /uL Sodium (137-145) mmol/L Potassium (3.4-5.1) mmol/L Chloride (98-107) mmol/L Carbon Dioxide (22-32) mmol/L BUN (7-17) mg/dL Creatinine (0.52-1.04) mg/dL Estimated GFR (>60) mL/min BUN/Creatinine Ratio (6-22) Glucose (80-110) mg/dL Lactate 1.0 (0.7-2.1) mmol/L Calcium (8.4-10.2) mg/dL Total Bilirubin (0.2-1.3) mg/dL AST (14-36) IU/L ALT (<35) IU/L Alkaline Phosphatase (38-126) U/L Total Protein (6.3-8.2) g/dL Albumin (3.5-5.0) g/dL Globulin (1.7-4.1) g/dL Albumin/Globulin Ratio (1.0-2.8) Lipase (23-300) U/L Urine RBC 1-5/hpf (0-5/HPF) Urine WBC 1-5/hpf (0-5/HPF) Ur Squamous Epith Cells 0-1 /hpf (0-5/HPF) Ur Transition Epith Cell 0-1/hpf (0-5/HPF) Urine Bacteria Occasional (0-1) (None) Ur Culture Indicated? Cult not indicated SARS-CoV-2 (PCR) (Negative) Influenza A (RT-PCR) (NEGATIVE) Influenza B (RT-PCR) (NEGATIVE) RSV (PCR) (Negative) Point of care testing: Urine Dip Bedside Urine Glucose Negative Bedside Urine Bilirubin - Negative Bedside Urine Ketone +++ 80 Urine Specific Cutler 1.015 Bedside Urine Occult Blood +/- Bedside Urine pH 5.0 Bedside Urine Protein - Negative Bedside Urine Urobilinogen - Negative Bedside Urine Nitrite - Negative Bedside Urine Leukocytes - Negative Esterase Imaging Data CT scan - abdomen/pelvis: Radiologist's Impression: PROCEDURE:? CT ABDOMEN PELVIS W CON ? INDICATIONS:? LLQ pain ? TECHNIQUE:? After the administration of intravenous contrast, axial sections acquired from the lung bases to the pubic symphysis.? Coronal and sagittal reformats were performed.? For radiation dose reduction, the following was used:? automated exposure control, adjustment of mA and/or kV according to patient size.? ? COMPARISON:? [facility], CT, CT ABDOMEN PELVIS WITH CONTRAST, 09/19/2022, 10:57.? [facility], CT, CT ABDOMEN PELVIS W CON, 06/19/2022, 14:04. ? FINDINGS:? Image quality:? Excellent.? ? Lung bases:? Unremarkable. Heart:? No significant findings. ? ABDOMEN: Liver:? Unremarkable.? ? Gallbladder:? Surgically absent? ? Biliary ducts:? Unremarkable.? ? Pancreas:? Unremarkable.? ? Spleen:? Unremarkable.? ? Adrenal Glands:? Unremarkable.? ? Kidneys and Ureters:? Unremarkable.? ? ? Stomach and Bowel:? Stomach, small bowel loops, and colon are unremarkable.? Peritoneum:? No abnormal intraperitoneal fluid.? No free air.? ? Ventral Wall: ? No hernias.? Abdominal Nodes:? No retroperitoneal or mesenteric adenopathy by size criteria.? Vessels:? Aorta and inferior vena cava are normal in size.? ? PELVIS: Pelvic Organs:? Unremarkable.? Uterus is surgically absent? ? Bladder:? Unremarkable.? ? Pelvic Nodes: No enlarged lymph nodes.? Miscellaneous: No hernias are seen. ? ? ? Bones:? Lumbar degenerative change.? No lytic or blastic bony lesions.? Moderate to severe chronic compression of L2.? Mild chronic compressions of T12 and L1.? Disc spacers at L1-L2 through L4-L5.? Dorsal column stimulator device.? Significant foraminal narrowing at L2-L3 and L3-L4. ? ? ? IMPRESSION:? ? 1. No evidence of acute abdominal process.? No findings which explain left lower quadrant pain. ? 2. Multiple chronic compressions. ? 3. Significant foraminal narrowing at L2-L3 and L3-L4.? ? ? Dictated by: Ernesto Rodriguez M.D. on 09/24/2022 at 14:18 ? ? Approved by: Ernesto Rodriguez M.D. on 09/24/2022 at 14:30? CT scan - head: Radiologist's Impression: PROCEDURE:? CT HEAD/BRAIN WO CON ? INDICATIONS:? Trouble walking ? TECHNIQUE:? Noncontrast 4.5 mm thick angled axial sections acquired from the foramen magnum to the vertex, with coronal and sagittal reformats.? For radiation dose reduction, the following was used:? automated exposure control, adjustment of mA and/or kV according to patient size.? ? COMPARISON:? [facility], CT, CT HEAD/BRAIN WO CON, 11/08/2020, 15:55. ? FINDINGS:? Image quality:? Excellent.? ? CSF spaces:? Basal cisterns are patent.? No extra-axial fluid collections.? The ventricles are symmetric in size and shape.? ? Brain:? No intracranial bleeds or masses.? There is cerebral volume loss for age, with resultant ventricular and sulcal prominence.? There are periventricular and deep white matter chronic small vessel ischemic changes.? There is intracranial internal carotid artery atherosclerosis.? ? Skull and face:? Calvarium and visualized facial bones appear intact, without suspicious lesions.? ? Sinuses:? Visualized sinuses and mastoids are clear.? ? IMPRESSION:? No acute intracranial abnormality. ? ? Dictated by: Perico Diego M.D. on 09/24/2022 at 16:18 ? ? Approved by: Perico Diego M.D. on 09/24/2022 at 16:18 ? [facility] Narrative Medical decision making narrative: 77-year-old female with past medical history chronic lumbar pain, hypothyroidism, hypertension, hyperlipidemia, GERD, DESTIN, TIA, frequent abdominal pain presents to the ED with 1 day of abdominal pain, nausea, vomiting, diarrhea. Concern for bowel obstruction versus diverticulitis versus UTI versus pyelonephritis versus other intra-abdominal pathology. Labs, lactate, respiratory panel, CT abdomen pelvis were ordered. CT abdomen pelvis does not show acute findings to correlate with a abdominal pain. CT did show significant foraminal narrowing at L2-L3 and L3-L4. CT head performed with no acute findings. Considered MRI to rule out spinal emergency, however unable to since patient has a spinal stimulator. Patient denies urinary hesitancy, numbness, tingling, weakness. Patient also endorses that her difficulty walking has more to do with the pain. Patient has a PCP appointment for tomorrow. Recommend that patient keep this appointment, follow-up for further evaluation. ED return precautions were discussed with patient. Patient verbalized understanding. <Lenny Brown, DO - Last Filed: 09/25/22 07:16> Lab Data Labs: Lab Results 09/24/22 09/24/22 09/24/22 Range/Units 12:15 12:42 12:42 WBC 6.2 (4.5-11.0) X10^3/uL RBC 5.39 H (4.0-5.2) X10^6/uL Hgb 16.3 H (12.0-16.0) g/dL Hct 47.5 H (36-46) % MCV 88.1 (80-100) fL MCH 30.2 (26-34) PG MCHC 34.3 (30-36) % RDW 13.8 (11.6-14.8) % Plt Count 321 (150-400) X10^3/uL Neut % (Auto) 77.6 H (50-75) % Lymph % (Auto) 16.5 L (25-40) % Roberts % (Auto) 4.7 (3-14) % Eos % (Auto) 0.6 L (2-4) % Baso % (Auto) 0.6 (0-2) % Neut # (Auto) 4800 (0725-4574) /uL Lymph # (Auto) 1000 L (2069-6482) /uL Roberts # (Auto) 300 (0-900) /uL Eos # (Auto) 0 (0-450) /uL Baso # (Auto) 0 (0-100) /uL Sodium 139 (137-145) mmol/L Potassium 3.8 (3.4-5.1) mmol/L Chloride 97 L (98-107) mmol/L Carbon Dioxide 27 (22-32) mmol/L BUN 19 H (7-17) mg/dL Creatinine 0.71 (0.52-1.04) mg/dL Estimated GFR > 60 (>60) mL/min BUN/Creatinine Ratio 26.8 H (6-22) Glucose 131 H (80-110) mg/dL Lactate (0.7-2.1) mmol/L Calcium 10.9 H (8.4-10.2) mg/dL Total Bilirubin 0.8 (0.2-1.3) mg/dL AST 31 (14-36) IU/L ALT 31 (<35) IU/L Alkaline Phosphatase 189 H (38-126) U/L Total Protein 9.3 H (6.3-8.2) g/dL Albumin 5.3 H (3.5-5.0) g/dL Globulin 4.0 (1.7-4.1) g/dL Albumin/Globulin Ratio 1.3 (1.0-2.8) Lipase 176 (23-300) U/L Urine RBC (0-5/HPF) Urine WBC (0-5/HPF) Ur Squamous Epith Cells (0-5/HPF) Ur Transition Epith Cell (0-5/HPF) Urine Bacteria (None) Ur Culture Indicated? SARS-CoV-2 (PCR) Negative (Negative) Influenza A (RT-PCR) Flu a negative (NEGATIVE) Influenza B (RT-PCR) Flu b negative (NEGATIVE) RSV (PCR) Negative (Negative) 09/24/22 09/24/22 Range/Units 13:27 16:00 WBC (4.5-11.0) X10^3/uL RBC (4.0-5.2) X10^6/uL Hgb (12.0-16.0) g/dL Hct (36-46) % MCV (80-100) fL MCH (26-34) PG MCHC (30-36) % RDW (11.6-14.8) % Plt Count (150-400) X10^3/uL Neut % (Auto) (50-75) % Lymph % (Auto) (25-40) % Roberts % (Auto) (3-14) % Eos % (Auto) (2-4) % Baso % (Auto) (0-2) % Neut # (Auto) (1892-4083) /uL Lymph # (Auto) (7586-1641) /uL Roberts # (Auto) (0-900) /uL Eos # (Auto) (0-450) /uL Baso # (Auto) (0-100) /uL Sodium (137-145) mmol/L Potassium (3.4-5.1) mmol/L Chloride (98-107) mmol/L Carbon Dioxide (22-32) mmol/L BUN (7-17) mg/dL Creatinine (0.52-1.04) mg/dL Estimated GFR (>60) mL/min BUN/Creatinine Ratio (6-22) Glucose (80-110) mg/dL Lactate 1.0 (0.7-2.1) mmol/L Calcium (8.4-10.2) mg/dL Total Bilirubin (0.2-1.3) mg/dL AST (14-36) IU/L ALT (<35) IU/L Alkaline Phosphatase (38-126) U/L Total Protein (6.3-8.2) g/dL Albumin (3.5-5.0) g/dL Globulin (1.7-4.1) g/dL Albumin/Globulin Ratio (1.0-2.8) Lipase (23-300) U/L Urine RBC 1-5/hpf (0-5/HPF) Urine WBC 1-5/hpf (0-5/HPF) Ur Squamous Epith Cells 0-1 /hpf (0-5/HPF) Ur Transition Epith Cell 0-1/hpf (0-5/HPF) Urine Bacteria Occasional (0-1) (None) Ur Culture Indicated? Cult not indicated SARS-CoV-2 (PCR) (Negative) Influenza A (RT-PCR) (NEGATIVE) Influenza B (RT-PCR) (NEGATIVE) RSV (PCR) (Negative) Point of care testing: Urine Dip Bedside Urine Glucose Negative Bedside Urine Bilirubin - Negative Bedside Urine Ketone +++ 80 Urine Specific Cutler 1.015 Bedside Urine Occult Blood +/- Bedside Urine pH 5.0 Bedside Urine Protein - Negative Bedside Urine Urobilinogen - Negative Bedside Urine Nitrite - Negative Bedside Urine Leukocytes - Negative Esterase Discharge Plan Departure Patient Disposition: Home Clinical Impression: Abdominal pain Instructions: DI for Abdominal Pain-Adult Activity Restrictions/Additional Instructions: You were evaluated in the ED today for abdominal pain, nausea, vomiting. Your labs, CT abdomen pelvis were without any acute findings to explain your symptoms today. It is also possible that your symptoms are due to food poisoning or gastroenteritis. Please continue to stay well hydrated. Your CT did show some narrowing of L2-L3 and L3-L4, however given the spinal stimulator, we could not do an MRI today. You have an appointment with your primary care provider tomorrow, which you should keep to get further evaluation and next steps. Return to the ED if your symptoms worsen, you were unable to keep down liquids and solids. Prescriptions: New ondansetron 4 mg tablet,disintegrating 4 mg PO Q8H PRN (Reason: nausea and vomiting) Qty: 20 0RF No Action magnesium citrate 100 mg Capsule 100 mg PO DAILY celecoxib [Celebrex] 200 mg Capsule 200 mg PO DAILY levothyroxine 88 mcg Tablet 88 mcg DAILY pregabalin [Lyrica] 300 mg Capsule 300 mg PO BID melatonin 10 mg Tablet 20 mg PO BEDTIME PRN (Reason: Insomnia) cholecalciferol (vitamin D3) [Vitamin D3] 125 mcg (5,000 unit) tablet 2,000 unit PO DAILY atorvastatin 80 mg Tablet 80 mg PO QPM duloxetine [Cymbalta] 30 mg Capsule,Delayed Release(Dr/Ec) 60 mg PO DAILY Qty: 30 0RF losartan 50 mg tablet 50 mg PO BID cyclobenzaprine 5 mg tablet 5 mg PO BEDTIME PRN (Reason: Pain (Scale Score 1-3)) Referrals: Emma Larios PA-C [Primary Care Provider] - Visit Report Forms: Patient Portal/API <Lenny Brown DO - Last Filed: 09/25/22 07:16> Cosign ED Attending Cosignature Attestation: Dr Brown Co-Sign Statement: I was available for consultation during this patient's emergency department visit. This chart is signed by myself for administrative purposes only. I did not have direct contact with this patient during this visit. They were seen independently by the APC.
--- NOTE | 2022-09-24 12:53 | DI.CT.S_ITS ---
PROCEDURE: CT ABDOMEN PELVIS W CON INDICATIONS: LLQ pain TECHNIQUE: After the administration of intravenous contrast, axial sections acquired from the lung bases to the pubic symphysis. Coronal and sagittal reformats were performed. For radiation dose reduction, the following was used: automated exposure control, adjustment of mA and/or kV according to patient size. COMPARISON: [facility], CT, CT ABDOMEN PELVIS WITH CONTRAST, 09/19/2022, 10:57. [facility], CT, CT ABDOMEN PELVIS W CON, 06/19/2022, 14:04. FINDINGS: Image quality: Excellent. Lung bases: Unremarkable. Heart: No significant findings. ABDOMEN: Liver: Unremarkable. Gallbladder: Surgically absent Biliary ducts: Unremarkable. Pancreas: Unremarkable. Spleen: Unremarkable. Adrenal Glands: Unremarkable. Kidneys and Ureters: Unremarkable. Stomach and Bowel: Stomach, small bowel loops, and colon are unremarkable. Peritoneum: No abnormal intraperitoneal fluid. No free air. Ventral Wall: No hernias. Abdominal Nodes: No retroperitoneal or mesenteric adenopathy by size criteria. Vessels: Aorta and inferior vena cava are normal in size. PELVIS: Pelvic Organs: Unremarkable. Uterus is surgically absent Bladder: Unremarkable. Pelvic Nodes: No enlarged lymph nodes. Miscellaneous: No hernias are seen. Bones: Lumbar degenerative change. No lytic or blastic bony lesions. Moderate to severe chronic compression of L2. Mild chronic compressions of T12 and L1. Disc spacers at L1-L2 through L4-L5. Dorsal column stimulator device. Significant foraminal narrowing at L2-L3 and L3-L4. IMPRESSION: 1. No evidence of acute abdominal process. No findings which explain left lower quadrant pain. 2. Multiple chronic compressions. 3. Significant foraminal narrowing at L2-L3 and L3-L4. Dictated by: Ernesto Rdoriguez M.D. on 09/24/2022 at 14:18 Approved by: Ernesto Rodriguez M.D. on 09/24/2022 at 14:30
[2022-09-24 12:54] LABS: Add Manual Diff / Slide Review NO; Basophils Absolute Auto 0 /uL (0-100); Basophils Percent Auto 0.6 % (0-2); Eosinophils Absolute Auto 0 /uL (0-450); Eosinophils Percent Auto 0.6 % (2-4); Hematocrit 47.5 % (36-46); Hemoglobin 16.3 g/dL (12.0-16.0); Lymphocytes Absolute Auto 1000 /uL (1100-4500); Lymphocytes Percent Auto 16.5 % (25-40); Mean Corpuscular HGB Conc 34.3 % (30-36); Mean Corpuscular Hemoglobin 30.2 PG (26-34); Mean Corpuscular Volume 88.1 fL (80-100); Monocytes Absolute Auto 300 /uL (0-900); Monocytes Percent Auto 4.7 % (3-14); Neutrophils Absolute Auto 4800 /uL (1500-7000); Neutrophils Percent Auto 77.6 % (50-75); Platelet Count 321 X10^3/uL (150-400); Red Blood Cell Count 5.39 X10^6/uL (4.0-5.2); Red Cell Distribution Width 13.8 % (11.6-14.8); White Blood Cell Count 6.2 X10^3/uL (4.5-11.0)
[2022-09-24 13:03] LABS: Alanine Aminotransferase 31 IU/L (<35); Albumin 5.3 g/dL (3.5-5.0); Albumin Globulin Ratio 1.3 (1.0-2.8); Alkaline Phosphatase 189 U/L (38-126); Aspartate Aminotransferase 31 IU/L (14-36); BUN Creatinine Ratio 26.8 (6-22); Bilirubin Total 0.8 mg/dL (0.2-1.3); Blood Urea Nitrogen 19 mg/dL (7-17); Calcium 10.9 mg/dL (8.4-10.2); Carbon Dioxide 27 mmol/L (22-32); Chloride 97 mmol/L (98-107); Estimated Glomerular Filt Rate > 60 mL/min (>60); Glucose 131 mg/dL (80-110); HEMOLYSIS 19 (0-50); Lipase 176 U/L (23-300); Potassium 3.8 mmol/L (3.4-5.1); Sodium 139 mmol/L (137-145); Total Protein 9.3 g/dL (6.3-8.2)
[2022-09-24] MEDS: ONDANSETRON 4 MG/2 ML INJ IV ×2 (13:17→17:22)
[2022-09-24] MEDS: SODIUM CHLORIDE 0.9% 1,000 ML 1000 ML IV (13:18)
[2022-09-24] MEDS: MORPHINE 4 MG/ML INJ IV (13:18)
[2022-09-24 13:24] LABS: Influenza A - CEPHEID Flu A NEGATIVE (NEGATIVE); Influenza B - CEPHEID Flu B NEGATIVE (NEGATIVE); Respiratory Syncytial Virus Negative (Negative)
[2022-09-24 13:27] LABS: COVID-19 CEPHEID 4-PLEX PCR Negative (Negative)
--- NOTE | 2022-09-24 15:52 | DI.CT.S_ITS ---
PROCEDURE: CT HEAD/BRAIN WO CON INDICATIONS: Trouble walking TECHNIQUE: Noncontrast 4.5 mm thick angled axial sections acquired from the foramen magnum to the vertex, with coronal and sagittal reformats. For radiation dose reduction, the following was used: automated exposure control, adjustment of mA and/or kV according to patient size. COMPARISON: [facility], CT, CT HEAD/BRAIN WO CON, 11/08/2020, 15:55. FINDINGS: Image quality: Excellent. CSF spaces: Basal cisterns are patent. No extra-axial fluid collections. The ventricles are symmetric in size and shape. Brain: No intracranial bleeds or masses. There is cerebral volume loss for age, with resultant ventricular and sulcal prominence. There are periventricular and deep white matter chronic small vessel ischemic changes. There is intracranial internal carotid artery atherosclerosis. Skull and face: Calvarium and visualized facial bones appear intact, without suspicious lesions. Sinuses: Visualized sinuses and mastoids are clear. IMPRESSION: No acute intracranial abnormality. Dictated by: Perico Diego M.D. on 09/24/2022 at 16:18 Approved by: Perico Diego M.D. on 09/24/2022 at 16:18
[2022-09-24 17:21] LABS: Bacteria Urine Occasional (0-1); Culture Indicated Urine Cult Not Indicated; RBC Urine 1-5/HPF (0-5/HPF); Squamous Epithelial Cell Urine 0-1 /HPF (0-5/HPF); Transitional Epi Cells Urine 0-1/HPF (0-5/HPF); WBC Urine 1-5/HPF (0-5/HPF)
--- NOTE | 2022-09-24 17:32 | CM.SWNOTE ---
NURSES' REGISTRY DIRECTOR/DCP Note NURSES' REGISTRY DIRECTOR receives consult for potential HH referral due to concern for patient's decreased mobility. Patient is 77 y/o female who presents to the ED via EMS due to concern for abdominal pain. Patient also endorses nausea, vomiting, lacking mobility strength and back pain. Patient has full work up in ED and is medically clear for d/c. Per CT scan, patient has some narrowing in her L2-L3 and L3-L4. ED provider Sloane Huffman PA-C orders MRI for further evaluation but is unable to pursue this due to patient's spinal stimulator. Patient's PCP is Emma Larios PA-C, Patient has Medicare and for Life insurance. Patient had recent OBS inpt stay at [facility] due to back pain, chest pain and was d/c'd to home without any services or referrals, but was scheduled for upcoming PCP appt. NURSES' REGISTRY DIRECTOR enters room to meet with patient, patient presents as A/Ox3, present in room is patient's Hima. It is reported that patient's assists with patient standing up, ambulating, transitioning, cooking, cleaning and getting patient to commode and shower seat. It is reported that patient resides in a 5th wheel trailer in [place] and it is too narrow for her FWW. Patient endorses she uses two canes. NURSES' REGISTRY DIRECTOR discusses HH as an option for PT/OT, and patient & spouse decline due to the small space of the RV. NURSES' REGISTRY DIRECTOR reviews EMR and patient had outpatient PT that ended recently in fall 2021, Patient has PCP appt scheduled for tomorrow. NURSES' REGISTRY DIRECTOR encourages discussing patient's mobility issues and discussing new referral for PT, patient and spouse indicate agreement. Patient endorses concern with re-occuring issue of Abd pain, back pain, N/V/D and is seeking solutions and finding out why. NURSES' REGISTRY DIRECTOR encourages patient to attend PCP appt tomorrow and inform PCP of recent Inpt stay at [facility] and recent ED visit. Patient denies local family supports but states that the zoroastrianism is a support. Spouse endorses he could build patient a ramp. 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 NURSES' REGISTRY DIRECTOR provides senior resource guide, list of DME resources and contact information for [employer]deep Pratt. Patient and spouse agree to have Navdeep be an outpatient resource, NURSES' REGISTRY DIRECTOR calls Navdeep and provides patient information for referral. Navdeep endorses he will reach out to patient this week. Plan: Patient to d/c to home upon medical clearance, patient to f/u with PCP tomorrow to discuss patient's symptoms and mobility issues, Navdeep Pratt to f/u with patient and spouse this week, spouse to seek new DME for patient. Alejandra Nettles, [employer]
== END 2022-09-24 17:43 | disposition home or self-care (01) ==
PROVIDERS: Emergency Medicine; Emergency Provider Student in an Organized Health Care Education/Training Program; Family Provider Physician Assistant; PCP Physician Assistant
DX: R10.32 Left lower quadrant pain (principal); R50.9 Fever, unspecified; R11.2 Nausea with vomiting, unspecified; Z79.899 Other long term (current) drug therapy; Z20.822 Contact with and (suspected) exposure to COVID-19; R53.1 Weakness; R26.81 Unsteadiness on feet
CPT/HCPCS: 0241U; 36415; 70450; 74177; 80053; 81003; 81015; 83605; 83690; 85025; 93005; 93010; 96361; 96374; 96375; 96376; 99284; J2270; J2405; Q9967

== ENCOUNTER 2022-09-25 11:28 | Emergency (ER) | payer MEDICARE, OTHER, SELFPAY ==
[2022-06-19 20:41] VITALS: BMI 32.0
[2022-09-25] VITALS (22 sets, daily range): BP systolic 156–215; BP diastolic 76–103; PULSE 72–91; RESP 13–33; TEMP 36.8; O2SAT 91–98; BMI 30.4
[2022-09-25 11:56] LABS: Add Manual Diff / Slide Review NO; Basophils Absolute Auto 100 /uL (0-100); Basophils Percent Auto 0.6 % (0-2); Eosinophils Absolute Auto 100 /uL (0-450); Eosinophils Percent Auto 0.6 % (2-4); Hemoglobin 14.5 g/dL (12.0-16.0); Lymphocytes Absolute Auto 1300 /uL (1100-4500); Lymphocytes Percent Auto 15.1 % (25-40); Mean Corpuscular HGB Conc 33.8 % (30-36); Mean Corpuscular Volume 88.9 fL (80-100); Monocytes Absolute Auto 600 /uL (0-900); Monocytes Percent Auto 7.4 % (3-14); Neutrophils Absolute Auto 6300 /uL (1500-7000); Neutrophils Percent Auto 76.3 % (50-75); Platelet Count 284 X10^3/uL (150-400); Red Blood Cell Count 4.84 X10^6/uL (4.0-5.2); Red Cell Distribution Width 13.6 % (11.6-14.8); White Blood Cell Count 8.3 X10^3/uL (4.5-11.0)
[2022-09-25] MEDS: SODIUM CHLORIDE 0.9% 1,000 ML 1000 ML IV ×2 (12:00→13:15)
--- NOTE | 2022-09-25 12:00 | ED_ITS ---
HPI - Nausea/Vomiting/Diarrhea General Chief complaint: Nausea/Vomiting/Diarrhea Stated complaint: pain abd/lowback nausea Time Seen by Provider: 09/25/22 11:45 Source: patient and EMS Mode of arrival: EMS History of Present Illness HPI Narrative: 77-year-old female. Has had persistent issues with abdominal pain and vomiting. Was seen here in the emergency department yesterday for similar symptoms she presents with today. Had a very extensive workup to include CT scans and labs. Was subsequently discharged home. She returns emergency department today forearm continue nausea and abdominal pain and lower back pain. Related Data Home Medications Medication Instructions Recorded Confirmed celecoxib 200 mg capsule (Celebrex) 200 mg PO DAILY 09/23/19 06/19/22 levothyroxine 88 mcg tablet 88 mcg DAILY 09/23/19 06/19/22 melatonin 10 mg tablet 20 mg PO BEDTIME PRN Insomnia 09/23/19 06/19/22 pregabalin 300 mg capsule (Lyrica) 300 mg PO BID 09/23/19 06/19/22 cholecalciferol (vitamin D3) 125 2,000 unit PO DAILY 12/13/20 06/19/22 mcg (5,000 unit) tablet (Vitamin D3) cyclobenzaprine 5 mg tablet 5 mg PO BEDTIME PRN Pain (Scale 12/13/20 06/19/22 Score 1-3) losartan 50 mg tablet 50 mg PO BID 12/13/20 06/19/22 atorvastatin 80 mg tablet 80 mg PO QPM 02/03/22 06/19/22 magnesium citrate 100 mg capsule 100 mg PO DAILY 06/19/22 06/19/22 Previous Rx's Medication Instructions Recorded duloxetine 30 mg capsule,delayed 60 mg PO DAILY #30 caps 02/03/22 release (Cymbalta) ondansetron 4 mg disintegrating 4 mg PO Q8H PRN nausea and 09/24/22 tablet vomiting #20 tabs metoclopramide HCl 10 mg tablet 10 mg PO Q6H PRN nausea and 09/25/22 (Reglan) vomiting #20 tabs Allergies Allergy/AdvReac Type Severity Reaction Status Date / Time adhesive tape Allergy Mild Verified 09/24/22 12:20 prochlorperazine Allergy Anaphylaxis Verified 09/24/22 12:20 [From Compazine] Review of Systems Constitutional Constitutional: Reports system reviewed and no additional complaints, except as documented Cardiovascular Cardiovascular: Reports system reviewed and no additional complaints, except as documented Respiratory Respiratory: Reports system reviewed and no additional complaints, except as documented Gastrointestinal Gastrointestinal: Reports system reviewed and no additional complaints, except as documented Patient History Medical History Conte's esophagus Chronic lumbar pain Closed head injury with brief loss of consciousness Esophageal stricture Failed back surgical syndrome GERD (gastroesophageal reflux disease) History of paralysis History of snoring Hyperlipidemia Hypertension Hypothyroidism Insomnia due to medical condition Malignant neoplasm of unspecified site of unspecified female breast Obesity (BMI 30-39.9) Obstructive sleep apnea, adult (01/09/21) Spinal stenosis of lumbar region at multiple levels Urge incontinence Vitamin D deficiency, unspecified Surgical History History of bilateral knee replacement History of bilateral mastectomy History of hysterectomy History of lumbar fusion History of lumbar laminectomy History of partial thyroidectomy Family History Father Hypertension Alcohol abuse Mother Alcohol abuse Family/Other Hypertension Bipolar disorder ADD (attention deficit disorder) Substance abuse Social History household members: spouse Smoking Status: Former smoker alcohol intake: current substance use type: other (vapes CBD for pain/sleep) Smoking Status: Former smoker alcohol intake frequency: 0-2 drinks per day Substance Use Type: marijuana Exam Initial Vital Signs Initial Vital Signs: Vital Signs Pulse Rate 86 09/25/22 11:33 Pulse Oximetry 96 09/25/22 11:33 HENMT Head: normal to inspection and normocephalic Resp Effort & Inspection: normal respiratory effort Cardio Rate: regular rate GI Inspection: normal to inspection Palpation: soft Back/Spine/Pelvis Back: normal to inspection Skin General: no rashes or lesions noted Neuro General: patient alert, patient awake and moves all extremities Extrem General: normal to inspection Course Orders Ordered: ED Orders 09/25/22 11:49 Complete Blood Count AUTO DIFF Stat Comprehensive Metabolic Panel Stat Lipase Stat 09/25/22 11:50 Thyroid Stimulating Hormone Stat Discontinued Medications Haloperidol (Haloperidol 5 Mg/Ml Vial) 5 mg IV NOW ONE Stop: 09/25/22 12:00 Last Admin: 09/25/22 12:09 Dose: 5 mg Documented By: RB Hydromorphone HCl (Hydromorphone 0.5 Mg Inj) 0.5 mg IV NOW ONE Stop: 09/25/22 13:05 Last Admin: 09/25/22 13:15 Dose: 0.5 mg Documented By: RB Sodium Chloride (Normal Saline 0.9%) 1,000 mls @ 1,000 mls/hr IV BOLUS ONE Stop: 09/25/22 12:48 Last Infusion: 09/25/22 13:11 Dose: 0 mls/hr Documented By: Admin: 09/25/22 12:00 Dose: 1,000 mls/hr Documented By: RB Sodium Chloride (Normal Saline 0.9%) 1,000 mls @ 1,000 mls/hr IV BOLUS ONE Stop: 09/25/22 14:11 Last Infusion: 09/25/22 14:18 Dose: 0 mls/hr Documented By: Admin: 09/25/22 13:15 Dose: 1,000 mls/hr Documented By: RB Losartan Potassium (Losartan 50 Mg Tablet) 50 mg PO NOW ONE Stop: 09/25/22 13:57 Last Admin: 09/25/22 14:03 Dose: 50 mg Documented By: RB Pantoprazole Sodium (Pantoprazole 40 Mg Vial) 40 mg IV NOW ONE Stop: 09/25/22 12:02 Last Admin: 09/25/22 12:09 Dose: 40 mg Documented By: RB Vital Signs Vital signs: Vital Signs - 8 hr 09/25/22 11:40 09/25/22 11:33 09/25/22 11:35 Temperature 98.2 F Pulse Rate 90 86 Respiratory Rate 16 Blood Pressure 166/87 H 166/87 H Pulse Oximetry 98 96 Oxygen Delivery Method Room Air 09/25/22 11:35 09/25/22 12:00 09/25/22 12:00 Temperature Pulse Rate 91 H 85 Respiratory Rate 25 H Blood Pressure 156/103 H Pulse Oximetry 97 96 Oxygen Delivery Method 09/25/22 12:15 09/25/22 12:15 09/25/22 12:30 Temperature Pulse Rate 89 Respiratory Rate 33 H Blood Pressure 159/78 H 157/87 H Pulse Oximetry 98 Oxygen Delivery Method 09/25/22 12:30 09/25/22 12:46 09/25/22 12:46 Temperature Pulse Rate 80 73 Respiratory Rate 17 20 Blood Pressure 169/77 H Pulse Oximetry 98 98 Oxygen Delivery Method 09/25/22 13:00 09/25/22 13:00 09/25/22 13:15 Temperature Pulse Rate 73 74 Respiratory Rate 19 25 H Blood Pressure 165/79 H Pulse Oximetry 97 Oxygen Delivery Method 09/25/22 13:15 09/25/22 13:23 09/25/22 13:23 Temperature Pulse Rate 74 Respiratory Rate 17 Blood Pressure 168/82 H 215/91 H Pulse Oximetry 97 Oxygen Delivery Method 09/25/22 13:24 09/25/22 13:24 09/25/22 13:25 Temperature Pulse Rate 75 Respiratory Rate Blood Pressure 193/83 H 194/84 H Pulse Oximetry 98 Oxygen Delivery Method 09/25/22 13:25 09/25/22 13:30 09/25/22 13:30 Temperature Pulse Rate 75 74 Respiratory Rate 20 20 Blood Pressure 195/86 H Pulse Oximetry 97 91 Oxygen Delivery Method 09/25/22 13:35 09/25/22 13:35 09/25/22 13:38 Temperature Pulse Rate 75 Respiratory Rate 15 Blood Pressure 197/88 H 202/91 H Pulse Oximetry Oxygen Delivery Method 09/25/22 13:38 09/25/22 13:52 09/25/22 13:52 Temperature Pulse Rate 76 74 Respiratory Rate 17 17 Blood Pressure 192/84 H Pulse Oximetry 91 96 Oxygen Delivery Method 09/25/22 13:54 09/25/22 13:55 09/25/22 14:03 Temperature Pulse Rate 72 75 Respiratory Rate 19 Blood Pressure 185/82 H 203/88 H Pulse Oximetry 97 Oxygen Delivery Method MDM - Nausea/Vomiting/Diarrhea Lab Data Attestation: I reviewed the patient's lab results. Result diagrams: 09/25/22 11:49 09/25/22 11:49 Labs: Lab Results 09/25/22 09/25/22 09/25/22 Range/Units 11:49 11:49 11:50 WBC 8.3 (4.5-11.0) X10^3/uL RBC 4.84 (4.0-5.2) X10^6/uL Hgb 14.5 (12.0-16.0) g/dL Hct 43.0 (36-46) % MCV 88.9 (80-100) fL MCH 30.0 (26-34) PG MCHC 33.8 (30-36) % RDW 13.6 (11.6-14.8) % Plt Count 284 (150-400) X10^3/uL Neut % (Auto) 76.3 H (50-75) % Lymph % (Auto) 15.1 L (25-40) % [place] % (Auto) 7.4 (3-14) % Eos % (Auto) 0.6 L (2-4) % Baso % (Auto) 0.6 (0-2) % Neut # (Auto) 6300 (8779-9758) /uL Lymph # (Auto) 1300 (9290-3757) /uL [place] # (Auto) 600 (0-900) /uL Eos # (Auto) 100 (0-450) /uL Baso # (Auto) 100 (0-100) /uL Sodium 139 (137-145) mmol/L Potassium 3.6 (3.4-5.1) mmol/L Chloride 99 (98-107) mmol/L Carbon Dioxide 27 (22-32) mmol/L BUN 20 H (7-17) mg/dL Creatinine 0.75 (0.52-1.04) mg/dL Estimated GFR > 60 (>60) mL/min BUN/Creatinine Ratio 26.7 H (6-22) Glucose 108 (80-110) mg/dL Calcium 9.7 (8.4-10.2) mg/dL Total Bilirubin 0.7 (0.2-1.3) mg/dL AST 33 (14-36) IU/L ALT 28 (<35) IU/L Alkaline Phosphatase 160 H (38-126) U/L Total Protein 7.9 (6.3-8.2) g/dL Albumin 4.9 (3.5-5.0) g/dL Globulin 3.0 (1.7-4.1) g/dL Albumin/Globulin Ratio 1.6 (1.0-2.8) Lipase 143 (23-300) U/L TSH 1.90 (0.47-4.68) uIU/mL MDM Narrative Medical decision making narrative: Patient had an extensive workup done yesterday with unremarkable labs and CT scans. She has had chronic abdominal discomfort. Also chronic back pain. She is on Lyrica and Celebrex. She was given Haldol here in the ER. This seem to improve her nausea quite a bit. She was able to take her blood pressure medication that she missed this morning. Was also able to tolerate small amounts of fluid. No indication for admission to the hospital. She can take Tylenol for the abdominal discomfort. Will have her follow-up with her primary doctor. She also recently had an upper endoscopy and I advised that she contact her GI provider for follow-up as well. Discharge Plan Departure Patient Disposition: Home Clinical Impression: Nausea & vomiting, Abdominal pain Instructions: Nausea and Vomiting-Adult Activity Restrictions/Additional Instructions: I recommend that you continue to take all of your medications as directed. It is important that you contact your primary doctor and also the GI provider that you saw a couple weeks ago for follow-up. Prescription for Reglan which is another nausea medication that you can try was sent to [facility]. Prescriptions: New metoclopramide HCl [Reglan] 10 mg tablet 10 mg PO Q6H PRN (Reason: nausea and vomiting) Qty: 20 0RF No Action magnesium citrate 100 mg Capsule 100 mg PO DAILY ondansetron 4 mg tablet,disintegrating 4 mg PO Q8H PRN (Reason: nausea and vomiting) Qty: 20 0RF celecoxib [Celebrex] 200 mg Capsule 200 mg PO DAILY levothyroxine 88 mcg Tablet 88 mcg DAILY pregabalin [Lyrica] 300 mg Capsule 300 mg PO BID melatonin 10 mg Tablet 20 mg PO BEDTIME PRN (Reason: Insomnia) cholecalciferol (vitamin D3) [Vitamin D3] 125 mcg (5,000 unit) tablet 2,000 unit PO DAILY atorvastatin 80 mg Tablet 80 mg PO QPM duloxetine [Cymbalta] 30 mg Capsule,Delayed Release(Dr/Ec) 60 mg PO DAILY Qty: 30 0RF losartan 50 mg tablet 50 mg PO BID cyclobenzaprine 5 mg tablet 5 mg PO BEDTIME PRN (Reason: Pain (Scale Score 1-3)) Referrals: Emma Larios PA-C [Primary Care Provider] -
[2022-09-25 12:02] LABS: Alanine Aminotransferase 28 IU/L (<35); Albumin 4.9 g/dL (3.5-5.0); Albumin Globulin Ratio 1.6 (1.0-2.8); Alkaline Phosphatase 160 U/L (38-126); Aspartate Aminotransferase 33 IU/L (14-36); BUN Creatinine Ratio 26.7 (6-22); Bilirubin Total 0.7 mg/dL (0.2-1.3); Blood Urea Nitrogen 20 mg/dL (7-17); Calcium 9.7 mg/dL (8.4-10.2); Carbon Dioxide 27 mmol/L (22-32); Chloride 99 mmol/L (98-107); Estimated Glomerular Filt Rate > 60 mL/min (>60); Glucose 108 mg/dL (80-110); HEMOLYSIS < 15 (0-50); Lipase 143 U/L (23-300); Potassium 3.6 mmol/L (3.4-5.1); Sodium 139 mmol/L (137-145); Total Protein 7.9 g/dL (6.3-8.2)
[2022-09-25] MEDS: PANTOPRAZOLE 40 MG VIAL IV (12:09)
[2022-09-25] MEDS: HALOPERIDOL 5 MG/ML VIAL IV (12:09)
[2022-09-25] MEDS: HYDROMORPHONE 0.5 MG INJ IV (13:15)
[2022-09-25] MEDS: LOSARTAN 50 MG TABLET PO (14:03)
[2022-09-26 15:03] LABS: Amylase 88 U/L (30-110)
== END 2022-09-25 15:01 | disposition home or self-care (01) ==
PROVIDERS: Emergency Provider Emergency Medicine; Family Provider Physician Assistant; PCP Physician Assistant
DX: R11.2 Nausea with vomiting, unspecified (principal); R10.9 Unspecified abdominal pain
CPT/HCPCS: 36415; 80053; 82150; 83690; 84443; 85025; 96361; 96374; 96375; 99284; C9113; J1170; J1630

== ENCOUNTER 2022-10-02 18:47 | Emergency (ER) | payer MEDICARE, OTHER, SELFPAY ==
[2022-06-19 20:41] VITALS: BMI 32.0
[2022-10-02 19:13] VITALS: BP 182/86; PULSE 82; RESP 16; TEMP 36.1; O2SAT 96
--- NOTE | 2022-10-02 21:33 | PC.NURSE ---
pt has hx of chronic back pain, recently seen at [facility], records received from [facility]
--- NOTE | 2022-10-02 23:44 | DI.CT.S_ITS ---
PROCEDURE: CT LUMBAR SPINE WO CON INDICATIONS: pain TECHNIQUE: Noncontrast 3 mm thick sections acquired from the T12 level to the sacrum. Sagittal and coronal reformats were constructed. For radiation dose reduction, the following was used: automated exposure control. COMPARISON: [facility], MR, MR LUMBAR SPINE WO/W CON, 04/18/2020, 14:50. FINDINGS: Image quality: Excellent. Bones: Extensive previous surgery. Disc spacers are present in the disc spaces of L2-L3, L3-L4, L4-L5, and L5-S1. There is a chronic moderately severe compression of L3. Retrolisthesis of L2 on L3 measures approximately 7 mm. Trace retrolisthesis of L1 on L2. Trace anterolisthesis of T12 on L1. Mild anterolisthesis of L5 on S1. No acute vertebral body compression fractures. No suspicious lytic or blastic bony lesions. No pars defects. T12-L1: Diffuse posterior osteophyte. Mild canal stenosis. Moderate to severe left foraminal narrowing with suspected left foraminal T12 nerve root impingement. L1-L2: At least moderate canal stenosis secondary to retrolisthesis of L1 on L2. L2-L3: Severe canal stenosis secondary to retrolisthesis of L2 on L3 and prominent facet hypertrophy. Severe bilateral foraminal narrowing with bilateral L2 foraminal nerve root impingement. L3-L4: No canal stenosis. Severe right foraminal narrowing and moderate left foraminal narrowing. Suspect right foraminal L3 nerve root impingement. L4-L5: No canal stenosis or significant foraminal stenosis. L5-S1: Severe bilateral foraminal narrowing with bilateral foraminal L5 nerve root impingement, right greater than left. Soft tissues: No retroperitoneal masses or hematomas. Visualized aorta is normal in caliber. IMPRESSION: 1. Extensive degenerative change and operative change. 2. Severe chronic L2 compression. 3. Canal stenosis is at least moderate at L1-L2 and is severe at L2-L3. 4. Multilevel significant foraminal narrowing as described above. 5. No evidence acute bony abnormality of the lumbar spine. No acute compression fractures. Comment: Final report is concordant with preliminary interpretation provided by [facility]. Dictated by: Ernesto Rodriguez M.D. on 10/03/2022 at 9:21 Approved by: Ernesto Rodriguez M.D. on 10/03/2022 at 9:37
--- NOTE | 2022-10-02 23:45 | ED_ITS ---
HPI - Back Pain/Injury <Andrew Martinez MD - Last Filed: 10/16/22 07:22> General Chief Complaint: Back Pain/Injury Stated Complaint: Chronic back pain Time Seen by Provider: 10/02/22 23:30 Source: patient History of Present Illness HPI Narrative: Patient here with . Complaints of ongoing worsening lower back pain. Patient has had multiple surgeries on her lumbar spine. She is had MRI. She is had nerve stimulator placed 2 years ago. Patient denies any urinary retention but has urinary urgency and sometimes has accidents. Has had ongoing weakness of the legs and feet. Hard to lift her legs. Patient denies any fall or i njury. No bowel incontinence or retention. is no longer able to help patient ambulate and transition at home. They are looking for long-term facility. She needs physical therapy as well. Patient just discharged from [facility] for cardiac workup and stress test. Patient states the back pain is so bad it causes her to vomit. She is not been able eat or drink very much for the past week. [place] [address] Magnetic Resonance Report Signed Patient: Shanika Brown MR#: [id number] : 1945 Acct:[id number] Age/Sex: 74 / F Date of Service: 04/18/20 Loc: MRI Accession Number: [id number] ?? Procedure: MR lumbar spine wo/w con Ordering Provider: Eliseo Tesfaye? PROCEDURE:? MR LUMBAR SPINE WO/W CON ? INDICATIONS:? Low back pain ? TECHNIQUE:? Noncontrast sagittal T1 spin echo and T2 fast spin echo, sagittal STIR, axial T1 and T2 fast spin echo through the lumbar spine.? In cases with scoliosis, additional coronal T2 fast spin echo may be performed.? After the administration of contrast, sagittal and axial T1 spin echo with fat saturation through the lumbar spine.? ? COMPARISON:? [facility], MR, MR THORACIC SPINE WO CON, 04/18/2020, 13:53.? [facility], MR, MR LUMBAR SPINE WO CON, 10/07/2019, 13:16. ? FINDINGS:? Image quality:? Excellent.? ? Alignment and curvature: Prominent lumbar lordosis is present. There is trace retrolisthesis of T12 on L1, L1 on L2, L2 on L3 comment trace anterolisthesis of L5 on S1, unchanged. Postsurgical changes are present in her presenting disc spacers from L1-L2 through L4-5 with resection of posterior elements. ? Marrow:? Marrow is of normal overall signal.? No acute vertebral body compression fractures.? Old compression deformity at L2 is unchanged. No suspicious marrow enhancement.? ? Spinal cord:? Conus medullaris terminates at the L1 level.? Visualized spinal cord demonstrates normal signal, without suspicious enhancement.? ? Paraspinous soft tissues:? No paravertebral masses or abnormal enhancement.? ? Discs: Moderate to severe desiccation is present throughout the lumbar spine. ? L1-L2: Mild disc bulge with mild spinal stenosis. There is moderate to severe bilateral foraminal narrowing appearing minimally progressive on the left compared to prior exam. Facet and ligamentum flavum hypertrophy are present. ? L2-L3: Mild disc bulge with moderate spinal stenosis. Severe bilateral foraminal narrowing with compression of exiting nerve roots bilaterally is present. Facet hypertrophy is present. No interval change. ? L3-L4: Mild disc bulge with mild spinal stenosis. Moderate to severe bilateral foraminal narrowing with facet hypertrophy. No interval change. ? L4-L5: Mild disc bulge without spinal stenosis. Moderate bilateral foraminal narrowing with slight compromise of the exiting nerve roots. Facet hypertrophy is present. No interval change. ? L5-S1: Mild disc bulge with severe spinal stenosis appearing slightly progressive. There is moderate to severe bilateral foraminal narrowing facet hypertrophy. No inter latonya change. ? IMPRESSION: ? 1. Multilevel degenerative and post operative changes as above. Overall, minimal interval progression. ? 2. Prominent multilevel foraminal narrowing is present predominantly secondary to facet arthropathy and most significant at L2-3. ? Dictated by: Teri Mooney M.D. on 04/18/2020 at 17:06 ? ? Approved by: Teri Mooney M.D. on 04/18/2020 at 17:13 ? Related Data Home Medications Medication Instructions Recorded Confirmed celecoxib 200 mg capsule (Celebrex) 200 mg PO QAM 09/23/19 10/03/22 levothyroxine 88 mcg tablet 88 mcg PO QAM 09/23/19 10/03/22 melatonin 10 mg tablet 20 mg PO BEDTIME PRN Insomnia 09/23/19 10/03/22 pregabalin 300 mg capsule (Lyrica) 300 mg PO BID 09/23/19 10/04/22 cholecalciferol (vitamin D3) 125 2,000 unit PO QAM 12/13/20 10/03/22 mcg (5,000 unit) tablet (Vitamin D3) cyclobenzaprine 5 mg tablet 5 mg PO BEDTIME PRN Pain (Scale 12/13/20 10/03/22 Score 1-3) losartan 50 mg tablet 50 mg PO QAM 12/13/20 10/03/22 atorvastatin 80 mg tablet 80 mg PO QPM 02/03/22 10/03/22 magnesium citrate 100 mg capsule 100 mg PO QPM 06/19/22 10/03/22 duloxetine 30 mg capsule,delayed 60 mg PO BID 10/03/22 10/03/22 release (Cymbalta) propranolol 20 mg tablet 20 mg PO BID 10/04/22 10/04/22 Previous Rx's Medication Instructions Recorded ondansetron 4 mg disintegrating 4 mg PO Q8H PRN nausea and 09/24/22 tablet vomiting #20 tabs metoclopramide HCl 10 mg tablet 10 mg PO Q6H PRN nausea and 09/25/22 (Reglan) vomiting #20 tabs Allergies Allergy/AdvReac Type Severity Reaction Status Date / Time adhesive tape Allergy Mild Verified 10/03/22 19:55 prochlorperazine Allergy Anaphylaxis Verified 10/03/22 19:55 [From Compazine] Review of Systems <Andrew Martinez MD - Last Filed: 10/16/22 07:22> Review of Systems Narrative: GENERAL: negative chills, fatigue, malaise, fever, sweats. HEENT: negative sinus pain, ear pain, sore throat RESPIRATORY: negative dyspnea, cough CARDIOVASCULAR: negative chest pain, palpitations GASTROINTESTINAL: Positive nausea, vomiting, negative abdominal pain : negative dysuria, frequency, hematuria MUSCULOSKELETAL: negative muscle or bony pain, positive back pain SKIN: negative rash, skin lesions NEUROLOGIC: negative weakness, numbness ROS Unobtainable: All systems reviewed & are unremarkable except as noted in HPI and below Patient History <Andrew Martinez MD - Last Filed: 10/16/22 07:22> Medical History Conte's esophagus Chronic lumbar pain Closed head injury with brief loss of consciousness Esophageal stricture Failed back surgical syndrome GERD (gastroesophageal reflux disease) History of paralysis History of snoring Hyperlipidemia Hypertension Hypothyroidism Insomnia due to medical condition Malignant neoplasm of unspecified site of unspecified female breast Obesity (BMI 30-39.9) Obstructive sleep apnea, adult (01/09/21) Spinal stenosis of lumbar region at multiple levels Urge incontinence Vitamin D deficiency, unspecified Surgical History History of bilateral knee replacement History of bilateral mastectomy History of hysterectomy History of lumbar fusion History of lumbar laminectomy History of partial thyroidectomy Family History Father Hypertension Alcohol abuse Mother Alcohol abuse Family/Other Hypertension Bipolar disorder ADD (attention deficit disorder) Substance abuse Social History household members: spouse Smoking Status: Former smoker alcohol intake: current substance use type: other (vapes CBD for pain/sleep) Smoking Status: Former smoker alcohol intake frequency: 0-2 drinks per day Substance Use Type: marijuana Exam <Andrew Martinez MD - Last Filed: 10/16/22 07:22> Narrative Exam Narrative: GENERAL: in no distress, not toxic not dyspneic HEAD: Normocephalic. EYES: Pupils equal round No scleral icterus. ENT: Mucous membranes moist. NECK: Trachea midline. CARDIOVASCULAR: Regular rate and rhythm without murmurs RESPIRATORY: Clear to auscultation. Breath sounds equal bilaterally. No wheezes, rales, or rhonchi. GASTROINTESTINAL: Abdomen soft, non-tender EXTREMITIES: No gross deformities. BACK: No flank tenderness. There is reproducible midline tenderness of the lumbar spine. Limited range of motion due to pain. NEURO: AOx4. Light touch intact to bilateral feet. However patient has very l imited and week active leg elevation left worse than right. Patient too weak in the legs to stand and bear weight by herself. SKIN: Warm and dry PSYCH: Not anxious, is cooperative Initial Vital Signs Initial Vital Signs: Vital Signs Temperature 97 F L 10/02/22 19:13 Pulse Rate 82 10/02/22 19:13 Respiratory Rate 16 10/02/22 19:13 Blood Pressure 182/86 H 10/02/22 19:13 Pulse Oximetry 96 10/02/22 19:13 Oxygen Delivery Method 10/02/22 19:13 <Gallo Pressley DO - Last Filed: 10/04/22 13:16> Initial Vital Signs Initial Vital Signs: Vital Signs Temperature 97 F L 10/02/22 19:13 Pulse Rate 82 10/02/22 19:13 Respiratory Rate 16 10/02/22 19:13 Blood Pressure 182/86 H 10/02/22 19:13 Pulse Oximetry 96 10/02/22 19:13 Oxygen Delivery Method 10/02/22 19:13 <Addie Stacy DO - Last Filed: 10/07/22 08:54> Initial Vital Signs Initial Vital Signs: Vital Signs Temperature 97 F L 10/02/22 19:13 Pulse Rate 82 10/02/22 19:13 Respiratory Rate 16 10/02/22 19:13 Blood Pressure 182/86 H 10/02/22 19:13 Pulse Oximetry 96 10/02/22 19:13 Oxygen Delivery Method 10/02/22 19:13 Course <Andrew Martinez MD - Last Filed: 10/16/22 07:22> Course Course Narrative: 3:23 a.m.. Patient lying much more comfortable. No nausea or vomiting. Back pain is improved October 03, 2022 at 7:00 a.m., Sign out Dr Pressley, patient awaiting for social work and Physical therapy evaluation. Patient has declining ambulation or several weeks. unable to care for patient anymore at home due to increased needs from patient. Orders Ordered: Discontinued Medications Acetaminophen (Acetaminophen 325 Mg Tablet) 650 mg PO NOW ONE Stop: 10/04/22 04:49 Last Admin: 10/04/22 04:52 Dose: 650 mg Documented By: OW Hydrocodone Bitart/Acetaminophen (Hydrocodone/Acet Exlixir 7.5-325/15 Ml) 15 ml PO NOW ONE Stop: 10/02/22 23:51 Last Admin: 10/03/22 00:39 Dose: 15 ml Documented By: JAIRO Hydrocodone Bitart/Acetaminophen (Hydrocodone/Acet Exlixir 7.5-325/15 Ml) 15 ml PO NOW ONE Stop: 10/03/22 06:12 Last Admin: 10/03/22 06:20 Dose: Not Given Documented By: SMITH Atorvastatin Calcium (Atorvastatin 20 Mg Tablet) 80 mg PO BEDTIME [facility] Last Admin: 10/03/22 22:16 Dose: 80 mg Documented By: GUILLAUME Dexamethasone (Dexamethasone 10 Mg/Ml Vial) 6 mg IV NOW ONE Stop: 10/03/22 08:04 Last Admin: 10/03/22 08:28 Dose: 6 mg Documented By: MARIAM Duloxetine HCl (Duloxetine 30 Mg Capsule) 60 mg PO DAILY [facility] Last Admin: 10/04/22 12:34 Dose: 60 mg Documented By: AT Sodium Chloride (Normal Saline 0.9%) 1,000 mls @ 1,000 mls/hr IV BOLUS ONE Stop: 10/03/22 00:43 Last Infusion: 10/03/22 06:18 Dose: 0 mls/hr Documented By: Admin: 10/03/22 03:15 Dose: 1,000 mls/hr Documented By: FRANSISCO Ketorolac Tromethamine (Ketorolac 30 Mg/Ml Vial) 15 mg IV NOW ONE Stop: 10/02/22 23:45 Last Admin: 10/03/22 00:39 Dose: 15 mg Documented By: JAIRO Levothyroxine Sodium (Levothyroxine 88 Mcg Tablet) 88 mcg PO DAILY@0600 [facility] Last Admin: 10/04/22 12:34 Dose: 88 mcg Documented By: AT Losartan Potassium (Losartan 50 Mg Tablet) 50 mg PO BID [facility] Last Admin: 10/04/22 12:34 Dose: 50 mg Documented By: Admin: 10/03/22 22:25 Dose: 50 mg Documented By: RB Melatonin (Melatonin 3 Mg Tablet) 9 mg PO BEDTIME [facility] Last Admin: 10/03/22 22:32 Dose: 9 mg Documented By: GUILLAUME Ondansetron HCl (Ondansetron 4 Mg/2 Ml Inj) 4 mg IV NOW ONE Stop: 10/02/22 23:45 Last Admin: 10/03/22 00:39 Dose: 4 mg Documented By: JAIRO Ondansetron HCl (Ondansetron 4 Mg/2 Ml Inj) 4 mg IV NOW ONE Stop: 10/03/22 08:47 Last Admin: 10/03/22 08:53 Dose: 4 mg Documented By: MARIAM Ondansetron HCl (Ondansetron 4 Mg Odt) 4 mg SL NOW ONE Stop: 10/04/22 13:11 Last Admin: 10/04/22 13:14 Dose: 4 mg Documented By: AT Pantoprazole Sodium (Pantoprazole 40 Mg Vial) 40 mg IV NOW ONE Stop: 10/03/22 08:07 Last Admin: 10/03/22 08:28 Dose: 40 mg Documented By: MARIAM Pregabalin (Pregabalin 75 Mg Capsule) 300 mg PO BID [facility] Last Admin: 10/04/22 12:33 Dose: 300 mg Documented By: Admin: 10/03/22 22:25 Dose: 300 mg Documented By: Admin: 10/03/22 08:41 Dose: 300 mg Documented By: MARIAM(2) Vital Signs Vital signs: Vital Signs - 8 hr 10/04/22 11:55 10/04/22 11:57 10/04/22 12:52 Temperature 97.5 F L 97.8 F Pulse Rate 85 91 H Respiratory Rate 16 16 Blood Pressure 136/76 145/68 H Pulse Oximetry 97 98 Oxygen Delivery Method Room Air Room Air <Gallo Pressley, - Last Filed: 10/04/22 13:16> Orders Ordered: Discontinued Medications Acetaminophen (Acetaminophen 325 Mg Tablet) 650 mg PO NOW ONE Stop: 10/04/22 04:49 Last Admin: 10/04/22 04:52 Dose: 650 mg Documented By: DICK Hydrocodone Bitart/Acetaminophen (Hydrocodone/Acet Exlixir 7.5-325/15 Ml) 15 ml PO NOW ONE Stop: 10/02/22 23:51 Last Admin: 10/03/22 00:39 Dose: 15 ml Documented By: JAIRO Hydrocodone Bitart/Acetaminophen (Hydrocodone/Acet Exlixir 7.5-325/15 Ml) 15 ml PO NOW ONE Stop: 10/03/22 06:12 Last Admin: 10/03/22 06:20 Dose: Not Given Documented By: SMITH Atorvastatin Calcium (Atorvastatin 20 Mg Tablet) 80 mg PO BEDTIME [facility] Last Admin: 10/03/22 22:16 Dose: 80 mg Documented By: GUILLAUME Dexamethasone (Dexamethasone 10 Mg/Ml Vial) 6 mg IV NOW ONE Stop: 10/03/22 08:04 Last Admin: 10/03/22 08:28 Dose: 6 mg Documented By: MARIAM Duloxetine HCl (Duloxetine 30 Mg Capsule) 60 mg PO DAILY [facility] Last Admin: 10/04/22 12:34 Dose: 60 mg Documented By: AT Sodium Chloride (Normal Saline 0.9%) 1,000 mls @ 1,000 mls/hr IV BOLUS ONE Stop: 10/03/22 00:43 Last Infusion: 10/03/22 06:18 Dose: 0 mls/hr Documented By: Admin: 10/03/22 03:15 Dose: 1,000 mls/hr Documented By: FRANSISCO Ketorolac Tromethamine (Ketorolac 30 Mg/Ml Vial) 15 mg IV NOW ONE Stop: 10/02/22 23:45 Last Admin: 10/03/22 00:39 Dose: 15 mg Documented By: JAIRO Levothyroxine Sodium (Levothyroxine 88 Mcg Tablet) 88 mcg PO DAILY@0600 [facility] Last Admin: 10/04/22 12:34 Dose: 88 mcg Documented By: AT Losartan Potassium (Losartan 50 Mg Tablet) 50 mg PO BID [facility] Last Admin: 10/04/22 12:34 Dose: 50 mg Documented By: Admin: 10/03/22 22:25 Dose: 50 mg Documented By: GUILLAUME Melatonin (Melatonin 3 Mg Tablet) 9 mg PO BEDTIME [facility] Last Admin: 10/03/22 22:32 Dose: 9 mg Documented By: GUILLAUME Ondansetron HCl (Ondansetron 4 Mg/2 Ml Inj) 4 mg IV NOW ONE Stop: 10/02/22 23:45 Last Admin: 10/03/22 00:39 Dose: 4 mg Documented By: JAIRO Ondansetron HCl (Ondansetron 4 Mg/2 Ml Inj) 4 mg IV NOW ONE Stop: 10/03/22 08:47 Last Admin: 10/03/22 08:53 Dose: 4 mg Documented By: MARIAM Ondansetron HCl (Ondansetron 4 Mg Odt) 4 mg NOW ONE Stop: 10/04/22 13:11 Last Admin: 10/04/22 13:14 Dose: 4 mg Documented By: AT Pantoprazole Sodium (Pantoprazole 40 Mg Vial) 40 mg IV NOW ONE Stop: 10/03/22 08:07 Last Admin: 10/03/22 08:28 Dose: 40 mg Documented By: MARIAM Pregabalin (Pregabalin 75 Mg Capsule) 300 mg PO BID [facility] Last Admin: 10/04/22 12:33 Dose: 300 mg Documented By: Admin: 10/03/22 22:25 Dose: 300 mg Documented By: Admin: 10/03/22 08:41 Dose: 300 mg Documented By: MARIAM(2) Vital Signs Vital signs: Vital Signs - 8 hr 10/04/22 11:55 10/04/22 11:57 10/04/22 12:52 Temperature 97.5 F L 97.8 F Pulse Rate 85 91 H Respiratory Rate 16 16 Blood Pressure 136/76 145/68 H Pulse Oximetry 97 98 Oxygen Delivery Method Room Air Room Air <Addie Stacy, DO - Last Filed: 10/07/22 08:54> Orders Ordered: Discontinued Medications Acetaminophen (Acetaminophen 325 Mg Tablet) 650 mg PO NOW ONE Stop: 10/04/22 04:49 Last Admin: 10/04/22 04:52 Dose: 650 mg Documented By: DICK Hydrocodone Bitart/Acetaminophen (Hydrocodone/Acet Exlixir 7.5-325/15 Ml) 15 ml PO NOW ONE Stop: 10/02/22 23:51 Last Admin: 10/03/22 00:39 Dose: 15 ml Documented By: JAIRO Hydrocodone Bitart/Acetaminophen (Hydrocodone/Acet Exlixir 7.5-325/15 Ml) 15 ml PO NOW ONE Stop: 10/03/22 06:12 Last Admin: 10/03/22 06:20 Dose: Not Given Documented By: SMITH Atorvastatin Calcium (Atorvastatin 20 Mg Tablet) 80 mg PO BEDTIME [facility] Last Admin: 10/03/22 22:16 Dose: 80 mg Documented By: GUILLAUME Dexamethasone (Dexamethasone 10 Mg/Ml Vial) 6 mg IV NOW ONE Stop: 10/03/22 08:04 Last Admin: 10/03/22 08:28 Dose: 6 mg Documented By: MARIAM Duloxetine HCl (Duloxetine 30 Mg Capsule) 60 mg PO DAILY [facility] Last Admin: 10/04/22 12:34 Dose: 60 mg Documented By: AT Sodium Chloride (Normal Saline 0.9%) 1,000 mls @ 1,000 mls/hr IV BOLUS ONE Stop: 10/03/22 00:43 Last Infusion: 10/03/22 06:18 Dose: 0 mls/hr Documented By: Admin: 10/03/22 03:15 Dose: 1,000 mls/hr Documented By: AP Ketorolac Tromethamine (Ketorolac 30 Mg/Ml Vial) 15 mg IV NOW ONE Stop: 10/02/22 23:45 Last Admin: 10/03/22 00:39 Dose: 15 mg Documented By: JAIRO Levothyroxine Sodium (Levothyroxine 88 Mcg Tablet) 88 mcg PO DAILY@0600 [facility] Last Admin: 10/04/22 12:34 Dose: 88 mcg Documented By: AT Losartan Potassium (Losartan 50 Mg Tablet) 50 mg PO BID [facility] Last Admin: 10/04/22 12:34 Dose: 50 mg Documented By: Admin: 10/03/22 22:25 Dose: 50 mg Documented By: RB Melatonin (Melatonin 3 Mg Tablet) 9 mg PO BEDTIME [facility] Last Admin: 10/03/22 22:32 Dose: 9 mg Documented By: RB Ondansetron HCl (Ondansetron 4 Mg/2 Ml Inj) 4 mg IV NOW ONE Stop: 10/02/22 23:45 Last Admin: 10/03/22 00:39 Dose: 4 mg Documented By: JAIRO Ondansetron HCl (Ondansetron 4 Mg/2 Ml Inj) 4 mg IV NOW ONE Stop: 10/03/22 08:47 Last Admin: 10/03/22 08:53 Dose: 4 mg Documented By: MARIAM Ondansetron HCl (Ondansetron 4 Mg Odt) 4 mg SL NOW ONE Stop: 10/04/22 13:11 Last Admin: 10/04/22 13:14 Dose: 4 mg Documented By: JUAN Pantoprazole Sodium (Pantoprazole 40 Mg Vial) 40 mg IV NOW ONE Stop: 10/03/22 08:07 Last Admin: 10/03/22 08:28 Dose: 40 mg Documented By: MARIAM Pregabalin (Pregabalin 75 Mg Capsule) 300 mg PO BID [facility] Last Admin: 10/04/22 12:33 Dose: 300 mg Documented By: Admin: 10/03/22 22:25 Dose: 300 mg Documented By: Admin: 10/03/22 08:41 Dose: 300 mg Documented By: MARIAM(2) Vital Signs Vital signs: Vital Signs - 8 hr 10/04/22 11:55 10/04/22 11:57 10/04/22 12:52 Temperature 97.5 F L 97.8 F Pulse Rate 85 91 H Respiratory Rate 16 16 Blood Pressure 136/76 145/68 H Pulse Oximetry 97 98 Oxygen Delivery Method Room Air Room Air MDM - Back Pain/Injury <Andrew Martinez MD - Last Filed: 10/16/22 07:22> Differential Diagnosis Differential diagnosis: Likely lumbar radiculopathy, sciatica, strain of lumbar region and other (Degenerative disc disease) Lab Data Result diagrams: 10/03/22 00:30 10/03/22 00:30 Labs: Lab Results 10/03/22 10/03/22 10/03/22 Range/Units 00:30 00:30 08:45 WBC 6.8 (4.5-11.0) X10^3/uL RBC 4.56 (4.0-5.2) X10^6/uL Hgb 13.7 (12.0-16.0) g/dL Hct 40.4 (36-46) % MCV 88.6 (80-100) fL MCH 29.9 (26-34) PG MCHC 33.8 (30-36) % RDW 13.8 (11.6-14.8) % Plt Count 298 (150-400) X10^3/uL Neut % (Auto) 77.7 H (50-75) % Lymph % (Auto) 13.1 L (25-40) % Pierce % (Auto) 8.4 (3-14) % Eos % (Auto) 0.1 L (2-4) % Baso % (Auto) 0.7 (0-2) % Neut # (Auto) 5300 (2309-9619) /uL Lymph # (Auto) 900 L (0496-0854) /uL Pierce # (Auto) 600 (0-900) /uL Eos # (Auto) 0 (0-450) /uL Baso # (Auto) 0 (0-100) /uL Sodium 134 L (137-145) mmol/L Potassium 3.3 L (3.4-5.1) mmol/L Chloride 91 L (98-107) mmol/L Carbon Dioxide 30 (22-32) mmol/L BUN 22 H (7-17) mg/dL Creatinine 0.61 (0.52-1.04) mg/dL Estimated GFR > 60 (>60) mL/min BUN/Creatinine Ratio 36.1 H (6-22) Glucose 103 (80-110) mg/dL Calcium 10.0 (8.4-10.2) mg/dL Total Bilirubin 0.6 (0.2-1.3) mg/dL AST 34 (14-36) IU/L ALT 28 (<35) IU/L Alkaline Phosphatase 148 H (38-126) U/L Total Protein 8.2 (6.3-8.2) g/dL Albumin 4.5 (3.5-5.0) g/dL Globulin 3.7 (1.7-4.1) g/dL Albumin/Globulin Ratio 1.2 (1.0-2.8) SARS-CoV-2 (PCR) Negative (Negative) Influenza A (RT-PCR) Flu a negative (NEGATIVE) Influenza B (RT-PCR) Flu b negative (NEGATIVE) RSV (PCR) Negative (Negative) 10/04/22 Range/Units 12:10 WBC (4.5-11.0) X10^3/uL RBC (4.0-5.2) X10^6/uL Hgb (12.0-16.0) g/dL Hct (36-46) % MCV (80-100) fL MCH (26-34) PG MCHC (30-36) % RDW (11.6-14.8) % Plt Count (150-400) X10^3/uL Neut % (Auto) (50-75) % Lymph % (Auto) (25-40) % Pierce % (Auto) (3-14) % Eos % (Auto) (2-4) % Baso % (Auto) (0-2) % Neut # (Auto) (1804-2810) /uL Lymph # (Auto) (0927-1304) /uL Pierce # (Auto) (0-900) /uL Eos # (Auto) (0-450) /uL Baso # (Auto) (0-100) /uL Sodium (137-145) mmol/L Potassium (3.4-5.1) mmol/L Chloride (98-107) mmol/L Carbon Dioxide (22-32) mmol/L BUN (7-17) mg/dL Creatinine (0.52-1.04) mg/dL Estimated GFR (>60) mL/min BUN/Creatinine Ratio (6-22) Glucose (80-110) mg/dL Calcium (8.4-10.2) mg/dL Total Bilirubin (0.2-1.3) mg/dL AST (14-36) IU/L ALT (<35) IU/L Alkaline Phosphatase (38-126) U/L Total Protein (6.3-8.2) g/dL Albumin (3.5-5.0) g/dL Globulin (1.7-4.1) g/dL Albumin/Globulin Ratio (1.0-2.8) SARS-CoV-2 (PCR) Negative (Negative) Influenza A (RT-PCR) (NEGATIVE) Influenza B (RT-PCR) (NEGATIVE) RSV (PCR) (Negative) Imaging Data CT lumbar spine without contrast: Radiologist's Impression: Extensive degenerative and operative changes of the thoracolumbar and lumbar spine. Osseous fusion from L3-L5. There is significant appearing central canal stenosis at L2-3. Most severe foraminal stenosis are at L2-3 and L3-4 bilaterally no recent fracture or destructive process of bone is appreciated <Gallo Pressley DO - Last Filed: 10/04/22 13:16> Lab Data Labs: Lab Results 10/03/22 10/03/22 10/03/22 Range/Units 00:30 00:30 08:45 WBC 6.8 (4.5-11.0) X10^3/uL RBC 4.56 (4.0-5.2) X10^6/uL Hgb 13.7 (12.0-16.0) g/dL Hct 40.4 (36-46) % MCV 88.6 (80-100) fL MCH 29.9 (26-34) PG MCHC 33.8 (30-36) % RDW 13.8 (11.6-14.8) % Plt Count 298 (150-400) X10^3/uL Neut % (Auto) 77.7 H (50-75) % Lymph % (Auto) 13.1 L (25-40) % Pierce % (Auto) 8.4 (3-14) % Eos % (Auto) 0.1 L (2-4) % Baso % (Auto) 0.7 (0-2) % Neut # (Auto) 5300 (0931-5293) /uL Lymph # (Auto) 900 L (0626-7789) /uL Pierce # (Auto) 600 (0-900) /uL Eos # (Auto) 0 (0-450) /uL Baso # (Auto) 0 (0-100) /uL Sodium 134 L (137-145) mmol/L Potassium 3.3 L (3.4-5.1) mmol/L Chloride 91 L (98-107) mmol/L Carbon Dioxide 30 (22-32) mmol/L BUN 22 H (7-17) mg/dL Creatinine 0.61 (0.52-1.04) mg/dL Estimated GFR > 60 (>60) mL/min BUN/Creatinine Ratio 36.1 H (6-22) Glucose 103 (80-110) mg/dL Calcium 10.0 (8.4-10.2) mg/dL Total Bilirubin 0.6 (0.2-1.3) mg/dL AST 34 (14-36) IU/L ALT 28 (<35) IU/L Alkaline Phosphatase 148 H (38-126) U/L Total Protein 8.2 (6.3-8.2) g/dL Albumin 4.5 (3.5-5.0) g/dL Globulin 3.7 (1.7-4.1) g/dL Albumin/Globulin Ratio 1.2 (1.0-2.8) SARS-CoV-2 (PCR) Negative (Negative) Influenza A (RT-PCR) Flu a negative (NEGATIVE) Influenza B (RT-PCR) Flu b negative (NEGATIVE) RSV (PCR) Negative (Negative) 10/04/22 Range/Units 12:10 WBC (4.5-11.0) X10^3/uL RBC (4.0-5.2) X10^6/uL Hgb (12.0-16.0) g/dL Hct (36-46) % MCV (80-100) fL MCH (26-34) PG MCHC (30-36) % RDW (11.6-14.8) % Plt Count (150-400) X10^3/uL Neut % (Auto) (50-75) % Lymph % (Auto) (25-40) % Pierce % (Auto) (3-14) % Eos % (Auto) (2-4) % Baso % (Auto) (0-2) % Neut # (Auto) (3566-2811) /uL Lymph # (Auto) (7509-5663) /uL Pierce # (Auto) (0-900) /uL Eos # (Auto) (0-450) /uL Baso # (Auto) (0-100) /uL Sodium (137-145) mmol/L Potassium (3.4-5.1) mmol/L Chloride (98-107) mmol/L Carbon Dioxide (22-32) mmol/L BUN (7-17) mg/dL Creatinine (0.52-1.04) mg/dL Estimated GFR (>60) mL/min BUN/Creatinine Ratio (6-22) Glucose (80-110) mg/dL Calcium (8.4-10.2) mg/dL Total Bilirubin (0.2-1.3) mg/dL AST (14-36) IU/L ALT (<35) IU/L Alkaline Phosphatase (38-126) U/L Total Protein (6.3-8.2) g/dL Albumin (3.5-5.0) g/dL Globulin (1.7-4.1) g/dL Albumin/Globulin Ratio (1.0-2.8) SARS-CoV-2 (PCR) Negative (Negative) Influenza A (RT-PCR) (NEGATIVE) Influenza B (RT-PCR) (NEGATIVE) RSV (PCR) (Negative) MDM Narrative Medical decision making narrative: [0700] (Huan) Patient received in sign out from [Michelle]. I have reviewed the clinical course and performed an independent history and physical exam. She does have ongoing right lower extremity weakness. She is having pain and requesting pain medication. Awaiting over-read of nights LSpine CT. Due to presence of nerve stimulator she is NOT a candidate for MRI. Liquid hydrocodone have been ordered about 90 minutes ago but patient refused. She relates that she has been retching and had nausea for the past few weeks and has not been able to keep anything down. Protonix, Decadron, Lyrica ordered Patient has been evaluated by physical therapy, please see their note, recommend SNF placement. WASTE ELIMINATION Has seen and evaluated. REGIS_ no events overnight [0700 10/04/22] (Huan) Patient received in sign out from [Regis]. I have reviewed the clinical course and performed an independent history and physical exam. Patient has been accepted to long-term facility and [place] and will be transported by private auto later this afternoon <Addie Stacy, DO - Last Filed: 10/07/22 08:54> Lab Data Labs: Lab Results 10/03/22 10/03/22 10/03/22 Range/Units 00:30 00:30 08:45 WBC 6.8 (4.5-11.0) X10^3/uL RBC 4.56 (4.0-5.2) X10^6/uL Hgb 13.7 (12.0-16.0) g/dL Hct 40.4 (36-46) % MCV 88.6 (80-100) fL MCH 29.9 (26-34) PG MCHC 33.8 (30-36) % RDW 13.8 (11.6-14.8) % Plt Count 298 (150-400) X10^3/uL Neut % (Auto) 77.7 H (50-75) % Lymph % (Auto) 13.1 L (25-40) % Pierce % (Auto) 8.4 (3-14) % Eos % (Auto) 0.1 L (2-4) % Baso % (Auto) 0.7 (0-2) % Neut # (Auto) 5300 (0401-5446) /uL Lymph # (Auto) 900 L (0970-8606) /uL Pierce # (Auto) 600 (0-900) /uL Eos # (Auto) 0 (0-450) /uL Baso # (Auto) 0 (0-100) /uL Sodium 134 L (137-145) mmol/L Potassium 3.3 L (3.4-5.1) mmol/L Chloride 91 L (98-107) mmol/L Carbon Dioxide 30 (22-32) mmol/L BUN 22 H (7-17) mg/dL Creatinine 0.61 (0.52-1.04) mg/dL Estimated GFR > 60 (>60) mL/min BUN/Creatinine Ratio 36.1 H (6-22) Glucose 103 (80-110) mg/dL Calcium 10.0 (8.4-10.2) mg/dL Total Bilirubin 0.6 (0.2-1.3) mg/dL AST 34 (14-36) IU/L ALT 28 (<35) IU/L Alkaline Phosphatase 148 H (38-126) U/L Total Protein 8.2 (6.3-8.2) g/dL Albumin 4.5 (3.5-5.0) g/dL Globulin 3.7 (1.7-4.1) g/dL Albumin/Globulin Ratio 1.2 (1.0-2.8) SARS-CoV-2 (PCR) Negative (Negative) Influenza A (RT-PCR) Flu a negative (NEGATIVE) Influenza B (RT-PCR) Flu b negative (NEGATIVE) RSV (PCR) Negative (Negative) 10/04/22 Range/Units 12:10 WBC (4.5-11.0) X10^3/uL RBC (4.0-5.2) X10^6/uL Hgb (12.0-16.0) g/dL Hct (36-46) % MCV (80-100) fL MCH (26-34) PG MCHC (30-36) % RDW (11.6-14.8) % Plt Count (150-400) X10^3/uL Neut % (Auto) (50-75) % Lymph % (Auto) (25-40) % Pierce % (Auto) (3-14) % Eos % (Auto) (2-4) % Baso % (Auto) (0-2) % Neut # (Auto) (8713-7308) /uL Lymph # (Auto) (3152-3896) /uL Pierce # (Auto) (0-900) /uL Eos # (Auto) (0-450) /uL Baso # (Auto) (0-100) /uL Sodium (137-145) mmol/L Potassium (3.4-5.1) mmol/L Chloride (98-107) mmol/L Carbon Dioxide (22-32) mmol/L BUN (7-17) mg/dL Creatinine (0.52-1.04) mg/dL Estimated GFR (>60) mL/min BUN/Creatinine Ratio (6-22) Glucose (80-110) mg/dL Calcium (8.4-10.2) mg/dL Total Bilirubin (0.2-1.3) mg/dL AST (14-36) IU/L ALT (<35) IU/L Alkaline Phosphatase (38-126) U/L Total Protein (6.3-8.2) g/dL Albumin (3.5-5.0) g/dL Globulin (1.7-4.1) g/dL Albumin/Globulin Ratio (1.0-2.8) SARS-CoV-2 (PCR) Negative (Negative) Influenza A (RT-PCR) (NEGATIVE) Influenza B (RT-PCR) (NEGATIVE) RSV (PCR) (Negative) MDM Narrative Medical decision making narrative: [0700] (Huan) Patient received in sign out from [Michelle]. I have reviewed the clinical course and performed an independent history and physical exam. She does have ongoing right lower extremity weakness. She is having pain and requesting pain medication. Awaiting over-read of nights LSpine CT. Due to presence of nerve stimulator she is NOT a candidate for MRI. Liquid hydrocodone have been ordered about 90 minutes ago but patient refused. She relates that she has been retching and had nausea for the past few weeks and has not been able to keep anything down. Protonix, Decadron, Lyrica ordered Patient has been evaluated by physical therapy, please see their note, recommend SNF placement. WASTE ELIMINATION Has seen and evaluated. REGIS_ no events overnight [0700 10/04/22] (Huan) Patient received in sign out from [Regis]. I have reviewed the clinical course and performed an independent history and physical exam. Patient has been accepted to long-term facility and [place] and will be transported by private auto later this afternoon <Gallo Pressley, DO - Last Filed: 10/04/22 13:16> Critical Care Time Critical Care Time: Yes Total Critical Care Time: 45 Attestation: The high probability of a clinically significant, sudden or life threatening deterioration of the [MSK] system(s) required my full and direct attention, intervention and personal management. The aggregate critical care time was [45] minutes. This time is in addition to time spent performing reported procedures but includes the following: [x] Data Review and interpretation [x] Patient assessment and monitoring of vital signs [x] Documentation [x] Medication orders and management Discharge Plan Departure Patient Disposition: SNF Clinical Impression: Chronic right-sided lumbar radiculopathy Prescriptions: No Action magnesium citrate 100 mg Capsule 100 mg PO QPM ondansetron 4 mg tablet,disintegrating 4 mg PO Q8H PRN (Reason: nausea and vomiting) Qty: 20 0RF metoclopramide HCl [Reglan] 10 mg tablet 10 mg PO Q6H PRN (Reason: nausea and vomiting) Qty: 20 0RF celecoxib [Celebrex] 200 mg Capsule 200 mg PO QAM levothyroxine 88 mcg Tablet 88 mcg PO QAM pregabalin [Lyrica] 300 mg Capsule 300 mg PO BID melatonin 10 mg Tablet 20 mg PO BEDTIME PRN (Reason: Insomnia) cholecalciferol (vitamin D3) [Vitamin D3] 125 mcg (5,000 unit) tablet 2,000 unit PO QAM atorvastatin 80 mg Tablet 80 mg PO QPM duloxetine [Cymbalta] 30 mg capsule,delayed release(DR/EC) 60 mg PO BID Label Comments: Pt states it was increased. propranolol 20 mg tablet 20 mg PO BID losartan 50 mg tablet 50 mg PO QAM cyclobenzaprine 5 mg tablet 5 mg PO BEDTIME PRN (Reason: Pain (Scale Score 1-3)) SNF Discharge Plan Other facility: [facility] Transportation: Private vehicle I certify the postop hospital long-term care is medically necessary on a continuing basis for any conditions for which he/ she received care during this hospitalization.: Yes The receiving facility has agreed to accept transfer and provide medical treatment.: Yes Diet/Activity/Treatments Diet: Diet as Tolerated Food texture: Regular Skin/Wound/Dressing Care Report to your healthcare provider any signs of infection, such as: increased pain Special Rehabilitation Services Reason for rehabilitation: Recovery r/t decondition Rehab type: Physical therapy and Occupational therapy
[2022-10-03] MEDS: HYDROCODONE/ACET EXLIXIR 7.5-325/15 ML PO (00:39)
[2022-10-03] MEDS: ONDANSETRON 4 MG/2 ML INJ IV ×2 (00:39→08:53)
[2022-10-03] MEDS: KETOROLAC 30 MG/ML VIAL 15 MG IV (00:39)
[2022-10-03 00:47] LABS: Add Manual Diff / Slide Review NO; Basophils Absolute Auto 0 /uL (0-100); Basophils Percent Auto 0.7 % (0-2); Eosinophils Absolute Auto 0 /uL (0-450); Eosinophils Percent Auto 0.1 % (2-4); Hematocrit 40.4 % (36-46); Hemoglobin 13.7 g/dL (12.0-16.0); Lymphocytes Absolute Auto 900 /uL (1100-4500); Lymphocytes Percent Auto 13.1 % (25-40); Mean Corpuscular HGB Conc 33.8 % (30-36); Mean Corpuscular Hemoglobin 29.9 PG (26-34); Mean Corpuscular Volume 88.6 fL (80-100); Monocytes Absolute Auto 600 /uL (0-900); Monocytes Percent Auto 8.4 % (3-14); Neutrophils Absolute Auto 5300 /uL (1500-7000); Neutrophils Percent Auto 77.7 % (50-75); Platelet Count 298 X10^3/uL (150-400); Red Blood Cell Count 4.56 X10^6/uL (4.0-5.2); Red Cell Distribution Width 13.8 % (11.6-14.8); White Blood Cell Count 6.8 X10^3/uL (4.5-11.0)
[2022-10-03 00:58] LABS: Alanine Aminotransferase 28 IU/L (<35); Albumin 4.5 g/dL (3.5-5.0); Albumin Globulin Ratio 1.2 (1.0-2.8); Alkaline Phosphatase 148 U/L (38-126); Aspartate Aminotransferase 34 IU/L (14-36); BUN Creatinine Ratio 36.1 (6-22); Bilirubin Total 0.6 mg/dL (0.2-1.3); Blood Urea Nitrogen 22 mg/dL (7-17); Carbon Dioxide 30 mmol/L (22-32); Chloride 91 mmol/L (98-107); Estimated Glomerular Filt Rate > 60 mL/min (>60); Globulin 3.7 g/dL (1.7-4.1); Glucose 103 mg/dL (80-110); HEMOLYSIS < 15 (0-50); Potassium 3.3 mmol/L (3.4-5.1); Sodium 134 mmol/L (137-145); Total Protein 8.2 g/dL (6.3-8.2)
[2022-10-03] MEDS: SODIUM CHLORIDE 0.9% 1,000 ML 1000 ML IV (03:15)
[2022-10-03] MEDS: DEXAMETHASONE 10 MG/ML VIAL 6 MG IV (08:28)
[2022-10-03] MEDS: PANTOPRAZOLE 40 MG VIAL IV (08:28)
[2022-10-03] MEDS: PREGABALIN 75 MG CAPSULE 300 MG PO ×2 (08:41→22:25)
[2022-10-03 09:46] LABS: Influenza A - CEPHEID Flu A NEGATIVE (NEGATIVE); Influenza B - CEPHEID Flu B NEGATIVE (NEGATIVE); Respiratory Syncytial Virus Negative (Negative)
[2022-10-03 09:54] LABS: COVID-19 CEPHEID 4-PLEX PCR Negative (Negative)
[2022-10-03 10:00] VITALS: BP 148/70; PULSE 85; RESP 18; O2SAT 97
--- NOTE | 2022-10-03 10:41 | PT.IIE ---
Surgical History (Last Reviewed 10/02/22 @ 23:48 by Andrew Martinez MD) History of bilateral knee replacement History of bilateral mastectomy History of hysterectomy History of lumbar fusion History of lumbar laminectomy History of partial thyroidectomy Medical History (Last Reviewed 10/02/22 @ 23:48 by Andrew Martinez MD) Conte's esophagus Chronic lumbar pain Closed head injury with brief loss of consciousness Esophageal stricture Failed back surgical syndrome GERD (gastroesophageal reflux disease) History of paralysis History of snoring Hyperlipidemia Hypertension Hypothyroidism Insomnia due to medical condition Malignant neoplasm of unspecified site of unspecified female breast Obesity (BMI 30-39.9) Obstructive sleep apnea, adult (01/09/21) Spinal stenosis of lumbar region at multiple levels Urge incontinence Vitamin D deficiency, unspecified Physical Therapy Inpatient Evaluation/Re-Eval M1 PT/OT-IP Prior Functional Status Start: 10/03/22 12:57 Freq: Status: Active Protocol: Document 10/03/22 10:41 AB (Rec: 10/03/22 13:13 AB [id number]) Medical Review Prior Functional Status Medical History Reviewed Yes Communication able to make needs known Mobility and Gait pt stated that she is modified independent with all mobilities and ambulation without AD indoors but furniture cruises; uses a SPC for outdoor mobility but due to increasing LBP, has been using a FWW for ~ 1week; pt stated that her spouse has been assisting her at home but due to pt needing increasing assistance, spouse injured his back; pt stated that she has h/o falls with LE buckling Social History Household Members spouse Living Arrangements RV Number of Floors (Floors) One Floor Number of Stairs To Enter/Railing? pt lives in a 5th wheel: has 6 steps with L rail ascending to enter the house; has 3 steps R rail ascending to bedroom Home Environment Standard Height Toilet,Walk in Shower Home Equipment Front Wheel Walker,Straight Cane,Manual Wheelchair,Hand Held Shower,Grab Bars In Shower M2 PT-IP Current Condition Start: 10/03/22 12:57 Freq: Status: Active Protocol: Document 10/03/22 10:41 AB (Rec: 10/03/22 13:13 AB [email or web address]) Physical Therapy Current Condition Current Condition Evaluation Date 10/03/22 Treatment Diagnosis LBP; difficulty in walking Onset Date 10/03/22 M3 PT-IP Subjective Start: 10/03/22 12:57 Freq: Status: Active Protocol: Document 10/03/22 10:41 AB (Rec: 10/03/22 13:13 AB [email or web address]) Subjective Physical Therapy Visit Type Type Initial Evaluation Visit Start Time 10:41 Visit Stop Time 11:30 Total Visit Minutes 49 Number of BLOW UP OPERATOR Visits 0 Therapy Pain Assessment Pain When Pain Assessed At Rest Pain Present Pain Present Pain Reported Location Back Intensity 7 Scale Used Numeric (0 - 10) Pain Behaviors Guarding Pain Management Techniques Modification of Treatment,Re- positioning,Timing of Activity with Medications M4 PT-IP Mobility and Gait Start: 10/03/22 12:57 Freq: Status: Active Protocol: Document 10/03/22 10:41 AB (Rec: 10/03/22 13:13 AB [email or web address]) PT-Bed Mobility Assessment Supine to Sit Supine to Sit Minimal Assistance,Head of Bed Elevated Sit to Supine Sit to Supine Maximum Assistance,Head of Bed Elevated PT-Transfer Assessment Sit to and From Stand Sit to and from Stand Minimal Assistance,Moderate Assistance,1 Person Assistance ,Use of Upper Extremities Equipment Transfer Assistive Device Front Wheeled Walker Orthotic/Prosthetic Devices or Brace: No Transfers Transfer Destination Bedside Commode Transfer Technique Stand Step Pivot Transfer Ability Level of Assist Moderate Assistance,Maximum Assistance,1 Person Assistance ,Use of Upper Extremities Comments Mobility Comments educated pt on back precautions. completed supine to sit HOB elevated min A and cues. pt stated that she has lost her bladder control and need to use the toilet. informed nursing staff that the pt needs a bedside commode but not available. asked pt if she can walk to the toilet and stated that she might not be able to hold it. Asked nursing staff again for bedside commode and retrieved one. pt completed sit to stand min to mod A from elevated bed and step transfer to bedside commode mod A. needs assist with brief management. pt completed sit to stand from bedside commode mod to max A. ambulated ~ 4 ft using FWW mod to max A needing increase assistance after a few steps of walking and pt present with increase forward flexion and R foot drop. chair positioned behind pt to sit down again. pt completed sit to stand from chair mod to max A and step transfer to bed using fWW mod to max A. max A for sit to supine. positioned on the bed. call light and table placed within reach. Gait Assessment Gait Gait Assistance Required: Moderate Assistance,Maximum Assistance,1 Person Assist Distance (Feet) 4 Able to Maintain Weight Bearing Status Yes During Gait Assistive Devices Assistive Device Gait Belt,Front Wheeled Walker Orthotic/Prosthetic Devices or Brace: No Gait Deviations General Gait Pattern Decreased Stride Length, Decreased Feet Clearance, Flexed Trunk,Step-to Gait Factors Limiting Gait Function Factors Limiting Gait Function Decreased Activity Tolerance, Decreased Sensation,Decreased Strength,Limited Range of Motion,Pain,Poor Balance,Poor Safety Awareness PT-Balance Assessment Sitting Balance and Reactions Static Sitting Balance Ability Good Dynamic Sitting Balance Ability Fair Standing Balance and Reactions Static Standing Balance Ability Poor Dynamic Standing Balance Ability Poor Device Used FWW M5 PT-IP Objective Assessments Start: 10/03/22 12:57 Freq: Status: Active Protocol: Document 10/03/22 10:41 AB (Rec: 10/03/22 13:13 AB [id number]) Orientation Orientation/Cognition Level of Alertness Alert Orientation Name,Place,Situation Language Function Ability No Deficits Noted Safety Awareness Decreased Safety Awareness Memory Description No Deficits Noted Gross Range of Motion Lower Extremity ROM Assessment Within Functional Limits Strength Lower Extremity Strength Assessment Bilaterally Impaired Hip 3+/5 Knee 3+/5 Ankle R foot drop Sensation Assessment Sensation Gross Sensation Right LE Impaired,Left LE Impaired Sensation Description Numbness Comments Sensation Comments RLE>LLE numbness from anterior thigh area all the way to feet Muscle Tone Muscle Tone WNL Yes M6 PT-IP Treatment Start: 10/03/22 12:57 Freq: Status: Active Protocol: Document 10/03/22 10:41 AB (Rec: 10/03/22 13:13 AB [email or web address]) Physical Therapy Treatment Education Education Provided Precautions,Safety M7 PT-IP Assessment and Plan Start: 10/03/22 12:57 Freq: Status: Active Protocol: Document 10/03/22 10:41 AB (Rec: 10/03/22 13:13 AB [email or web address]) PT Summary Assessment and Plan Potential Rehabilitation Potential Fair Status of Condition at Evaluation Evolving Summary Impairments Pain,ROM,Strength,Balance, Coordination,Sensation,Tone, Cognition,Bed Mobility, Transfers,Gait,Activity Tolerance Assessment Summary PT eval received from ED to determine pt's mobility and d/ c plan. pt requiring mod to max A with mobility using FWW and unable to tolerate much activity. pt has 6 steps to enter the house and is not appropriate to do stair climbing. pt's spouse has been assisting pt but pt stated that spouse has injured his back due to the increase assistance she has been needing and will not be able to assist her. pt want to go to SNF. Goals Bed Mobility Goal Minimal Assistance Transfer Goal Minimal Assistance,Front Wheeled Walker Gait Goal Minimal Assistance,Front Wheel Walker Gait Distance 50 Other Goals improve bed mobility, transfers and ambulation using FWW 150 ft SBA up/down 6 steps L rail SBA; 3 steps R rail SBA Days to Meet Goals 10 Frequency of Treatment Frequency Of Treatment Once a Day Treatment Plan Physical Therapy Treatment Plan Bed Mobility Training,Transfer Training,Gait Training, Therapeutic Exercise,Balance Retraining,Discharge Planning, Hot or Cold Pack,Neuromuscular Re-ed,Coordination Retraining ,Manual Therapy Precautions Lumbar Precautions Log Roll,No Twisting,Limit Bending,Lifting Restriction of 10 lbs Recommendations To Nursing Amount of Assist Needed 1 Person Assist Discharge Recommendations PT Discharge Recommendations SNF Rehab Transportation Needs at Discharge Wheelchair/Cabulance
--- NOTE | 2022-10-03 13:06 | CM.DANOTE ---
Addendum entered by VITOR Arita 10/03/22 17:37: SW received a call back from March at [facility], who reported that pt does not qualify for Covid waiver because she does not have qualifying Medicare diagnosis for SNF admission. SW continuing to search other SNF options. VITOR Arita Addendum entered by VITOR Arita 10/03/22 15:41: SW continues to look for SNF for patient. SW called [facility] and talked to DIANNE Galindo , who instructed SW to send referral via fax to . SW completed fax. SW called [facility] and was informed that they are closing in the new year and not accepting any new referrals. SW called [facility] and talked to Keiko , who instructed SW send referral via fax to . SW completed fax. SW confirmed with patient that we are searching for SNF. SW confirmed that pt has received covid vaccine x5. VITOR Arita Addendum entered by VITOR Arita 10/03/22 14:08: SW reviewed PT note and found that they are recommending SNF. SW called [facility] and they reported that they do have beds and they will review the referral CARLOS. MARCIANO called [facility] and left a voicemail. SW faxed referral for review. MARCIANO called [facility] and Left a voicemail. SW faxed referral for review. MARCIANO called [facility] and was informed that they do not have any available beds. MARCIANO called [facility] of [facility] and left a voicemail. MARCIANO faxed referral for review. Plan: SW will continue to follow for SNF placement. VITOR Arita Original Note: Pt is a 77 year old female with history of multiple surgeries on her lumbar spine. She is had MRI. She is had nerve stimulator placed 2 years ago. Pt has Medicare A+B and . Pt's PCP is Emma Larios. SW consulted to help with safe discharge plan. Pt and spouse report that pt has had 3 ED visits in the last week and a half due to increasing weakness and immobility. Pt denies falls. Pt reports that she needs assistance with all ADLs at this time. Pt and spouse do not believe that home health will be enough support at this time. Plan: SW is awaiting PT recommendations. SW will make referrals based on recs. VITOR Arita Discharge Planning/Care Management CM Discharge Assessment Start: 10/03/22 13:04 Freq: Status: Active Protocol: Document 10/03/22 13:04 TM (Rec: 10/03/22 13:06 TM [id number]) Discharge Planning Assessment Assigned Annual Giving Manager VITOR Arita DPOA/Assigned Designee Name Hima Brown, Spouse Contact Information [phone] Advance Directives? Yes Advance Directives on File No History Provided By Patient,Significant Other, Medical Record Has Patient been admitted in last 30 No days? Prior Living Arrangements Other Comment Pt lives in 5th wheel trailer with 5STE and 3 steps to bedroom. Household Members spouse Type of transporation used prior to Relies on Others admit Independent with ADL's No Is patient alert and oriented? Yes Needs Assistance With Bathing,Grooming,Meal Prep, Toileting,Managing Medications Comment Pt needs assistance with transfers, dressing, toileting , and showering. Caregiver for Another No DME Already Rented / Owned FWW / Walker Patient/Family Preference Assisted Facility,Home with Home Health Barriers to Discharge Yes Comment lack of facilities accepting covid waiver. Discharge Plan Assisted Facility Transportation Arrangement spouse bedside and can transport at d/c Referrals Initiated Assisted Whiteboard Updated in Patient Room with Yes name and ext. # of Annual Giving Manager Please Provide Date Initial DC 10/03/22 Assessment Was Performed
[2022-10-03 19:10] VITALS: BP 133/62; PULSE 89; O2SAT 97
[2022-10-03] MEDS: ATORVASTATIN 20 MG TABLET 80 MG PO (22:16)
[2022-10-03 22:25] VITALS: BP 149/78; PULSE 82
[2022-10-03] MEDS: LOSARTAN 50 MG TABLET PO (22:25)
[2022-10-03] MEDS: MELATONIN 3 MG TABLET 9 MG PO (22:32)
[2022-10-03 22:37] VITALS: BP 149/78; PULSE 82; RESP 17; TEMP 36.8; O2SAT 98
[2022-10-04] MEDS: ACETAMINOPHEN 325 MG TABLET 650 MG PO (04:52)
--- NOTE | 2022-10-04 11:00 | PT.IPTN ---
Physical Therapy Treatment Note M2 PT-IP Current Condition Start: 10/03/22 12:57 Freq: Status: Active Protocol: Document 10/03/22 10:41 AB (Rec: 10/03/22 13:13 AB [id number]) Physical Therapy Current Condition Current Condition Evaluation Date 10/03/22 Treatment Diagnosis LBP; difficulty in walking Onset Date 10/03/22 M3 PT-IP Subjective Start: 10/03/22 12:57 Freq: Status: Active Protocol: Document 10/04/22 11:00 AB (Rec: 10/04/22 11:54 AB [email or web address]) Subjective Physical Therapy Visit Type Type Treatment Note Visit Start Time 11:00 Visit Stop Time 11:34 Total Visit Minutes 34 Number of MEDIA SENIOR RECRUITER Visits 0 Physical Therapy Visit Comments Patient Comments agreeable to do PT Therapy Pain Assessment Pain When Pain Assessed At Rest Pain Present Pain Present Pain Reported Location Back Scale Used pain scale not stated Pain Management Techniques Distraction,Modification of Treatment,Re-positioning, Timing of Activity with Medications M4 PT-IP Mobility and Gait Start: 10/03/22 12:57 Freq: Status: Active Protocol: Document 10/04/22 11:00 AB (Rec: 10/04/22 11:54 AB [id number]) PT-Bed Mobility Assessment Supine to Sit Supine to Sit Standby Assistance,Head of Bed Elevated,Bedrails PT-Transfer Assessment Sit to and From Stand Sit to and from Stand Moderate Assistance,1 Person Assistance,Use of Upper Extremities Equipment Transfer Assistive Device Standard Walker Orthotic/Prosthetic Devices or Brace: No Transfers Transfer Destination Chair Transfer Technique Stand Step Pivot Transfer Ability Level of Assist Moderate Assistance,Maximum Assistance,1 Person Assistance ,Use of Upper Extremities Comments Mobility Comments Checked on pt and agreed to do PT. No available FWW in ED. standard walker used instead. pt completed supine to sit SBA with HOB elevated. pt completed sit to stand mod A and pt completed step transfer to chair using std walker mod to max A with LOB towards end of transfer requiring max A for positioning and controlled descent to the chair. educated pt on alignment, posture, increase awareness of COG, steadiness and quad contraction on BLE and use of walker with FWW for support. pt completed sit to stand mod A and required mod to max A for standing balance using std walker. Tolerated ~ 6 sec of standing with increase LE shaking and pt needing to sit down. required max A for controlled descent. educated pt on techniques for safe transition from standing to sitting. pt agreed to stand again and completed mod A. Tolerated ~ 15 sec of standing using std walker for support mod A but still requires max A for controlled descent. educated pt again to steady trunk and LE and be able to contract muscles to be able to safely sit down and not just plop back. pt completed sit to stand again mod A and stood up for ~ 10 sec using std walker mod A and was able to reach and sit down with better control but still requires max A. pt stated that she is feeling tired but agreed to do seated exercises. pt completed quads sets and glute sets with 5 sec hold. call light and table placed within reach. M5 PT-IP Objective Assessments Start: 10/03/22 12:57 Freq: Status: Active Protocol: Document 10/03/22 10:41 AB (Rec: 10/03/22 13:13 AB [email or web address]) Orientation Orientation/Cognition Level of Alertness Alert Orientation Name,Place,Situation Language Function Ability No Deficits Noted Safety Awareness Decreased Safety Awareness Memory Description No Deficits Noted Gross Range of Motion Lower Extremity ROM Assessment Within Functional Limits Strength Lower Extremity Strength Assessment Bilaterally Impaired Hip 3+/5 Knee 3+/5 Ankle R foot drop Sensation Assessment Sensation Gross Sensation Right LE Impaired,Left LE Impaired Sensation Description Numbness Comments Sensation Comments RLE>LLE numbness from anterior thigh area all the way to feet Muscle Tone Muscle Tone WNL Yes M6 PT-IP Treatment Start: 10/03/22 12:57 Freq: Status: Active Protocol: Document 10/04/22 11:00 AB (Rec: 10/04/22 11:54 AB [email or web address]) Physical Therapy Treatment Exercises Exercises Gluteal Sets,Quad Sets Education Education Provided Safety M7 PT-IP Assessment and Plan Start: 10/03/22 12:57 Freq: Status: Active Protocol: Document 10/04/22 11:00 AB (Rec: 10/04/22 11:54 AB [email or web address]) PT Summary Assessment and Plan Potential Rehabilitation Potential Fair Summary Impairments Pain,ROM,Strength,Balance, Coordination,Sensation,Tone, Cognition,Bed Mobility, Transfers,Gait,Activity Tolerance Progress Towards Goals Slow Progress due to Pain,Slow Progress due to Activity Tolerance Assessment Summary pt continues to require mod to max A and max cues with mobility using std walker/FWW. pt with decrease activity tolerance and demonstrated increase LE shaking during static standing using std walker with 15 sec as the most pt was able to tolerate standing during tx session. pt will require SNF rehab to improve overall strength and mobility. Goals Bed Mobility Goal Minimal Assistance Transfer Goal Minimal Assistance,Front Wheeled Walker Gait Goal Minimal Assistance,Front Wheel Walker Gait Distance 50 Other Goals improve bed mobility, transfers and ambulation using FWW 150 ft SBA up/down 6 steps L rail SBA; 3 steps R rail SBA Days to Meet Goals 10 Frequency of Treatment Frequency Of Treatment Once a Day Treatment Plan Physical Therapy Treatment Plan Bed Mobility Training,Transfer Training,Gait Training, Therapeutic Exercise,Balance Retraining,Discharge Planning, Hot or Cold Pack,Neuromuscular Re-ed,Coordination Retraining ,Manual Therapy Precautions Lumbar Precautions Log Roll,No Twisting,Limit Bending,Lifting Restriction of 10 lbs Recommendations To Nursing Amount of Assist Needed 1 Person Assist Discharge Recommendations PT Discharge Recommendations SNF Rehab Transportation Needs at Discharge Wheelchair/Cabulance
[2022-10-04 11:55] VITALS: BP 136/76; PULSE 85; O2SAT 97
[2022-10-04 11:57] VITALS: RESP 16; TEMP 36.4
[2022-10-04] MEDS: PREGABALIN 75 MG CAPSULE 300 MG PO (12:33)
[2022-10-04] MEDS: DULOXETINE 30 MG CAPSULE 60 MG PO (12:34)
[2022-10-04] MEDS: LOSARTAN 50 MG TABLET PO (12:34)
[2022-10-04] MEDS: LEVOTHYROXINE 88 MCG TABLET PO (12:34)
[2022-10-04 12:52] VITALS: BP 145/68; PULSE 91; RESP 16; TEMP 36.6; O2SAT 98
[2022-10-04 12:55] LABS: COVID19 -Nasal RAPID Negative (Negative)
[2022-10-04] MEDS: ONDANSETRON 4 MG ODT SL (13:14)
--- NOTE | 2022-10-04 13:50 | CM.DPC ---
DCP Note continued PROTECTION CONSULTANT receives call from Crystal at [facility] rehab in [place], it is reported that they can accept patient today. PROTECTION CONSULTANT completes PASSR, and prepares SNF rehab d/c packet with signed med list, & SNF d/c summary orders from ED. PROTECTION CONSULTANT reviews this with patient and family, it is reported they can drive patient via POV and SNF accepts this mode of transportation and requests arrival before 1500. Patient d/c's from ED by 1335. PROTECTION CONSULTANT faxes SNF packet to facility and provides orignals in manilla envelope to family friend who will be transporting patient. Per request from patient, PROTECTION CONSULTANT calls patient's PCP and informs them of patient's transfer to SNF rehab facility. Plan: patient to d/c to SNF rehab facility at [facility] in [place] via POV. ELENI [place]
== END 2022-10-04 13:42 ==
PROVIDERS: Emergency Medicine; Emergency Provider Emergency Medicine; Family Provider Physician Assistant; PCP Physician Assistant
DX: M54.16 Radiculopathy, lumbar region (principal); R11.2 Nausea with vomiting, unspecified; Z20.822 Contact with and (suspected) exposure to COVID-19
CPT/HCPCS: 0241U; 36415; 72131; 80053; 85025; 87635; 96374; 96375; 96376; 97162; 97530; 99284; 99291; C9803; C9113; J1100; J1885; J2405